=== PATIENT | female | born 1995 | race Caucasian/White ===

== ENCOUNTER 2024-01-31 10:21 | Outpatient (OUT) | payer BC, SELFPAY ==
[2024-01-31 11:02] LABS: Basophils Absolute Auto 0.1 10^3/uL (0.0-0.1); Basophils Percent Auto 0.9 % (0.2-2.0); Eosinophils Absolute Auto 0.1 10^3/uL (0.0-0.7); Eosinophils Percent Auto 0.7 % (0.9-7.0); Hematocrit 40.5 % (36.0-48.0); Hemoglobin 13.4 g/dL (12.0-16.0); Immature Granulocytes Abs Auto 0.02 10^3/uL (0.00-0.03); Immature Granulocytes Pct Auto 0.3 % (0.0-0.5); Lymphocytes Absolute Auto 2.2 10^3/uL (1.2-3.8); Lymphocytes Percent Auto 32.4 % (20.5-60.0); Mean Corpuscular HGB Conc 33.1 g/dL (29.9-35.2); Mean Corpuscular Hemoglobin 28.9 pg (26.7-34.0); Mean Corpuscular Volume 87.3 fL (81.0-99.0); Mean Platelet Volume 9.9 fL (9.5-13.5); Monocytes Absolute Auto 0.4 10^3/uL (0.3-0.8); Monocytes Percent Auto 5.5 % (1.7-12.0); Neutrophils Absolute Auto 4.1 10^3/uL (1.4-6.5); Neutrophils Percent Auto 60.2 % (43.0-75.0); Platelet Count 236 10^3/uL (150-450); Red Blood Count 4.64 10^6/uL (4.20-5.40); Red Cell Distribution Width 13.3 % (11.0-15.0); White Blood Count 6.8 10^3/uL (4.0-11.0)
[2024-01-31 11:04] LABS: Estimated Average Glucose 108 mg/dL; Glycohemoglobin A1C 5.4 % (4.5-6.2)
[2024-01-31 11:30] LABS: HCG Quantitative <1 mIU/mL; Thyroid Stimulating Hormone 1.463 uIU/mL (0.358-3.740)
[2024-01-31 12:12] LABS: Free T4 0.96 ng/dL (0.76-1.46)
[2024-02-01 04:08] LABS: FSH 2.2 mIU/mL (.); Luteinizing Hormone(LH) 4.2 mIU/mL (.)
[2024-02-03 18:08] LABS: Anti-Mullerian Hormone (AMH) 1.81 ng/mL (.)
== END 2024-01-31 10:22 | disposition home or self-care (01) ==
LOC: LAB 10:28
PROVIDERS: Family Provider Family Medicine; Visit Provider Obstetrics & Gynecology
DX: N97.0 Female infertility associated with anovulation (principal)
CPT/HCPCS: 36415; 82397; 82626; 82627; 83001; 83002; 83036; 84439; 84443; 84702; 85025

== ENCOUNTER 2024-02-07 14:37 | Outpatient (OUT) | payer BC, SELFPAY ==
--- NOTE | 2024-02-07 14:39 | US_ITS ---
[address] [address] Patient Name: WILLIE LEGGETT MRN: [id number] date: 1995 Sex: F Assigned Patient Location: [facility] Current Patient Location: Accession/Order Number: [id number] Exam Date: 02/07/2024 14:40 Report Date: 02/08/2024 15:45 At the request of: CHARI SOLOMON Procedure: US pelvis w/ transvaginal EXAMINATION: US pelvis w/ transvaginal HISTORY: Anovulation N97.0 COMPARISON: No relevant comparison available. TECHNIQUE: Transabdominal and/or transvaginal sonographic examination was performed as indicated by examination type. FINDINGS: UTERUS: Normal size and echotexture. Anterior lower uterine wall scar 4 mm in thickness. Uterus size: ENDOMETRIUM: Normal homogeneous appearance. Endometrial thickness: RIGHT OVARY: Normal size and appearance. Contains a 2.0 cm cyst versus dominant follicle. Duplex Doppler demonstrates normal waveform and flow; resistive index 0.7. Ovary size: 2.9 x 2.6 x 2.5 cm LEFT OVARY: Irregular, heterogeneous appearance of left ovary. No significantly increased internal blood flow. Duplex Doppler demonstrates normal waveform and flow; resistive index 0.5. Ovary size: 4.0 x 3.1 x 2.4 cm CUL-DE-SAC: Unremarkable. No significant free fluid. BLADDER: Unremarkable. OTHER: None. US/US pelvis w/ transvaginal IMPRESSION: 1. Heterogeneous masslike appearance of left ovary of uncertain etiology. Neoplasm versus dermoid versus complex cyst. Follow-up ultrasound evaluation in 6 weeks is recommended to document regression versus persistence. Electronically authenticated by: NIKKI NGUYEN Date: 02/08/2024 15:45
== END 2024-02-07 14:38 | disposition home or self-care (01) ==
LOC: NOMS 14:37
PROVIDERS: Family Provider Family Medicine; Visit Provider Obstetrics & Gynecology
DX: N97.0 Female infertility associated with anovulation (principal)
CPT/HCPCS: 76830; 76856

== ENCOUNTER 2024-02-11 11:57 | Outpatient (OUT) | payer BC, SELFPAY ==
[2024-02-11 13:38] LABS: Lactate Dehydrogenase 133 U/L (81-234)
[2024-02-12 04:09] LABS: AFP, Serum, Tumor Marker 2.1 ng/mL (0.0-4.7); CEA 2.2 ng/mL (0.0-4.7); Cancer Antigen (CA) 125 21.8 U/mL (0.0-38.1); HCG Tumor Marker <1 mIU/mL (.)
== END 2024-02-11 11:58 | disposition home or self-care (01) ==
LOC: LAB 11:59
PROVIDERS: Family Provider Family Medicine; Visit Provider Obstetrics & Gynecology
DX: N83.299 Other ovarian cyst, unspecified side (principal)
CPT/HCPCS: 36415; 82105; 82378; 83615; 84702; 86304

== ENCOUNTER 2024-03-08 18:47 | Outpatient (OUT) | payer BC, SELFPAY ==
--- NOTE | 2024-03-08 18:50 | US_ITS ---
[address] [address] Patient Name: WILLIE LEGGETT MRN: [id number] date: 1995 Sex: F Assigned Patient Location: [place] Current Patient Location: Accession/Order Number: [id number] Exam Date: 03/08/2024 19:02 Report Date: 03/09/2024 07:46 At the request of: CHARI SOLOMON Procedure: US pelvis w/ transvaginal EXAMINATION: US pelvis w/ transvaginal HISTORY: COMPLEX OVARIAN CYST N83.299 COMPARISON: Ultrasound pelvis 02/07/2024 TECHNIQUE: Transabdominal and/or transvaginal sonographic examination was performed as indicated by examination type. FINDINGS: UTERUS: Hypoechoic 0.8 cm mass within the lower posterior uterine wall favoring a leiomyoma. Lower anterior uterine wall scar 0.5 cm in thickness. Uterus size: 8.9 x 4.5 x 5.5 cm ENDOMETRIUM: Normal homogeneous appearance. Endometrial thickness: 8 mm RIGHT OVARY: Contains a 1.8 cm cyst and a 2.0 cm simple cyst. Duplex Doppler demonstrates normal waveform and flow; resistive index 0.6. Ovary size: 3.3 x 3.1 x 3.2 cm LEFT OVARY: Contains a 3.1 cm complex cyst versus mass. Duplex Doppler demonstrates normal waveform and flow; resistive index 0.5. Ovary size: 4.3 x 2.6 x 3.1 cm CUL-DE-SAC: Unremarkable. No significant free fluid. BLADDER: Unremarkable. OTHER: None. US/US pelvis w/ transvaginal IMPRESSION: 1. Complex masslike appearance left ovary versus within left ovary; not significantly changed. Additional follow-up ultrasound evaluation in 6 weeks is recommended to document possible regression. If findings persists consider MRI for further evaluation. Electronically authenticated by: NIKKI NGUYEN Date: 03/09/2024 07:46
--- OUTSIDE RECORDS SUMMARY | 2024-03-08 18:51 | XMS_ITS | CCD ---
Author Organization [facility] Care Team Providers Care Teleradiologist Name Role Phone Daija Howard Primary Care Provi tex PAUL GARCIA Referring Unavailable GREENSLADE-CHEL, DAIJA L Primary Care Un available POOL, SUZY E Referring Unavailable GREENSLADE-CHEL, DAIJA L Primary Care Un available POOL, SUZY E Referring Unavailable GREENSLADE-CHEL, DAIJA L Primary Care Un available LEEANN HIDALGO Attending Unavailable GREENSLADE-CHEL, DAIJA L Primary Care Un available POOL, SUZY E Attending Unavailable GREENSLADE-CHEL, DAIJA L Primary Care Un available POOL, SUZY E Admitting Unavailable POOL, SUZY E Attending Unavailable JOSE EARL Admitting Unavailable GREENSLADE-CHEL, DAIJA L Primary Care Un available POOL, SUZY E Referring Unavailable GREENSLADE-CHEL, DAIJA L Primary Care Un available PAUL GARCIA Referring Unavailable GREENSLADE-CHEL, DAIJA L Primary Care Un available POOL, SUZY E Referring Unavailable GREENSLADE-CHEL, DAIJA L Primary Care Un available POOL, SUZY E Referring Unavailable GREENSLADE-CHEL, DAIJA L Primary Care Un available GREENSLADE-CHEL, DAIJA L Primary Care Un available POOL, SUZY E Referring Unavailable GREENSLADE-CHEL, DAIJA L Primary Care Un available POOL, SUZY E Referring Unavailable ERNIE ZURITA Attending Unavailable CHARI SOLOMON Attending Unavailable CHARI SOLOMON Attending Unavailable Medications Current Medications Medication Drug Class(es) Dates Sig (Normalized) Sig (Original) acetaminophen 325 mg / butalbital 50 mg / caffeine 40 mg oral tablet (7 sources) Barbiturate, Central Nervous System Stimulant, Methylxanthine Start: 05-08-2021 butalbital-aceta minophen-caffein e (FIORICET, ESGIC) per tablet 1 tablet Start: 10-02-2020 take 1 tablet by mouth every six hours as needed for headache uzcixbyozi-wwjoppayyovwd-pnjymipx (YAMIL CET, ESGIC) 50-325-40 MG per tablet Take 1 tablet by mouth every 6 hours as needed for Headaches 30 tablet 1 10/02/2020 Active azithromycin 250 mg oral tablet (2 sources) Macrolide Antimicrobial Start: 05-21-2021 azithromycin (ZITHROMAX) 250 MG tablet Indications: Abnormal uterine bleeding, Take 2 tabs (500 mg) on Day 1, and take 1 tab (250 mg) on days 2 through 5. 1 packet 0 05/21/2021 Active calcium chloride 0.0014 meq/ml / potassium chloride 0.004 meq/ml / sodium chloride 0.103 meq/ml / sodium lactate 0.028 meq/ml injectable solution (1 source) Start: 05-08-2021 lactated ringers infusion docusate sodium 100 mg oral capsule (2 sources) Start: 05-14-2021 take 1 capsule by mouth twice daily as needed for constipation docusate sodium (COLACE) 100 MG capsule Take 1 capsule by mouth 2 times daily as needed for Constipation 30 capsule 0 05/14/2021 Active ibuprofen 800 mg oral tablet (2 sources) Nonsteroidal Anti-inflammatory Drug Start: 05-14-2021 take 1 tablet by mouth every eight hours ibuprofen (ADVIL;MOTRIN) 800 MG tablet Take 1 tablet by mouth every 8 hours 120 tablet 3 05/14/2021 Active ondansetron 4 mg oral tablet (4 sources) Serotonin-3 Receptor Antagonist Start: 05-05-2021 take 1 tablet by mouth every eight hours as needed for nausea and vomiting ondansetron (ZOFRAN) 4 MG tablet TAKE ONE TABLET BY MOUTH EVERY 8 HOURS NEEDED FOR NAUSEA AND VOMITING 30 tablet 0 05/05/2021 Active Start: 11-07-2020 take 1 tablet by [facility] every eight hours as needed for nausea and vomiting ondansetron (ZOFRAN) 4 MG tablet TAKE ONE TABLET BY MOUTH EVERY 8 HOURS NEEDED FOR NAUSEA AND VOMITING 30 tablet 0 11/07/2020 Active Vit-Fe Fumarate-FA ( VITAMIN PO) (8 sources) Vit-Fe Fumarate-FA ( VITAMIN PO) Take by mouth 0 Active Completed/Discontinued Medications Medication Drug Class(es) Dates Sig (Normalized) Sig (Original) acetaminophen 500 mg oral tablet (2 sources) Start: 05-08-2021 End: 05-08-2021 acetaminophen (TYLENOL) tablet 1,000 mg Start: 05-08-2021 End: 05-08-2021 acetaminophen (TYLENOL) tabl et 1,000 mg 1 ml ketorolac tromethamine 15 mg/ml cartridge (1 source) Nonsteroidal Anti-inflammatory Drug, Cyclooxygenase Inhibitor Start: 05-25-2021 End: 05-25-2021 ketorolac (TORADOL) injection 30 mg rho(d) immune globulin, human 1500 unt prefilled syringe (1 source) Human Immunoglobulin G Start: 02-26-2021 End: 02-26-2021 rho(D) immune globulin (HYPERRHO S/D) injection 300 mcg 50 ml sodium chloride 9 mg/ml injection (1 source) Start: 05-25-2021 End: 05-25-2021 0.9 % sodium chloride bolus Problems Active Problems Problem Classification Problem Date Documented Da te Episodic/Chronic Diabetes or abnormal glucose tolerance complicating ; childbirth; or the puerperium (1 source) Impaired glucose tolerance in ; Translations: [Abnormal glucose complicating ] Episodic Female infertility (2 sources) Female infertility associated with anovulation; Translations: [Female infertility, unspecified] Onset: 10-14-2023 Chronic Immunizations and screening for infectious disease (5 sources) Anti-D globulin needed; Translations: [Encounter for prophylactic Rho(D) immune globulin] Onset: 05-08-2021 Episodic Menstrual disorders (2 sources) Amenorrhea; Translations: [Amenorrhea] Chronic Other complications of ; puerperium affecting management of mother (1 source) hemorrhage; Translations: [Other immediate hemorrhage] Episodic Other complications of (2 sources) data - finding; Translations: [Unspecified abnormal findings on screening of mother] Onset: 05-11-2021 05-11-2021 Episodic Other female genital disorders (1 source) Vaginal bleeding; Translations: [Abnormal uterine and vaginal bleeding, unspecified] Chronic Other and delivery including normal (4 sources) Urine test positive; Translations: [Normal ] Episodic Residual codes; unclassified (1 source) Gestation period, 27 weeks; Translations: [27 weeks gestation of ] Episodic Residual codes; unclassified (1 source) Gestation period, 36 weeks; Translations: [36 weeks gestation of ] Episodic Residual codes; unclassified (4 sources) Gestation period, 37 weeks; Translations: [37 weeks gestation of ] Onset: 05-08-2021 Episodic Past or Other Problems Problem Classification Problem Date Documented Da te Episodic/Chronic Residual codes; unclassified (2 sources) Gestation period, 38 weeks; Translations: [38 weeks gestation of ] Onset: 05-11-2021 Resolved: 05-21-2021 05-21-2021 Episodic NEGATED: Highlighted row has been ruled out!Unclassified (3 sources) No known active problems Results Test Name Value Interpretation Reference Range Facility HCG, Quanton 12-22-2023 HCG, Quant <1.0 Normal <5 [facility] Comment on above: Result Comment: Non-preg premeno <=5 Postmeno <=8 Male <=3 If HCG results do not concur with clinical observations, additional testing to confirm results is recommended. Performed By: #### B HCG #### [facility] [address] [place] [address] House Builder: Bhanu Chambers MD XR HYSTEROSALPINGOGRAPHY S A ND Ion 12-22-2023 XR HYSTEROSALPINGOGRAPHY S AND I EXAMINATION: FLUOROSCOPIC HYSTEROSALPINGOGRAM 12/22/2023 10:32 am TECHNIQUE: Informed consent was obtained and universal protocol was observed. Fluoroscopic hysterosalpingogram was performed after cannulization of the cervix and administration of contrast into the uterine cavity. FLUOROSCOPY DOSE AND TYPE: Fluoroscopy time-0.8 minute Radiation Exposure Index: Kerma mGy, 11.59 COMPARISON: none HISTORY: ORDERING SYSTEM PROVIDED HISTORY: Secondary infertility, female TECHNOLOGIST PROVIDED HISTORY: Secondary infertility Reason for Exam: Evaluate for infertility; fluoro time 0.8 min; 11.59 mGy FINDINGS: There is normal opacification of the fallopian tubes with free spill of contrast into the peritoneal cavity bilaterally. There is normal filling of the endometrial cavity without evidence of endometrial filling defect. IMPRESSION: Normal hysterosalpingogram. Interpreted by: Gal Blair MD Signed by: Gal Blair MD 12/22/23 Final result Normal [facility] Progesteroneon 10-15-2023 Progesterone 25.40 ng/mL Normal [facility] Comment on above: Result Comment: Female: Follicular phase <0.19 ng/mL Ovulation phase 0.06-4.14 ng/mL Luteal phase 4.11-14.5 ng/mL Postmenopausal <0.13 ng/mL Performed By: #### P ANDREW #### [address] [place] [address] House Builder: Bhanu Chambers MD Lab - Toxicology Resultson 0 01-20-2022 Lab - Toxicology Results [id number] [facility] Measles/Mumps/Rubella Immuni ty LCon 01-20-2022 Mumps Abs, IgG LC 146.0 AU/mL Invalid Interpretation Code Immune >10.9 [facility] Comment on above: Result Comment: Nega tive <9.0 Equivocal 9.0 - 10.9 Positive >10.9 A positive result generally indicates past exposure to Mumps virus or previous vaccination. Performed At: [facility] [id number] Breanna Mendoza PhD Ph:[phone] Performed By: #### 1 [id number], [id number] #### (DEFAULT) [address] [place] [address] Rubella Antibodies, IgG LC 3.65 index Invalid Interpretation Code Immune >0.99 [facility] Comment on above: Result Comment: Non- immune <0.90 Equivocal 0.90 - 0.99 Immune >0.99 Performed By: #### 1 [id number], [id number] #### (DEFAULT) [address] [place] [address] Rubeola Ab, IgG, EIA LC 41.4 AU/mL Invalid Interpretation Code Immune >16.4 [facility] Comment on above: Result Comment: Nega tive <13.5 Equivocal 13.5 - 16.4 Positive >16.4 Presence of antibodies to Rubeola is presumptive evidence of immunity except when acute infection is suspected. Performed By: #### 1 [id number], [id number] #### (DEFAULT) [address] [place] [address] Nicotine Metabolite, Urine L Con 01-20-2022 Cotinine LC Negative Invalid Interpretation Code [id number] [facility] Comment on above: Result Comment: Perf ormed At: [facility] [address] [place], [place] [id number] Ranjith Rendon PhD Ph:[phone] Performed By: #### 1 [id number] #### (DEFAULT) [address] [place] [address] HBSab Qnt LCon 01-18-2022 Hep B Surf Ab Quant LC >1000.0 Invalid Interpretation Code Immunity>9.9 [facility] Comment on above: Result Comment: Stat us of Immunity Anti-HBs Level Inconsistent with Immunity 0.0 - 9.9 Consistent with Immunity >9.9 Performed At: [facility] [address] [id number] Breanna Mendoza PhD Ph:[phone] Performed By: #### 1 [id number], [id number] #### (DEFAULT) [address] [place] [address] Cytologyon 09-29-2021 Cytology (NOTE) INTERPRETATION Cervical material, (ThinPrep vial, Imaging-assisted review): Specimen Adequacy: Satisfactory for evaluation. - Endocervical/transformatio n zone component present. Descriptive Diagnosis: Negative for intraepithelial lesion or malignancy. Acetylene Torch Solderer: VALENTE MARCUS(ASCP) Electronically Signed Out /10/07/2021 Source: A: Cervical material, (ThinPrep vial, Imaging-assisted review) Clinical History Z01.419 Routine tobacco warehouse manager exam without abnormal findings High risk HPV DNA testing is requested if the diagnosis is abnormal GYNECOLOGIC CYTOLOGY REPORT Patient Name: WILLIE LEGGETT [facility] [place] Rec: [id number] Path Number: [id number] [facility] ANAT[facility] PATHOLOG[facility] [address] [place] [id number] Normal [facility] Comment on above: Performed By: #### D AU #### [facility] [address] [place] [address] [place] [address] House Builder: Sami Abbasi MD APTTon 05-25-2021 aPTT Coag (Bld) [Time] 44.1 s High 23.9-33.8 [facility] Comment on above: Result Comment: IV Heparin Therapy Range: 62.0-94.0 Performed By: #### C DP #### [facility] [address] [place] [address] [place] [address] House Builder: Sami Abbasi MD APTTOrdered By: Leeann Hidalgo on 05-25-2021 aPTT Coag (Bld) [Time] 44.1 s High [facility] [employer] Phone: Comment on above: IV Heparin Therapy Range: 62.0-94.0 Interpretation and review of laboratory results Abnormal [employer] Phone: Bandwidth Phone: CBC Auto DifferentialOrdered By: Leeann Hidalgo on 05-25-2021 Absolute Eos # 0.09 [employer] Phone: Absolute Immature Granulocyte 0.04 Band[employer] Phone: Absolute Lymph # 2.13 Band[employer] Phone: Absolute Burnett # 0.61 [employer] Phone: Basophils (Bld) [#/Vol] 0.07 10*3/uL [employer] Phone: Basophils/100 WBC (Bld) 1 % 0 - 2 % M Going Phone: Differential Type NOT REPORTED [employer] Phone: Eosinophils/100 WBC (Bld) 1 % 1 - 4 % Band[employer] Phone: Hematocrit (Bld) [Volume fraction] 31.0 % Low 36.3 - 47.1 % [employer] Phone: Hemoglobin.gastrointest inal spec 1 Ql (Stl) 9.8 g/dL Low 11.9 - 15.1 g/dL [employer] Phone: Immature granulocytes/100 WBC (Bld) 1 % High 0 [employer] Phone: Interpretation and review of laboratory results Abnormal [employer] Phone: Lymphocytes/100 WBC (Bld) 25 % 24 - 43 % [employer] Phone: MCH (RBC) [Entitic mass] 29.0 pg 25.2 - 33.5 pg [employer] Phone: MCHC (RBC) [Mass/Vol] 31.6 g/dL 28.4 - 34.8 g/dL [employer] Phone: MCV (RBC) [Entitic vol] 91.7 fL 82.6 - 102.9 fL [employer] Phone: Monocytes/100 WBC (Bld) 7 % 3 - 12 % M Going Phone: NRBC Automated 0.0 0.0 per 100 WBC [employer] Phone: Platelet distribution width (Bld) [Ratio] 14.7 % High 11.8 - 14.4 % Band[employer] Phone: Platelet Estimate NOT REPORTED [employer] Phone: Platelet mean volume (Bld) [Entitic vol] 8.0 fL Low 8.1 - 13.5 fL [employer] Phone: Platelets (Bld) [#/Vol] 399 10*3/uL [facility]: RBC (Bld) [#/Vol] 3.38 10*6/uL Low 3.95 - 5.1 1 m/uL [facility] Phone: RBC (Bld) [#/Vol] NOT REPORTED [employer] Phone: Segmented neutrophils/100 WBC (Bld) 65 % 36 - 65 % Band[employer] Phone: Segs Absolute 5.57 [facility] Phone: WBC (Bld) [#/Vol] 8.5 10*3/uL [employer] Phone: WBC (Bld) [#/Vol] NOT REPORTED Bandwidth Phone: Bandwidth Phone: CBC with Diffon 05-25-2021 Abs. Basophil 0.07 k/uL Normal 0.00-0.20 [facility] Comment on above: Performed By: #### C FELICIANO VILCHIS, LIP #### [address] [place], [id number] House Builder: Sami Abbasi MD Abs.Imm.Granulocyte 0.04 k/uL Normal 0.00-0.30 [facility] Comment on above: Performed By: #### C FELICIANO VILCHIS, LIP #### [address] [place], [place] [id number] House Builder: Sami Abbasi MD Abs.Neutrophil (Seg) 5.57 k/uL Normal 1.50-8.10 [facility] Comment on above: Performed By: #### C DENG CP, LIP #### [address] [place], [place] [phone] House Builder: Sami Abbasi MD Basophils/100 WBC (Bld) 1 % Normal 0-2 [facility] Comment on above: Performed By: #### C DP, CP, LIP #### [address] [place] [address] House Builder: Sami Abbasi MD Eosinophils (Bld) [#/Vol] 0.09 10*3/uL Normal 0.00-0.44 [facility] Comment on above: Performed By: #### C DP, CP, LIP #### [address] [place], [place] [address] House Builder: Sami Abbasi MD Eosinophils/100 WBC (Bld) 1 % Normal 1-4 [facility] Comment on above: Performed By: #### C DP, CP, LIP #### [address] [place] [address] House Builder: Sami Abbasi MD Erythrocyte distribution width (RBC) [Ratio] 14.7 % High 11.8-14.4 [facility] Comment on above: Performed By: #### C DP, CP, LIP #### [address] [place] [address] House Builder: Sami Abbasi MD Hematocrit (Bld) [Volume fraction] 31.0 % Low 36.3-47.1 [facility] Comment on above: Performed By: #### C DP, CP, LIP #### [address] [place], [place] [address] House Builder: Sami Abbasi MD Hemoglobin (Bld) [Mass/Vol] 9.8 g/dL Low 11.9-15.1 [facility] Comment on above: Performed By: #### C DP, CP, LIP #### [address] [place], [id number] House Builder: Sami Abbasi MD Immature granulocytes/100 WBC (Bld) 1 % High 0 [facility] Comment on above: Performed By: #### C DP, CP, LIP #### [facility] [address] [place] [address] House Builder: Sami Abbasi MD Lymphocytes (Bld) [#/Vol] 2.13 10*3/uL Normal 1.10-3.70 [facility] Comment on above: Performed By: #### C DP, CP, LIP #### [address] [place], [place] [address] House Builder: Sami Abbasi MD Lymphocytes/100 WBC (Bld) 25 % Normal 24-43 [facility] Comment on above: Performed By: #### C DP CP, LIP #### [address] [place], [id number] House Builder: Sami Abbasi MD MCH (RBC) [Entitic mass] 29.0 pg Normal 25.2-33.5 [facility] Comment on above: Performed By: #### C DP CP, LIP #### [address] [place], [id number] House Builder: Sami Abbasi MD MCHC (RBC) [Mass/Vol] 31.6 g/dL Normal 28.4-34.8 [facility] Comment on above: Performed By: #### C DP CP, LIP #### [address] [place], [place] [address] House Builder: Sami Abbasi MD MCV (RBC) [Entitic vol] 91.7 fL Normal 82.6-102.9 M [facility] Comment on above: Performed By: #### C DP CP, LIP #### [address] [place], [place] [id number] House Builder: Sami Abbasi MD Monocytes (Bld) [#/Vol] 0.61 10*3/uL Normal 0.10-1.20 [facility] Comment on above: Performed By: #### C DP, CP, LIP #### [facility] [address] [place], [id number] House Builder: Sami Abbasi MD Monocytes/100 WBC (Bld) 7 % Normal 3-12 M [facility] Comment on above: Performed By: #### C DP, CP, LIP #### [facility] [address] [place], [id number] House Builder: Sami Abbasi MD Neutrophil (Seg) 65 % Normal 36-65 [facility] Comment on above: Performed By: #### C DP, CP, LIP #### [facility] [address] [place] [address] House Builder: Sami Abbasi MD NRBC Automated 0.0 per 100 WBC Normal 0.0 [facility] Comment on above: Performed By: #### C DP, CP, LIP #### [address] [place], [place] [address] House Builder: Sami Abbasi MD Platelet mean volume (Bld) [Entitic vol] 8.0 fL Low 8.1-13.5 [facility] Comment on above: Performed By: #### C DP, CP, LIP #### [address] [place], [place] [address] House Builder: Sami Abbasi MD Platelets (Bld) [#/Vol] 399 10*3/uL Normal 138-453 [facility] Comment on above: Performed By: #### C DP, CP, LIP #### [address] [place], [id number] House Builder: Sami Abbasi MD RBC (Bld) [#/Vol] 3.38 10*6/uL Low 3.95-5.11 [facility] Comment on above: Performed By: #### C DP, CP, LIP #### [address] [place] [id number] House Builder: Sami Abbasi MD WBC (Bld) [#/Vol] 8.5 10*3/uL Normal 3.5-11.3 [facility] Comment on above: Performed By: #### C DP, CP, LIP #### [facility] [address] [place] [address] House Builder: Sami Abbasi MD Auto Diff Performed NOT REPORTED Normal [facility] Comment on above: Performed By: #### C DP, CP, LIP #### [facility] [address] [place] [address] [place] [address] House Builder: Sami Abbasi MD Platelet Estimate NOT REPORTED Normal [facility] Comment on above: Performed By: #### C DP, CP, LIP #### [address] [place] [address] House Builder: Sami Abbasi MD RBC morphology finding Nom (Bld) NOT REPORTED Normal [facility] Comment on above: Performed By: #### C DP, CP, LIP #### [address] [place], [id number] House Builder: Sami Abbasi MD WBC Morphology NOT REPORTED Normal [facility] Comment on above: Performed By: #### C DP, CP, LIP #### [facility] [address] [place] [address] Dr. [place], [place] [address] House Builder: Sami Abbasi MD Comp Metabolic Profon 2020 (cont.) Normal [facility] Comment on above: Result Comment: Aver age GFR for 20-29 years old: 116 mL/min/1.73sq m Chronic Kidney Disease: <60 mL/min/1.73sq m Kidney failure: <15 mL/min/1.73sq m eGFR calculated using average adult body mass. Additional eGFR calculator available at: http://www.[employer]/multiple_crcl_2011.htm Performed By: #### C DP, CP, LIP #### [facility] [address] [place], [place] [id number] House Builder: Sami Abbasi MD Albumin [Mass/Vol] 3.4 g/dL Low 3.5-5.2 [facility] Comment on above: Performed By: #### C DP, CP, LIP #### [facility] [address] [place], [place] [id number] House Builder: Sami Abbasi MD Albumin/Glob Ratio 1.0 Normal 1.0-2.5 [facility] Comment on above: Performed By: #### C DP, CP, LIP #### [address] [place], [place] [phone] House Builder: Sami Abbasi MD Alkaline Phos 108 U/L High 35-104 [facility] Comment on above: Performed By: #### C DP, CP, LIP #### [facility] [address] [place] [address] Dr. [place], [place] [phone] House Builder: Sami Abbasi MD ALT [Catalytic activity/Vol] 12 U/L Normal 5-33 [facility] Comment on above: Performed By: #### C DP, CP, LIP #### [address] [place], [place] [id number] House Builder: Sami Abbasi MD Anion gap [Moles/Vol] 11 mmol/L Normal 9-17 [facility] Comment on above: Performed By: #### C DP, CP, LIP #### [facility] [address] [place] [address] Dr. [place], [place] [phone] House Builder: Sami Abbasi MD AST [Catalytic activity/Vol] 19 U/L Normal <32 [facility] Comment on above: Performed By: #### C DP, CP, LIP #### [facility] [address] [place], [place] [id number] House Builder: Sami Abbasi MD Bilirubin [Mass/Vol] 0.21 mg/dL Low 0.3-1.2 [facility] Comment on above: Performed By: #### C DP, CP, LIP #### [facility] [address] [place], [place] [phone] House Builder: Sami Abbasi MD BUN/CRE Ratio 43 High 9-20 [facility] Comment on above: Performed By: #### C DP, CP, LIP #### [facility] [address] [place] [address] House Builder: Sami Abbasi MD Calcium [Mass/Vol] 9.0 mg/dL Normal 8.6-10.4 [facility] Comment on above: Performed By: #### C DP, CP, LIP #### [facility] [address] [place], [id number] House Builder: Sami Abbasi MD Chloride [Moles/Vol] 106 mmol/L Normal 98-107 [facility] Comment on above: Performed By: #### C DP, CP, LIP #### [facility] [address] [place] [address] House Builder: Sami Abbasi MD CO2 [Moles/Vol] 23 mmol/L Normal 20-31 [facility] Comment on above: Performed By: #### C DP, CP, LIP #### [facility] [address] [place], [place] [id number] House Builder: Sami Abbasi MD Creatinine [Mass/Vol] 0.46 mg/dL Low 0.50-0.90 [facility] Comment on above: Performed By: #### C DP, CP, LIP #### [facility] [address] [place], [place] [phone] House Builder: Sami Abbasi MD GFR, Amer >60 Normal >60 [facility] Comment on above: Performed By: #### C DP, CP, LIP #### [facility] [address] [place] [address] House Builder: Sami Abbasi MD GFR,non Amer >60 Normal >60 [facility] Comment on above: Performed By: #### C DP, CP, LIP #### [facility] [address] [place] [address] House Builder: Sami Abbasi MD Glucose [Mass/Vol] 101 mg/dL High 70-99 [facility] Comment on above: Performed By: #### C DP, CP, LIP #### [facility] [address] [place] [address] House Builder: Sami Abbasi MD Potassium [Moles/Vol] 3.8 mmol/L Normal 3.7-5.3 [facility] Comment on above: Performed By: #### C DP, CP, LIP #### [facility] [address] [place] [address] [place] [address] House Builder: Sami Abbasi MD Protein [Mass/Vol] 6.9 g/dL Normal 6.4-8.3 [facility] Comment on above: Performed By: #### C DP, CP, LIP #### [address] [place] [address] House Builder: Sami Abbasi MD Sodium [Moles/Vol] 140 mmol/L Normal 135-144 [facility] Comment on above: Performed By: #### C DP, CP, LIP #### [facility] [address] [place] [address] [place] [place], [place] [id number] House Builder: Sami Abbasi MD Staging: Normal [facility] Comment on above: Result Comment: Stag e 1: Some kidney damage normal GFR Stage 2: Mild kidney damage GFR 60-89 Stage 3: Moderate kidney damage GFR 30-59 Stage 4: Severe kidney damage GFR 15-29 Stage 5: Severe kidney damage GFR <15 ESRD - chronic treatment by dialysis or transplant Performed By: #### C DP, CP, LIP #### [facility] [address] [place] [address] House Builder: Sami Abbasi MD Urea nitrogen [Mass/Vol] 20 mg/dL Normal 6-20 [facility] Comment on above: Performed By: #### C DP, CP, LIP #### [facility] [address] [place] [address] House Builder: Sami Abbasi MD Comprehensive Metabolic Pane lOrdered By: Leeann Hidalgo on 05-25-2021 Albumin [Mass/Vol] 3.4 g/dL Low 3.5 - 5.2 g/dL [employer] Phone: Albumin/Globulin [Mass ratio] 1.0 {ratio} [employer] Phone: ALP (Bld) [Catalytic activity/Vol] 108 U/L High 35 - 104 [facility]: ALT [Catalytic activity/Vol] 12 U/L 5 - 33 U/L [facility] Phone: Anion gap [Moles/Vol] 11 mmol/L 9 - 17 mmol/L [employer] Phone: AST [Catalytic activity/Vol] 19 U/L <32 [employer] Phone: Bilirubin [Mass/Vol] 0.21 mg/dL Low 0.3 - 1 .2 mg/dL [employer] Phone: Calcium [Mass/Vol] 9.0 mg/dL 8.6 - 10. 4 mg/dL [employer] Phone: Chloride [Moles/Vol] 106 mmol/L 98 - 10 7 mmol/L [employer] Phone: CO2 [Moles/Vol] 23 mmol/L 20 - 31 mmol/L [employer] Phone: Creatinine [Mass/Vol] 0.46 mg/dL Low 0.50 - 0.90 mg/dL [employer] Phone: Free PSA/Total PSA [Mass fraction] 6.9 g/dL 6.4 - 8.3 g/dL [employer] Phone: GFR >60 >60 mL/min [employer] Phone: GFR Non- >60 >60 mL/min [employer] Phone: Glucose [Mass/Vol] 101 mg/dL High 70 - 99 mg/dL [employer] Phone: Interpretation and review of laboratory results Abnormal [employer] Phone: Potassium [Moles/Vol] 3.8 mmol/L 3.7 - 5.3 mmol/L [employer] Phone: Sodium [Moles/Vol] 140 mmol/L 135 - 144 mmol/L [employer] Phone: Urea nitrogen (BldV) [Mass/Vol] 20 mg/dL 6 - 20 mg/dL [employer] Phone: Urea nitrogen/Creatinine (Bld) [Mass ratio] 43 High [employer] Phone: Laboratory - Chemistry and C hemistry - challengeOrdered By: Leeann Hidalgo on 05-25-2021 GFR/1.73 sq M.predicted MDRD (S/P/Bld) [Vol rate/Area] [employer] Phone: Comment on above: Average GFR for 20-2 9 years old: 116 mL/min/1.73sq m Chronic Kidney Disease: <60 mL/min/1.73sq m Kidney failure: <15 mL/min/1.73sq m eGFR calculated using average adult body mass. Additional eGFR calculator available at: http://www.[employer]/multiple_crcl_2012.htm Stage 1: Some kidney damage normal GFR Stage 2: Mild kidney damage GFR 60-89 Stage 3: Moderate kidney damage GFR 30-59 Stage 4: Severe kidney damage GFR 15-29 Stage 5: Severe kidney damage GFR <15 ESRD - chronic treatment by dialysis or transplant Lipaseon 05-25-2021 Lipase [Catalytic activity/Vol] 32 U/L Normal 13-60 [facility] Comment on above: Performed By: #### C DP, CP, LIP #### [facility] [address] [place] [address] [place] [address] House Builder: Sami Abbasi MD LipaseOrdered By: Leeann Sánchez dd on 05-25-2021 Lipase [Catalytic activity/Vol] 32 U/L 13 - 60 U/L [facility] [employer] Phone: No Panel InformationOrdered By: Leeann Hidalgo on 05-25-2021 [facility] [employer] Phone: PTon 05-25-2021 INR Coag (PPP) [Relative time] 1.1 {INR} Normal [facility] Comment on above: Result Comment: Non-therapeutic Range: INR = 0.9-1.2 Therapeutic Range: Moderate Anticoagulant Intensity: INR = 2.0-3.0 High Anticoagulant Intensity: INR = 2.5-3.5 Performed By: #### C DP #### [address] [place] [address] House Builder: Sami Abbasi MD PTOrdered By: Leeann polk 05-25-2021 PT Coag (PPP) [Time] 14.1 s Normal 11.5-14.2 [facility] [employer] Phone: Comment on above: Performed By: #### C DP #### [address] [place] [address] House Builder: Sami Abbasi MD Protime-INROrdered By: Jesica Hidalgo on 05-25-2021 INR Coag (Bld) [Relative time] 1.1 {INR} [facility] Phone: Comment on above: Non-therapeutic Range: INR = 0.9-1.2 Therapeutic Range: Moderate Anticoagulant Intensity: INR = 2.0-3.0 High Anticoagulant Intensity: INR = 2.5-3.5 [employer] Phone: TYPE AND SCREENOrdered By: Arturo Hidalgo on 05-25-2021 ABO/Rh Negative [employer] Phone: Arm Band Number [id number] [employer] Phone: Expiration Date 05/28/2021,235 [employer] Phone: [employer] Phone: Type + Screenon 05-25-2021 Type + Screen Sample Expiration 05/28/2021,235 Arm Band Number [id number] ABO/Rh(D) A NEGATIVE Antibody Screen NEGATIVE Normal [facility] Comment on above: Performed By: #### C DP #### [facility] [address] [place] [address] House Builder: Sami Abbasi MD CBC Auto DifferentialOrdered By: Paul Garcia on 05-21-2021 Absolute Eos # 0.11 [employer] Phone: Absolute Immature Granulocyte 0.08 [employer] Phone: Absolute Lymph # 1.80 [employer] Phone: Absolute Burnett # 0.75 [employer] Phone: Basophils (Bld) [#/Vol] 0.06 10*3/uL [employer] Phone: Basophils/100 WBC (Bld) 1 % 0 - 2 % [employer] Phone: Differential Type NOT REPORTED [employer] Phone: Eosinophils/100 WBC (Bld) 1 % 1 - 4 % [employer] Phone: Hematocrit (Bld) [Volume fraction] 30.7 % Low 36.3 - 47.1 % [employer] Phone: Hemoglobin.gastrointest inal spec 1 Ql (Stl) 9.8 g/dL Low 11.9 - 15.1 g/dL [employer] Phone: Immature granulocytes/100 WBC (Bld) 1 % High 0 [employer] Phone: Interpretation and review of laboratory results Abnormal [employer] Phone: Lymphocytes/100 WBC (Bld) 20 % Low 24 - 43 % [employer] Phone: MCH (RBC) [Entitic mass] 29.6 pg 25.2 - 33.5 pg [employer] Phone: MCHC (RBC) [Mass/Vol] 31.9 g/dL 28.4 - 34.8 g/dL [employer] Phone: MCV (RBC) [Entitic vol] 92.7 fL 82.6 - 102.9 fL [employer] Phone: Monocytes/100 WBC (Bld) 9 % 3 - 12 % [employer] Phone: NRBC Automated 0.0 0.0 per 100 WBC [employer] Phone: Platelet distribution width (Bld) [Ratio] 14.9 % High 11.8 - 14.4 % [employer] Phone: Platelet Estimate NOT REPORTED [employer] Phone: Platelet mean volume (Bld) [Entitic vol] 8.2 fL 8.1 - 13.5 fL [employer] Phone: Platelets (Bld) [#/Vol] 465 10*3/uL High [employer] Phone: RBC (Bld) [#/Vol] 3.31 10*6/uL Low 3.95 - 5.1 1 m/uL [employer] Phone: RBC (Bld) [#/Vol] NOT REPORTED [employer] Phone: Segmented neutrophils/100 WBC (Bld) 68 % High 36 - 65 % [facility] [employer] Phone: Segs Absolute 6.06 [facility] [employer] Phone: WBC (Bld) [#/Vol] 8.9 10*3/uL [facility] [employer] Phone: WBC (Bld) [#/Vol] NOT REPORTED [facility] Phone: [facility] Phone: CBC with Diffon 05-21-2021 Abs. Basophil 0.06 k/uL Normal 0.00-0.20 [facility] Comment on above: Performed By: #### C DP #### [facility] [address] [place] [address] [place] [id number] House Builder: Saim Abbasi MD Abs.Imm.Granulocyte 0.08 k/uL Normal 0.00-0.30 [facility] Comment on above: Performed By: #### C DP #### [facility] [address] [place] [address] [place] [address] House Builder: Sami Abbasi MD Abs.Neutrophil (Seg) 6.06 k/uL Normal 1.50-8.10 [facility] Comment on above: Performed By: #### C DP #### [facility] [address] [place] [address] Dr. [place], [id number] House Builder: Sami Abbasi MD Basophils/100 WBC (Bld) 1 % Normal 0-2 M [facility] Comment on above: Performed By: #### C DP #### [facility] [address] [place] [address] [place] [address] House Builder: Sami Abbasi MD Eosinophils (Bld) [#/Vol] 0.11 10*3/uL Normal 0.00-0.44 [facility] Comment on above: Performed By: #### C DP #### [facility] [address] [place], [place] [id number] House Builder: Sami Abbasi MD Eosinophils/100 WBC (Bld) 1 % Normal 1-4 [facility] Comment on above: Performed By: #### C DP #### [facility] [address] [place] [address] Dr. [place], [place] [phone] House Builder: Sami Abbasi MD Erythrocyte distribution width (RBC) [Ratio] 14.9 % High 11.8-14.4 [facility] Comment on above: Performed By: #### C DP #### [address] [place], [id number] House Builder: Sami Abbasi MD Hematocrit (Bld) [Volume fraction] 30.7 % Low 36.3-47.1 [facility] Comment on above: Performed By: #### C DP #### [facility] [address] [place] [address] Dr. [place], [id number] House Builder: Sami Abbasi MD Hemoglobin (Bld) [Mass/Vol] 9.8 g/dL Low 11.9-15.1 [facility] Comment on above: Performed By: #### C DP #### [address] [place], [place] [phone] House Builder: Sami Abbasi MD Immature granulocytes/100 WBC (Bld) 1 % High 0 [facility] Comment on above: Performed By: #### C DP #### [facility] [address] [place] [address] Dr. [place], [id number] House Builder: Sami Abbasi MD Lymphocytes (Bld) [#/Vol] 1.80 10*3/uL Normal 1.10-3.70 [facility] Comment on above: Performed By: #### C DP #### [facility] [address] [place] [address] [place] [address] House Builder: Sami Abbasi MD Lymphocytes/100 WBC (Bld) 20 % Low 24-43 [facility] Comment on above: Performed By: #### C DP #### [facility] [address] [place], [place] [address] House Builder: Sami Abbasi MD MCH (RBC) [Entitic mass] 29.6 pg Normal 25.2-33.5 [facility] Comment on above: Performed By: #### C DP #### [address] [place], [place] [address] House Builder: Sami Abbasi MD MCHC (RBC) [Mass/Vol] 31.9 g/dL Normal 28.4-34.8 [facility] Comment on above: Performed By: #### C DP #### [address] [place] [address] House Builder: Sami Abbasi MD MCV (RBC) [Entitic vol] 92.7 fL Normal 82.6-102.9 [facility] Comment on above: Performed By: #### C DP #### [address] [place], [place] [address] House Builder: Sami Abbasi MD Monocytes (Bld) [#/Vol] 0.75 10*3/uL Normal 0.10-1.20 [facility] Comment on above: Performed By: #### C DP #### [facility] [address] [place] [address] Dr. [place], [id number] House Builder: Sami Abbasi MD Monocytes/100 WBC (Bld) 9 % Normal 3-12 M [facility] Comment on above: Performed By: #### C DP #### [address] [place], [id number] House Builder: Sami Abbasi MD Neutrophil (Seg) 68 % High 36-65 [facility] Comment on above: Performed By: #### C DP #### [facility] [address] [place], [place] [phone] House Builder: Sami Abbasi MD NRBC Automated 0.0 per 100 WBC Normal 0.0 [facility] Comment on above: Performed By: #### C DP #### [facility] [address] [place], [place] [phone] House Builder: Sami Abbasi MD Platelet mean volume (Bld) [Entitic vol] 8.2 fL Normal 8.1-13.5 [facility] Comment on above: Performed By: #### C DP #### [facility] [address] [place], [place] [phone] House Builder: Sami Abbasi MD Platelets (Bld) [#/Vol] 465 10*3/uL High 138-453 [facility] Comment on above: Performed By: #### C DP #### [address] [place], [place] [phone] House Builder: Sami Abbasi MD RBC (Bld) [#/Vol] 3.31 10*6/uL Low 3.95-5.11 [facility] Comment on above: Performed By: #### C DP #### [address] [place], [place] [phone] House Builder: Sami Abbasi MD WBC (Bld) [#/Vol] 8.9 10*3/uL Normal 3.5-11.3 [facility] Comment on above: Performed By: #### C DP #### [facility] [address] [place], [place] [phone] House Builder: Sami Abbasi MD Auto Diff Performed NOT REPORTED Normal [facility] Comment on above: Performed By: #### C DP #### [facility] [address] [place], [place] 7128983 House Builder: Sami Abbasi MD Platelet Estimate NOT REPORTED Normal [facility] Comment on above: Performed By: #### C DP #### [facility] [address] [place] [address] House Builder: Sami Abbasi MD RBC morphology finding Nom (Bld) NOT REPORTED Normal [facility] Comment on above: Performed By: #### C DP #### [facility] [address] [place], [place] [phone] House Builder: Sami Abbasi MD WBC Morphology NOT REPORTED Normal [facility] Comment on above: Performed By: #### C DP #### [facility] [address] [place], [place] [phone] House Builder: Sami Abbasi MD HCG, Quanton 05-21-2021 HCG, Quant 44 IU/L High <5 [facility] Comment on above: Result Comment: Non-preg premeno <=5 Postmeno <=8 Male <=3 If HCG results do not concur with clinical observations, additional testing to confirm results is recommended. Elevated results not associated with may be found in patients with other diseases such as tumors of the germ cells (testis, ovaries, etc.), bladder, pancreas, stomach, lungs, and liver. Performed By: #### B HCG #### [facility] [address] [place], [place] 958[address]83 House Builder: Sami Abbasi MD US NON OB TRANSVAGINALon US NON OB TRANSVAGINAL EXAMINATION: PELVIC ULTRASOUND 05/21/2021 TECHNIQUE: Transvaginal pelvic ultrasound was performed. COMPARISON: CT scan 13 May 2021 HISTORY: ORDERING SYSTEM PROVIDED HISTORY: Retained placenta, unspecified portion of placenta TECHNOLOGIST PROVIDED HISTORY: possible retained placenta FINDINGS: Measurements: Uterus: 10.3 x 8.0 x 5.6 cm Endometrial stripe: 1 cm Ultrasound Findings: Uterus: Questionable 2.6 x 2.4 cm hypoechoic area within the uterine wall seen only on coronal scan. This examination was limited by patient pain. Endometrial stripe: Difficult to clearly visualize but appears to measure 1 cm. Right Ovary: Not visualized. Left Ovary: Not visualized. Free Fluid: Mild free fluid. IMPRESSION: Endometrial thickness of 1 cm raises suspicion of retained products of conception. Interpreted by: Joshua Lerner Signed by: Joshua Lerner 05/21/21 Final result Normal [facility] hCG, Quantitative, Ordered By: Paul Garcia on 05-21-2021 hCG Quant 44 High <5 IU/L [facility] [employer] Phone: Comment on above: Non-preg premeno <=5 Postmeno <=8 Male <=3 If HCG results do not concur with clinical observations, additional testing to confirm results is recommended. Elevated results not associated with may be found in patients with other diseases such as tumors of the germ cells (testis, ovaries, etc.), bladder, pancreas, stomach, lungs, and liver. Interpretation and review of laboratory results Abnormal [employer] Phone: [employer] Phone: CBC with Diffon 05-14-2021 Abs. Basophil 0.12 k/uL Normal 0.0-0.2 [facility] Comment on above: Performed By: #### D AU #### [facility] [address] [place] [address] House Builder: Sami Abbasi MD Abs.Imm.Granulocyte 0.48 k/uL High 0.00-0.30 [facility] Comment on above: Performed By: #### D AU #### [facility] [address] [place] [address] House Builder: Sami Abbasi MD Abs.Neutrophil (Seg) 8.71 k/uL High 1.50-8.10 [facility] Comment on above: Performed By: #### D AU #### [facility] [address] [place] [address] House Builder: Sami Abbasi MD Basophils/100 WBC (Bld) 1 % Normal 0-2 M [facility] Comment on above: Performed By: #### D AU #### [facility] [address] [place] [phone] House Builder: Sami Abbasi MD Eosinophils (Bld) [#/Vol] 0.12 10*3/uL Normal 0.00-0.44 [facility] Comment on above: Performed By: #### D AU #### [facility] [address] [place] [address] House Builder: Sami Abbasi MD Eosinophils/100 WBC (Bld) 1 % Normal 1-4 [facility] Comment on above: Performed By: #### D AU #### [facility] [address] [place] [phone] House Builder: Sami Abbasi MD Immature granulocytes/100 WBC (Bld) 4 % High 0 [facility] Comment on above: Performed By: #### D AU #### [facility] [address] [place] [address] Dr[place] [phone] ( House Builder: Sami Abbasi MD Lymphocytes (Bld) [#/Vol] 2.17 10*3/uL Normal 1.10-3.70 [facility] Comment on above: Performed By: #### D AU #### [facility] [address] [place] [address] [place] [address] House Builder: Sami Abbasi MD Lymphocytes/100 WBC (Bld) 18 % Low 24-43 [facility] Comment on above: Performed By: #### D AU #### [facility] [address] [place], [id number] House Builder: Sami Abbasi MD Monocytes (Bld) [#/Vol] 0.48 10*3/uL Normal 0.10-1.20 [facility] Comment on above: Performed By: #### D AU #### [facility] [address] [place] [address] House Builder: Sami Abbasi MD Monocytes/100 WBC (Bld) 4 % Normal 3-12 M [facility] Comment on above: Performed By: #### D AU #### [facility] [address] [place], [place] [phone] House Builder: Sami Abbasi MD Morphology Andrea (Bld) [Interp] Normal Normal [facility] Comment on above: Performed By: #### D AU #### [facility] [address] [place] [phone] House Builder: Sami Abbasi MD Neutrophil (Seg) 72 % High 36-65 [facility] Comment on above: Performed By: #### D AU #### [facility] [address] [place] [phone] House Builder: Sami Abbasi MD Nucleated RBC'S 1 per 100 WBC Normal 0-5 [facility] Comment on above: Performed By: #### D AU #### [address] [place] [id number] House Builder: Sami Abbasi MD WBC (Bld) [#/Vol] 12.1 10*3/uL High 3.5-11.3 [facility] Comment on above: Result Comment: ADJU STED FOR NUCLEATED RBC'S CORRECTED ON 05/14 AT 1813: PREVIOUSLY REPORTED 12.2 Performed By: #### D AU #### [address] [place] [phone] House Builder: Sami Abbasi MD Erythrocyte distribution width (RBC) [Ratio] 14.8 % High 11.8-14.4 [facility] Comment on above: Performed By: #### D AU #### [facility] [address] [place] [address] Dr. [place] [phone] House Builder: Sami Abbasi MD Hematocrit (Bld) [Volume fraction] 35.2 % Low 36.3-47.1 [facility] Comment on above: Performed By: #### D AU #### [address] [place] [phone] House Builder: Sami Abbasi MD Hemoglobin (Bld) [Mass/Vol] 11.9 g/dL Normal 11.9-15.1 [facility] Comment on above: Performed By: #### D AU #### [facility] [address] [place] [address] Dr. [place], [place] 9863283 House Builder: Sami Abbasi MD MCH (RBC) [Entitic mass] 30.4 pg Normal 25.2-33.5 [facility] Comment on above: Performed By: #### D AU #### [address] [place], [place] [phone] House Builder: Sami Abbasi MD MCHC (RBC) [Mass/Vol] 33.8 g/dL Normal 28.4-34.8 [facility] Comment on above: Performed By: #### D AU #### [address] [place], [id number] House Builder: Sami Abbasi MD MCV (RBC) [Entitic vol] 89.8 fL Normal 82.6-102.9 M [facility] Comment on above: Performed By: #### D AU #### [address] [place], [place] [phone] House Builder: Sami Abbasi MD NRBC Automated 0.2 per 100 WBC High 0.0 [facility] Comment on above: Performed By: #### D AU #### [address] [place], [place] [phone] House Builder: Sami Abbasi MD Platelet mean volume (Bld) [Entitic vol] 9.9 fL Normal 8.1-13.5 [facility] Comment on above: Performed By: #### D AU #### [facility] [address] [place] [address] Dr. [place], [place] [phone] House Builder: Sami Abbasi MD Platelets (Bld) [#/Vol] 154 10*3/uL Normal 138-453 [facility] Comment on above: Performed By: #### D AU #### [facility] [address] [place] [address] House Builder: Sami Abbasi MD RBC (Bld) [#/Vol] 3.92 10*6/uL Low 3.95-5.11 [facility] Comment on above: Performed By: #### D AU #### [facility] [address] [place], [place] 747[address]83 House Builder: Sami Abbasi MD Auto Diff Performed NOT REPORTED Normal [facility] Comment on above: Performed By: #### D AU #### [facility] [address] [place] [address] House Builder: aSmi Abbasi MD Platelet Estimate NOT REPORTED Normal [facility] Comment on above: Performed By: #### D AU #### [facility] [address] [place] [address] House Builder: Sami Abbasi MD RBC morphology finding Nom (Bld) NOT REPORTED Normal [facility] Comment on above: Performed By: #### D AU #### [facility] [address] [place] [address] House Builder: Sami Abbasi MD WBC Morphology NOT REPORTED Normal [facility] Comment on above: Performed By: #### D AU #### [facility] [address] [place] [address] House Builder: Sami Abbasi MD Abs. Basophil 0.00 k/uL Normal 0.0-0.2 [facility] Comment on above: Performed By: #### H H #### [facility] [address] [place], [place] 8208883 House Builder: Sami Abbasi MD Abs.Imm.Granulocyte 0.00 k/uL Normal 0.00-0.30 [facility] Comment on above: Performed By: #### H H #### [facility] [address] [place], [place] [phone] House Builder: Sami Abbasi MD Abs.Neutrophil (Seg) 10.05 k/uL High 1.50-8.10 [facility] Comment on above: Performed By: #### H H #### [facility] [address] [place] [id number] House Builder: Sami Abbasi MD Basophils/100 WBC (Bld) 0 % Normal 0-2 [facility] Comment on above: Performed By: #### H H #### [facility] [address] [place] [id number] House Builder: Sami Abbasi MD Eosinophils (Bld) [#/Vol] 0.00 10*3/uL Normal 0.00-0.44 [facility] Comment on above: Performed By: #### H H #### [facility] [address] [place] [address] Dr. [place], [place] [address] House Builder: Sami Abbasi MD Eosinophils/100 WBC (Bld) 0 % Low 1-4 [facility] Comment on above: Performed By: #### H H #### [facility] [address] [place] [address] Dr. Bcuhanan [id number] House Builder: Sami Abbasi MD Immature granulocytes/100 WBC (Bld) 0 % Normal 0 [facility] Comment on above: Performed By: #### H H #### [facility] [address] [place], [place] [id number] House Builder: Sami Abbasi MD Lymphocytes (Bld) [#/Vol] 1.98 10*3/uL Normal 1.10-3.70 [facility] Comment on above: Performed By: #### H H #### [facility] [address] [place] [id number] House Builder: Sami Abbasi MD Lymphocytes/100 WBC (Bld) 16 % Low 24-43 [facility] Comment on above: Performed By: #### H H #### [facility] [address] [place] [address] House Builder: Sami Abbasi MD Monocytes (Bld) [#/Vol] 0.37 10*3/uL Normal 0.10-1.20 [facility] Comment on above: Performed By: #### H H #### [facility] [address] [place] [id number] House Builder: Sami Abbasi MD Monocytes/100 WBC (Bld) 3 % Normal 3-12 M [facility] Comment on above: Performed By: #### H H #### [facility] [address] [place], [id number] House Builder: Sami Abbasi MD Morphology Andrea (Bld) [Interp] 1+ Normal [facility] Comment on above: Result Comment: POLY CHROMASIA Performed By: #### H H #### [facility] [address] [place], [id number] House Builder: Sami Abbasi MD Neutrophil (Seg) 81 % High 36-65 [facility] Comment on above: Performed By: #### H H #### [facility] [address] [place], [id number] House Builder: Sami Abbasi MD Erythrocyte distribution width (RBC) [Ratio] 14.6 % High 11.8-14.4 [facility] Comment on above: Performed By: #### H H #### [facility] [address] [place], [place] [id number] House Builder: Sami Abbasi MD Hematocrit (Bld) [Volume fraction] 31.8 % Low 36.3-47.1 [facility] Comment on above: Performed By: #### H H #### [facility] [address] [place], [place] [id number] House Builder: Sami Abbasi MD Hemoglobin (Bld) [Mass/Vol] 10.9 g/dL Low 11.9-15.1 [facility] Comment on above: Performed By: #### H H #### [facility] [address] [place] [id number] House Builder: Sami Abbasi MD MCH (RBC) [Entitic mass] 30.5 pg Normal 25.2-33.5 [facility] Comment on above: Performed By: #### H H #### [address] [place] [id number] House Builder: Sami Abbasi MD MCHC (RBC) [Mass/Vol] 34.3 g/dL Normal 28.4-34.8 [facility] Comment on above: Performed By: #### H H #### [address] [place] [id number] House Builder: Sami Abbasi MD MCV (RBC) [Entitic vol] 89.1 fL Normal 82.6-102.9 M [facility] Comment on above: Performed By: #### H H #### [address] [place] [id number] House Builder: Sami Abbasi MD NRBC Automated 0.0 per 100 WBC Normal 0.0 [facility] Comment on above: Performed By: #### H H #### [facility] [address] [place] [phone] House Builder: Sami Abbasi MD Platelet Count See Reflexed IPF Result Normal 138-453 [facility] Comment on above: Performed By: #### H H #### [facility] [address] [place] [id number] House Builder: Sami Abbasi MD RBC (Bld) [#/Vol] 3.57 10*6/uL Low 3.95-5.11 [facility] Comment on above: Performed By: #### H H #### [facility] [address] [place], [place] [phone] House Builder: Sami Abbasi MD WBC (Bld) [#/Vol] 12.4 10*3/uL High 3.5-11.3 [facility] Comment on above: Performed By: #### H H #### [facility] [address] [place], [place] [phone] House Builder: Sami Abbasi MD Auto Diff Performed NOT REPORTED Normal [facility] Comment on above: Performed By: #### H H #### [facility] [address] [place] [address] [place] [address] House Builder: Sami Abbasi MD MPV NOT REPORTED Normal 8.1-13.5 [facility] Comment on above: Performed By: #### H H #### [facility] [address] [place] [address] [place] [address] House Builder: Sami Abbasi MD Platelet Estimate NOT REPORTED Normal [facility] Comment on above: Performed By: #### H H #### [facility] [address] [place] [address] [place] [address] House Builder: Sami Abbasi MD RBC morphology finding Nom (Bld) NOT REPORTED Normal [facility] Comment on above: Performed By: #### H H #### [facility] [address] [place] [address] [place] [address] House Builder: Sami Abbasi MD WBC Morphology NOT REPORTED Normal [facility] Comment on above: Performed By: #### H H #### [facility] [address] [place] [address] [place] [address] House Builder: Sami Abbasi MD PLT, Immature Fract.on 05-14 Platelet, Fluoresc. 119 k/uL Low 138-453 [facility] Comment on above: Performed By: #### H H #### [facility] [address] [place] [address] Dr. [place], [id number] House Builder: Sami Abbasi MD PLT, Immature Fract. 2.9 % Normal 1.1-10.3 [facility] Comment on above: Performed By: #### H H #### [facility] [address] [place] [address] Dr. [place], [id number] House Builder: Sami Abbasi MD APTTon 05-13-2021 aPTT Coag (Bld) [Time] 27.0 s Normal 23.9-33.8 [facility] Comment on above: Result Comment: IV Heparin Therapy Range: 62.0-94.0 Performed By: #### C DP #### [address] [place], [place] [address] House Builder: Sami Abbasi MD Amylaseon 05-13-2021 Amylase [Catalytic activity/Vol] 54 U/L Normal 28-100 [facility] Comment on above: Performed By: #### C DP #### [address] [place], [id number] House Builder: Sami Abbasi MD CBC with Diffon 05-13-2021 Abs. Basophil 0.00 k/uL Normal 0.0-0.2 [facility] Comment on above: Performed By: #### C DP #### [address] [place], [id number] House Builder: Sami Abbasi MD Abs.Imm.Granulocyte 0.00 k/uL Normal 0.00-0.30 [facility] Comment on above: Performed By: #### C DP #### [address] [place] [address] House Builder: Sami Abbasi MD Abs.Neutrophil (Seg) 12.58 k/uL High 1.50-8.10 [facility] Comment on above: Performed By: #### C DP #### [facility] [address] [place] [address] House Builder: Sami Abbasi MD Basophils/100 WBC (Bld) 0 % Normal 0-2 M [facility] Comment on above: Performed By: #### C DP #### [facility] [address] [place], [id number] House Builder: Sami Abbasi MD Eosinophils (Bld) [#/Vol] 0.00 10*3/uL Normal 0.00-0.44 [facility] Comment on above: Performed By: #### C DP #### [facility] [address] [place], [place] [phone] House Builder: Sami Abbasi MD Eosinophils/100 WBC (Bld) 0 % Low 1-4 [facility] Comment on above: Performed By: #### C DP #### [facility] [address] [place], [place] [phone] House Builder: Sami Abbasi MD Immature granulocytes/100 WBC (Bld) 0 % Normal 0 [facility] Comment on above: Performed By: #### C DP #### [facility] [address] [place], [place] [phone] House Builder: Sami Abbasi MD Lymphocytes (Bld) [#/Vol] 1.63 10*3/uL Normal 1.10-3.70 [facility] Comment on above: Performed By: #### C DP #### [facility] [address] [place], [place] [phone] House Builder: Sami Abbasi MD Lymphocytes/100 WBC (Bld) 11 % Low 24-43 [facility] Comment on above: Performed By: #### C DP #### [facility] [address] [place], [place] [phone] House Builder: Sami Abbasi MD Monocytes (Bld) [#/Vol] 0.59 10*3/uL Normal 0.10-1.20 [facility] Comment on above: Performed By: #### C DP #### [facility] [address] [place], [place] [phone] House Builder: Sami Abbasi MD Monocytes/100 WBC (Bld) 4 % Normal 3-12 M [facility] Comment on above: Performed By: #### C DP #### [facility] [address] [place], [id number] House Builder: Sami Abbasi MD Morphology Andrea (Bld) [Interp] 1+ Normal [facility] Comment on above: Result Comment: POLY CHROMASIA Performed By: #### C DP #### [address] [place], [place] [address] House Builder: Sami Abbasi MD Neutrophil (Seg) 85 % High 36-65 [facility] Comment on above: Performed By: #### C DP #### [facility] [address] [place], [place] [address] House Builder: Sami Abbasi MD Erythrocyte distribution width (RBC) [Ratio] 13.6 % Normal 11.8-14.4 [facility] Comment on above: Performed By: #### C DP #### [address] [place], [id number] House Builder: Sami Abbasi MD Hematocrit (Bld) [Volume fraction] 25.3 % Low 36.3-47.1 [facility] Comment on above: Performed By: #### C DP #### [facility] [address] [place], [place] [phone] House Builder: Sami Abbasi MD Hemoglobin (Bld) [Mass/Vol] 8.6 g/dL Low 11.9-15.1 [facility] Comment on above: Performed By: #### C DP #### [facility] [address] [place], [place] [phone] House Builder: Sami Abbasi MD MCH (RBC) [Entitic mass] 29.2 pg Normal 25.2-33.5 [facility] Comment on above: Performed By: #### C DP #### [facility] [address] [place] [id number] House Builder: Sami Abbasi MD MCHC (RBC) [Mass/Vol] 34.0 g/dL Normal 28.4-34.8 [facility] Comment on above: Performed By: #### C DP #### [address] [place] [phone] House Builder: Sami Abbasi MD MCV (RBC) [Entitic vol] 85.8 fL Normal 82.6-102.9 [facility] Comment on above: Performed By: #### C DP #### [facility] [address] [place] [address] Dr. [place] [id number] House Builder: Sami Abbasi MD NRBC Automated 0.0 per 100 WBC Normal 0.0 [facility] Comment on above: Performed By: #### C DP #### [address] [place], [id number] House Builder: Sami Abbasi MD Platelet Count See Reflexed IPF Result Normal 138-453 [facility] Comment on above: Performed By: #### C DP #### [facility] [address] [place], [place] [phone] House Builder: Sami Abbasi MD RBC (Bld) [#/Vol] 2.95 10*6/uL Low 3.95-5.11 [facility] Comment on above: Performed By: #### C DP #### [facility] [address] [place] [address] [place] [address] House Builder: Sami Abbasi MD WBC (Bld) [#/Vol] 14.8 10*3/uL High 3.5-11.3 [facility] Comment on above: Performed By: #### C DP #### [facility] [address] [place] [address] [place] [address] House Builder: Sami Abbasi MD Auto Diff Performed NOT REPORTED Normal [facility] Comment on above: Performed By: #### C DP #### [facility] [address] [place] [address] [place] [address] House Builder: Sami Abbasi MD MPV NOT REPORTED Normal 8.1-13.5 [facility] Comment on above: Performed By: #### C DP #### [address] [place] [id number] House Builder: Sami Abbasi MD Platelet Estimate NOT REPORTED Normal [facility] Comment on above: Performed By: #### C DP #### [facility] [address] [place] [address] Dr. [place], [id number] House Builder: Sami Abbasi MD RBC morphology finding Nom (Bld) NOT REPORTED Normal [facility] Comment on above: Performed By: #### C DP #### [facility] [address] [place] [address] [place] [address] House Builder: Sami Abbasi MD WBC Morphology NOT REPORTED Normal [facility] Comment on above: Performed By: #### C DP #### [facility] [address] [place] [address] [place] [address] House Builder: Sami Abbasi MD Abs. Basophil 0.00 k/uL Normal 0.0-0.2 [facility] Comment on above: Performed By: #### C DP, IPF #### [facility] [address] [place] [address] House Builder: Sami Abbasi MD Abs.Imm.Granulocyte 0.16 k/uL Normal 0.00-0.30 [facility] Comment on above: Performed By: #### C DP, IPF #### [facility] [address] [place], [place] [address] House Builder: Sami Abbasi MD Abs.Neutrophil (Seg) 12.25 k/uL High 1.50-8.10 [facility] Comment on above: Performed By: #### C DP, IPF #### [facility] [address] [place], [id number] House Builder: Sami Abbasi MD Basophils/100 WBC (Bld) 0 % Normal 0-2 [facility] Comment on above: Performed By: #### C DP, IPF #### [address] [place], [id number] House Builder: Sami Abbasi MD Eosinophils (Bld) [#/Vol] 0.00 10*3/uL Normal 0.00-0.44 [facility] Comment on above: Performed By: #### C DP, IPF #### [facility] [address] [place], [place] [phone] House Builder: Sami Abbasi MD Eosinophils/100 WBC (Bld) 0 % Low 1-4 [facility] Comment on above: Performed By: #### C DP, IPF #### [address] [place], [facility] House Builder: Sami Abbasi MD Immature granulocytes/100 WBC (Bld) 1 % High 0 [facility] Comment on above: Performed By: #### C DP, IPF #### [address] [place], [id number] House Builder: Sami Abbasi MD Lymphocytes (Bld) [#/Vol] 1.88 10*3/uL Normal 1.10-3.70 [facility] Comment on above: Performed By: #### C DP, IPF #### [facility] [address] [place], [place] [phone] House Builder: Sami Abbasi MD Lymphocytes/100 WBC (Bld) 12 % Low 24-43 [facility] Comment on above: Performed By: #### C DP, IPF #### [facility] [address] [place], [place] [phone] House Builder: Sami Abbasi MD Monocytes (Bld) [#/Vol] 1.41 10*3/uL High 0.10-1.20 [facility] Comment on above: Performed By: #### C DP, IPF #### [facility] [address] [place], [place] [phone] House Builder: Sami Abbasi MD Monocytes/100 WBC (Bld) 9 % Normal 3-12 M [facility] Comment on above: Performed By: #### C DP, IPF #### [address] [place] [address] House Builder: Sami Abbasi MD Morphology Andrea (Bld) [Interp] Normal Normal [facility] Comment on above: Performed By: #### C DP, IPF #### [address] [place], [place] [phone] House Builder: Sami Abbasi MD Neutrophil (Seg) 78 % High 36-65 [facility] Comment on above: Performed By: #### C DP, IPF #### [facility] [address] [place] [address] Dr. [place], [place] [phone] House Builder: Sami Abbasi MD Erythrocyte distribution width (RBC) [Ratio] 13.7 % Normal 11.8-14.4 [facility] Comment on above: Performed By: #### C DP, IPF #### [facility] [address] [place], [place] 1378783 House Builder: Sami Abbasi MD Hematocrit (Bld) [Volume fraction] 16.0 % Critically low 36.3-47.1 [facility] Comment on above: Performed By: #### C DP, IPF #### [facility] [address] [place] [address] House Builder: Sami Abbasi MD Hemoglobin (Bld) [Mass/Vol] 5.3 g/dL Critically low 11.9-15.1 [facility] Comment on above: Performed By: #### C DP, IPF #### [facility] [address] [place], [place] [phone] House Builder: Sami Abbasi MD MCH (RBC) [Entitic mass] 28.6 pg Normal 25.2-33.5 [facility] Comment on above: Performed By: #### C DP, IPF #### [address] [place] [address] House Builder: Sami Abbasi MD MCHC (RBC) [Mass/Vol] 33.1 g/dL Normal 28.4-34.8 [facility] Comment on above: Performed By: #### C DP, IPF #### [address] [place] [address] House Builder: Sami Abbasi MD MCV (RBC) [Entitic vol] 86.5 fL Normal 82.6-102.9 M [facility] Comment on above: Performed By: #### C DP, IPF #### [address] [place] [address] House Builder: Sami Abbasi MD NRBC Automated 0.0 per 100 WBC Normal 0.0 [facility] Comment on above: Performed By: #### C DP, IPF #### [address] [place] [address] House Builder: Sami Abbasi MD Platelet Count See Reflexed IPF Result Normal 138-453 [facility] Comment on above: Performed By: #### C DP, IPF #### [facility] [address] [place] [address] House Builder: Sami Abbasi MD RBC (Bld) [#/Vol] 1.85 10*6/uL Low 3.95-5.11 [facility] Comment on above: Performed By: #### C DP, IPF #### [facility] [address] [place], [place] [phone] House Builder: Sami Abbasi MD WBC (Bld) [#/Vol] 15.7 10*3/uL High 3.5-11.3 [facility] Comment on above: Performed By: #### C DP, IPF #### [address] [place], [place] [phone] House Builder: Sami Abbasi MD Auto Diff Performed NOT REPORTED Normal [facility] Comment on above: Performed By: #### C DP, IPF #### [facility] [address] [place] [address] [place] [address] House Builder: Sami bAbasi MD MPV NOT REPORTED Normal 8.1-13.5 [facility] Comment on above: Performed By: #### C DP, IPF #### [address] [place] [address] House Builder: Sami Abbasi MD Platelet Estimate NOT REPORTED Normal [facility] Comment on above: Performed By: #### C DP, IPF #### [address] [place] [address] House Builder: Sami Abbasi MD RBC morphology finding Nom (d) NOT REPORTED Normal [facility] Comment on above: Performed By: #### C DP, IPF #### [facility] [address] [place], [place] [phone] House Builder: Sami Abbasi MD WBC Morphology NOT REPORTED Normal [facility] Comment on above: Performed By: #### C DP, IPF #### [facility] [address] [place] [address] House Builder: Sami Abbasi MD CT ABDOMEN PELVIS WO CONTRAS Ton 05-13-2021 CT ABDOMEN PELVIS WO CONTRAST EXAMINATION: CT OF THE ABDOMEN AND PELVIS WITHOUT CONTRAST 05/13/2021 8:42 am TECHNIQUE: CT of the abdomen and pelvis was performed without the administration of intravenous contrast. Multiplanar reformatted images are provided for review. Dose modulation, iterative reconstruction, and/or weight based adjustment of the mA/kV was utilized to reduce the radiation dose to as low as reasonably achievable. COMPARISON: None. HISTORY: ORDERING SYSTEM PROVIDED HISTORY: POST SURGICAL LOW HGB - RIGID ABDOMEN TECHNOLOGIST PROVIDED HISTORY: POST SURGICAL LOW HGB - RIGID ABDOMEN PT COVID POSITIVE Is the patient ?->No FINDINGS: Lower Chest: Lower lungs appear clear. Organs: Unenhanced liver, spleen, pancreas, and adrenal glands appear unremarkable. Multiple small nonobstructing stones bilaterally. Moderate right hydroureteronephrosis without evidence of distal obstructing stone. This may be related to pelvic fullness. GI/Bowel: No bowel obstruction. Nonvisualized appendix. Pelvis: Urinary bladder decompressed by a Mauricio catheter. Enlarged uterus with blood products in the lower uterine segment. Peritoneum/Retroperitoneum : Postoperative changes in the pelvis with moderate to large left pelvic hematoma also involving the bilateral inferior rectus sheaths. Scattered hemorrhagic fluid in the lower abdomen. Scattered free air in the lower pelvis and abdominal wall likely postsurgical. No lymphadenopathy. Bones/Soft Tissues: No acute osseous abnormality. IMPRESSION: Postoperative changes in the pelvis with moderate to large left pelvic hematoma also involving the bilateral inferior rectus sheaths. Scattered hemorrhagic fluid in the lower abdomen. Enlarged uterus with blood products in the lower uterine segment. Multiple small nonobstructing stones bilaterally. Moderate right hydroureteronephrosis without evidence of distal obstructing stone. This may be related to pelvic fullness. Interpreted by: Bladimir Rodarte MD Signed by: Bladimir Rodarte MD 05/13/21 Final result Normal [facility] CTA ABDOMEN PELVIS W WO CONT Sheri 05-13-2021 CTA ABDOMEN PELVIS W WO CONTRAST ADDENDUM: 3D reconstructed images were performed on a separate workstation and provided for review. Electronically Signed by: BLADIMIR RODARTE on WedMay 13, 2021 12:20:08 PM EDT EXAMINATION: CTA OF THE ABDOMEN AND PELVIS WITH CONTRAST 05/13/2021 11:01 am: TECHNIQUE: CTA of the abdomen and pelvis was performed without and with the administration of intravenous contrast. Multiplanar reformatted images are provided for review. MIP images are provided for review. Dose modulation, iterative reconstruction, and/or weight based adjustment of the mA/kV was utilized to reduce the radiation dose to as low as reasonably achievable. COMPARISON: CT abdomen pelvis without contrast 05/13/2021 HISTORY: ORDERING SYSTEM PROVIDED HISTORY: looking for active bleeding hematoma noted post surgical - need arterial and veinous studies TECHNOLOGIST PROVIDED HISTORY: looking for active bleeding hematoma noted post surgical - need arterial and veinous studies FINDINGS: CTA ABDOMEN/PELVIC: Lower Chest: Visualized portions of the lower thorax are unremarkable. Organs: Liver, spleen, pancreas, adrenal glands, and gallbladder within normal limits. Small nonobstructing stones both kidneys. Moderate right hydroureteronephrosis likely related to pelvic fullness. No radiodense gallstones. GI/Bowel: No bowel obstruction. Pelvis: Urinary bladder decompressed by Mauricio catheter. Enlarged uterus with significant endometrial vascularity and hemorrhage within the lower uterine segment. Overall quantity of blood appears similar to recent noncontrast CT. Peritoneum/Retroperitoneum : Stable size of moderate to large left pelvic hematoma and bilateral inferior rectus sheath hematomas without evidence of active bleeding. Bones/Soft Tissues: No acute osseous abnormality. IMPRESSION: Enlarged uterus with significant endometrial vascularity and clot within the lower uterine segment. Overall quantity of blood appears similar to recent noncontrast CT. Stable size of left pelvic and bilateral rectus sheath hematomas without evidence of active bleeding. Stable moderate right hydroureteronephrosis likely related to pelvic fullness. Small nonobstructing stones in both kidneys. Interpreted by: Bladimir Rodarte MD Signed by: Bladimir Rodarte MD 05/13/21 Edited Result - FINAL Normal [facility] Comp Metabolic Profon 2020 (cont.) Normal [facility] Comment on above: Result Comment: Aver age GFR for 20-29 years old: 116 mL/min/1.73sq m Chronic Kidney Disease: <60 mL/min/1.73sq m Kidney failure: <15 mL/min/1.73sq m eGFR calculated using average adult body mass. Additional eGFR calculator available at: http://www.[employer]/multiple_crcl_2012.htm Performed By: #### C DP #### [facility] [address] [place], [place] [id number] House Builder: Sami Abbasi MD Albumin [Mass/Vol] 2.2 g/dL Low 3.5-5.2 [facility] Comment on above: Performed By: #### C DP #### [facility] [address] [place] [address] House Builder: Sami Abbasi MD Albumin/Glob Ratio 0.8 Low 1.0-2.5 [facility] Comment on above: Performed By: #### C DP #### [facility] [address] [place], [place] [id number] House Builder: Sami Abbasi MD Alkaline Phos 154 U/L High 35-104 [facility] Comment on above: Performed By: #### C DP #### [facility] [address] [place] [address] House Builder: Sami Abbasi MD ALT [Catalytic activity/Vol] 48 U/L High 5-33 [facility] Comment on above: Performed By: #### C DP #### [facility] [address] [place] [address] House Builder: Sami Abbasi MD Anion gap [Moles/Vol] 11 mmol/L Normal 9-17 [facility] Comment on above: Performed By: #### C DP #### [facility] [address] [place], [place] [phone] House Builder: Sami Abbasi MD AST [Catalytic activity/Vol] 74 U/L High <32 [facility] Comment on above: Performed By: #### C DP #### [facility] [address] [place], [place] [phone] House Builder: Sami Abbasi MD Bilirubin [Mass/Vol] 0.26 mg/dL Low 0.3-1.2 [facility] Comment on above: Performed By: #### C DP #### [facility] [address] [place], [place] [phone] House Builder: Sami Abbasi MD BUN/CRE Ratio 18 Normal 9-20 [facility] Comment on above: Performed By: #### C DP #### [facility] [address] [place], [place] [phone] House Builder: Sami bAbasi MD Calcium [Mass/Vol] 7.5 mg/dL Low 8.6-10.4 [facility] Comment on above: Performed By: #### C DP #### [facility] [address] [place], [place] 2973983 House Builder: Sami Abbasi MD Chloride [Moles/Vol] 103 mmol/L Normal 98-107 [facility] Comment on above: Performed By: #### C DP #### [facility] [address] [place], [place] 5396083 House Builder: Sami Abbasi MD CO2 [Moles/Vol] 22 mmol/L Normal 20-31 [facility] Comment on above: Performed By: #### C DP #### [facility] [address] [place], [place] [phone] House Builder: Sami Abbasi MD Creatinine [Mass/Vol] 0.51 mg/dL Normal 0.50-0.90 [facility] Comment on above: Performed By: #### C DP #### [facility] [address] [place], [place] [phone] House Builder: Sami Abbasi MD GFR, Amer >60 Normal >60 [facility] Comment on above: Performed By: #### C DP #### [facility] [address] [place], [place] [phone] House Builder: Sami Abbasi MD GFR,non Amer >60 Normal >60 [facility] Comment on above: Performed By: #### C DP #### [facility] [address] [place], [place] 3618783 House Builder: Sami Abbasi MD Glucose [Mass/Vol] 95 mg/dL Normal 70-99 [facility] Comment on above: Performed By: #### C DP #### [facility] [address] [place] 1626383 House Builder: Sami Abbasi MD Potassium [Moles/Vol] 3.7 mmol/L Normal 3.7-5.3 [facility] Comment on above: Performed By: #### C DP #### [facility] [address] [place] [address] Dr[place], [place] 3307683 House Builder: Sami Abbasi MD Protein [Mass/Vol] 4.9 g/dL Low 6.4-8.3 [facility] Comment on above: Performed By: #### C DP #### [address] [place], [place] 3006883 House Builder: Sami Abbasi MD Sodium [Moles/Vol] 136 mmol/L Normal 135-144 [facility] Comment on above: Performed By: #### C DP #### [facility] [address] [place] [address] Dr[place], [place] 2830483 House Builder: Sami Abbasi MD Staging: Normal [facility] Comment on above: Result Comment: Stag e 1: Some kidney damage normal GFR Stage 2: Mild kidney damage GFR 60-89 Stage 3: Moderate kidney damage GFR 30-59 Stage 4: Severe kidney damage GFR 15-29 Stage 5: Severe kidney damage GFR <15 ESRD - chronic treatment by dialysis or transplant Performed By: #### C DP #### [facility] [address] [place] [address] Dr[place], [place] 8405383 House Builder: Sami Abbasi MD Urea nitrogen [Mass/Vol] 9 mg/dL Normal 6-20 [facility] Comment on above: Performed By: #### C DP #### [facility] [address] [place], [place] 8126783 House Builder: Sami Abbasi MD Fibrinogenon 05-13-2021 Fibrinogen 265 mg/dL Normal 179-518 [facility] Comment on above: Performed By: #### H H #### [facility] [address] [place], [place] 1975783 House Builder: Sami Abbasi MD Hgb/Hcton 05-13-2021 Hematocrit (Bld) [Volume fraction] 16.0 % Critically low 36.3-47.1 [facility] Comment on above: Performed By: #### H H #### [facility] [address] [place] [address] [place], [place] [phone] House Builder: Sami Abbasi MD Hemoglobin (Bld) [Mass/Vol] 5.3 g/dL Critically low 11.9-15.1 [facility] Comment on above: Performed By: #### H H #### [address] [place], [place] 9254583 House Builder: Sami Abbasi MD Lactate Dehydrogenaseon 04-24 LDH [Catalytic activity/Vol] 394 U/L High 135-214 [facility] Comment on above: Performed By: #### C DP #### [facility] [address] [place] [address] Dr[place], [place] 8663383 House Builder: Sami Abbasi MD Lipaseon 05-13-2021 Lipase [Catalytic activity/Vol] 22 U/L Normal 13-60 [facility] Comment on above: Performed By: #### C DP #### [facility] [address] [place], [place] 8[address]2983 House Builder: Sami Abbasi MD PLT, Immature Fract.on 05-13 Platelet, Fluoresc. 115 k/uL Low 138-453 [facility] Comment on above: Performed By: #### H H #### [facility] [address] [place], [place] 7956783 House Builder: Sami Abbasi MD PLT, Immature Fract. 3.3 % Normal 1.1-10.3 [facility] Comment on above: Performed By: #### H H #### [facility] [address] [place] [address] House Builder: Sami Abbasi MD Platelet, Fluoresc. 114 k/uL Low 138-453 [facility] Comment on above: Performed By: #### C DP, IPF #### [facility] [address] [place], [place] [phone] House Builder: Sami Abbasi MD PLT, Immature Fract. 3.9 % Normal 1.1-10.3 [facility] Comment on above: Performed By: #### C DP, IPF #### [facility] [address] [place], [place] [phone] House Builder: Sami Abbasi MD PTon 05-13-2021 INR Coag (PPP) [Relative time] 0.9 {INR} Normal [facility] Comment on above: Result Comment: Non-therapeutic Range: INR = 0.9-1.2 Therapeutic Range: Moderate Anticoagulant Intensity: INR = 2.0-3.0 High Anticoagulant Intensity: INR = 2.5-3.5 Performed By: #### H H #### [facility] [address] [place], [place] [phone] House Builder: Sami Abbasi MD PT Coag (PPP) [Time] 12.3 s Normal 11.5-14.2 [facility] Comment on above: Performed By: #### H H #### [facility] [address] [place], [place] 7136783 House Builder: Sami Abbasi MD Type + Screenon 05-13-2021 Type + Screen Sample Expiration 05/14/2021,2359 Arm Band Number [id number] ABO/Rh(D) A NEGATIVE Antibody Screen NEGATIVE Unit Number [id number] Blood Component Type Leukocyte Reduced Red Cell Unit Division 00 Status of Unit TRANSFUSED Transfusion Status OK TO TRANSFUSE Crossmatch Result COMPATIBLE Unit Number [id number] Blood Component Type Leukocyte Reduced Red Cell Unit Division 00 Status of Unit TRANSFUSED Transfusion Status OK TO TRANSFUSE Crossmatch Result COMPATIBLE Unit Number [id number] Blood Component Type Leukocyte Reduced Red Cell Unit Division 00 Status of Unit TRANSFUSED Transfusion Status OK TO TRANSFUSE Crossmatch Result COMPATIBLE Unit Number [id number] Blood Component Type Leukocyte Reduced Red Cell Unit Division 00 Status of Unit TRANSFUSED Transfusion Status OK TO TRANSFUSE Crossmatch Result COMPATIBLE Unit Number [id number] Blood Component Type Leukocyte Reduced Red Cell Unit Division 00 Status of Unit TRANSFUSED Transfusion Status OK TO TRANSFUSE Crossmatch Result COMPATIBLE Normal [facility] Comment on above: Performed By: #### H H #### [address] [place] [address] House Builder: Sami Abbasi MD Hemoglobinon 05-12-2021 Hemoglobin (Bld) [Mass/Vol] 7.2 g/dL Low 11.9-15.1 [facility] Comment on above: Performed By: #### H GB #### [address] [place] [address] House Builder: Sami Abbasi MD Hgb/Hcton 05-12-2021 Hematocrit (Bld) [Volume fraction] 16.8 % Critically low 36.3-47.1 [facility] Comment on above: Performed By: #### H H #### [address] [place] [address] House Builder: Sami Abbasi MD Hemoglobin (Bld) [Mass/Vol] 5.6 g/dL Critically low 11.9-15.1 [facility] Comment on above: Performed By: #### H H #### [address] [place], [place] 2551683 House Builder: Sami Abbasi MD Hematocrit (Bld) [Volume fraction] 31.3 % Low 36.3-47.1 [facility] Comment on above: Performed By: #### H H #### [address] [place] [address] House Builder: Sami Abbasi MD Hemoglobin (Bld) [Mass/Vol] 10.3 g/dL Low 11.9-15.1 [facility] Comment on above: Performed By: #### H H #### [address] [place] [address] House Builder: Sami Abbasi MD XR CHEST PORTABLEon 05-12-20 XR CHEST PORTABLE EXAMINATION: ONE XRAY VIEW OF THE CHEST 05/11/2021 10:12 pm COMPARISON: None. HISTORY: ORDERING SYSTEM PROVIDED HISTORY: shortness of breath and chest pain TECHNOLOGIST PROVIDED HISTORY: shortness of breath and chest pain FINDINGS: Lungs are clear. Cardiac and mediastinal silhouettes unremarkable. Osseous structures grossly intact. Telemetry leads overlie the chest. IMPRESSION: No acute findings. Interpreted by: Ernie Reza DO Signed by: Ernie Reza DO 05/11/21 Final result Normal [facility] CBCon 05-11-2021 Erythrocyte distribution width (RBC) [Ratio] 13.5 % Normal 11.8-14.4 [facility] Comment on above: Performed By: #### C DP, IPF #### [address] [place], [place] [phone] House Builder: Sami Abbasi MD Hematocrit (Bld) [Volume fraction] 37.7 % Normal 36.3-47.1 [facility] Comment on above: Performed By: #### C DP, IPF #### [address] [place] [address] House Builder: Sami Abbasi MD Hemoglobin (Bld) [Mass/Vol] 12.1 g/dL Normal 11.9-15.1 [facility] Comment on above: Performed By: #### C DP, IPF #### [facility] [address] [place] [address] House Builder: Sami Abbasi MD MCH (RBC) [Entitic mass] 27.5 pg Normal 25.2-33.5 [facility] Comment on above: Performed By: #### C DP, IPF #### [facility] [address] [place], [facility] House Builder: Sami Abbasi MD MCHC (RBC) [Mass/Vol] 32.1 g/dL Normal 28.4-34.8 [facility] Comment on above: Performed By: #### C DP, IPF #### [address] [place] [phone] House Builder: Sami Abbasi MD MCV (RBC) [Entitic vol] 85.7 fL Normal 82.6-102.9 [facility] Comment on above: Performed By: #### C DP, IPF #### [address] [place], [place] [address] House Builder: Sami Abbasi MD NRBC Automated 0.0 per 100 WBC Normal 0.0 [facility] Comment on above: Performed By: #### C DP, IPF #### [address] [place], [place] [address] House Builder: Sami Abbasi MD Platelet Count See Reflexed IPF Result Normal 138-453 [facility] Comment on above: Performed By: #### C DP, IPF #### [address] [place], [facility] House Builder: Sami Abbasi MD RBC (Bld) [#/Vol] 4.40 10*6/uL Normal 3.95-5.11 [facility] Comment on above: Performed By: #### C DP, IPF #### [facility] [address] [place], [place] 4269483 House Builder: Sami Abbasi MD WBC (Bld) [#/Vol] 7.1 10*3/uL Normal 3.5-11.3 [facility] Comment on above: Performed By: #### C DP, IPF #### [facility] [address] [place], [place] 0152383 House Builder: Sami Abbasi MD MPV NOT REPORTED Normal 8.1-13.5 [facility] Comment on above: Performed By: #### C DP, IPF #### [facility] [address] [place], [place] 8451183 House Builder: Sami Abbasi MD Drug Scr, Abuse, Uron 2020 Amphetamine(s),Ur Negative Normal NEG [facility] Comment on above: Performed By: #### D AU #### [facility] [address] [place] [address] Dr. [place], [place] 9266783 House Builder: Sami Abbasi MD Barbiturate(s),Ur Positive Abnormal NEG [facility] Comment on above: Performed By: #### D AU #### [address] [place], [place] 6464883 House Builder: Sami Abbasi MD Benzodiazepine(s) Negative Normal NEG [facility] Comment on above: Performed By: #### D AU #### [facility] [address] [place], [place] 1876283 House Builder: Sami Abbasi MD Buprenorphrine, Ur Negative Normal NEG [facility] Comment on above: Performed By: #### D AU #### [facility] [address] [place] [address] Dr. [place], [place] 5684283 House Builder: Sami Abbasi MD Cannabinoid(s),Ur Negative Normal NEG [facility] Comment on above: Performed By: #### D AU #### [facility] [address] [place], [place] 0095983 House Builder: Sami Abbasi MD Cocaine Metabolite Negative Normal NEG [facility] Comment on above: Performed By: #### D AU #### [facility] [address] [place], [place] 0579183 House Builder: Sami Abbasi MD Methadone Ql (U) Negative Normal NEG [facility] Comment on above: Performed By: #### D AU #### [facility] [address] [place], [place] 1827383 House Builder: Sami Abbasi MD Methamphetamine, Ur Negative Normal NEG [facility] Comment on above: Performed By: #### D AU #### [facility] [address] [place], [place] [phone] House Builder: Sami Abbasi MD Opiate(s), Ur Negative Normal NEG [facility] Comment on above: Performed By: #### D AU #### [facility] [address] [place], [place] 0428783 House Builder: Sami Abbasi MD Oxycodone, Urine Negative Normal [facility] Comment on above: Performed By: #### D AU #### [facility] [address] [place], [place] 2839683 House Builder: Sami Abbasi MD Phencyclidine, Ur Negative Normal NEG [facility] Comment on above: Performed By: #### D AU #### [facility] [address] [place], [place] 3289483 House Builder: Sami Abbasi MD Propoxyphene,Urine Negative Normal NEG [facility] Comment on above: Performed By: #### D AU #### [facility] [address] [place] [address] House Builder: Sami Abbasi MD Tricyclic antidepressants Screen Ql (U) Negative Normal [facility] Comment on above: Result Comment: Drug screen results are to be used for medical purposes only. All positive results are unconfirmed. Testing for employment or legal uses should be sent to a reference laboratory for confirmation. Performed By: #### D AU #### [address] [place] [address] House Builder: Sami Abbasi MD Interpretive Info NOT REPORTED Normal [facility] Comment on above: Performed By: #### D AU #### [facility] [address] [place], [facility] House Builder: Sami Abbasi MD MDMA, Urine NOT REPORTED Normal NEG [facility] Comment on above: Performed By: #### D AU #### [address] [place], [place] 9365183 House Builder: Sami Abbasi MD PLT, Immature Fract.on 05-11 Platelet, Fluoresc. 120 k/uL Low 138-453 [facility] Comment on above: Performed By: #### C DP, IPF #### [address] [place], [place] 3334983 House Builder: Sami Abbasi MD PLT, Immature Fract. 3.7 % Normal 1.1-10.3 [facility] Comment on above: Performed By: #### C DP, IPF #### [address] [place], [facility] House Builder: Sami Abbasi MD Surgical Pathologyon 021 Surgical Pathology (NOTE) -- Diagnosis -- Placenta, third trimester: - Chronic histiocytic intervillositis. - Umbilical cord and membranes, free of inflammation. - Small placenta (340 g). Comment: Chronic histiocytic intervillositis is an idiopathic pattern of inflammation that can be associated with recurrent loss, IUGR, IUFD, and others. Arturo Ernst Electronically Signed Out rdd/05/14/2021 Clinical Information PLACENTA Source of Specimen 1: PLACENTA Gross Description WILLIE LEGGETT, UNDESIGNATED Placenta with attached membranes and umbilical cord. UMBILICAL CORD Length: 5.5 cm Diameter: 1.5 cm True knots: No Number of vessels: 3 Spiraling: Normal Insertion into surface: Paracentral MEMBRANES Color: Purple-alvarenga, focally opacified with a partial circummarginate insertion over 25% of the disc. The remaining insertion is marginal. Meconium staining: No SURFACE Color: Purple-alvarenga, with a normal array of surface vessels Subchorionic fibrin: Marginal and involves approximately 5% of the disc MATERNAL SURFACE Cotyledons: -Fragmented/torn: (Approximately 10%) but appears complete -Focal lesions: There are areas of lugo induration up to 3.0 cm that occupy approximately 10% of the disc Placental size: 22.0 x 14.0 x 3.0 cm Shape: [place] Weight: 340 grams (normal for gestation 39-40 weeks, 481 gram mean, 345-617 gram range) Number of cassettes: 4cs tm Microscopic Description Umbilical cord: Negative for funisitisMembranes: Negative for chorioamnionitisMeconium staining: NoInfarcts: NoIntervillous thrombi: NoSubchorionic fibrin: Not increasedVillous maturation: MatureNucleated erythrocytes in villous capillaries: RarePlate: Sections of the plate did show patchy chronic intervillous inflammation with predominantly monocytes/macrophages and only a few intermixed neutrophils. There is no necrosis, acute inflammation, granuloma, or viral inclusions. Note: The case is reviewed in intradepartmental pathology consultation with consensus (VISHAL, JOEL). SURGICAL PATHOLOGY CONSULTATION Patient Name: WILLIE LEGGETT [facility] [place] Rec: [id number] Path Number: [id number] [facility] [employer] [facility] ANATOMIC PATHOLOGY [address] [place] [address]. [place], [place] [address] Normal [facility] Comment on above: Performed By: #### D AU #### [facility] [address] [place] [address] [place] [address] House Builder: Sami Abbasi MD US BIOPHYS PROFILE W N ON STRESSon 05-11-2021 US BIOPHYS PROFILE W NON STRESS EXAMINATION: BIOPHYSICAL PROFILE WITH NON-STRESS TEST 05/11/2021 TECHNIQUE: ULTRASOUND BIOPHYSICAL PROFILE WITH NON-STRESS TEST HISTORY: ORDERING SYSTEM PROVIDED HISTORY: decreased movement , no excels noted TECHNOLOGIST PROVIDED HISTORY: decreased movement , no excels noted FINDINGS: A very limited biophysical profile exam was performed. The presentation was not documented on the study. There is a single intrauterine . The cardiac activity was documented at 160 beats per minute. The amniotic fluid index is 4.7 cm. A biophysical profile was performed with a tone of 0. The gross body movement is 0. The breathing is 0. The qualitative fluid is 2. IMPRESSION: Single viable intrauterine with a biophysical profile score of 2/8. The findings were called to labor and delivery and given to Celeste Spear at 7:40 p.m. Interpreted by: Ivan Hernandez MD Signed by: Ivan Hernandez MD 05/11/21 Final result Normal [facility] Cult,Urineon 05-09-2021 Cult,Urine Specimen Description .URINE Special Requests NOT REPORTED Culture NO GROWTH Report Status FINAL 05/09/2021 Normal [facility] Comment on above: Performed By: #### C DP, IPF #### [facility] [address] [place] [address] House Builder: Sami Abbasi MD CBC auto differentialOrdered By: Suzy Manjarrez on 05-08-2021 Absolute Eos # <0.03 [facility] [employer] Phone: Absolute Immature Granulocyte 0.07 [facility] [employer] Phone: Absolute Lymph # 0.21 [facility]: Absolute Burnett # 0.46 [facility] [employer] Phone: Basophils (Bld) [#/Vol] 0.03 10*3/uL [facility] Phone: Basophils/100 WBC (Bld) 0 % 0 - 2 % [facility]: Differential Type NOT REPORTED [facility] Phone: Eosinophils/100 WBC (Bld) 0 % Low 1 - 4 % [facility] Phone: Hematocrit (Bld) [Volume fraction] 34.0 % Low 36.3 - 47.1 % [employer] Phone: Hemoglobin.gastrointest inal spec 1 Ql (Stl) 11.1 g/dL Low 11.9 - 15.1 g/dL [employer] Phone: Immature granulocytes/100 WBC (Bld) 1 % High 0 [employer] Phone: Interpretation and review of laboratory results Abnormal [employer] Phone: Lymphocytes/100 WBC (Bld) 3 % Low 24 - 43 % [employer] Phone: MCH (RBC) [Entitic mass] 27.5 pg 25.2 - 33.5 pg [employer] Phone: MCHC (RBC) [Mass/Vol] 32.6 g/dL 28.4 - 34.8 g/dL [employer] Phone: MCV (RBC) [Entitic vol] 84.2 fL 82.6 - 102.9 fL [employer] Phone: Monocytes/100 WBC (Bld) 6 % 3 - 12 % M [employer] Phone: NRBC Automated 0.0 0.0 per 100 WBC [employer] Phone: Platelet distribution width (Bld) [Ratio] 13.2 % 11.8 - 14.4 % [employer] Phone: Platelet Estimate NOT REPORTED [employer] Phone: Platelet mean volume (Bld) [Entitic vol] 10.9 fL 8.1 - 13.5 fL [employer] Phone: Platelets (Bld) [#/Vol] 159 10*3/uL [employer] Phone: RBC (Bld) [#/Vol] 4.04 10*6/uL 3.95 - 5.1 1 m/uL [employer] Phone: RBC (Bld) [#/Vol] NOT REPORTED [facility] Phone: Segmented neutrophils/100 WBC (Bld) 90 % High 36 - 65 % [employer] Phone: Segs Absolute 6.68 [facility] Phone: WBC (Bld) [#/Vol] 7.7 10*3/uL [facility] Phone: WBC (Bld) [#/Vol] NOT REPORTED [employer] Phone: [employer] Phone: CBC with Diffon 05-08-2021 Abs. Basophil 0.03 k/uL Normal 0.00-0.20 [facility] Comment on above: Performed By: #### C DP #### [facility] [address] [place] [address] [place] [address] House Builder: Sami Abbasi MD Abs. Eosinophil <0.03 Normal 0.00-0.44 [facility] Comment on above: Performed By: #### C DP #### [address] [place] [address] House Builder: Sami Abbasi MD Abs.Imm.Granulocyte 0.07 k/uL Normal 0.00-0.30 [facility] Comment on above: Performed By: #### C DP #### [facility] [address] [place] [address] [place] [address] House Builder: Sami Abbasi MD Abs.Neutrophil (Seg) 6.68 k/uL Normal 1.50-8.10 [facility] Comment on above: Performed By: #### C DP #### [facility] [address] [place] [address] [place] [address] House Builder: Sami Abbasi MD Basophils/100 WBC (Bld) 0 % Normal 0-2 M [facility] Comment on above: Performed By: #### C DP #### [facility] [address] [place], [id number] House Builder: Sami Abbasi MD Eosinophils/100 WBC (Bld) 0 % Low 1-4 [facility] Comment on above: Performed By: #### C DP #### [facility] [address] [place], [id number] House Builder: Sami Abbasi MD Immature granulocytes/100 WBC (Bld) 1 % High 0 [facility] Comment on above: Performed By: #### C DP #### [facility] [address] [place], [id number] House Builder: Sami Abbasi MD Lymphocytes (Bld) [#/Vol] 0.21 10*3/uL Low 1.10-3.70 [facility] Comment on above: Performed By: #### C DP #### [facility] [address] [place], [id number] House Builder: Sami Abbasi MD Lymphocytes/100 WBC (Bld) 3 % Low 24-43 [facility] Comment on above: Performed By: #### C DP #### [facility] [address] [place], [id number] House Builder: Sami Abbasi MD Monocytes (Bld) [#/Vol] 0.46 10*3/uL Normal 0.10-1.20 [facility] Comment on above: Performed By: #### C DP #### [facility] [address] [place], [id number] House Builder: Sami Abbasi MD Monocytes/100 WBC (Bld) 6 % Normal 3-12 M [facility] Comment on above: Performed By: #### C DP #### [facility] [address] [place], [id number] House Builder: Sami Abbasi MD Neutrophil (Seg) 90 % High 36-65 [facility] Comment on above: Performed By: #### C DP #### [facility] [address] [place] [address] [place] [address] House Builder: Sami Abbasi MD Erythrocyte distribution width (RBC) [Ratio] 13.2 % Normal 11.8-14.4 [facility] Comment on above: Performed By: #### C DP #### [address] [place] [address] House Builder: Sami Abbasi MD Hematocrit (Bld) [Volume fraction] 34.0 % Low 36.3-47.1 [facility] Comment on above: Performed By: #### C DP #### [address] [place] [address] House Builder: Sami Abbasi MD Hemoglobin (Bld) [Mass/Vol] 11.1 g/dL Low 11.9-15.1 [facility] Comment on above: Performed By: #### C DP #### [address] [place], [place] [id number] House Builder: Sami Abbasi MD MCH (RBC) [Entitic mass] 27.5 pg Normal 25.2-33.5 [facility] Comment on above: Performed By: #### C DP #### [address] [place], [place] [id number] House Builder: Sami Abbasi MD MCHC (RBC) [Mass/Vol] 32.6 g/dL Normal 28.4-34.8 [facility] Comment on above: Performed By: #### C DP #### [address] [place] [address] House Builder: Sami Abbasi MD MCV (RBC) [Entitic vol] 84.2 fL Normal 82.6-102.9 [facility] Comment on above: Performed By: #### C DP #### [facility] [address] [place], [place] [id number] House Builder: Sami Abbasi MD NRBC Automated 0.0 per 100 WBC Normal 0.0 [facility] Comment on above: Performed By: #### C DP #### [facility] [address] [place], [place] [id number] House Builder: Sami Abbasi MD Platelet mean volume (Bld) [Entitic vol] 10.9 fL Normal 8.1-13.5 [facility] Comment on above: Performed By: #### C DP #### [address] [place], [place] 3930983 House Builder: Sami Abbasi MD Platelets (Bld) [#/Vol] 159 10*3/uL Normal 138-453 [facility] Comment on above: Performed By: #### C DP #### [address] [place], [place] 7909283 House Builder: Sami Abbasi MD RBC (Bld) [#/Vol] 4.04 10*6/uL Normal 3.95-5.11 [facility] Comment on above: Performed By: #### C DP #### [address] [place], [place] 7110383 House Builder: Sami Abbasi MD WBC (Bld) [#/Vol] 7.7 10*3/uL Normal 3.5-11.3 [facility] Comment on above: Performed By: #### C DP #### [facility] [address] [place], [place] [id number] House Builder: Sami Abbasi MD Auto Diff Performed NOT REPORTED Normal [facility] Comment on above: Performed By: #### C DP #### [facility] [address] [place], [id number] House Builder: Sami Abbasi MD Platelet Estimate NOT REPORTED Normal [facility] Comment on above: Performed By: #### C DP #### [facility] [address] [place] [address] House Builder: Sami Abbasi MD RBC morphology finding Nom (Bld) NOT REPORTED Normal [facility] Comment on above: Performed By: #### C DP #### [facility] [address] [place] [address] House Builder: Sami Abbasi MD WBC Morphology NOT REPORTED Normal [facility] Comment on above: Performed By: #### C DP #### [facility] [address] [place] [address] House Builder: Sami Abbasi MD COVID-19, RapidOrdered By: Brenda Manjarrez on 05-08-2021 Interpretation and review of laboratory results Abnormal [facility] Phone: SARS-CoV-2 (COVID-19) RNA RONDA+probe Ql (Unsp spec) Detected Abnormal Not Detected [facility] Phone: Comment on above: Rapid NAAT: The specimen is POSITIVE for SARS-Cov-2, the novel coronavirus associated with COVID-19. This test has been authorized by the FDA under an Emergency Use Authorization (EUA) for use by authorized laboratories. The ID NOW COVID-19 assay is designed to detect the virus that causes COVID-19 in patients with signs and symptoms of infection who are suspected of COVID-19. An individual without symptoms of COVID-19 and who is not shedding SARS-CoV-2 virus would expect to have a negative (not detected) result in this assay. Fact sheet for Healthcare Providers: https://www.fda.gov/media/423524/download Fact sheet for Patients: https://www.fda.gov/media/560471/download Methodology: Isothermal Nucleic Acid Amplification Results reported to the appropriate Health Department Specimen Description .[facility]NGEAL SW[facility]: [facility] Phone: Comp Metabolic Profon 2020 (cont.) Normal [facility] Comment on above: Result Comment: Aver age GFR for 20-29 years old: 116 mL/min/1.73sq m Chronic Kidney Disease: <60 mL/min/1.73sq m Kidney failure: <15 mL/min/1.73sq m eGFR calculated using average adult body mass. Additional eGFR calculator available at: http://www.[employer]/multiple_crcl_2011.htm Performed By: #### C DP, IPF #### [facility] [address] [place], [place] [id number] House Builder: Sami Abbasi MD Albumin [Mass/Vol] 3.7 g/dL Normal 3.5-5.2 [facility] Comment on above: Performed By: #### C DP, IPF #### [facility] [address] [place], [place] 4105583 House Builder: Sami Abbasi MD Albumin/Glob Ratio 1.1 Normal 1.0-2.5 [facility] Comment on above: Performed By: #### C DP, IPF #### [facility] [address] [place], [place] 1446683 House Builder: Sami Abbasi MD Alkaline Phos 155 U/L High 35-104 [facility] Comment on above: Performed By: #### C DP, IPF #### [facility] [address] [place], [place] 0542283 House Builder: Sami Abbasi MD ALT [Catalytic activity/Vol] 13 U/L Normal 5-33 [facility] Comment on above: Performed By: #### C DP, IPF #### [facility] [address] [place] [address] House Builder: Sami Abbasi MD Anion gap [Moles/Vol] 15 mmol/L Normal 9-17 [facility] Comment on above: Performed By: #### C DP, IPF #### [facility] [address] [place], [place] 1756783 House Builder: Sami Abbasi MD AST [Catalytic activity/Vol] 31 U/L Normal <32 [facility] Comment on above: Performed By: #### C DP, IPF #### [facility] [address] [place], [place] [address]1983 House Builder: Sami Abbasi MD Bilirubin [Mass/Vol] 0.28 mg/dL Low 0.3-1.2 [facility] Comment on above: Performed By: #### C DP, IPF #### [facility] [address] [place], [place] 8264483 House Builder: Sami Abbasi MD BUN/CRE Ratio 14 Normal 9-20 [facility] Comment on above: Performed By: #### C DP, IPF #### [facility] [address] [place], [place] 3974683 House Builder: Sami Abbasi MD Calcium [Mass/Vol] 8.8 mg/dL Normal 8.6-10.4 [facility] Comment on above: Performed By: #### C DP, IPF #### [facility] [address] [place], [place] 8012583 House Builder: Sami Abbasi MD Chloride [Moles/Vol] 98 mmol/L Normal 98-107 [facility] Comment on above: Performed By: #### C DP, IPF #### [facility] [address] [place], [place] [address]6583 House Builder: Sami Abbasi MD CO2 [Moles/Vol] 20 mmol/L Normal 20-31 [facility] Comment on above: Performed By: #### C DP, IPF #### [facility] [address] [place], [place] 8773883 House Builder: Sami Abbasi MD Creatinine [Mass/Vol] 0.58 mg/dL Normal 0.50-0.90 [facility] Comment on above: Performed By: #### C DP, IPF #### [facility] [address] [place], [place] [address]3483 House Builder: Sami Abbasi MD GFR, Amer >60 Normal >60 [facility] Comment on above: Performed By: #### C DP, IPF #### [facility] [address] [place], [place] [address]33083 House Builder: Sami Abbasi MD GFR,non Amer >60 Normal >60 [facility] Comment on above: Performed By: #### C DP, IPF #### [facility] [address] [place], [place] 5873983 House Builder: Sami Abbasi MD Glucose [Mass/Vol] 76 mg/dL Normal 70-99 [facility] Comment on above: Performed By: #### C DP, IPF #### [facility] [address] [place], [place] 2809583 House Builder: Sami Abbasi MD Potassium [Moles/Vol] 3.8 mmol/L Normal 3.7-5.3 [facility] Comment on above: Performed By: #### C DP, IPF #### [address] [place], [place] [address]80683 House Builder: Sami Abbasi MD Protein [Mass/Vol] 7.1 g/dL Normal 6.4-8.3 [facility] Comment on above: Performed By: #### C DP, IPF #### [facility] [address] [place], [place] [address]6583 House Builder: Sami Abbasi MD Sodium [Moles/Vol] 133 mmol/L Low 135-144 [facility] Comment on above: Performed By: #### C DP, IPF #### [facility] [address] [place] [address] House Builder: Sami Abbasi MD Staging: Normal [facility] Comment on above: Result Comment: Stag e 1: Some kidney damage normal GFR Stage 2: Mild kidney damage GFR 60-89 Stage 3: Moderate kidney damage GFR 30-59 Stage 4: Severe kidney damage GFR 15-29 Stage 5: Severe kidney damage GFR <15 ESRD - chronic treatment by dialysis or transplant Performed By: #### C DP, IPF #### [facility] [address] [place] [address] House Builder: Sami Abbasi MD Urea nitrogen [Mass/Vol] 8 mg/dL Normal 6-20 [facility] Comment on above: Performed By: #### C DP, IPF #### [facility] [address] [place] [address] House Builder: Sami Abbasi MD Comprehensive metabolic pane lOrdered By: Suzy Manjarrez on 05-08-2021 Albumin [Mass/Vol] 3.7 g/dL 3.5 - 5.2 g/dL [employer] Phone: Albumin/Globulin [Mass ratio] 1.1 {ratio} [facility] Phone: ALP (Bld) [Catalytic activity/Vol] 155 U/L High 35 - 104 U/L [employer] Phone: ALT [Catalytic activity/Vol] 13 U/L 5 - 33 U/L [facility] Phone: Anion gap [Moles/Vol] 15 mmol/L 9 - 17 mmol/L [employer] Phone: AST [Catalytic activity/Vol] 31 U/L <32 [facility] Phone: Bilirubin [Mass/Vol] 0.28 mg/dL Low 0.3 - 1 .2 mg/dL [facility] Phone: Calcium [Mass/Vol] 8.8 mg/dL 8.6 - 10. 4 mg/dL [facility] Phone: Chloride [Moles/Vol] 98 mmol/L 98 - 10 7 mmol/L [employer] Phone: CO2 [Moles/Vol] 20 mmol/L 20 - 31 mmol/L [employer] Phone: Creatinine [Mass/Vol] 0.58 mg/dL 0.50 - 0.90 mg/dL [employer] Phone: Free PSA/Total PSA [Mass fraction] 7.1 g/dL 6.4 - 8.3 g/dL [facility] Phone: GFR >60 >60 mL/min [employer] Phone: GFR Non- >60 >60 mL/min [employer] Phone: Glucose [Mass/Vol] 76 mg/dL 70 - 99 mg/dL [facility] Phone: Interpretation and review of laboratory results Abnormal [employer] Phone: Potassium [Moles/Vol] 3.8 mmol/L 3.7 - 5.3 mmol/L [employer] Phone: Sodium [Moles/Vol] 133 mmol/L Low 135 - 144 mmol/L [employer] Phone: Urea nitrogen (BldV) [Mass/Vol] 8 mg/dL 6 - 20 mg/dL [employer] Phone: Urea nitrogen/Creatinine (Bld) [Mass ratio] 14 [employer] Phone: [employer] Phone: Laboratory - Chemistry and C hemistry - challengeOrdered By: Suzy Manjarrez on 05-08-2021 GFR/1.73 sq M.predicted MDRD (S/P/Bld) [Vol rate/Area] [employer] Phone: Comment on above: Average GFR for 20-2 9 years old: 116 mL/min/1.73sq m Chronic Kidney Disease: <60 mL/min/1.73sq m Kidney failure: <15 mL/min/1.73sq m eGFR calculated using average adult body mass. Additional eGFR calculator available at: http://www.[employer]/multiple_crcl_2012.htm Stage 1: Some kidney damage normal GFR Stage 2: Mild kidney damage GFR 60-89 Stage 3: Moderate kidney damage GFR 30-59 Stage 4: Severe kidney damage GFR 15-29 Stage 5: Severe kidney damage GFR <15 ESRD - chronic treatment by dialysis or transplant Microscopic UrinalysisOrdere d By: Suzy Manjarrez on 05-08-2021 - [employer] Work Phone: Amorphous, UA NOT REPORTED None [employer] Work Phone: Bacteria, UA NOT REPORTED None [employer] Work Phone: Casts UA NOT REPORTED /LPF [facility] Work Phone: Crystals, UA NOT REPORTED None /HPF [facility] Work Phone: Epithelial Cells UA 10 TO 20 [facility] Work Phone: Mucus, UA NOT REPORTED None [employer] Work Phone: Other Observations UA NOT REPORTED NOT REQ. [facility] [employer] Work Phone: RBC, UA 0 TO 2 [employer] Work Phone: Renal Epithelial, UA NOT REPORTED 0 /HPF Me y [employer] Work Phone: Trichomonas, UA NOT REPORTED None [employer] Work Phone: WBC, UA 0 TO 2 [employer] Work Phone: Yeast, UA NOT REPORTED None [employer] Work Phone: No Panel InformationOrdered By: Suzy Manjarrez on 05-08-2021 [employer] Work Phone: [id number] 05-08-2021 SARS-CoV-2 (COVID-19) RNA RONDA+probe Ql (Unsp spec) Detected Abnormal NOTDET [facility] Comment on above: Result Comment: Rapid NAAT: The specimen is POSITIVE for SARS-Cov-2, the novel coronavirus associated with COVID-19. This test has been authorized by the FDA under an Emergency Use Authorization (EUA) for use by authorized laboratories. The ID NOW COVID-19 assay is designed to detect the virus that causes COVID-19 in patients with signs and symptoms of infection who are suspected of COVID-19. An individual without symptoms of COVID-19 and who is not shedding SARS-CoV-2 virus would expect to have a negative (not detected) result in this assay. Fact sheet for Healthcare Providers: https://www.fda.gov/media/118746/download Fact sheet for Patients: https://www.fda.gov/media/043307/download Methodology: Isothermal Nucleic Acid Amplification Results reported to the appropriate Health Department Performed By: #### H H #### [facility] [address] [place] [address] House Builder: Sami Abbasi MD Strep Gr A Direct Agon 05-08 Strep Gr A Direct Ag Specimen Descriptio n .THROAT SWAB Special Requests NOT REPORTED Direct Exam Rapid Strep A negative. A negative Rapid Group A Strep Screen result does not rule out the possibility of Group A Streptococci in the specimen. A Group A Strep DNA test is available upon request. Report Status FINAL 05/08/2021 Normal [facility] Comment on above: Performed By: #### H H #### [facility] [address] [place] [address] House Builder: Sami Abbasi MD Strep Screen Group A ThroatO rdered By: Suzy Manjarrez on 05-08-2021 S. pyogenes Ag IA Ql (Unsp spec) Rapid Strep A negative. A negative Rapid Group A Strep Screen result does not rule out the possibility of Group A Streptococci in the specimen. A Group A Strep DNA test is available upon request. [employer] Phone: Special Requests NOT REPORTED [facility] Phone: Specimen Description .THROAT SWAB Me [facility] [employer] Work Phone: [facility] [employer] Work Phone: UrinalysisOrdered By: Nilay Manjarrez on 05-08-2021 Bilirubin Urine Negative NEGATIVE [facility] [employer] Phone: Color, UA YELLOW YELLOW [facility] [employer] Work Phone: Glucose, Ur Negative NEGATIVE [facility] [employer] Work Phone: Interpretation and review of laboratory results Abnormal [facility] Work Phone: Ketones Ql (U) 2+ Abnormal NEGATIVE [facility] [employer] Phone: Leukocyte esterase Test strip Ql (U) Negative NEGATIVE [facility] [employer] Phone: Nitrite, Urine Negative NEGATIVE [facility] [employer] Phone: pH, UA 6.5 [facility] [employer] Work Phone: Protein, UA Negative NEGATIVE [facility] [employer] Work Phone: Specific [place], UA 1.025 High [facility] [employer] Work Phone: Turbidity UA CLEAR CLEAR [facility] [employer] Work Phone: Urinalysis Comments NOT REPORTED [facility] [employer] Work Phone: Urine Hgb Negative NEGATIVE [facility] [employer] Phone: Urobilinogen, Urine Normal Normal [facility] [employer] Phone: Urinalysis, Routineon 2020 Bilirubin, SemiQt,Ur Negative Normal NEG [facility] Comment on above: Performed By: #### C DP, IPF #### [facility] [address] [place] [address] House Builder: Sami Abbasi MD Blood, Urine Negative Normal NEG [facility] Comment on above: Performed By: #### C DP, IPF #### [facility] [address] [place] [address] House Builder: Sami Abbasi MD Clarity (U) CLEAR Normal CLEAR [facility] Comment on above: Performed By: #### C DP, IPF #### [facility] [address] [place] [address] House Builder: Sami Abbasi MD Color (U) YELLOW Normal YEL [facility] Comment on above: Performed By: #### C DP, IPF #### [facility] [address] [place], [place] [address]4983 House Builder: Sami Abbasi MD Glucose Ql (U) Negative Normal NEG [facility] Comment on above: Performed By: #### C DP, IPF #### [facility] [address] [place], [place] [phone] House Builder: Sami Abbasi MD Ketones Ql (U) 2+ Abnormal NEG [facility] Comment on above: Performed By: #### C DP, IPF #### [facility] [address] [place] [address] Dr[place], [place] [address]324783 House Builder: Sami Abbasi MD Leukocyte esterase Test strip Ql (U) Negative Normal NEG [facility] Comment on above: Performed By: #### C DP, IPF #### [address] [place], [place] 2671383 House Builder: Sami Abbasi MD Nitrite,Ur Negative Normal NEG [facility] Comment on above: Performed By: #### C DP, IPF #### [facility] [address] [place], [place] 0988483 House Builder: Sami Abbasi MD PH,Ur 6.5 Normal 5.0-9.0 [facility] Comment on above: Performed By: #### C DP, IPF #### [facility] [address] [place], [place] 6062583 House Builder: Sami Abbasi MD Protein Ql (U) Negative Normal NEG [facility] Comment on above: Performed By: #### C DP, IPF #### [facility] [address] [place], [place] [address]83 House Builder: Sami Abbasi MD Spec. [place],Ur 1.025 High 1.010-1.020 [facility] Comment on above: Performed By: #### C DP, IPF #### [facility] [address] [place], [place] [address]83 House Builder: Sami Abbasi MD Urobilinogen,Ur Normal Normal NORM [facility] Comment on above: Performed By: #### C DP, IPF #### [facility] [address] [place], [place] [phone] House Builder: Sami Abbasi MD Comment NOT REPORTED Normal [facility] Comment on above: Performed By: #### C DP, IPF #### [facility] [address] [place], [place] [address] House Builder: Sami Abbasi MD Urinalysis,Microon 1 ----- Normal [facility] Comment on above: Performed By: #### C DP, IPF #### [facility] [address] [place], [place] [phone] House Builder: Sami Abbasi MD Epithelial cells LM Ql (Urine sed) 10 TO 20 Normal 0-25 [facility] Comment on above: Performed By: #### C DP, IPF #### [facility] [address] [place], [place] 6555883 House Builder: Sami Abbasi MD Urine RBC's 0 TO 2 Normal 0-2 [facility] Comment on above: Performed By: #### C DP, IPF #### [facility] [address] [place], [place] 7948783 House Builder: Sami Abbasi MD Urine WBC's 0 TO 2 Normal 0-5 [facility] Comment on above: Performed By: #### C DP, IPF #### [facility] [address] [place] [address] House Builder: Sami Abbasi MD Amorphous sediment LM Ql (Urine sed) NOT REPORTED Normal [facility] Comment on above: Performed By: #### C DP, IPF #### [facility] [address] [place], [id number] House Builder: Sami Abbasi MD Bacteria NOT REPORTED Normal NONE [facility] Comment on above: Performed By: #### C DP, IPF #### [facility] [address] [place] [phone] House Builder: Sami Abbasi MD Casts NOT REPORTED Normal [facility] Comment on above: Performed By: #### C DP, IPF #### [facility] [address] [place] [phone] House Builder: Sami Abbasi MD Crystals LM Nom (Urine sed) NOT REPORTED Normal [facility] Comment on above: Performed By: #### C DP, IPF #### [address] [place] [phone] House Builder: Sami Abbasi MD Epithelial, Renal NOT REPORTED Normal 0 [facility] Comment on above: Performed By: #### C DP, IPF #### [facility] [address] [place], [id number] House Builder: Sami Abbasi MD Mucus Strands NOT REPORTED Normal [facility] Comment on above: Performed By: #### C DP, IPF #### [facility] [address] [place], [place] [address] House Builder: Sami Abbasi MD Other Observations NOT REPORTED Normal NREQ [facility] Comment on above: Performed By: #### C DP, IPF #### [facility] [address] [place], [place] [phone] House Builder: Sami Abbasi MD Trichomonas NOT REPORTED Normal [facility] Comment on above: Performed By: #### C DP, IPF #### [facility] [address] [place] [address] [place] [address] House Builder: Sami Abbasi MD Yeast NOT REPORTED Normal [facility] Comment on above: Performed By: #### C DP, IPF #### [facility] [address] [place] [address] House Builder: Sami Abbasi MD Rule Out Grp.B Strepon 05-02 Rule Out Grp.B Strep Specimen Descriptio n .VAGINA Special Requests NOT REPORTED Culture NEGATIVE FOR GROUP B STREPTOCOCCI Report Status FINAL 05/02/2021 [facility] Comment on above: Performed By: #### C DP, IPF #### [address] [place], [place] [id number] House Builder: Sami Abbasi MD Glucose Soraya Scr 50gon 2020 Glucose [Mass/Vol] 93 mg/dL Normal 70-135 [facility] Comment on above: Performed By: #### D AU #### [address] [place] [address] House Builder: Sami Abbasi MD Glu [facility] Comment on above: Performed By: #### D AU #### [address] [place] [address] House Builder: Sami Abbasi MD Glucose tolerance, 1 hourOrd ered By: Suzy Manjarrez on 02-25-2021 GLU ADMN Glucola [facility] Work Phone: Glucose tolerance screen 50g 93 mg/dL 70 - 135 mg/dL [facility] [employer] Phone: [facility] Work Phone: Hemoglobinon 07-06-2021 Hemoglobin (Bld) [Mass/Vol] 11.7 g/dL Low 11.9-15.1 [facility] Comment on above: Performed By: #### D AU #### [facility] [address] [place] [address] House Builder: Sami Abbasi MD HemoglobinOrdered By: Nilay Manjarrez on 02-25-2021 Hemoglobin.gastrointest inal spec 1 Ql (Stl) 11.7 g/dL Low 11.9 - 15.1 g/dL [facility] [employer] Phone: Interpretation and review of laboratory results Abnormal [facility] Phone: [facility] Phone: RhIg Workup (RhoGam)on 02-25 RhIg Workup (RhoGam) Blood Component Typ e MANUFACTURED PRODUCT Units Ordered 1 ABO/Rh(D) A NEGATIVE Antibody Screen NEGATIVE History Check A NEG Unit Number [id number] Blood Component Type RHIG Unit Division 00 Status of Unit TRANSFUSED Transfusion Status OK TO TRANSFUSE Normal [facility] Comment on above: Performed By: #### C DP, IPF #### [facility] [address] [place] [address] House Builder: Sami Abbasi MD Hepatitis C Antibodyon 10-08 Hepatitis C Ab NONREACTIVE NONREACTIVE [facility] [employer] Phone: Comment on above: The hepatitis C procedure used in our laboratory is a Chemiluminescent test specific for three recombinant HCV antigens. A negative anti-HCV result indicates that the antibodies to hepatitis C virus are not present at this time. Individuals with reactive anti-HCV should be considered infected and infectious until proven otherwise. Confirmation of all equivocal or reactive results is recommended by ordering HCV RNA by PCR. TYPE AND SCREENon 0 10-07-2020 ABO/Rh Negative [facility] Phone: Urine Drug Screen, Comprehen siveon 10-07-2020 Amphetamine Screen, Ur Negative NEGATIVE [facility] [employer] Work Phone: Barbiturate Screen, Ur Positive Abnormal NEGATIVE [facility] Work Phone: Benzodiazepine Screen, Urine Negative NEGATIVE [facility] Work Phone: Buprenorphine Urine Negative NEGATIVE [facility] Work Phone: Cannabinoid Scrn, Ur Negative NEGATIVE [facility] Work Phone: Cocaine Metabolite, Urine Negative NEGATIVE [facility] Work Phone: Interpretation and review of laboratory results Abnormal [facility] Work Phone: MDMA, Urine NOT REPORTED NEGATIVE [facility] Work Phone: Methadone Screen, Urine Negative NEGATIVE [facility] Work Phone: Methamphetamine, Urine Negative NEGATIVE [facility] Work Phone: Opiates, Urine Negative NEGATIVE [facility] Work Phone: Oxycodone Screen, Ur Negative NEGATIVE [facility] Work Phone: Phencyclidine, Urine Negative NEGATIVE [facility] Work Phone: Propoxyphene, Urine Negative NEGATIVE [facility] Work Phone: Test Information NOT REPORTED [facility] [employer] Work Phone: Tricyclic Antidepressants, Urine Negative NEGATIVE [facility] Work Phone: Comment on above: Drug screen results are to be used for medical purposes only. All positive results are unconfirmed. Testing for employment or legal uses should be sent to a reference laboratory for confirmation. Vital Signs Date Time Vital Sign Value Performing Clinician Faci lity 05-25-2021 17:42-0400 Body temperature 98.01 [degF] Leeann Hidalgo MD Work Phone: [employer] Work Phone: 05-25-2021 17:42-0400 Diastolic blood pressure 83 mm[Hg] Leeann Hidalgo MD Work Phone: [employer] Work Phone: 05-25-2021 17:42-0400 Heart rate 95 /min Leeann Hidalgo MD Work Phone: [employer] Work Phone: 05-25-2021 17:42-0400 Respiratory rate 18 /min Leeann Hidalgo MD Work Phone: [employer] Work Phone: 05-25-2021 17:42-0400 SaO2% (BldA) [Mass fraction] 100 % Leeann Hidalgo MD Work Phone: [employer] Work Phone: 05-25-2021 17:42-0400 Systolic blood pressure 154 mm[Hg] Leeann Hidalgo MD Work Phone: [employer] Work Phone: 05-08-2021 08:50-0400 Body temperature 99.1 [degF] Suzy Pool ELECTRO MECHANICAL ENGINEER - CNM Work Phone: [employer] Work Phone: 05-08-2021 05:20-0400 Respiratory rate 17 /min Suzy Pool ELECTRO MECHANICAL ENGINEER - CNM Work Phone: [employer] Work Phone: 05-08-2021 03:50-0400 Diastolic blood pressure 58 mm[Hg] Suzy Pool ELECTRO MECHANICAL ENGINEER - CNM Work Phone: [employer] Work Phone: 05-08-2021 03:50-0400 Heart rate 109 /min Suzy Pool ELECTRO MECHANICAL ENGINEER - CNM Work Phone: [employer] Work Phone: 05-08-2021 03:50-0400 Systolic blood pressure 99 mm[Hg] Suzy Pool ELECTRO MECHANICAL ENGINEER - CNM Work Phone: [employer] Work Phone: 02-26-2021 09:53-0400 Body temperature 96.91 [degF] Mth 01 [employer] Work Phone: 02-26-2021 09:53-0400 Diastolic blood pressure 76 mm[Hg] [facility] Phone: 02-26-2021 09:53-0400 Heart rate 94 /min [facility] Phone: 02-26-2021 09:53-0400 Respiratory rate 20 /min [facility] [employer] Phone: 02-26-2021 09:53-0400 Systolic blood pressure 134 mm[Hg] [facility] [employer] Phone: Encounters Encounter Date Encounter Type Care Provider Facility Start: 02-21-2024 End: 02-21-2024 ambulatory CHARI JUANITO Not Available Start: 01-31-2024 End: 01-31-2024 ambulatory CHARI JUANITO Not Available Start: 12-22-2023 End: 12-25-2023 ambulatory DAIJA [facility] Start: 12-22-2023 Encounter for preprocedural laboratory examination DAIJA [facility] Start: 10-14-2023 End: 10-15-2023 ambulatory SUZY E POOL [facility] Start: 09-14-2023 End: 09-14-2023 ambulatory ERNIE ZURITA Not Available Start: 09-29-2021 End: 09-30-2021 ambulatory [facility] Start: 05-25-2021 End: 05-25-2021 Emergency department patient visit LEEANN HIDALGO [facility] Start: 05-25-2021 End: 05-25-2021 Emergency department patient visit Leeann Hidalgo MD Work Phone: [facility] ED Comment on above: Vaginal bleeding (Pr imary Dx) Start: 05-21-2021 End: 05-22-2021 ambulatory PAUL Yost JOSE [facility] Start: 05-21-2021 End: 05-21-2021 Subsequent hospital visit by physician Daija Howard MD Work Phone: [facility] Laboratory Comment on above: Abnormal uterine ble eding, Start: 05-21-2021 End: 05-24-2021 ambulatory [facility] [facility] Start: 05-11-2021 End: 05-15-2021 Evaluation and management of inpatient [facility]ZY [place] [facility] Start: 05-08-2021 End: 05-08-2021 ambulatory [facility] Start: 05-08-2021 End: 05-08-2021 Subsequent hospital visit by physician Suzy Manjarrez APRN - [place] Work Phone: [facility] Labor and Delivery Start: 04-29-2021 End: 04-30-2021 ambulatory [facility] Start: 04-29-2021 End: 04-29-2021 Subsequent hospital visit by physician Daija Howard MD Work Phone: [facility] Laboratory Comment on above: 36 weeks gestation o f Start: 02-26-2021 End: 02-27-2021 ambulatory [facility] Start: 02-26-2021 End: 02-26-2021 Subsequent hospital visit by physician Jimi Goodwin Treatment 01 [facility] Specialty Clinic ([facility]B) Start: 02-25-2021 End: 02-26-2021 ambulatory [facility] Start: 02-25-2021 End: 02-25-2021 Subsequent hospital visit by physician Daija Howard MD Work Phone: [facility] Laboratory Comment on above: 27 weeks gestation o f ; Need for rhogam due to Rh negative mother; Impaired glucose in , antepartum Start: 10-07-2020 End: 10-07-2020 Subsequent hospital visit by physician Daija [facility] Laboratory Comment on above: Amenorrhea; Positive urine test; Encounter for supervision of normal first in first trimester Procedures Date Procedure Procedure Detail Performing Clinician Start: 05-25-2021 Antibody screen Leeann Hidalgo MD Work Phone: Start: 05-25-2021 Blood typing serologic abo Leeann Hidalgo MD Work Phone: Start: 05-25-2021 End: 05-25-2021 Comprehensive metabolic panel Leeann Hidalgo MD Work Phone: Start: 05-21-2021 Gonadotropin chorionic quantitative Paul Garcia MD Work Phone: Start: 05-08-2021 COVID-19, RAPID Suzy E Pool ELECTRO MECHANICAL ENGINEER - CNM Work Phone: Start: 05-08-2021 Iaadiadoo streptococcus group a Suzy E Pool ELECTRO MECHANICAL ENGINEER - CNM Work Phone: Start: 05-08-2021 Comprehensive metabolic panel Suzy E Pool ELECTRO MECHANICAL ENGINEER - CNM Work Phone: Start: 05-08-2021 Urinalysis microscopic only Suzy E Pool ELECTRO MECHANICAL ENGINEER - CNM Work Phone: Start: 05-08-2021 Urnls dip stick/tablet rgnt auto w/o microscopy Suzy E Pool ELECTRO MECHANICAL ENGINEER - CNM Work Phone: Start: 05-08-2021 nonstress test Suzy E Pool APR N - CNM Work Phone: Start: 02-25-2021 Blood count hemoglobin Suzy E Pool A PRN - CNM Work Phone: Start: 02-25-2021 Blood typing serologic rh (d) Suzy E Pool ELECTRO MECHANICAL ENGINEER - CNM Work Phone: Start: 10-07-2020 Antibody screen Daija Howard Start: 10-07-2020 Hepatitis c antibody Suzy E Pool Work Phone: Start: 10-07-2020 Blood typing serologic abo Suzy E Pool Work Phone: Start: 10-07-2020 Obstetric panel Suzy E Pool Work Phone: Start: 10-07-2020 Drug screen, qualitate/multi Suzy E Pool Work Phone: H/O: section S/P primar y low transverse Daija Howard MD Work Phone: Plan of Treatment Date Care Activity Detail Author Start: 03-17-2031 DTaP/Tdap/Td vaccine (8 - Td or Tdap) DTaP/Tdap/Td vaccine (8 - Td or Tdap) [employer] Phone: Start: 07-23-2022 Screening for malign ant neoplasm of cervix ZZ Cervical cancer screen age 21-29 [employer] Phone: Comment on above: Postponed from 04/26 (Not Indicated) Start: 02-19-2022 Influenza vaccination Flu vaccine (# 1) [employer] Phone: Comment on above: Postponed from 04/23 (Not Indicated) Start: 06-23-2021 End: 06-23-2021 ambulatory 06/23/2021 Visit Obstetrics and Gynecology Suzy Manjarrez APRN - CNM [address] [place] [address] [phone] [facility] Start: 05-20-2021 End: 05-20-2021 Patient encounter procedure 05/20/2021 Routine Obstetrics and Gynecology Suzy Manjarrez APRN - CNM [address] [place] [address] [phone] [facility] Start: 05-13-2021 End: 05-13-2021 Patient encounter procedure 05/13/2021 Routine Obstetrics and Gynecology Suzy Manjarrez APRN - CNM [address] [place], [place] [id number] [facility] Start: 05-06-2021 End: 05-06-2021 Patient encounter procedure 05/06/2021 Routine Obstetrics and Gynecology Suzy Manjarrez APRN - CNM [address] [place] [address] [facility] Start: 04-23-2021 Influenza vaccination Flu vaccine (# 1) [facility] Phone: Start: 03-17-2021 End: 03-17-2021 Patient encounter procedure 03/17/2021 Routine Obstetrics and Gynecology Paul Garcia MD [address] [place] [address] [address] [place] [address] [facility] Start: 03-17-2021 End: 03-17-2021 Professional / ancillary services management 03/17/2021 Ancillary Procedure Obstetrics and Gynecology [facility] Start: 02-26-2021 Subsequent hospital visit by physician 02/26/2021 Hospital Encounter Infusion Therapy [facility] Specialty Clinic ([facility]) Start: 10-16-2020 End: 10-16-2020 Ancillary Procedure [facility] Start: 04-23-2020 Influenza vaccination Flu vaccine (# 1) [facility] [employer] Phone: Start: 2016 Screening for malign ant neoplasm of cervix [facility] [employer] Phone: Start: 2014 DTaP/Tdap/Td vaccine (1 - Tdap) DTaP/Tdap/Td vaccine (1 - Tdap) [facility] [employer] Phone: Start: 2010 HIV screening HIV screen [facility] Work Phone: Start: 2007 COVID-19 Vaccine (1) COVID-19 Vaccin e (1) [facility] [employer] Phone: Start: 2006 HPV vaccine (1 - 2-d ose series) HPV vaccine (1 - 2-dose series) [facility] [employer] Phone: Start: 1996 Varicella vaccine (1 of 2 - 2-dose childhood series) Varicella vaccine (1 of 2 - 2-dose childhood series) [employer] Phone: Start: 1995 Hepatitis C screening Hepatitis C sc hubert [employer] Phone: End: 05-08-2021 Bacteria identified in Urine by Culture Urine culture Microbiology Routine One Time for 1 Occurrences starting 05/08/2021 until 05/08/2021 [employer] Phone: Comment on above: One Time for 1 Occur rences starting 05/08/2021 until 05/08/2021 End: 10-07-2020 C.trachomatis N.gonorrhoeae DNA, Urine C.trachomatis N.gonorrhoeae DNA, Urine Microbiology Routine Amenorrhea Positive urine test Encounter for supervision of normal first in first trimester 1 Occurrences starting 10/07/2020 until 10/07/2020 [employer] Phone: Comment on above: 1 Occurrences starti ng 10/07/2020 until 10/07/2020 C.trachomatis N.gonorrhoeae DNA, Urine C.trachomatis N.gonorrhoeae DNA, Urine Microbiology Routine Amenorrhea Positive urine test Encounter for supervision of normal first in first trimester 10/07/2020 11:00 AM EST [employer] Phone: End: 04-29-2021 Culture, Strep B Screen, Vaginal/Rectal Culture, Strep B Screen, Vaginal/Rectal Microbiology Routine 36 weeks gestation of 1 Occurrences starting 04/29/2021 until 04/29/2021 [employer] Phone: Comment on above: 1 Occurrences starti ng 04/29/2021 until 04/29/2021 Culture, Strep B Scr een, Vaginal/Rectal Culture, Strep B Screen, Vaginal/Rectal Microbiology Routine 36 weeks gestation of 04/29/2021 12:15 PM EDT [employer] Phone: End: 10-07-2020 Culture, Urine Culture, Urine Microbiology Routine Amenorrhea Positive urine test Encounter for supervision of normal first in first trimester 1 Occurrences starting 10/07/2020 until 10/07/2020 [employer] Phone: Comment on above: 1 Occurrences starti ng 10/07/2020 until 10/07/2020 Culture, Urine [employer] Phone: End: 10-07-2020 HIV Screen HIV Screen Lab Routine Amenorrhea Positive urine test Encounter for supervision of normal first in first trimester 1 Occurrences starting 10/07/2020 until 10/07/2020 [employer] Phone: Comment on above: 1 Occurrences starti ng 10/07/2020 until 10/07/2020 HIV Screen HIV Screen Lab R outine Amenorrhea Positive urine test Encounter for supervision of normal first in first trimester 10/07/2020 12:12 PM EST [employer] Phone: Nonrebreather mask oxygen Nonrebreather mask oxygen Respiratory Care Routine As directed - RT (PRN) until discontinued starting 05/08/2021 [employer] Phone: Comment on above: As directed - RT ([place] N) until discontinued starting 05/08/2021 PROFILE I PROF ILE I Lab Routine Amenorrhea Positive urine test Encounter for supervision of normal first in first trimester 10/07/2020 12:11 PM EST [employer] Phone: RHOGAM ANTEPARTUM RHOGAM ANTEPAR KAYLEEN Blood Bank Routine 27 weeks gestation of Need for rhogam due to Rh negative mother 02/25/2021 6:39 PM EDT [employer] Phone: End: 05-08-2021 Sample possible blood bank testing Sample possible blood bank testing Lab Routine One Time for 1 Occurrences starting 05/08/2021 until 05/08/2021 [employer] Phone: Comment on above: One Time for 1 Occur rences starting 05/08/2021 until 05/08/2021 End: 05-08-2021 SVE SVE Point of Care Testing Routine One Time for 1 Occurrences starting 05/08/2021 until 05/08/2021 [employer] Phone: Comment on above: One Time for 1 Occur rences starting 05/08/2021 until 05/08/2021 Immunizations Immunization Date Immunization Notes Care Provider Christopher aure 03-17-2021 tetanus toxoid, redu melony diphtheria toxoid, and acellular pertussis vaccine, adsorbed Daija Howard MD Work Phone: [facility] Work Phone: Payers Date Payer Category Payer Unknown [id number] 2020 Unknown [id number] 1995 Unknown [id number] 2.16.8 [id number] 1995 Unknown [id number] 2.16.8 [id number] 1995 Unknown [id number] 2.16.8 [id number] 1995 Unknown [id number] 2.16.8 [id number] 1995 Unknown [id number] 2.16.8 [id number] 1995 Unknown [id number] 2.16.8 [id number] 1995 Unknown [id number] 2.16.8 [id number] 1995 Unknown [id number] 2.16.8 [id number] 1995 Unknown [id number] 2.16.8 [id number] 1995 Unknown [id number] 2.16.8 [id number] 1995 Unknown [id number] 2.16.8 [id number] 1995 Unknown [id number] 2.16.8 [id number] 1995 Unknown [id number] 2.16.84 [id number] 1995 Unknown [id number] 2.16.84 [id number] 1995 Unknown [id number] 2.16.84 [id number] Social History Date Type Detail Facility Start: 10-07-2020 End: 05-21-2021 Tobacco smoking status NHIS Never smoker [employer] Phone: Start: 10-07-2020 End: 05-21-2021 Tobacco use and exposure [facility] Phone: Start: 10-07-2020 End: 05-21-2021 Alcohol intake Ex-drinker (finding) [facility] Phone: Start: 08-30-2020 [facility] Work Phone: Start: 1995 Sex Assigned At Not on file [facility] [employer] Phone: Exposure to SARS-CoV -2 (event) Not sure [facility] Exposure to SARS-CoV -2 (event) [facility] Discharge instructions 05-25-2021 InstructionsAttachments Note Date & Type Note Facility 05-25-2021 Hospital Discharg e instructions Leeann Hidalgo MD - 05/25/2021 Make sure to stay well-hydrated. Follow-up with anny Trujillo to schedule the earliest appointment. Return immediately for any bleeding more than a pad an hour passing large golf ball size clots or any other acute concerns. The following attachments cannot be sent through Care Everywhere.Vaginal Bleeding (Georgian)documented in this encounter [facility] Phone: History of Present illness Narrative 05-08-2021 Suzy Manjarrez APRN - JESSICA - 05/08/2021 7:45 AM EDT Note Date & Type Note Facility 05-08-2021 History of Present illness Narrative Department of Obstetrics and Gynecology Labor and Delivery Triage Note SUBJECTIVE: Pt presented to labor and delivery last evening during her work shift with fatigue chills fever and the start of a cough. Pt states about 3 days ago she noticed allergy like symptoms. Pt has not been working in any [employer] rooms and has been very diligent about staying away from ill people OBJECTIVE HISTORY OF PRESENT ILLNESS: The patient is a 26 y.o. female at 37w6d. OB History 1 Para Term AB Living SAB TAB Ectopic Molar Multiple Live Births Patient presents with a chief complaint fever chills Estimated Due Date: Estimated Date of Delivery: 05/23/21 Past Medical History: Diagnosis Date Migraines Vitals: BP (!) 99/58 Pulse 109 Temp 98.7 F (37.1 C) Resp 17 LMP 08/16/2020 (Approximate) CONSTITUTIONAL: awake, alert, cooperative, no apparent distress, and appears stated age ABDOMEN: No scars, normal bowel sounds, soft, non-distended, non-tender, no masses palpated, no hepatosplenomegally GENITAL/URINARY: Uterus: Size normal, Contour normal NEUROLOGIC: Awake, alert, oriented to name, place and time. and gait is normal. Cervix: Unchanged from office Position: Cephalic Membranes: Intact heart rate: Initial assessment was tachycardia, however with fluids and tylenol and control of maternal symptoms. The heart tones are now a CAT 1 NST: reactive Contraction frequency: occasional now minutes DATA: Results for orders placed or performed during the hospital encounter of 05/08/21 COVID-19, Rapid Specimen: Nasopharyngeal Swab Result Value Ref Range Specimen Description .NASOPHARYNGEAL SWAB SARS-CoV-2, Rapid DETECTED (A) Not Detected Strep Screen Group A Throat Specimen: Throat Result Value Ref Range Specimen Description .THROAT SWAB Special Requests NOT REPORTED Direct Exam Rapid Strep A negative. A negative Rapid Group A Strep Screen result does not rule out the possibility of Group A Streptococci in the specimen. A Group A Strep DNA test is available upon request. Urinalysis Result Value Ref Range Color, UA YELLOW YELLOW Turbidity UA CLEAR CLEAR Glucose, Ur NEGATIVE NEGATIVE Bilirubin Urine NEGATIVE NEGATIVE Ketones, Urine 2+ (A) NEGATIVE Specific [place], UA 1.025 (H) 1.010 - 1.020 Urine Hgb NEGATIVE NEGATIVE pH, UA 6.5 5.0 - 9.0 Protein, UA NEGATIVE NEGATIVE Urobilinogen, Urine Normal Normal Nitrite, Urine NEGATIVE NEGATIVE Leukocyte Esterase, Urine NEGATIVE NEGATIVE Urinalysis Comments NOT REPORTED Comprehensive metabolic panel Result Value Ref Range Glucose 76 70 - 99 mg/dL BUN 8 6 - 20 mg/dL CREATININE 0.58 0.50 - 0.90 mg/dL Bun/Cre Ratio 14 9 - 20 Calcium 8.8 8.6 - 10.4 mg/dL Sodium 133 (L) 135 - 144 mmol/L Potassium 3.8 3.7 - 5.3 mmol/L Chloride 98 98 - 107 mmol/L CO2 20 20 - 31 mmol/L Anion Gap 15 9 - 17 mmol/L Alkaline Phosphatase 155 (H) 35 - 104 U/L ALT 13 5 - 33 U/L AST 31 <32 U/L Total Bilirubin 0.28 (L) 0.3 - 1.2 mg/dL Total Protein 7.1 6.4 - 8.3 g/dL Albumin 3.7 3.5 - 5.2 g/dL Albumin/Globulin Ratio 1.1 1.0 - 2.5 GFR Non- >60 >60 mL/min GFR >60 >60 mL/min GFR Comment GFR Staging CBC auto differential Result Value Ref Range WBC 7.7 3.5 - 11.3 k/uL RBC 4.04 3.95 - 5.11 m/uL Hemoglobin 11.1 (L) 11.9 - 15.1 g/dL Hematocrit 34.0 (L) 36.3 - 47.1 % MCV 84.2 82.6 - 102.9 fL MCH 27.5 25.2 - 33.5 pg MCHC 32.6 28.4 - 34.8 g/dL RDW 13.2 11.8 - 14.4 % Platelets 159 138 - 453 k/uL MPV 10.9 8.1 - 13.5 fL NRBC Automated 0.0 0.0 per 100 WBC Differential Type NOT REPORTED WBC Morphology NOT REPORTED RBC Morphology NOT REPORTED Platelet Estimate NOT REPORTED Seg Neutrophils 90 (H) 36 - 65 % Lymphocytes 3 (L) 24 - 43 % Monocytes 6 3 - 12 % Eosinophils % 0 (L) 1 - 4 % Basophils 0 0 - 2 % Immature Granulocytes 1 (H) 0 % Segs Absolute 6.68 1.50 - 8.10 k/uL Absolute Lymph # 0.21 (L) 1.10 - 3.70 k/uL Absolute Burnett # 0.46 0.10 - 1.20 k/uL Absolute Eos # <0.03 0.00 - 0.44 k/uL Basophils Absolute 0.03 0.00 - 0.20 k/uL Absolute Immature Granulocyte 0.07 0.00 - 0.30 k/uL Microscopic Urinalysis Result Value Ref Range - WBC, UA 0 TO 2 0 - 5 /HPF RBC, UA 0 TO 2 0 - 2 /HPF Casts UA NOT REPORTED /LPF Crystals, UA NOT REPORTED None /HPF Epithelial Cells UA 10 TO 20 0 - 25 /HPF Renal Epithelial, UA NOT REPORTED 0 /HPF Bacteria, UA NOT REPORTED None Mucus, UA NOT REPORTED None Trichomonas, UA NOT REPORTED None Amorphous, UA NOT REPORTED None Other Observations UA NOT REPORTED NOT REQ. Yeast, UA NOT REPORTED None ASSESSMENT : Principal Problem: SARS-CoV-2 antibody positive Active Problems: 37 weeks gestation of PLAN: Discharge home [facility] patient information handout given Reviewed with pt recommendations for IV infusion at [facility] for all women Pt will discuss with her and make a decision documented in this encounter Bandwidth Phone: Hospital Discharge instructions 02-26-2021 Instructions Note Date & Type Note Facility 02-26-2021 Hospital Discharg e instructions Dahlia Vasques RN - 02/26/2021 Outpatient Instructions for IM or Subcutaneous Injections [address] [place] [address] You are advised to carry out the following instructions: Diet: As prescribed by your physician. Activity: As prescribed by your physician. Care of the injection site: If your injection site becomes red, sore, swollen, painful,has drainage, or you develop a fever notify your Physician. Other: If you develop hives, rash, itching or have trouble breathing or any unusual symptoms, go to the nearest Emergency Room. These could be signs of an allergic reaction to the medication. Follow up appointment: ANY PROBLEMS OR CONCERNS FOLLOW UP WITH YOUR PHYSICIAN OR GO TO THE NEAREST EMERGENCY ROOM documented in this encounter Bandwidth Phone: Evaluation note Note Date & Type Note Facility Evaluation note Diagnosis 27 weeks gestation of state, incidental Need for rhogam due to Rh negative mother Need for prophylactic immunotherapy Impaired glucose in , antepartum documented in this encounter Bandwidth Phone: Evaluation note Note Date & Type Note Facility Evaluation note Diagnosis 36 weeks gestation of state, incidental documented in this encounter Bandwidth Phone: Evaluation note Note Date & Type Note Facility Evaluation note Diagnosis SARS-CoV-2 antibody positive- Primary 37 weeks gestation of state, incidental documented in this encounter Bandwidth Phone: Evaluation note Note Date & Type Note Facility Evaluation note Diagnosis Abnormal uterine bleeding, Other immediate hemorrhage, documented in this encounter Bandwidth Phone: Evaluation note Note Date & Type Note Facility Evaluation note Diagnosis Vaginal bleeding- Primary Other specified noninflammatory disorder of vagina documented in this encounter Bandwidth Phone: Hospital Discharge instructions Instructions Note Date & Type Note Facility Hospital Discharge instructions Ericka Vila RN - 05/08/[address] Jose Manjarrez [facility] Dr. Yanet Valencia [address] or [place] ACTIVITY LIMITATIONS: ( X )Up and about as desired and tolerated ( )Up to bathroom only ( )Lay on either side ( )Avoid heavy lifting or exercise ( )No sex ( )No nipple stimulation ( )Complet bedrest ( X )Avoid using stairs ( X )Increase fluids DRINK AT LEAST eight-8oz. Glasses of water daily. Call your Doctor if: ( X )Contractions are every 5 minutes apart (from start of one to the start of the next contraction) lasting 60 seconds for at least 1 hour, strong enough you can not walk or talk through the contraction and regular. ( X )Bag of water breaks ( X )Vaginal bleeding ( X )Unusual pain occurs ( X )Decreased movement ( ) labor: If you have 4 contractions in an hour Keep your scheduled follow up appointment. Or call for a follow up on . IN CASE OF EMERGENCY CONTACT LABOR AND DELIVERY . documented in this encounter Bandwidth Phone: Assessments Diagnosis Amenorrhea Absence of menstruation Positive urine test Encounter for supervision of normal first in first trimester Supervision of normal first Advance Directives No Advanced Directives Records FoundLatest Code Status on File Code Status Date Activated Date Inactivated Comments Full Code 05/08/2021 1:21 AM Latest Code Status on File Code Status Date Activated Date Inactivated Comments Full Code 05/11/2021 8:15 PM 05/15/2021 3:46 PM Full Code 05/11/2021 5:20 PM 05/11/2021 8:11 PM Full Code 05/08/2021 1:21 AM 05/08/2021 11:59 AM Summary Purpose Family History No Family History Records FoundNo Family History Records FoundNo Family History Records FoundNo Family History Records FoundNo Family History Records Found Additional Source Comments Reason for Visit (unrecogniz ed section and content) Reason Comments Chills Reason Comments Post-op Problem Pt is 2 weeks post C -section. Pt required units of blood post op. Pt was seen in [place] ED 5 days ago for cramping, continued bleeding since then and began clotting again today. Scheduled Active and Recently Administ ered Medications (unrecognized section and content) Medication Order 05/06/2021 05/07/2021 05/08/2021 acetaminophen (TYLENOL) tablet 1,000 mg (COMPLETED) 1,000 mg, Oral, ONCE, On Lana 05/08/21 at 0145, For 1 dose, Maximum dose of acetaminophen is 4000 mg from all sources in 24 hours. 0216 (Given - Provid er: Hilda Santillan RN) acetaminophen (TYLENOL) tablet 1,000 mg (COMPLETED) 1,000 mg, Oral, ONCE, On Lana 05/08/21 at 0845, For 1 dose, Maximum dose of acetaminophen is 4000 mg from all sources in 24 hours. 0843 (Given - Provid er: Ericka Vila RN) Continuous Medication Order 05/06/2021 05/07/2021 05/08/2021 lactated ringers infusion IntraVENous, at 150 mL/hr, CONTINUOUS, Starting on Lana 05/08/21 at 0145, 500ml bolus at 999, then change to 150ml 0218 (New Bag - Prov ider: Hilda Santillan RN)0601 (New Bag - Provider: Hilda Santillan RN) PRN Medication Order 05/06/2021 05/07/2021 05/08/2021 loijzxuddh-prknnawtayzko-dprtxzql (FIORICET, ESGIC) per tablet 1 tablet 1 tablet, Oral, EVERY 4 HOURS PRN, Headaches, Starting on Lana 05/08/21 at 0406, Maximum dose of acetaminophen is 4000 mg from all sources in 24 hours. 0521 (Given - Provid er: Hilda Santillan RN) Scheduled Medication Order 05/23/2021 05/24/2021 05/25/2021 0.9 % sodium chloride bolus (COMPLETED) 1,000 mL, IntraVENous, at 1,000 mL/hr, Administer over 1 Hours, ONCE, On 05/25/21 at 1845, For 1 dose 1850 (New Bag - Prov ider: Dasha Rossi RN)1940 (Stopped - Provider: Dasha Hoffman RN) ketorolac (TORADOL) injection 30 mg (COMPLETED) 30 mg, IntraVENous, ONCE, On 05/25/21 at 1845, For 1 dose, Do not administer for more than 5 days. 185 (Given - Provid er: Dasha Rossi RN) INFORMATION SOURCE (unrecogn ized section and content) DATE CREATED AUTHOR 10/08/2021 [facility] DATE CREATED AUTHOR AUTHOR'S ORGANIZ ATION 01/20/2022 [facility] DATE CREATED AUTHOR AUTHOR'S ORGANIZ ATION 10/22/2023 [facility] DATE CREATED AUTHOR AUTHOR'S ORGANIZ ATION 12/25/2023 [facility] DATE CREATED AUTHOR AUTHOR'S ORGANIZ ATION 02/22/2024 [facility] FOR RECORDS PERTAINING TO PATIENTS WHO ARE OR HAVE BEEN ENROLLED IN A CHEMICAL DEPENDENCY/SUBSTANCEABUSE PROGRAM, SOME INFORMATION MAY BE OMITTED. This clinical summary was aggregated from multiple sources. Caution should be exercised in using it in the provision of clinical care. This summary normalizes information from multiple sources, and as a consequence, information in this document may materially change the coding, format and clinical context of patient data. In addition, data may be omitted in some cases. CLINICAL DECISIONS SHOULD BE BASED ON THE PRIMARY CLINICAL RECORDS. [facility] [facility]. provides no warranty or guarantee of the accuracy or completeness of information in this document.
== END 2024-03-08 18:48 | disposition home or self-care (01) ==
PROVIDERS: Family Provider Family Medicine; PCP Family Medicine; Visit Provider Obstetrics & Gynecology
DX: N83.291 Other ovarian cyst, right side (principal); N83.292 Other ovarian cyst, left side
CPT/HCPCS: 76830; 76856

== ENCOUNTER 2024-04-06 13:08 | Outpatient (OUT) | payer BC, SELFPAY ==
--- NOTE | 2024-04-06 13:11 | US_ITS ---
[address] [address] Patient Name: WILLIE LEGGETT MRN: [id number] date: 1995 Sex: F Assigned Patient Location: [facility] Current Patient Location: LAB Accession/Order Number: [id number] Exam Date: 04/06/2024 13:11 Report Date: 04/06/2024 15:13 At the request of: CHARI SOLOMON Procedure: US OB transvaginal EXAMINATION: US OB transvaginal HISTORY: MISSED MENSES COMPARISON: No relevant comparison available. FINDINGS: GESTATIONAL SAC: Present. YOLK SAC: Present. POLE: Suspect small pole. CARDIAC: Absent UTERUS: Contains a small leiomyoma within posterior wall. OVARIES: Right: Contains a 2.5 cm cyst versus corpus lutein cyst. Left: Normal. CERVIX: 4.6 cm in length and closed. CUL-DE-SAC: Normal. OTHER: None. AGE BY LMP: 8 weeks 5 days SANDRA BY LMP: 11/11/2024 AGE BY US CRL: 6 weeks 0 days SANDRA BY US CRL: 11/30/2024 US/US OB transvaginal IMPRESSION: 1. Suspect early intrauterine . A pole is suspected but not confirmed. No detectable heartbeat. Follow-up recommended. Electronically authenticated by: NIKKI NGUYEN Date: 04/06/2024 15:13
== END 2024-04-06 13:09 | disposition home or self-care (01) ==
LOC: NOMS 13:08
PROVIDERS: Family Provider Family Medicine; PCP Family Medicine; Visit Provider Obstetrics & Gynecology
DX: N92.6 Irregular menstruation, unspecified (principal)
CPT/HCPCS: 76817

== ENCOUNTER 2024-04-06 13:48 | Outpatient (RCR) | payer BC, SELFPAY ==
[2024-04-06 16:02] LABS: HCG Quantitative 19011 mIU/mL
[2024-04-08 10:01] LABS: HCG Quantitative 18251 mIU/mL
== END 2024-04-22 23:59 | disposition home or self-care (01) ==
LOC: LAB 13:48
PROVIDERS: Family Provider Family Medicine; PCP Family Medicine; Visit Provider Obstetrics & Gynecology
DX: N92.6 Irregular menstruation, unspecified (principal)
CPT/HCPCS: 36415; 76817; 84702

== ENCOUNTER 2024-04-18 15:15 | Emergency (ER) | payer BC, SELFPAY ==
[2024-04-18 15:25] VITALS: BP 122/79; PULSE 85; TEMP 36.8; O2SAT 100; BMI 21.1
--- NOTE | 2024-04-18 15:36 | US_ITS ---
[address] [address] Patient Name: WILLIE LEGGETT MRN: [id number] date: 1995 Sex: F Assigned Patient Location: ER Current Patient Location: ER Accession/Order Number: [id number] Exam Date: 04/18/2024 15:40 Report Date: 04/18/2024 16:38 At the request of: HOMER ZUÑIGA Procedure: US OB transvaginal EXAMINATION: US OB transvaginal HISTORY: Vaginal bleeding COMPARISON: 04/06/2024 FINDINGS: Perez intrauterine gestation Gestational sac: 1.77 cm, 6 weeks 1 day CRL: 4.3 mm, 6 weeks 1 day Heart rate: Not visualized The uterus is anteverted, anteflexed. Adjacent to the gestational sac is a 3.1 x 2.8 x 1 cm area of hypoechogenicity The ovaries are normal in size. Right corpus luteal cyst The cervix is closed measuring 4.6 cm US/US OB transvaginal IMPRESSION: No cardiac activity is observed. Early gestation is suspected, continued surveillance recommended 3.1 cm subchorionic hematoma Electronically authenticated by: COTY ARSHAD Date: 04/18/2024 16:38
[2024-04-18 16:16] LABS: Basophils Absolute Auto 0.1 10^3/uL (0.0-0.1); Basophils Percent Auto 0.8 % (0.2-2.0); Eosinophils Absolute Auto 0.1 10^3/uL (0.0-0.7); Hemoglobin 11.9 g/dL (12.0-16.0); Immature Granulocytes Abs Auto 0.02 10^3/uL (0.00-0.03); Immature Granulocytes Pct Auto 0.2 % (0.0-0.5); Lymphocytes Percent Auto 23.7 % (20.5-60.0); Mean Corpuscular HGB Conc 33.1 g/dL (29.9-35.2); Mean Corpuscular Hemoglobin 28.9 pg (26.7-34.0); Mean Corpuscular Volume 87.4 fL (81.0-99.0); Mean Platelet Volume 9.7 fL (9.5-13.5); Monocytes Absolute Auto 0.5 10^3/uL (0.3-0.8); Neutrophils Absolute Auto 5.7 10^3/uL (1.4-6.5); Neutrophils Percent Auto 68.3 % (43.0-75.0); Platelet Count 198 10^3/uL (150-450); Red Blood Count 4.12 10^6/uL (4.20-5.40); Red Cell Distribution Width 13.2 % (11.0-15.0); White Blood Count 8.3 10^3/uL (4.0-11.0)
--- NOTE | 2024-04-18 16:40 | ED_ITS ---
HPI HPI - General Adult General Chief complaint: Vaginal Bleeding Stated complaint: Issues, Unknown weeks, Bleeding Time Seen by Provider: 04/18/24 15:16 Source: patient Mode of arrival: walk-in Limitations: no limitations History of Present Illness HPI narrative: Patient presents ED complaining of vaginal bleeding. She reports that she is and her last menstrual period was in February. She had some spotting last week and was seen and had a beta quant done which showed 19,000. She had a repeat beta quant which showed 18,000 although her [employer] said it can fluctuate slightly. At that time she had an ultrasound that showed an IUP measuring behind her dates that would have been accurate based on her last menstrual period. No heart tones at that time. Patient is a at approximately 7 weeks. She has a 3-year-old and they have been trying for a year to conceive a second child. She was placed on Clomid and then got with this child. She started having spotting and bleeding and it got worse today with some cramping and bright red blood so she came into the ED for further evaluation. She called her AGRISCI[employer] TECHNOLOGY INSTRU[employer] office and they told her to come in here. Patient is Rh- and does receive RhoGAM. Related Data Allergies Allergy/AdvReac Type Severity Reaction Status Date / Time No Known Drug Allergies Allergy Verified 04/18/24 15:25 Opioid HPI Opioid Management Most Recent Opioid Data: No Data to Display Review of Systems ROS Status of ROS 10 or more systems reviewed and unremark able except as noted in history and below Exam Narrative Exam Narrative: General: alert, no acute distress Cardiovascular: regular rate and rhythm, normal peripheral perfusion. Respiratory: Lungs CTA, respirations non labored. Extremities: no deformity, no trauma. Neurological: oriented x 4, LOC appropriate for age. Constitutional Vital Signs, click to edit/add: Last Vital Signs Temp 98.3 F 04/18/24 15:25 Pulse 85 04/18/24 15:25 Resp 18 04/18/24 15:25 BP 122/79 04/18/24 15:25 Pulse Ox 100 04/18/24 15:25 O2 Del Method Room Air 04/18/24 15:25 Course Vital Signs Vital signs: Vital Signs Temperature 98.3 F 04/18/24 15:25 Pulse Rate 85 04/18/24 15:25 Respiratory Rate 18 04/18/24 15:25 Blood Pressure 122/79 04/18/24 15:25 Pulse Oximetry 100 04/18/24 15:25 Oxygen Delivery Method Room Air 04/18/24 15:25 Temperature 98.3 F 04/18/24 15:25 Pulse Rate 85 04/18/24 15:25 Respiratory Rate 18 04/18/24 15:25 Blood Pressure 122/79 04/18/24 15:25 Pulse Oximetry 100 04/18/24 15:25 Oxygen Delivery Method Room Air 04/18/24 15:25 Medical Decision Making MDM Narrative Medical decision making narrative: Patient's labs show a slightly low potassium at 3.0. This was replaced with p.o. potassium. Patient has a beta quant that is now down to 7500. Her ultrasound shows 6 weeks 1 day no heart tones. This information is most likely consistent with miscarriage. Patient is Rh- and was given RhoGAM. I called and spoke to Dr. Slaughter who will see the patient tomorrow in the office and establish a care plan from here. Patient is comfortable with going home, return to ED if worsening symptoms otherwise call the office tomorrow morning. Differential Diagnosis Differential Diagnosis: Miscarriage, vaginal bleeding, first trimester bleeding Lab Data Lab results reviewed: Yes I reviewed the patient's lab results Labs: Lab Results 04/18/24 Range/Units 16:07 WBC 8.3 (4.0-11.0) 10^3/uL RBC 4.12 L (4.20-5.40) 10^6/uL Hgb 11.9 L (12.0-16.0) g/dL Hct 36.0 (36.0-48.0) % MCV 87.4 (81.0-99.0) fL MCH 28.9 (26.7-34.0) pg MCHC 33.1 (29.9-35.2) g/dL RDW 13.2 (11.0-15.0) % Plt Count 198 (150-450) 10^3/uL MPV 9.7 (9.5-13.5) fL Neut % (Auto) 68.3 (43.0-75.0) % Lymph % (Auto) 23.7 (20.5-60.0) % [place] % (Auto) 6.0 (1.7-12.0) % Eos % (Auto) 1.0 (0.9-7.0) % Baso % (Auto) 0.8 (0.2-2.0) % Neut # (Auto) 5.7 (1.4-6.5) 10^3/uL Lymph # (Auto) 2.0 (1.2-3.8) 10^3/uL [place] # (Auto) 0.5 (0.3-0.8) 10^3/uL Eos # (Auto) 0.1 (0.0-0.7) 10^3/uL Baso # (Auto) 0.1 (0.0-0.1) 10^3/uL Abs Immat Gran (auto) 0.02 (0.00-0.03) 10^3/uL Imm/Tot Granulo (auto) 0.2 (0.0-0.5) % Sodium 138 (136-145) mmol/L Potassium 3.3 L (3.5-5.1) mmol/L Chloride 101 (98-107) mmol/L Carbon Dioxide 28.6 (21.0-32.0) mmol/L Anion Gap 11.7 BUN 15.0 (7.0-18.0) mg/dL Creatinine 0.61 (0.55-1.02) mg/dL Est GFR ( Amer) >60 (>=60) Est GFR (Non-Af Amer) >60 (>=60) BUN/Creatinine Ratio 24.6 Glucose 90 (74-106) mg/dL Calcium 9.0 (8.5-10.1) mg/dL HCG, Quant 7375 mIU/mL Blood Type A Negative Imaging Data US - abdomen: Radiologist's impression: ITS Impressions Transvaginal US 04/18/24 15:36 IMPRESSION: No cardiac activity is observed. Early gestation is suspected, continued surveillance recommended 3.1 cm subchorionic hematoma Electronically authenticated by: COTY ARSHAD Date: 04/18/2024 16:38 Discharge Plan Discharge Stand Alone Forms: Work/School Release, Portal Instructions Chief Complaint: Vaginal Bleeding Clinical Impression: Threatened Patient Disposition: Home, Self-Care Time of Disposition Decision: 17:09 Condition: Good Mode of Transportation: Private Vehicle Print Language: Malaysian Instructions: Threatened Miscarriage (ED) Referrals: Dax Slaughter DO [Physician] - 1 week CHEL,OPAL [Primary Care Provider] - 1 week
[2024-04-18 16:49] LABS: Anion Gap 11.7; BUN Creatinine Ratio 24.6; Carbon Dioxide 28.6 mmol/L (21.0-32.0); Chloride 101 mmol/L (98-107); Estimated GFR (African America >60 (>=60); Estimated GFR (Non-African Ame >60 (>=60); Glucose 90 mg/dL (74-106); Potassium 3.3 mmol/L (3.5-5.1); Sodium 138 mmol/L (136-145)
[2024-04-18 16:50] LABS: HCG Quantitative 7375 mIU/mL
[2024-04-18] MEDS: RHO(D) IMMUNE GLOBULIN 1,500 UNIT SYRINGE 1500 UNIT IV (17:17)
[2024-04-18] MEDS: POTASSIUM CHLORIDE 10 MEQ ER TABLET 40 MEQ PO (17:17)
[2024-04-18 17:23] VITALS: BP 128/88; PULSE 88; O2SAT 98
== END 2024-04-18 17:24 | disposition home or self-care (01) ==
PROVIDERS: Emergency Provider Emergency Medicine; Family Provider Family Medicine; PCP Family Medicine
DX: O20.0 Threatened abortion (principal); O26.891 Other specified pregnancy related conditions, first trimester; E87.6 Hypokalemia; Z67.91 Unspecified blood type, Rh negative; Z3A.01 Less than 8 weeks gestation of pregnancy
CPT/HCPCS: 36415; 76817; 80048; 84702; 85025; 86900; 86901; 96372; 99285; J2791

== ENCOUNTER 2024-04-19 14:35 | Outpatient (OUT) | payer BC, SELFPAY | END 2024-04-19 14:36 | disposition home or self-care (01) | LOC: PST 14:36 | PROVIDERS: Family Provider Family Medicine; PCP Family Medicine; Visit Provider Obstetrics & Gynecology | DX: Z01.818 Encounter for other preprocedural examination (principal); O02.1 Missed abortion ==

== ENCOUNTER 2024-04-21 08:25 | Day surgery (SDC) | payer BC, SELFPAY ==
[2024-04-19 15:14] VITALS: BP 122/75; PULSE 75; TEMP 36.4; O2SAT 100
[2024-04-19 15:18] VITALS: BMI 21.2
[2024-04-21] VITALS (10 sets, daily range): BP systolic 106–126; BP diastolic 62–77; PULSE 67–128; TEMP 36.4; O2SAT 94–100; BMI 21.1
[2024-04-21 08:33] LABS: Basophils Absolute Auto 0.1 10^3/uL (0.0-0.1); Basophils Percent Auto 0.9 % (0.2-2.0); Eosinophils Absolute Auto 0.1 10^3/uL (0.0-0.7); Eosinophils Percent Auto 0.9 % (0.9-7.0); Hematocrit 37.7 % (36.0-48.0); Hemoglobin 12.6 g/dL (12.0-16.0); Immature Granulocytes Abs Auto 0.01 10^3/uL (0.00-0.03); Immature Granulocytes Pct Auto 0.2 % (0.0-0.5); Lymphocytes Absolute Auto 1.8 10^3/uL (1.2-3.8); Lymphocytes Percent Auto 27.1 % (20.5-60.0); Mean Corpuscular HGB Conc 33.4 g/dL (29.9-35.2); Mean Corpuscular Hemoglobin 29.4 pg (26.7-34.0); Mean Corpuscular Volume 87.9 fL (81.0-99.0); Mean Platelet Volume 9.7 fL (9.5-13.5); Monocytes Absolute Auto 0.4 10^3/uL (0.3-0.8); Monocytes Percent Auto 5.9 % (1.7-12.0); Neutrophils Absolute Auto 4.3 10^3/uL (1.4-6.5); Platelet Count 204 10^3/uL (150-450); Red Blood Count 4.29 10^6/uL (4.20-5.40); Red Cell Distribution Width 13.2 % (11.0-15.0); White Blood Count 6.7 10^3/uL (4.0-11.0)
[2024-04-21] MEDS: LACTATED RINGER'S SOLUTION 1,000 ML 50 ML IV (09:01)
[2024-04-21 09:13] LABS: HCG Quantitative 4522 mIU/mL
--- NOTE | 2024-04-21 10:11 | P.ON_ITS ---
Brief Operative Note Date of procedure: 04/21/24 Pre-op diagnosis general: missed first trimester Post-op diagnosis: same as pre-op Procedure: NAME OF PROCEDURE: [D&C suction ] PROCEDURE: The patient was taken back to the OR where she was given general anesthesia without difficulty. She was then placed in dorsal lithotomy position, prepped and draped in the normal sterile fashion. A weighted speculum was placed in the patient's vagina and the anterior lip of the cervix was identified and grasped with a single-tooth tenaculum. The patient was then gently dilated using Hegar dilators after we had sounded roughly to 10 cm. The suction curette was then tested. The suction curette was then placed in the patient's uterus and products of conception were removed using an 8-[place] suction curette. ?Excellent hemostasis was noted. The patient tolerated the procedure well. Sponge, lap, and needle counts were correct x 2. All instruments were then removed from the patient's vagina. The patient was taken to the Recovery Room in stable condition. ?? Anesthesia: GETA Surgeon: Dax Slaughter Estimated blood loss (mL): 100 Pathology: other (products of conception) Condition: stable Disposition: PACU Urinary Catheter Management Urinary Catheter Management Urethral: Cath placed during this visit: no
== END 2024-04-21 11:35 | disposition home or self-care (01) ==
PROVIDERS: Family Provider Family Medicine; PCP Family Medicine; Visit Provider Obstetrics & Gynecology
PROC: (CPT 01965; principal; 2024-04-21 09:20)
DX: O02.1 Missed abortion (principal)
CPT/HCPCS: 01965; 59820; 36415; 84702; 85025; 88305; J1100; J1885; J2250; J2405; J2704; J3010

== ENCOUNTER 2024-05-01 15:13 | Outpatient (OUT) | payer BC, SELFPAY ==
--- OUTSIDE RECORDS SUMMARY | 2024-05-01 15:35 | XMS_ITS | CCD ---
Author Organization [facility] Care Team Providers Care Melangeur Operator Name Role Phone Daija Howard Primary Care [...] ZURITA Attending Unavailable CHARI SOLOMON Attending Unavailable JUANITOCHARI Attending Unavailable JUANITO, CHARI Attending Unavailable Medications Current Medications Medication Drug Class(es) Dates Sig (Normalized) Sig (Original) acetaminophen 325 mg / butalbital 50 mg / caffeine 40 mg oral tablet (7 sources) Barbiturate, Central Nervous System Stimulant, Methylxanthine Start: 05-08-2021 butalbital-aceta minophen-caffein e (FIORICET, ESGIC) per tablet 1 tablet Start: 10-02-2020 take 1 tablet by mouth every six hours as needed for headache zgnubchpab-bdqovsseedqbs-sshwaprs (YAMIL CET, ESGIC) 50-325-40 MG per tablet [...] Quanton 12-22-2023 HCG, Quant <1.0 Normal <5 [facility] Comment on above: Result Comment: Non-preg premeno <=5 Postmeno <=8 Male <=3 If HCG results do not concur with clinical observations, additional testing to confirm results is recommended. Performed By: #### B HCG #### [facility] [address] [place] [address] Patient Access Coordinator: Bhanu Chambers MD XR HYSTEROSALPINGOGRAPHY S A [...] Gal Blair MD 12/22/23 Final result Normal [facility] Progesteroneon 10-15-2023 Progesterone 25.40 ng/mL Normal [facility] Comment on above: Result Comment: Female: Follicular phase <0.19 ng/mL Ovulation phase 0.06-4.14 ng/mL Luteal phase 4.11-14.5 ng/mL Postmenopausal <0.13 ng/mL Performed By: #### P ANDREW #### [address] [place] [address] Patient Access Coordinator: Bhanu Chambers MD Lab - Toxicology Resultson 0 01-20-2022 Lab - Toxicology Results [id number] Normal [facility] Measles/Mumps/Rubella Immuni ty LCon 01-20-2022 Mumps Abs, IgG LC 146.0 AU/mL Invalid Interpretation Code Immune >10.9 [facility] Comment on above: Result Comment: Nega tive <9.0 Equivocal 9.0 - 10.9 Positive >10.9 A positive result generally indicates past exposure to Mumps virus or previous vaccination. Performed At: [address] [id number] Breanna Mendoza PhD Ph:[phone] Performed By: #### 1 [id number], [id number] #### [facility] (DEFAULT) [address] [place] [address] Rubella Antibodies, IgG LC 3.65 index Invalid Interpretation Code Immune >0.99 [facility] Comment on above: Result Comment: Non- immune <0.90 Equivocal 0.90 - 0.99 Immune >0.99 Performed By: #### 1 [id number], [id number] #### [facility] (DEFAULT) [address] [place] [address] Rubeola Ab, IgG, EIA LC 41.4 AU/mL Invalid Interpretation Code Immune >16.4 [facility] Comment on above: Result Comment: Nega tive <13.5 Equivocal 13.5 - 16.4 Positive >16.4 Presence of antibodies to Rubeola is presumptive evidence of immunity except when acute infection is suspected. Performed By: #### 1 [id number], [id number] #### [facility] (DEFAULT) [address] [place] [address] Nicotine Metabolite, Urine L Con 01-20-2022 Cotinine LC Negative Invalid Interpretation Code Epdhqs=940 [facility] Comment on above: Result Comment: Perf ormed At: [facility] [place] [address] [place], [place] [id number] Ranjith Rendon PhD Ph:[phone] Performed By: #### 1 [id number] #### [facility] (DEFAULT) [address] [place] [address] HBSab Qnt LCon 01-18-2022 Hep B Surf Ab Quant LC >1000.0 Invalid Interpretation Code Immunity>9.9 [facility] Comment on above: Result Comment: Stat us of Immunity Anti-HBs Level Inconsistent with Immunity 0.0 - 9.9 Consistent with Immunity >9.9 Performed At: [facility] [address] [id number] Breanna Mendoza PhD Ph:[phone] Performed By: #### 1 [id number], [id number] #### [facility] (DEFAULT) [address] [place] [address] Cytologyon 09-29-2021 Cytology (NOTE) INTERPRETATION Cervical material, (ThinPrep vial, Imaging-assisted review): Specimen Adequacy: Satisfactory for evaluation. - Endocervical/transformatio n zone component present. Descriptive Diagnosis: Negative for intraepithelial lesion or malignancy. 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 [place], [place] [address] Normal [facility] Comment on above: Performed By: #### D AU #### [facility] [address] [place] [address] Patient Access Coordinator: Sami Abbasi MD APTTon 05-25-2021 aPTT Coag (Bld) [Time] 44.1 s High 23.9-33.8 [facility] Comment on above: Result Comment: IV Heparin Therapy Range: 62.0-94.0 Performed By: #### C DP #### [facility] [address] [place] [address] Patient Access Coordinator: Sami Abbasi MD APTTOrdered By: Leeann Hidalgo on 05-25-2021 aPTT Coag (Bld) [Time] 44.1 s High [facility] Phone: Comment on above: IV Heparin Therapy Range: 62.0-94.0 Interpretation and review of laboratory results Abnormal [facility] Phone: [facility] Phone: CBC Auto DifferentialOrdered By: Leeann Hidalgo on 05-25-2021 Absolute Eos # 0.09 [facility] Phone: Absolute Immature Granulocyte 0.04 [facility] Phone: Absolute Lymph # 2.13 [facility] Phone: Absolute Estill # 0.61 [facility] Phone: Basophils (Bld) [#/Vol] 0.07 10*3/uL [facility] Phone: Basophils/100 WBC (Bld) 1 % 0 - 2 % [facility] Phone: Differential Type NOT REPORTED [facility] Phone: Eosinophils/100 WBC (Bld) 1 % 1 - 4 % [facility] Phone: Hematocrit (Bld) [Volume fraction] 31.0 % Low 36.3 - 47.1 % [facility] Phone: Hemoglobin.gastrointest inal spec 1 Ql (Stl) 9.8 g/dL Low 11.9 - 15.1 g/dL [facility] Phone: Immature granulocytes/100 WBC (Bld) 1 % High 0 [facility] Phone: Interpretation and review of laboratory results Abnormal [facility] Phone: Lymphocytes/100 WBC (Bld) 25 % 24 - 43 % [facility] Phone: MCH (RBC) [Entitic mass] 29.0 pg 25.2 - 33.5 pg [facility] Phone: MCHC (RBC) [Mass/Vol] 31.6 g/dL 28.4 - 34.8 g/dL [facility] Phone: MCV (RBC) [Entitic vol] 91.7 fL 82.6 - 102.9 fL [facility] Phone: Monocytes/100 WBC (Bld) 7 % 3 - 12 % [facility] [place] Phone: NRBC Automated 0.0 0.0 per 100 WBC [facility] Phone: Platelet distribution width (Bld) [Ratio] 14.7 % High 11.8 - 14.4 % [facility] Phone: Platelet Estimate NOT REPORTED [facility] Phone: Platelet mean volume (Bld) [Entitic vol] 8.0 fL Low 8.1 - 13.5 fL [facility] Phone: Platelets (Bld) [#/Vol] 399 10*3/uL [facility] Phone: RBC (Bld) [#/Vol] 3.38 10*6/uL Low 3.95 - 5.1 1 m/uL [facility] Phone: RBC (Bld) [#/Vol] NOT REPORTED [facility] Phone: Segmented neutrophils/100 WBC (Bld) 65 % 36 - 65 % [facility] Phone: Segs Absolute 5.57 [facility] Phone: WBC (Bld) [#/Vol] 8.5 10*3/uL [facility] Phone: WBC (Bld) [#/Vol] NOT REPORTED [facility] Phone: [facility] Phone: CBC with Diffon 05-25-2021 Abs. Basophil 0.07 k/uL Normal 0.00-0.20 [facility] Comment on above: Performed By: #### C FELICIANO VILCHIS, LIP #### [address] [place], [place] [address] Patient Access Coordinator: Sami Abbasi MD Abs.Imm.Granulocyte 0.04 k/uL Normal 0.00-0.30 [facility] Comment on above: Performed By: #### C FELICIANO VILCHIS, LIP #### [facility] [address] [place] [address] [place] [address] Patient Access Coordinator: Sami Abbasi MD Abs.Neutrophil (Seg) 5.57 k/uL Normal 1.50-8.10 [facility] Comment on above: Performed By: #### C FELICIANO VILCHIS, LIP #### [address] [place], [place] [address] Patient Access Coordinator: Sami Abbasi MD Basophils/100 WBC (Bld) 1 % Normal 0-2 [facility] Comment on above: Performed By: #### C DP, CP, LIP #### [address] [place], [place] [address] Patient Access Coordinator: Sami Abbasi MD Eosinophils (Bld) [#/Vol] 0.09 10*3/uL Normal 0.00-0.44 [facility] Comment on above: Performed By: #### C DP, CP, LIP #### [address] [place], [place] [address] Patient Access Coordinator: Sami Abbasi MD Eosinophils/100 WBC (Bld) 1 % Normal 1-4 [facility] Comment on above: Performed By: #### C DP, CP, LIP #### [address] [place] [id number] Patient Access Coordinator: Sami Abbasi MD Erythrocyte distribution width (RBC) [Ratio] 14.7 % High 11.8-14.4 [facility] Comment on above: Performed By: #### C DP, CP, LIP #### [address] [place] [id number] Patient Access Coordinator: Sami Abbasi MD Hematocrit (Bld) [Volume fraction] 31.0 % Low 36.3-47.1 [facility] Comment on above: Performed By: #### C DP, CP, LIP #### [address] [place], [facility]83 Patient Access Coordinator: Sami Abbasi MD Hemoglobin (Bld) [Mass/Vol] 9.8 g/dL Low 11.9-15.1 [facility] Comment on above: Performed By: #### C DP, CP, LIP #### [address] [place] [address] Patient Access Coordinator: Sami Abbasi MD Immature granulocytes/100 WBC (Bld) 1 % High 0 [facility] Comment on above: Performed By: #### C DP, CP, LIP #### [facility] [address] [place], [place] [address] Patient Access Coordinator: Sami Abbasi MD Lymphocytes (Bld) [#/Vol] 2.13 10*3/uL Normal 1.10-3.70 [facility] Comment on above: Performed By: #### C DP, CP, LIP #### [facility] [address] [place], [facility]83 Patient Access Coordinator: Sami Abbasi MD Lymphocytes/100 WBC (Bld) 25 % Normal 24-43 [facility] Comment on above: Performed By: #### C DP, CP, LIP #### [address] [place], [facility]83 Patient Access Coordinator: Sami Abbasi MD MCH (RBC) [Entitic mass] 29.0 pg Normal 25.2-33.5 [facility] Comment on above: Performed By: #### C DP CP, LIP #### [address] [place], [place] [address] Patient Access Coordinator: Sami Abbasi MD MCHC (RBC) [Mass/Vol] 31.6 g/dL Normal 28.4-34.8 [facility] Comment on above: Performed By: #### C DP CP, LIP #### [address] [place], [facility]83 Patient Access Coordinator: Sami Abbasi MD MCV (RBC) [Entitic vol] 91.7 fL Normal 82.6-102.9 M [facility] Comment on above: Performed By: #### C DP, CP, LIP #### [address] [place], [place] [address] Patient Access Coordinator: Sami Abbasi MD Monocytes (Bld) [#/Vol] 0.61 10*3/uL Normal 0.10-1.20 [facility] Comment on above: Performed By: #### C DP, CP, LIP #### [facility] [address] [place], [place] [address] Patient Access Coordinator: Sami Abbasi MD Monocytes/100 WBC (Bld) 7 % Normal 3-12 M [facility] Comment on above: Performed By: #### C DP, CP, LIP #### [facility] [address] [place], [place] [address] Patient Access Coordinator: Sami Abbasi MD Neutrophil (Seg) 65 % Normal 36-65 [facility] Comment on above: Performed By: #### C DP, CP, LIP #### [address] [place] [phone] Patient Access Coordinator: Sami Abbasi MD NRBC Automated 0.0 per 100 WBC Normal 0.0 [facility] Comment on above: Performed By: #### C DP, CP, LIP #### [address] [place], [facility]83 Patient Access Coordinator: Sami Abbasi MD Platelet mean volume (Bld) [Entitic vol] 8.0 fL Low 8.1-13.5 [facility] Comment on above: Performed By: #### C DP, CP, LIP #### [address] [place], [facility]83 Patient Access Coordinator: Sami Abbasi MD Platelets (Bld) [#/Vol] 399 10*3/uL Normal 138-453 [facility] Comment on above: Performed By: #### C DP, CP, LIP #### [address] [place], [facility]83 Patient Access Coordinator: Sami Abbasi MD RBC (Bld) [#/Vol] 3.38 10*6/uL Low 3.95-5.11 [facility] Comment on above: Performed By: #### C DP, CP, LIP #### [address] [place] [address] Patient Access Coordinator: Sami Abbasi MD WBC (Bld) [#/Vol] 8.5 10*3/uL Normal 3.5-11.3 [facility] Comment on above: Performed By: #### C DP, CP, LIP #### [facility] [address] [place], [place] [address] Patient Access Coordinator: Sami Abbasi MD Auto Diff Performed NOT REPORTED Normal [facility] Comment on above: Performed By: #### C DP, CP, LIP #### [facility] [address] [place], [place] [address] Patient Access Coordinator: Sami Abbasi MD Platelet Estimate NOT REPORTED Normal [facility] Comment on above: Performed By: #### C DP, CP, LIP #### [facility] [address] [place] [address] [place], [place] [address] Patient Access Coordinator: Sami Abbasi MD RBC morphology finding Nom (Bld) NOT REPORTED Normal [facility] Comment on above: Performed By: #### C DP, CP, LIP #### [facility] [address] [place] [address] [place], [place] [address] Patient Access Coordinator: Sami Abbasi MD WBC Morphology NOT REPORTED Normal [facility] Comment on above: Performed By: #### C DP, CP, LIP #### [facility] [address] [place], [facility]83 Patient Access Coordinator: Sami Abbasi MD Comp Metabolic Profon 2020 (cont.) Normal [facility] Comment on above: Result Comment: Aver age GFR for 20-29 years old: 116 mL/min/1.73sq m Chronic Kidney Disease: <60 mL/min/1.73sq m Kidney failure: <15 mL/min/1.73sq m eGFR calculated using average adult body mass. Additional eGFR calculator available at: http://www.[employer].Accurence/multiple_crcl_2011.htm Performed By: #### C DP, CP, LIP #### [facility] [address] [place], [place] [address] Patient Access Coordinator: Sami Abbasi MD Albumin [Mass/Vol] 3.4 g/dL Low 3.5-5.2 [facility] Comment on above: Performed By: #### C DP, CP, LIP #### [facility] [address] [place], [place] [address]383 Patient Access Coordinator: Sami Abbasi MD Albumin/Glob Ratio 1.0 Normal 1.0-2.5 [facility] Comment on above: Performed By: #### C DP, CP, LIP #### [address] [place], [place] [address]83 Patient Access Coordinator: Sami Abbasi MD Alkaline Phos 108 U/L High 35-104 [facility] Comment on above: Performed By: #### C DP, CP, LIP #### [address] [place], [place] [address]77483 Patient Access Coordinator: Sami Abbasi MD ALT [Catalytic activity/Vol] 12 U/L Normal 5-33 [facility] Comment on above: Performed By: #### C DP, CP, LIP #### [address] [place], [place] [address]83 Patient Access Coordinator: Sami Abbasi MD Anion gap [Moles/Vol] 11 mmol/L Normal 9-17 [facility] Comment on above: Performed By: #### C DP, CP, LIP #### [facility] [address] [place], [place] [address] Patient Access Coordinator: Sami Abbasi MD AST [Catalytic activity/Vol] 19 U/L Normal <32 [facility] Comment on above: Performed By: #### C DP, CP, LIP #### [facility] [address] [place], [place] [address]83 Patient Access Coordinator: Sami Abbasi MD Bilirubin [Mass/Vol] 0.21 mg/dL Low 0.3-1.2 [facility] Comment on above: Performed By: #### C DP, CP, LIP #### [facility] [address] [place], [place] [address] Patient Access Coordinator: Sami Abbasi MD BUN/CRE Ratio 43 High 9-20 [facility] Comment on above: Performed By: #### C DP, CP, LIP #### [facility] [address] [place] [address] Patient Access Coordinator: Sami Abbasi MD Calcium [Mass/Vol] 9.0 mg/dL Normal 8.6-10.4 [facility] Comment on above: Performed By: #### C DP, CP, LIP #### [facility] [address] [place], [place] 1956[address] Patient Access Coordinator: Smai Abbasi MD Chloride [Moles/Vol] 106 mmol/L Normal 98-107 [facility] Comment on above: Performed By: #### C DP, CP, LIP #### [facility] [address] [place] [address] Patient Access Coordinator: Sami Abbasi MD CO2 [Moles/Vol] 23 mmol/L Normal 20-31 [facility] Comment on above: Performed By: #### C DP, CP, LIP #### [facility] [address] [place] [address] Patient Access Coordinator: Sami Abbasi MD Creatinine [Mass/Vol] 0.46 mg/dL Low 0.50-0.90 [facility] Comment on above: Performed By: #### C DP, CP, LIP #### [facility] [address] [place], [place] [address]83 Patient Access Coordinator: Sami Abbasi MD GFR, Amer >60 Normal >60 [facility] Comment on above: Performed By: #### C DP, CP, LIP #### [facility] [address] [place], [place] [address]883 Patient Access Coordinator: Sami Abbasi MD GFR,non Amer >60 Normal >60 [facility] Comment on above: Performed By: #### C DP, CP, LIP #### [facility] [address] [place], [place] [address]83 Patient Access Coordinator: Sami Abbasi MD Glucose [Mass/Vol] 101 mg/dL High 70-99 [facility] Comment on above: Performed By: #### C DP, CP, LIP #### [facility] [address] [place] [address] Patient Access Coordinator: Sami Abbasi MD Potassium [Moles/Vol] 3.8 mmol/L Normal 3.7-5.3 [facility] Comment on above: Performed By: #### C DP, CP, LIP #### [facility] [address] [place] [address] [place], [place] 0252[address] Patient Access Coordinator: Sami Abbasi MD Protein [Mass/Vol] 6.9 g/dL Normal 6.4-8.3 [facility] Comment on above: Performed By: #### C DP, CP, LIP #### [address] [place], [place] [address]83 Patient Access Coordinator: Sami Abbasi MD Sodium [Moles/Vol] 140 mmol/L Normal 135-144 [facility] Comment on above: Performed By: #### C DP, CP, LIP #### [facility] [address] [place] [address] [place], [place] [phone] Patient Access Coordinator: Sami Abbasi MD Staging: Normal [facility] Comment on above: Result Comment: Stag e 1: Some kidney damage normal GFR Stage 2: Mild kidney damage GFR 60-89 Stage 3: Moderate kidney damage GFR 30-59 Stage 4: Severe kidney damage GFR 15-29 Stage 5: Severe kidney damage GFR <15 ESRD - chronic treatment by dialysis or transplant Performed By: #### C DP, CP, LIP #### [facility] [address] [place] [address] Patient Access Coordinator: Sami Abbasi MD Urea nitrogen [Mass/Vol] 20 mg/dL Normal 6-20 [facility] Comment on above: Performed By: #### C DP, CP, LIP #### [facility] [address] [place] [address] Patient Access Coordinator: Sami Abbasi MD Comprehensive Metabolic Pane lOrdered By: Leeann Hidalgo on 05-25-2021 Albumin [Mass/Vol] 3.4 g/dL Low 3.5 - 5.2 g/dL [facility] Phone: Albumin/Globulin [Mass ratio] 1.0 {ratio} [facility] Phone: ALP (Bld) [Catalytic activity/Vol] 108 U/L High 35 - 104 U/L [facility] Phone: ALT [Catalytic activity/Vol] 12 U/L 5 - 33 U/L [facility] Phone: Anion gap [Moles/Vol] 11 mmol/L 9 - 17 mmol/L [facility] Phone: AST [Catalytic activity/Vol] 19 U/L <32 [facility] Phone: Bilirubin [Mass/Vol] 0.21 mg/dL Low 0.3 - 1 .2 mg/dL [facility] Phone: Calcium [Mass/Vol] 9.0 mg/dL 8.6 - 10. 4 mg/dL [facility] Phone: Chloride [Moles/Vol] 106 mmol/L 98 - 10 7 mmol/L [facility] Phone: CO2 [Moles/Vol] 23 mmol/L 20 - 31 mmol/L [facility] Phone: Creatinine [Mass/Vol] 0.46 mg/dL Low 0.50 - 0.90 mg/dL [facility] Phone: Free PSA/Total PSA [Mass fraction] 6.9 g/dL 6.4 - 8.3 g/dL [facility] Phone: GFR >60 >60 mL/min [facility] Phone: GFR Non- >60 >60 mL/min [facility] Phone: Glucose [Mass/Vol] 101 mg/dL High 70 - 99 mg/dL [facility] Phone: Interpretation and review of laboratory results Abnormal [facility] Phone: Potassium [Moles/Vol] 3.8 mmol/L 3.7 - 5.3 mmol/L [facility] Phone: Sodium [Moles/Vol] 140 mmol/L 135 - 144 mmol/L [facility] Phone: Urea nitrogen (BldV) [Mass/Vol] 20 mg/dL 6 - 20 mg/dL [facility] Phone: Urea nitrogen/Creatinine (Bld) [Mass ratio] 43 High [facility] Phone: Laboratory - Chemistry and C hemistry - challengeOrdered By: Leeann Hidalgo on 05-25-2021 GFR/1.73 sq M.predicted MDRD (S/P/Bld) [Vol rate/Area] [facility] Phone: Comment on above: Average GFR for 20-2 9 years old: 116 mL/min/1.73sq m Chronic Kidney Disease: <60 mL/min/1.73sq m Kidney failure: <15 mL/min/1.73sq m eGFR calculated using average adult body mass. Additional eGFR calculator available at: http://www.[employer].Accurence/multiple_crcl_2012.htm Stage 1: Some kidney damage normal GFR Stage 2: Mild kidney damage GFR 60-89 Stage 3: Moderate kidney damage GFR 30-59 Stage 4: Severe kidney damage GFR 15-29 Stage 5: Severe kidney damage GFR <15 ESRD - chronic treatment by dialysis or transplant Lipaseon 05-25-2021 Lipase [Catalytic activity/Vol] 32 U/L Normal 13-60 [facility] Comment on above: Performed By: #### C DP, CP, LIP #### [facility] [address] [place] [address] Patient Access Coordinator: Sami Abbasi MD LipaseOrdered By: Leeann Sánchez dd on 05-25-2021 Lipase [Catalytic activity/Vol] 32 U/L 13 - 60 U/L [facility] Phone: No Panel InformationOrdered By: Leeann Hidalgo on 05-25-2021 [facility] Phone: PTon 05-25-2021 INR Coag (PPP) [Relative time] 1.1 {INR} Normal [facility] Comment on above: Result Comment: Non-therapeutic Range: INR = 0.9-1.2 Therapeutic Range: Moderate Anticoagulant Intensity: INR = 2.0-3.0 High Anticoagulant Intensity: INR = 2.5-3.5 Performed By: #### C DP #### [address] [place] [address] Patient Access Coordinator: Sami Abbasi MD PTOrdered By: Leeann polk 05-25-2021 PT Coag (PPP) [Time] 14.1 s Normal 11.5-14.2 [facility] Phone: Comment on above: Performed By: #### C DP #### [address] [place] [address] Patient Access Coordinator: Sami Abbasi MD Protime-INROrdered By: Jesica Hidalgo on 05-25-2021 INR Coag (Bld) [Relative time] 1.1 {INR} [facility] Phone: Comment on above: Non-therapeutic Range: INR = 0.9-1.2 Therapeutic Range: Moderate Anticoagulant Intensity: INR = 2.0-3.0 High Anticoagulant Intensity: INR = 2.5-3.5 [facility] Phone: TYPE AND SCREENOrdered By: Arturo Hidalgo on 05-25-2021 ABO/Rh Negative [facility] Phone: Arm Band Number [id number] [facility] Phone: Expiration Date 05/28/2021,2359 [facility] Phone: [facility] Phone: Type + Screenon 05-25-2021 Type + Screen Sample Expiration 05/28/2021,235 Arm Band Number [id number] ABO/Rh(D) A NEGATIVE Antibody Screen NEGATIVE Normal [facility] [facility] Comment on above: Performed By: #### C DP #### [facility] [address] [place] [address] [place] [address] Patient Access Coordinator: Sami Abbasi MD CBC Auto DifferentialOrdered By: Paul Garcia on 05-21-2021 Absolute Eos # 0.11 [facility] Phone: Absolute Immature Granulocyte 0.08 [facility] Phone: Absolute Lymph # 1.80 [facility] Phone: Absolute Estill # 0.75 [facility] Phone: Basophils (Bld) [#/Vol] 0.06 10*3/uL [facility] Phone: Basophils/100 WBC (Bld) 1 % 0 - 2 % [facility] Phone: Differential Type NOT REPORTED [facility] Phone: Eosinophils/100 WBC (Bld) 1 % 1 - 4 % [facility] Phone: Hematocrit (Bld) [Volume fraction] 30.7 % Low 36.3 - 47.1 % [facility] Phone: Hemoglobin.gastrointest inal spec 1 Ql (Stl) 9.8 g/dL Low 11.9 - 15.1 g/dL [facility] Phone: Immature granulocytes/100 WBC (Bld) 1 % High 0 [facility] Phone: Interpretation and review of laboratory results Abnormal [facility] Phone: Lymphocytes/100 WBC (Bld) 20 % Low 24 - 43 % [facility] Phone: MCH (RBC) [Entitic mass] 29.6 pg 25.2 - 33.5 pg [facility] Phone: MCHC (RBC) [Mass/Vol] 31.9 g/dL 28.4 - 34.8 g/dL [facility] Phone: MCV (RBC) [Entitic vol] 92.7 fL 82.6 - 102.9 fL [facility] Phone: Monocytes/100 WBC (Bld) 9 % 3 - 12 % [facility] Phone: NRBC Automated 0.0 0.0 per 100 WBC [facility] Phone: Platelet distribution width (Bld) [Ratio] 14.9 % High 11.8 - 14.4 % [facility] Phone: Platelet Estimate NOT REPORTED [facility] Phone: Platelet mean volume (Bld) [Entitic vol] 8.2 fL 8.1 - 13.5 fL [facility] Phone: Platelets (Bld) [#/Vol] 465 10*3/uL High [facility] Phone: RBC (Bld) [#/Vol] 3.31 10*6/uL Low 3.95 - 5.1 1 m/uL [facility] Phone: RBC (Bld) [#/Vol] NOT REPORTED [facility] Phone: Segmented neutrophils/100 WBC (Bld) 68 % High 36 - 65 % [facility] Phone: Segs Absolute 6.06 [facility] Phone: WBC (Bld) [#/Vol] 8.9 10*3/uL [facility] Phone: WBC (Bld) [#/Vol] NOT REPORTED [facility] Phone: [facility] Phone: CBC with Diffon 05-21-2021 Abs. Basophil 0.06 k/uL Normal 0.00-0.20 [facility] Comment on above: Performed By: #### C DP #### [facility] [address] [place] [address] Dr. [place] [id number] Patient Access Coordinator: Sami Abbasi MD Abs.Imm.Granulocyte 0.08 k/uL Normal 0.00-0.30 [facility] Comment on above: Performed By: #### C DP #### [address] [place] [id number] Patient Access Coordinator: Sami Abbasi MD Abs.Neutrophil (Seg) 6.06 k/uL Normal 1.50-8.10 [facility] Comment on above: Performed By: #### C DP #### [address] [place], [place] [address] Patient Access Coordinator: Sami Abbasi MD Basophils/100 WBC (Bld) 1 % Normal 0-2 M [facility] Comment on above: Performed By: #### C DP #### [address] [place] [phone] Patient Access Coordinator: Sami Abbasi MD Eosinophils (Bld) [#/Vol] 0.11 10*3/uL Normal 0.00-0.44 [facility] Comment on above: Performed By: #### C DP #### [facility] [address] [place], [place] [id number] Patient Access Coordinator: Sami Abbasi MD Eosinophils/100 WBC (Bld) 1 % Normal 1-4 [facility] Comment on above: Performed By: #### C DP #### [facility] [address] [place] [address] [place], [place] [phone] Patient Access Coordinator: Sami Abbasi MD Erythrocyte distribution width (RBC) [Ratio] 14.9 % High 11.8-14.4 [facility] Comment on above: Performed By: #### C DP #### [address] [place] [phone] Patient Access Coordinator: Sami Abbasi MD Hematocrit (Bld) [Volume fraction] 30.7 % Low 36.3-47.1 [facility] Comment on above: Performed By: #### C DP #### [facility] [address] [place] [address] Dr. [place] [phone] Patient Access Coordinator: Sami Abbasi MD Hemoglobin (Bld) [Mass/Vol] 9.8 g/dL Low 11.9-15.1 [facility] Comment on above: Performed By: #### C DP #### [address] [place], [facility]83 Patient Access Coordinator: Sami Abbasi MD Immature granulocytes/100 WBC (Bld) 1 % High 0 [facility] Comment on above: Performed By: #### C DP #### [facility] [address] [place] [address] Dr. [place], [facility]83 Patient Access Coordinator: Sami Abbasi MD Lymphocytes (Bld) [#/Vol] 1.80 10*3/uL Normal 1.10-3.70 [facility] Comment on above: Performed By: #### C DP #### [facility] [address] [place] [address] Dr. [place], [place] [phone] Patient Access Coordinator: Sami Abbasi MD Lymphocytes/100 WBC (Bld) 20 % Low 24-43 [facility] Comment on above: Performed By: #### C DP #### [facility] [address] [place], [place] [phone] Patient Access Coordinator: Sami Abbasi MD MCH (RBC) [Entitic mass] 29.6 pg Normal 25.2-33.5 [facility] Comment on above: Performed By: #### C DP #### [facility] [address] [place], [place] [phone] Patient Access Coordinator: Sami Abbasi MD MCHC (RBC) [Mass/Vol] 31.9 g/dL Normal 28.4-34.8 [facility] Comment on above: Performed By: #### C DP #### [address] [place], [place] 7110183 Patient Access Coordinator: Sami Abbasi MD MCV (RBC) [Entitic vol] 92.7 fL Normal 82.6-102.9 [facility] Comment on above: Performed By: #### C DP #### [address] [place], [place] [id number] Patient Access Coordinator: Sami Abbasi MD Monocytes (Bld) [#/Vol] 0.75 10*3/uL Normal 0.10-1.20 [facility] Comment on above: Performed By: #### C DP #### [facility] [address] [place] [address] Patient Access Coordinator: Sami Abbasi MD Monocytes/100 WBC (Bld) 9 % Normal 3-12 M [facility] Comment on above: Performed By: #### C DP #### [address] [place], [place] 6550083 Patient Access Coordinator: Sami Abbasi MD Neutrophil (Seg) 68 % High 36-65 [facility] Comment on above: Performed By: #### C DP #### [facility] [address] [place], [place] [id number] Patient Access Coordinator: Sami Abbasi MD NRBC Automated 0.0 per 100 WBC Normal 0.0 [facility] Comment on above: Performed By: #### C DP #### [facility] [address] [place], [place] [phone] Patient Access Coordinator: Sami Abbasi MD Platelet mean volume (Bld) [Entitic vol] 8.2 fL Normal 8.1-13.5 [facility] Comment on above: Performed By: #### C DP #### [facility] [address] [place] [address] Patient Access Coordinator: Sami Abbasi MD Platelets (Bld) [#/Vol] 465 10*3/uL High 138-453 [facility] Comment on above: Performed By: #### C DP #### [address] [place], [facility]83 Patient Access Coordinator: Sami Abbasi MD RBC (Bld) [#/Vol] 3.31 10*6/uL Low 3.95-5.11 [facility] Comment on above: Performed By: #### C DP #### [address] [place], [place] [phone] Patient Access Coordinator: Sami Abbasi MD WBC (Bld) [#/Vol] 8.9 10*3/uL Normal 3.5-11.3 [facility] Comment on above: Performed By: #### C DP #### [facility] [address] [place], [place] [phone] Patient Access Coordinator: Sami Abbasi MD Auto Diff Performed NOT REPORTED Normal [facility] Comment on above: Performed By: #### C DP #### [facility] [address] [place], [place] [phone] Patient Access Coordinator: Sami Abbasi MD Platelet Estimate NOT REPORTED Normal [facility] Comment on above: Performed By: #### C DP #### [facility] [address] [place], [place] 6683783 Patient Access Coordinator: Sami Abbasi MD RBC morphology finding Nom (Bld) NOT REPORTED Normal [facility] Comment on above: Performed By: #### C DP #### [facility] [address] [place] [address] Patient Access Coordinator: Sami Abbasi MD WBC Morphology NOT REPORTED Normal [facility] Comment on above: Performed By: #### C DP #### [facility] [address] [place] [address] Patient Access Coordinator: Sami Abbasi MD HCG, Quanton 05-21-2021 HCG, Quant 44 IU/L High <5 [facility] Comment on above: Result Comment: Non-preg [...] liver. Performed By: #### B HCG #### [facility] [address] [place] [address] Patient Access Coordinator: Sami Abbasi MD US NON OB TRANSVAGINALon [...] Joshua Lerner 05/21/21 Final result Normal [facility] hCG, Quantitative, Ordered By: Paul Garcia on 05-21-2021 hCG Quant 44 High <5 IU/L [facility] [employer] Phone: Comment on above: Non-preg premeno <=5 Postmeno <=8 Male <=3 If HCG results do not concur with clinical observations, additional testing to confirm results is recommended. Elevated results not associated with may be found in patients with other diseases such as tumors of the germ cells (testis, ovaries, etc.), bladder, pancreas, stomach, lungs, and liver. Interpretation and review of laboratory results Abnormal [facility] Phone: [facility] Phone: CBC with Diffon 05-14-2021 Abs. Basophil 0.12 k/uL Normal 0.0-0.2 [facility] Comment on above: Performed By: #### D AU #### [facility] [address] [place] [address] [place] [address] Patient Access Coordinator: Sami Abbasi MD Abs.Imm.Granulocyte 0.48 k/uL High 0.00-0.30 [facility] Comment on above: Performed By: #### D AU #### [facility] [address] [place] [address] [place] [address] Patient Access Coordinator: Sami Abbasi MD Abs.Neutrophil (Seg) 8.71 k/uL High 1.50-8.10 [facility] Comment on above: Performed By: #### D AU #### [facility] [address] [place] [address] [place] [address] Patient Access Coordinator: Sami Abbasi MD Basophils/100 WBC (Bld) 1 % Normal 0-2 M [facility] Comment on above: Performed By: #### D AU #### [facility] [address] [place] [address] Dr. [place] [phone] Patient Access Coordinator: Sami Abbasi MD Eosinophils (Bld) [#/Vol] 0.12 10*3/uL Normal 0.00-0.44 [facility] Comment on above: Performed By: #### D AU #### [facility] [address] [place], [place] 0157183 Patient Access Coordinator: Sami Abbasi MD Eosinophils/100 WBC (Bld) 1 % Normal 1-4 [facility] Comment on above: Performed By: #### D AU #### [facility] [address] [place], [place] [phone] Patient Access Coordinator: Sami Abbasi MD Immature granulocytes/100 WBC (Bld) 4 % High 0 [facility] Comment on above: Performed By: #### D AU #### [facility] [address] [place], [facility]83 Patient Access Coordinator: Sami Abbasi MD Lymphocytes (Bld) [#/Vol] 2.17 10*3/uL Normal 1.10-3.70 [facility] Comment on above: Performed By: #### D AU #### [facility] [address] [place], [place] 2306683 Patient Access Coordinator: Sami Abbasi MD Lymphocytes/100 WBC (Bld) 18 % Low 24-43 [facility] Comment on above: Performed By: #### D AU #### [facility] [address] [place], [place] [phone] Patient Access Coordinator: Sami Abbasi MD Monocytes (Bld) [#/Vol] 0.48 10*3/uL Normal 0.10-1.20 [facility] Comment on above: Performed By: #### D AU #### [facility] [address] [place], [place] 7354983 Patient Access Coordinator: Sami Abbasi MD Monocytes/100 WBC (Bld) 4 % Normal 3-12 M [facility] Comment on above: Performed By: #### D AU #### [facility] [address] [place], [place] [address]3 Patient Access Coordinator: Sami Abbasi MD Morphology Andrea (Bld) [Interp] Normal Normal [facility] Comment on above: Performed By: #### D AU #### [facility] [address] [place] [facility]83 Patient Access Coordinator: Sami Abbasi MD Neutrophil (Seg) 72 % High 36-65 [facility] Comment on above: Performed By: #### D AU #### [address] [place], [facility]83 Patient Access Coordinator: Sami Abbasi MD Nucleated RBC'S 1 per 100 WBC Normal 0-5 [facility] Comment on above: Performed By: #### D AU #### [address] [place], [facility]83 Patient Access Coordinator: Sami Abbasi MD WBC (Bld) [#/Vol] 12.1 10*3/uL High 3.5-11.3 [facility] Comment on above: Result Comment: ADJU STED FOR NUCLEATED RBC'S CORRECTED ON 05/14 AT 1813: PREVIOUSLY REPORTED 12.2 Performed By: #### D AU #### [address] [place], [facility]83 Patient Access Coordinator: Sami Abbasi MD Erythrocyte distribution width (RBC) [Ratio] 14.8 % High 11.8-14.4 [facility] Comment on above: Performed By: #### D AU #### [address] [place], [facility]83 Patient Access Coordinator: Sami Abbasi MD Hematocrit (Bld) [Volume fraction] 35.2 % Low 36.3-47.1 [facility] Comment on above: Performed By: #### D AU #### [address] [place], [place] [id number] Patient Access Coordinator: Sami Abbasi MD Hemoglobin (Bld) [Mass/Vol] 11.9 g/dL Normal 11.9-15.1 [facility] Comment on above: Performed By: #### D AU #### [facility] [address] [place] [address] Dr. [place], [place] [phone] Patient Access Coordinator: Sami Abbasi MD MCH (RBC) [Entitic mass] 30.4 pg Normal 25.2-33.5 [facility] Comment on above: Performed By: #### D AU #### [address] [place], [facility]83 Patient Access Coordinator: Sami Abbasi MD MCHC (RBC) [Mass/Vol] 33.8 g/dL Normal 28.4-34.8 [facility] Comment on above: Performed By: #### D AU #### [address] [place], [facility]83 Patient Access Coordinator: Sami Abbasi MD MCV (RBC) [Entitic vol] 89.8 fL Normal 82.6-102.9 [facility] Comment on above: Performed By: #### D AU #### [address] [place], [facility]83 Patient Access Coordinator: Sami Abbasi MD NRBC Automated 0.2 per 100 WBC High 0.0 [facility] Comment on above: Performed By: #### D AU #### [facility] [address] [place] [address] Dr. [place], [facility]83 Patient Access Coordinator: Sami Abbasi MD Platelet mean volume (Bld) [Entitic vol] 9.9 fL Normal 8.1-13.5 [facility] Comment on above: Performed By: #### D AU #### [address] [place], [facility]83 Patient Access Coordinator: Sami Abbasi MD Platelets (Bld) [#/Vol] 154 10*3/uL Normal 138-453 [facility] Comment on above: Performed By: #### D AU #### [facility] [address] [place] [address] Patient Access Coordinator: Sami Abbasi MD RBC (Bld) [#/Vol] 3.92 10*6/uL Low 3.95-5.11 [facility] Comment on above: Performed By: #### D AU #### [facility] [address] [place] [address] Patient Access Coordinator: Sami Abbasi MD Auto Diff Performed NOT REPORTED Normal [facility] Comment on above: Performed By: #### D AU #### [facility] [address] [place] [address] Patient Access Coordinator: Sami Abbasi MD Platelet Estimate NOT REPORTED Normal [facility] Comment on above: Performed By: #### D AU #### [facility] [address] [place], [facility]83 Patient Access Coordinator: Sami Abbasi MD RBC morphology finding Nom (d) NOT REPORTED Normal [facility] Comment on above: Performed By: #### D AU #### [facility] [address] [place] [address] Patient Access Coordinator: Sami Abbasi MD WBC Morphology NOT REPORTED Normal [facility] Comment on above: Performed By: #### D AU #### [facility] [address] [place] [address] Patient Access Coordinator: Sami Abbasi MD Abs. Basophil 0.00 k/uL Normal 0.0-0.2 [facility] Comment on above: Performed By: #### H H #### [facility] [address] [place] [address] Patient Access Coordinator: Sami Abbasi MD Abs.Imm.Granulocyte 0.00 k/uL Normal 0.00-0.30 [facility] Comment on above: Performed By: #### H H #### [facility] [address] [place], [place] [address] Patient Access Coordinator: Sami Abbasi MD Abs.Neutrophil (Seg) 10.05 k/uL High 1.50-8.10 [facility] Comment on above: Performed By: #### H H #### [facility] [address] [place], [place] [address] Patient Access Coordinator: Sami Abbasi MD Basophils/100 WBC (Bld) 0 % Normal 0-2 [facility] Comment on above: Performed By: #### H H #### [facility] [address] [place] [address] Patient Access Coordinator: Sami Abbasi MD Eosinophils (Bld) [#/Vol] 0.00 10*3/uL Normal 0.00-0.44 [facility] Comment on above: Performed By: #### H H #### [address] [place], [place] [address] Patient Access Coordinator: Sami Abbasi MD Eosinophils/100 WBC (Bld) 0 % Low 1-4 [facility] Comment on above: Performed By: #### H H #### [facility] [address] [place], [place] [address] Patient Access Coordinator: Sami Abbasi MD Immature granulocytes/100 WBC (Bld) 0 % Normal 0 [facility] Comment on above: Performed By: #### H H #### [facility] [address] [place], [place] [address] Patient Access Coordinator: Sami Abbasi MD Lymphocytes (Bld) [#/Vol] 1.98 10*3/uL Normal 1.10-3.70 [facility] Comment on above: Performed By: #### H H #### [facility] [address] [place], [facility] Patient Access Coordinator: Sami Abbasi MD Lymphocytes/100 WBC (Bld) 16 % Low 24-43 [facility] Comment on above: Performed By: #### H H #### [facility] [address] [place], [facility] Patient Access Coordinator: Sami Abbasi MD Monocytes (Bld) [#/Vol] 0.37 10*3/uL Normal 0.10-1.20 [facility] Comment on above: Performed By: #### H H #### [facility] [address] [place], [facility]83 Patient Access Coordinator: Sami Abbasi MD Monocytes/100 WBC (Bld) 3 % Normal 3-12 M [facility] Comment on above: Performed By: #### H H #### [facility] [address] [place] [address] Dr. [place], [place] [address] Patient Access Coordinator: Sami Abbasi MD Morphology Andrea (Bld) [Interp] 1+ Normal [facility] Comment on above: Result Comment: POLY CHROMASIA Performed By: #### H H #### [address] [place], [place] [address] Patient Access Coordinator: Sami Abbasi MD Neutrophil (Seg) 81 % High 36-65 [facility] Comment on above: Performed By: #### H H #### [facility] [address] [place], [facility] Patient Access Coordinator: Sami Abbasi MD Erythrocyte distribution width (RBC) [Ratio] 14.6 % High 11.8-14.4 [facility] Comment on above: Performed By: #### H H #### [address] [place], [facility] Patient Access Coordinator: Sami Abbasi MD Hematocrit (Bld) [Volume fraction] 31.8 % Low 36.3-47.1 [facility] Comment on above: Performed By: #### H H #### [facility] [address] [place], [facility]83 Patient Access Coordinator: Sami Abbasi MD Hemoglobin (Bld) [Mass/Vol] 10.9 g/dL Low 11.9-15.1 [facility] Comment on above: Performed By: #### H H #### [facility] [address] [place] [facility] Patient Access Coordinator: Sami Abbasi MD MCH (RBC) [Entitic mass] 30.5 pg Normal 25.2-33.5 [facility] Comment on above: Performed By: #### H H #### [facility] [address] [place] [facility]83 Patient Access Coordinator: Sami Abbasi MD MCHC (RBC) [Mass/Vol] 34.3 g/dL Normal 28.4-34.8 [facility] Comment on above: Performed By: #### H H #### [facility] [address] [place] [facility]83 Patient Access Coordinator: Sami Abbasi MD MCV (RBC) [Entitic vol] 89.1 fL Normal 82.6-102.9 [facility] Comment on above: Performed By: #### H H #### [address] [place] [facility] Patient Access Coordinator: Sami Abbasi MD NRBC Automated 0.0 per 100 WBC Normal 0.0 [facility] Comment on above: Performed By: #### H H #### [facility] [address] [place] [facility] Patient Access Coordinator: Sami Abbasi MD Platelet Count See Reflexed IPF Result Normal 138-453 [facility] Comment on above: Performed By: #### H H #### [facility] [address] [place] [facility] Patient Access Coordinator: Sami Abbasi MD RBC (Bld) [#/Vol] 3.57 10*6/uL Low 3.95-5.11 [facility] Comment on above: Performed By: #### H H #### [facility] [address] [place], [place] 3949983 Patient Access Coordinator: Sami Abbasi MD WBC (Bld) [#/Vol] 12.4 10*3/uL High 3.5-11.3 [facility] Comment on above: Performed By: #### H H #### [facility] [address] [place], [place] [address]90083 Patient Access Coordinator: Sami Abbasi MD Auto Diff Performed NOT REPORTED Normal [facility] Comment on above: Performed By: #### H H #### [facility] [address] [place] [address] Patient Access Coordinator: Sami Abbasi MD MPV NOT REPORTED Normal 8.1-13.5 [facility] Comment on above: Performed By: #### H H #### [facility] [address] [place] [address] Patient Access Coordinator: Sami Abbasi MD Platelet Estimate NOT REPORTED Normal [facility] Comment on above: Performed By: #### H H #### [facility] [facility] [address] [place] [address] [place] [address] Patient Access Coordinator: Sami Abbasi MD RBC morphology finding Nom (Bld) NOT REPORTED Normal [facility] Comment on above: Performed By: #### H H #### [facility] [address] [place] [address] Patient Access Coordinator: Sami Abbasi MD WBC Morphology NOT REPORTED Normal [facility] Comment on above: Performed By: #### H H #### [facility] [address] [place], [place] [id number] Patient Access Coordinator: Sami Abbasi MD PLT, Immature Fract.on 05-14 Platelet, Fluoresc. 119 k/uL Low 138-453 [facility] Comment on above: Performed By: #### H H #### [facility] [address] [place] [address] [place] [place], [place] [phone] Patient Access Coordinator: Sami Abbasi MD PLT, Immature Fract. 2.9 % Normal 1.1-10.3 [facility] Comment on above: Performed By: #### H H #### [facility] [address] [place] [id number] Patient Access Coordinator: Sami Abbasi MD APTTon 05-13-2021 aPTT Coag (Bld) [Time] 27.0 s Normal 23.9-33.8 [facility] Comment on above: Result Comment: IV Heparin Therapy Range: 62.0-94.0 Performed By: #### C DP #### [address] [place], [facility]83 Patient Access Coordinator: Sami Abbasi MD Amylaseon 05-13-2021 Amylase [Catalytic activity/Vol] 54 U/L Normal 28-100 [facility] Comment on above: Performed By: #### C DP #### [address] [place], [place] [id number] Patient Access Coordinator: Sami Abbasi MD CBC with Diffon 05-13-2021 Abs. Basophil 0.00 k/uL Normal 0.0-0.2 [facility] Comment on above: Performed By: #### C DP #### [facility] [address] [place] [address] [place] [place], [place] [phone] Patient Access Coordinator: Sami Abbasi MD Abs.Imm.Granulocyte 0.00 k/uL Normal 0.00-0.30 [facility] Comment on above: Performed By: #### C DP #### [facility] [address] [place] [address] [place] [place], [place] 1468383 Patient Access Coordinator: Sami Abbasi MD Abs.Neutrophil (Seg) 12.58 k/uL High 1.50-8.10 [facility] Comment on above: Performed By: #### C DP #### [facility] [address] [place], [place] [address] Patient Access Coordinator: Sami Abbasi MD Basophils/100 WBC (Bld) 0 % Normal 0-2 M [facility] Comment on above: Performed By: #### C DP #### [facility] [address] [place], [facility]83 Patient Access Coordinator: Sami Abbasi MD Eosinophils (Bld) [#/Vol] 0.00 10*3/uL Normal 0.00-0.44 [facility] Comment on above: Performed By: #### C DP #### [facility] [address] [place] [address] Dr[address] [place], [facility]83 Patient Access Coordinator: Sami Abbasi MD Eosinophils/100 WBC (Bld) 0 % Low 1-4 [facility] Comment on above: Performed By: #### C DP #### [facility] [address] [place] [address] Dr[address] [place], [facility]83 Patient Access Coordinator: Sami Abbasi MD Immature granulocytes/100 WBC (Bld) 0 % Normal 0 [facility] Comment on above: Performed By: #### C DP #### [facility] [address] [place] [address] Dr[address] [place], [facility]60 ( Patient Access Coordinator: Sami Abbasi MD Lymphocytes (Bld) [#/Vol] 1.63 10*3/uL Normal 1.10-3.70 [facility] Comment on above: Performed By: #### C DP #### [facility] [address] [place], [facility]95 ( Patient Access Coordinator: Sami Abbasi MD Lymphocytes/100 WBC (Bld) 11 % Low 24-43 [facility] Comment on above: Performed By: #### C DP #### [facility] [address] [place] [phone] Patient Access Coordinator: Sami Abbasi MD Monocytes (Bld) [#/Vol] 0.59 10*3/uL Normal 0.10-1.20 [facility] Comment on above: Performed By: #### C DP #### [facility] [address] [place], [place] 8909283 Patient Access Coordinator: Sami Abbasi MD Monocytes/100 WBC (Bld) 4 % Normal 3-12 [facility] Comment on above: Performed By: #### C DP #### [facility] [address] [place] [phone] Patient Access Coordinator: Sami Abbasi MD Morphology Andrea (Bld) [Interp] 1+ Normal [facility] Comment on above: Result Comment: POLY CHROMASIA Performed By: #### C DP #### [facility] [address] [place], [place] [address] Patient Access Coordinator: Sami Abbasi MD Neutrophil (Seg) 85 % High 36-65 [facility] Comment on above: Performed By: #### C DP #### [facility] [address] [place] [address] Dr. [place], [facility]83 Patient Access Coordinator: Sami Abbasi MD Erythrocyte distribution width (RBC) [Ratio] 13.6 % Normal 11.8-14.4 [facility] Comment on above: Performed By: #### C DP #### [facility] [address] [place], [facility]83 Patient Access Coordinator: Sami Abbasi MD Hematocrit (Bld) [Volume fraction] 25.3 % Low 36.3-47.1 [facility] Comment on above: Performed By: #### C DP #### [facility] [address] [place], [place] 4857783 Patient Access Coordinator: Sami Abbasi MD Hemoglobin (Bld) [Mass/Vol] 8.6 g/dL Low 11.9-15.1 [facility] Comment on above: Performed By: #### C DP #### [facility] [address] [place] [address] Patient Access Coordinator: Sami Abbasi MD MCH (RBC) [Entitic mass] 29.2 pg Normal 25.2-33.5 [facility] Comment on above: Performed By: #### C DP #### [facility] [address] [place] [address] Patient Access Coordinator: Sami Abbasi MD MCHC (RBC) [Mass/Vol] 34.0 g/dL Normal 28.4-34.8 [facility] Comment on above: Performed By: #### C DP #### [facility] [address] [place] [address] Patient Access Coordinator: Sami Abbasi MD MCV (RBC) [Entitic vol] 85.8 fL Normal 82.6-102.9 [facility] Comment on above: Performed By: #### C DP #### [facility] [address] [place] [address] Patient Access Coordinator: Sami Abbasi MD NRBC Automated 0.0 per 100 WBC Normal 0.0 [facility] Comment on above: Performed By: #### C DP #### [facility] [address] [place] [address] Patient Access Coordinator: Sami Abbasi MD Platelet Count See Reflexed IPF Result Normal 138-453 [facility] Comment on above: Performed By: #### C DP #### [facility] [address] [place] [address] Patient Access Coordinator: Sami Abbasi MD RBC (Bld) [#/Vol] 2.95 10*6/uL Low 3.95-5.11 [facility] Comment on above: Performed By: #### C DP #### [facility] [address] [place] [address] Patient Access Coordinator: Sami Abbasi MD WBC (Bld) [#/Vol] 14.8 10*3/uL High 3.5-11.3 [facility] Comment on above: Performed By: #### C DP #### [facility] [address] [place], [place] [phone] Patient Access Coordinator: Sami Abbasi MD Auto Diff Performed NOT REPORTED Normal [facility] Comment on above: Performed By: #### C DP #### [facility] [address] [place] [address] [place], [place] 2208783 Patient Access Coordinator: Sami Abbasi MD MPV NOT REPORTED Normal 8.1-13.5 [facility] Comment on above: Performed By: #### C DP #### [address] [place] [address] Patient Access Coordinator: Sami Abbasi MD Platelet Estimate NOT REPORTED Normal [facility] Comment on above: Performed By: #### C DP #### [facility] [address] [place] [address] [place] [address] Patient Access Coordinator: Sami Abbasi MD RBC morphology finding Nom (Bld) NOT REPORTED Normal [facility] Comment on above: Performed By: #### C DP #### [facility] [address] [place] [address] [place] [address] Patient Access Coordinator: Sami Abbasi MD WBC Morphology NOT REPORTED Normal [facility] Comment on above: Performed By: #### C DP #### [facility] [address] [place] [address] Patient Access Coordinator: Sami Abbasi MD Abs. Basophil 0.00 k/uL Normal 0.0-0.2 [facility] Comment on above: Performed By: #### C DP, IPF #### [facility] [address] [place], [place] 4163183 Patient Access Coordinator: Sami Abbasi MD Abs.Imm.Granulocyte 0.16 k/uL Normal 0.00-0.30 [facility] Comment on above: Performed By: #### C DP, IPF #### [facility] [address] [place], [facility]83 Patient Access Coordinator: Sami Abbasi MD Abs.Neutrophil (Seg) 12.25 k/uL High 1.50-8.10 [facility] Comment on above: Performed By: #### C DP, IPF #### [address] [place], [facility]83 Patient Access Coordinator: Sami Abbasi MD Basophils/100 WBC (Bld) 0 % Normal 0-2 [facility] Comment on above: Performed By: #### C DP, IPF #### [address] [place] [address] Patient Access Coordinator: Sami Abbasi MD Eosinophils (Bld) [#/Vol] 0.00 10*3/uL Normal 0.00-0.44 [facility] Comment on above: Performed By: #### C DP, IPF #### [address] [place], [place] [address] Patient Access Coordinator: Sami Abbasi MD Eosinophils/100 WBC (Bld) 0 % Low 1-4 [facility] Comment on above: Performed By: #### C DP, IPF #### [address] [place], [facility]83 Patient Access Coordinator: Sami Abbasi MD Immature granulocytes/100 WBC (Bld) 1 % High 0 [facility] Comment on above: Performed By: #### C DP, IPF #### [address] [place], [facility]83 Patient Access Coordinator: Sami Abbasi MD Lymphocytes (Bld) [#/Vol] 1.88 10*3/uL Normal 1.10-3.70 [facility] Comment on above: Performed By: #### C DP, IPF #### [facility] [address] [place], [place] [phone] Patient Access Coordinator: Sami Abbasi MD Lymphocytes/100 WBC (Bld) 12 % Low 24-43 [facility] Comment on above: Performed By: #### C DP, IPF #### [facility] [address] [place], [place] 6421083 Patient Access Coordinator: Sami Abbasi MD Monocytes (Bld) [#/Vol] 1.41 10*3/uL High 0.10-1.20 [facility] Comment on above: Performed By: #### C DP, IPF #### [facility] [address] [place], [place] 8223283 Patient Access Coordinator: Sami Abbasi MD Monocytes/100 WBC (Bld) 9 % Normal 3-12 M [facility] Comment on above: Performed By: #### C DP, IPF #### [facility] [address] [place], [place] 7252783 Patient Access Coordinator: Sami Abbasi MD Morphology Andrea (Bld) [Interp] Normal Normal [facility] Comment on above: Performed By: #### C DP, IPF #### [facility] [address] [place], [place] 7818683 Patient Access Coordinator: Sami Abbasi MD Neutrophil (Seg) 78 % High 36-65 [facility] Comment on above: Performed By: #### C DP, IPF #### [facility] [address] [place], [place] 1959983 Patient Access Coordinator: Sami Abbasi MD Erythrocyte distribution width (RBC) [Ratio] 13.7 % Normal 11.8-14.4 [facility] Comment on above: Performed By: #### C DP, IPF #### [facility] [address] [place], [place] 3385783 Patient Access Coordinator: Sami Abbasi MD Hematocrit (Bld) [Volume fraction] 16.0 % Critically low 36.3-47.1 [facility] Comment on above: Performed By: #### C DP, IPF #### [facility] [address] [place], [place] 1037483 Patient Access Coordinator: Sami Abbasi MD Hemoglobin (Bld) [Mass/Vol] 5.3 g/dL Critically low 11.9-15.1 [facility] Comment on above: Performed By: #### C DP, IPF #### [facility] [address] [place] [address] Patient Access Coordinator: Sami Abbasi MD MCH (RBC) [Entitic mass] 28.6 pg Normal 25.2-33.5 [facility] Comment on above: Performed By: #### C DP, IPF #### [address] [place] [address] Patient Access Coordinator: Sami Abbasi MD MCHC (RBC) [Mass/Vol] 33.1 g/dL Normal 28.4-34.8 [facility] Comment on above: Performed By: #### C DP, IPF #### [address] [place] [address] Patient Access Coordinator: Sami Abbasi MD MCV (RBC) [Entitic vol] 86.5 fL Normal 82.6-102.9 [facility] Comment on above: Performed By: #### C DP, IPF #### [facility] [address] [place], [place] [phone] Patient Access Coordinator: Sami Abbasi MD NRBC Automated 0.0 per 100 WBC Normal 0.0 [facility] Comment on above: Performed By: #### C DP, IPF #### [facility] [address] [place] [address] Patient Access Coordinator: Sami Abbasi MD Platelet Count See Reflexed IPF Result Normal 138-453 [facility] Comment on above: Performed By: #### C DP, IPF #### [facility] [address] [place] [address] Patient Access Coordinator: Sami Abbasi MD RBC (Bld) [#/Vol] 1.85 10*6/uL Low 3.95-5.11 [facility] Comment on above: Performed By: #### C DP, IPF #### [facility] [address] [place] [address] Patient Access Coordinator: Sami Abbasi MD WBC (Bld) [#/Vol] 15.7 10*3/uL High 3.5-11.3 [facility] Comment on above: Performed By: #### C DP, IPF #### [address] [place] [address] Patient Access Coordinator: Sami Abbasi MD Auto Diff Performed NOT REPORTED Normal [facility] Comment on above: Performed By: #### C DP, IPF #### [address] [place] [address] Patient Access Coordinator: Sami Abbasi MD MPV NOT REPORTED Normal 8.1-13.5 [facility] Comment on above: Performed By: #### C DP, IPF #### [address] [place] [address] Patient Access Coordinator: Sami Abbasi MD Platelet Estimate NOT REPORTED Normal [facility] Comment on above: Performed By: #### C DP, IPF #### [facility] [address] [place] [address] Patient Access Coordinator: Sami Abbasi MD RBC morphology finding Nom (d) NOT REPORTED Normal [facility] Comment on above: Performed By: #### C DP, IPF #### [facility] [address] [place] [address] [place] [address] Patient Access Coordinator: Sami Abbasi MD WBC Morphology NOT REPORTED Normal [facility] Comment on above: Performed By: #### C DP, IPF #### [facility] [address] [place] [address] Patient Access Coordinator: Sami Abbasi MD CT ABDOMEN PELVIS WO CONTRFAISAL Ton 05-13-2021 CT ABDOMEN PELVIS WO CONTRAST [...] Rodarte MD 05/13/21 Final result Normal [facility] CTA ABDOMEN PELVIS W WO CONT [...] 05/13/21 Edited Result - FINAL Normal [facility] Comp Metabolic Profon 2020 (cont.) Normal [facility] Comment on above: Result Comment: Aver age GFR for 20-29 years old: 116 mL/min/1.73sq m Chronic Kidney Disease: <60 mL/min/1.73sq m Kidney failure: <15 mL/min/1.73sq m eGFR calculated using average adult body mass. Additional eGFR calculator available at: http://www.[employer].Accurence/multiple_crcl_2011.htm Performed By: #### C DP #### [facility] [address] [place] [address] Patient Access Coordinator: Sami Abbasi MD Albumin [Mass/Vol] 2.2 g/dL Low 3.5-5.2 [facility] Comment on above: Performed By: #### C DP #### [facility] [address] [place], [place] 0607883 Patient Access Coordinator: Sami Abbasi MD Albumin/Glob Ratio 0.8 Low 1.0-2.5 [facility] Comment on above: Performed By: #### C DP #### [facility] [address] [place], [place] 2315283 Patient Access Coordinator: Sami Abbasi MD Alkaline Phos 154 U/L High 35-104 [facility] Comment on above: Performed By: #### C DP #### [facility] [address] [place], [place] 4504883 Patient Access Coordinator: Sami Abbasi MD ALT [Catalytic activity/Vol] 48 U/L High 5-33 [facility] Comment on above: Performed By: #### C DP #### [facility] [address] [place], [place] 7954783 Patient Access Coordinator: Sami Abbasi MD Anion gap [Moles/Vol] 11 mmol/L Normal 9-17 [facility] Comment on above: Performed By: #### C DP #### [facility] [address] [place] [address] Patient Access Coordinator: Sami Abbasi MD AST [Catalytic activity/Vol] 74 U/L High <32 [facility] Comment on above: Performed By: #### C DP #### [facility] [address] [place], [place] 9254383 Patient Access Coordinator: Sami Abbasi MD Bilirubin [Mass/Vol] 0.26 mg/dL Low 0.3-1.2 [facility] Comment on above: Performed By: #### C DP #### [facility] [address] [place], [place] 0234283 Patient Access Coordinator: Sami Abbasi MD BUN/CRE Ratio 18 Normal 9-20 [facility] Comment on above: Performed By: #### C DP #### [facility] [address] [place], [place] 4354583 Patient Access Coordinator: Sami Abbasi MD Calcium [Mass/Vol] 7.5 mg/dL Low 8.6-10.4 [facility] Comment on above: Performed By: #### C DP #### [facility] [address] [place], [place] 8575683 Patient Access Coordinator: Sami Abbasi MD Chloride [Moles/Vol] 103 mmol/L Normal 98-107 [facility] Comment on above: Performed By: #### C DP #### [facility] [address] [place], [place] 8965583 Patient Access Coordinator: Sami Abbasi MD CO2 [Moles/Vol] 22 mmol/L Normal 20-31 [facility] Comment on above: Performed By: #### C DP #### [facility] [address] [place], [place] 4829783 Patient Access Coordinator: Sami Abbasi MD Creatinine [Mass/Vol] 0.51 mg/dL Normal 0.50-0.90 [facility] Comment on above: Performed By: #### C DP #### [facility] [address] [place], [place] 5642383 Patient Access Coordinator: Sami Abbasi MD GFR, Amer >60 Normal >60 [facility] Comment on above: Performed By: #### C DP #### [facility] [address] [place], [place] 3946583 Patient Access Coordinator: Sami Abbasi MD GFR,non Amer >60 Normal >60 [facility] Comment on above: Performed By: #### C DP #### [facility] [address] [place], [place] 6336783 Patient Access Coordinator: Sami Abbasi MD Glucose [Mass/Vol] 95 mg/dL Normal 70-99 [facility] Comment on above: Performed By: #### C DP #### [facility] [address] [place], [place] 9264083 Patient Access Coordinator: Sami Abbasi MD Potassium [Moles/Vol] 3.7 mmol/L Normal 3.7-5.3 [facility] Comment on above: Performed By: #### C DP #### [facility] [address] [place], [place] 3494083 Patient Access Coordinator: Sami Abbasi MD Protein [Mass/Vol] 4.9 g/dL Low 6.4-8.3 [facility] Comment on above: Performed By: #### C DP #### [address] [place], [place] 2657383 Patient Access Coordinator: Sami Abbasi MD Sodium [Moles/Vol] 136 mmol/L Normal 135-144 [facility] Comment on above: Performed By: #### C DP #### [facility] [address] [place], [place] 4203483 Patient Access Coordinator: Sami Abbasi MD Staging: Normal [facility] Comment on above: Result Comment: Stag e 1: Some kidney damage normal GFR Stage 2: Mild kidney damage GFR 60-89 Stage 3: Moderate kidney damage GFR 30-59 Stage 4: Severe kidney damage GFR 15-29 Stage 5: Severe kidney damage GFR <15 ESRD - chronic treatment by dialysis or transplant Performed By: #### C DP #### [facility] [address] [place], [place] 1166883 Patient Access Coordinator: Sami Abbasi MD Urea nitrogen [Mass/Vol] 9 mg/dL Normal 6-20 [facility] Comment on above: Performed By: #### C DP #### [facility] [address] [place], [place] 3279383 Patient Access Coordinator: Sami Abbasi MD Fibrinogenon 05-13-2021 Fibrinogen 265 mg/dL Normal 179-518 [facility] Comment on above: Performed By: #### H H #### [facility] [address] [place], [place] 3975883 Patient Access Coordinator: Sami Abbasi MD Hgb/Hcton 05-13-2021 Hematocrit (Bld) [Volume fraction] 16.0 % Critically low 36.3-47.1 [facility] Comment on above: Performed By: #### H H #### [facility] [address] [place], [place] 1558383 Patient Access Coordinator: Sami Abbasi MD Hemoglobin (Bld) [Mass/Vol] 5.3 g/dL Critically low 11.9-15.1 [facility] Comment on above: Performed By: #### H H #### [facility] [address] [place], [place] 7172283 Patient Access Coordinator: Sami Abbasi MD Lactate Dehydrogenaseon 04-24 LDH [Catalytic activity/Vol] 394 U/L High 135-214 [facility] Comment on above: Performed By: #### C DP #### [facility] [address] [place], [place] 4223883 Patient Access Coordinator: Sami Abbasi MD Lipaseon 05-13-2021 Lipase [Catalytic activity/Vol] 22 U/L Normal 13-60 [facility] Comment on above: Performed By: #### C DP #### [facility] [address] [place], [place] 9104783 Patient Access Coordinator: Sami Abbasi MD PLT, Immature Fract.on 05-13 Platelet, Fluoresc. 115 k/uL Low 138-453 [facility] Comment on above: Performed By: #### H H #### [facility] [address] [place], [place] 1673683 Patient Access Coordinator: Sami Abbasi MD PLT, Immature Fract. 3.3 % Normal 1.1-10.3 [facility] Comment on above: Performed By: #### H H #### [facility] [address] [place] [address] Patient Access Coordinator: Sami Abbasi MD Platelet, Fluoresc. 114 k/uL Low 138-453 [facility] [facility] Comment on above: Performed By: #### C DP, IPF #### [address] [place], [place] [id number] Patient Access Coordinator: Sami Abbasi MD PLT, Immature Fract. 3.9 % Normal 1.1-10.3 [facility] Comment on above: Performed By: #### C DP, IPF #### [address] [place], [place] [id number] Patient Access Coordinator: Sami Abbasi MD PTon 05-13-2021 INR Coag (PPP) [Relative time] 0.9 {INR} Normal [facility] Comment on above: Result Comment: Non-therapeutic Range: INR = 0.9-1.2 Therapeutic Range: Moderate Anticoagulant Intensity: INR = 2.0-3.0 High Anticoagulant Intensity: INR = 2.5-3.5 Performed By: #### H H #### [address] [place], [place] [id number] Patient Access Coordinator: Sami Abbasi MD PT Coag (PPP) [Time] 12.3 s Normal 11.5-14.2 [facility] Comment on above: Performed By: #### H H #### [facility] [address] [place] [address] [place] [address] Patient Access Coordinator: Sami Abbasi MD Type + Screenon 05-13-2021 Type + Screen Sample Expiration 05/14/2021,2359 Arm Band Number [id number] ABO/Rh(D) A NEGATIVE Antibody Screen NEGATIVE Unit Number [id number] Blood Component Type Leukocyte Reduced Red Cell Unit Division 00 Status of Unit TRANSFUSED Transfusion Status OK TO TRANSFUSE Crossmatch Result COMPATIBLE Unit Number [id number] Blood Component Type Leukocyte Reduced Red Cell Unit Division 00 Status of Unit TRANSFUSED Transfusion Status OK TO TRANSFUSE Crossmatch Result COMPATIBLE Unit Number [id number] Blood Component Type Leukocyte Reduced Red Cell Unit Division 00 Status of Unit TRANSFUSED Transfusion Status OK TO TRANSFUSE Crossmatch Result COMPATIBLE Unit Number [id number] Blood Component Type Leukocyte Reduced Red Cell Unit Division 00 Status of Unit TRANSFUSED Transfusion Status OK TO TRANSFUSE Crossmatch Result COMPATIBLE Unit Number [id number] Blood Component Type Leukocyte Reduced Red Cell Unit Division 00 Status of Unit TRANSFUSED Transfusion Status OK TO TRANSFUSE Crossmatch Result COMPATIBLE Normal [facility] Comment on above: Performed By: #### H H #### [facility] [address] [place] [address] [place] [address] Patient Access Coordinator: Sami Abbasi MD Hemoglobinon 05-12-2021 Hemoglobin (Bld) [Mass/Vol] 7.2 g/dL Low 11.9-15.1 [facility] Comment on above: Performed By: #### H GB #### [address] [place] [address] Patient Access Coordinator: Sami Abbasi MD Hgb/Hcton 05-12-2021 Hematocrit (Bld) [Volume fraction] 16.8 % Critically low 36.3-47.1 [facility] Comment on above: Performed By: #### H H #### [facility] [address] [place] [address] [place] [address] Patient Access Coordinator: Sami Abbasi MD Hemoglobin (Bld) [Mass/Vol] 5.6 g/dL Critically low 11.9-15.1 [facility] Comment on above: Performed By: #### H H #### [facility] [address] [place] [address] Patient Access Coordinator: Sami Abbasi MD Hematocrit (Bld) [Volume fraction] 31.3 % Low 36.3-47.1 [facility] Comment on above: Performed By: #### H H #### [address] [place] [address] Patient Access Coordinator: Sami Abbasi MD Hemoglobin (Bld) [Mass/Vol] 10.3 g/dL Low 11.9-15.1 [facility] Comment on above: Performed By: #### H H #### [address] [place] [address] Patient Access Coordinator: Sami Abbasi MD XR CHEST PORTABLEon 05-12-20 [...] Reza DO 05/11/21 Final result Normal [facility] CBCon 05-11-2021 Erythrocyte distribution width (RBC) [Ratio] 13.5 % Normal 11.8-14.4 [facility] Comment on above: Performed By: #### C DP, IPF #### [address] [place] [address] Patient Access Coordinator: Sami Abbasi MD Hematocrit (Bld) [Volume fraction] 37.7 % Normal 36.3-47.1 [facility] Comment on above: Performed By: #### C DP, IPF #### [address] [place] [address] Patient Access Coordinator: Sami Abbasi MD Hemoglobin (Bld) [Mass/Vol] 12.1 g/dL Normal 11.9-15.1 [facility] Comment on above: Performed By: #### C DP, IPF #### [address] [place] [phone] Patient Access Coordinator: Sami Abbasi MD MCH (RBC) [Entitic mass] 27.5 pg Normal 25.2-33.5 [facility] Comment on above: Performed By: #### C DP, IPF #### [address] [place] [phone] Patient Access Coordinator: Sami Abbasi MD MCHC (RBC) [Mass/Vol] 32.1 g/dL Normal 28.4-34.8 [facility] Comment on above: Performed By: #### C DP, IPF #### [address] [place] [phone] Patient Access Coordinator: Sami Abbasi MD MCV (RBC) [Entitic vol] 85.7 fL Normal 82.6-102.9 [facility] Comment on above: Performed By: #### C DP, IPF #### [address] [place] [phone] Patient Access Coordinator: Sami Abbasi MD NRBC Automated 0.0 per 100 WBC Normal 0.0 [facility] Comment on above: Performed By: #### C DP, IPF #### [address] [place], [facility]83 Patient Access Coordinator: Saim Abbasi MD Platelet Count See Reflexed IPF Result Normal 138-453 [facility] Comment on above: Performed By: #### C DP, IPF #### [address] [place] [address] Patient Access Coordinator: Sami Abbasi MD RBC (Bld) [#/Vol] 4.40 10*6/uL Normal 3.95-5.11 [facility] Comment on above: Performed By: #### C DP, IPF #### [facility] [address] [place], [place] 7663183 Patient Access Coordinator: Sami Abbasi MD WBC (Bld) [#/Vol] 7.1 10*3/uL Normal 3.5-11.3 [facility] Comment on above: Performed By: #### C DP, IPF #### [facility] [address] [place], [place] 1960483 Patient Access Coordinator: Sami Abbasi MD MPV NOT REPORTED Normal 8.1-13.5 [facility] Comment on above: Performed By: #### C DP, IPF #### [facility] [address] [place], [place] 8952983 Patient Access Coordinator: Sami Abbasi MD Drug Scr, Abuse, Uron 2020 Amphetamine(s),Ur Negative Normal NEG [facility] Comment on above: Performed By: #### D AU #### [facility] [address] [place], [place] [phone] Patient Access Coordinator: Sami Abbasi MD Barbiturate(s),Ur Positive Abnormal NEG [facility] Comment on above: Performed By: #### D AU #### [address] [place], [place] 1243183 Patient Access Coordinator: Sami Abbasi MD Benzodiazepine(s) Negative Normal NEG [facility] Comment on above: Performed By: #### D AU #### [facility] [address] [place], [place] 7115883 Patient Access Coordinator: Sami Abbasi MD Buprenorphrine, Ur Negative Normal NEG [facility] Comment on above: Performed By: #### D AU #### [facility] [address] [place], [place] 874[address]83 Patient Access Coordinator: Sami Abbasi MD Cannabinoid(s),Ur Negative Normal NEG [facility] Comment on above: Performed By: #### D AU #### [facility] [address] [place], [place] 8843983 Patient Access Coordinator: Sami Abbasi MD Cocaine Metabolite Negative Normal [facility] Comment on above: Performed By: #### D AU #### [facility] [address] [place], [place] 6089383 Patient Access Coordinator: Sami Abbasi MD Methadone Ql (U) Negative Normal [facility] Comment on above: Performed By: #### D AU #### [facility] [address] [place], [place] 0343283 Patient Access Coordinator: Sami Abbasi MD Methamphetamine, Ur Negative Normal [facility] Comment on above: Performed By: #### D AU #### [facility] [address] [place], [place] 9953483 Patient Access Coordinator: Sami Abbasi MD Opiate(s), Ur Negative Normal [facility] Comment on above: Performed By: #### D AU #### [facility] [address] [place], [place] 6030183 Patient Access Coordinator: Sami Abbasi MD Oxycodone, Urine Negative Normal [facility] Comment on above: Performed By: #### D AU #### [facility] [address] [place], [place] 1371983 Patient Access Coordinator: Sami Abbasi MD Phencyclidine, Ur Negative Normal [facility] Comment on above: Performed By: #### D AU #### [facility] [address] [place], [place] 7064983 Patient Access Coordinator: Sami Abbasi MD Propoxyphene,Urine Negative Normal [facility] Comment on above: Performed By: #### D AU #### [facility] [address] [place], [place] 2327583 Patient Access Coordinator: Sami Abbasi MD Tricyclic antidepressants Screen Ql (U) Negative Normal NEG [facility] Comment on above: Result Comment: Drug screen results are to be used for medical purposes only. All positive results are unconfirmed. Testing for employment or legal uses should be sent to a reference laboratory for confirmation. Performed By: #### D AU #### [address] [place], [place] [address]25[address]83 Patient Access Coordinator: Sami Abbasi MD Interpretive Info NOT REPORTED Normal [facility] Comment on above: Performed By: #### D AU #### [address] [place], [facility]83 Patient Access Coordinator: Sami Abbasi MD MDMA, Urine NOT REPORTED Normal NEG [facility] Comment on above: Performed By: #### D AU #### [address] [place] [phone] Patient Access Coordinator: Sami Abbasi MD PLT, Immature Fract.on 05-11 Platelet, Fluoresc. 120 k/uL Low 138-453 [facility] Comment on above: Performed By: #### C DP, IPF #### [address] [place], [facility]83 Patient Access Coordinator: Sami Abbasi MD PLT, Immature Fract. 3.7 % Normal 1.1-10.3 [facility] Comment on above: Performed By: #### C DP, IPF #### [address] [place], [facility]83 Patient Access Coordinator: Sami Abbasi MD Surgical Pathologyon 021 Surgical [...] 22.0 x 14.0 x 3.0 cm Shape: [place] Weight: 340 grams (normal for gestation 39-40 [...] SURGICAL PATHOLOGY CONSULTATION Patient Name: WILLIE LEGGETT [facility] Rec: [id number] Path Number: [id number] [facility] ANATOMIC PATHOLOGY [address] [place] [address]. [place], [place] [address] Normal [facility] Comment on above: Performed By: #### D AU #### [facility] [address] [place] [address] [place] [address] Patient Access Coordinator: Sami Abbasi MD US BIOPHYS PROFILE W [...] by: Ivan Hernandez MD 05/11/21 Final result [facility] Cult,Urineon 05-09-2021 Cult,Urine Specimen Description .URINE Special Requests NOT REPORTED Culture NO GROWTH Report Status FINAL 05/09/2021 Normal [facility] Comment on above: Performed By: #### C DP, IPF #### [facility] [address] [place] [address] Patient Access Coordinator: Sami Abbasi MD CBC auto differentialOrdered By: Suzy Manjarrez on 05-08-2021 Absolute Eos # <0.03 [facility] Phone: Absolute Immature Granulocyte 0.07 [facility] Phone: Absolute Lymph # 0.21 Low [facility] Phone: Absolute Estill # 0.46 [facility] Phone: Basophils (Bld) [#/Vol] 0.03 10*3/uL [facility] Phone: Basophils/100 WBC (Bld) 0 % 0 - 2 % [facility] Phone: Differential Type NOT REPORTED [facility] Phone: Eosinophils/100 WBC (Bld) 0 % Low 1 - 4 % [facility] Phone: Hematocrit (Bld) [Volume fraction] 34.0 % Low 36.3 - 47.1 % [facility] Phone: Hemoglobin.gastrointest inal spec 1 Ql (Stl) 11.1 g/dL Low 11.9 - 15.1 g/dL [facility] Phone: Immature granulocytes/100 WBC (Bld) 1 % High 0 [facility] Phone: Interpretation and review of laboratory results Abnormal [facility] Phone: Lymphocytes/100 WBC (Bld) 3 % Low 24 - 43 % [facility] Phone: MCH (RBC) [Entitic mass] 27.5 pg 25.2 - 33.5 pg [facility] Phone: MCHC (RBC) [Mass/Vol] 32.6 g/dL 28.4 - 34.8 g/dL [facility] Phone: MCV (RBC) [Entitic vol] 84.2 fL 82.6 - 102.9 fL [facility] Phone: Monocytes/100 WBC (Bld) 6 % 3 - 12 % [facility] Phone: NRBC Automated 0.0 0.0 per 100 WBC [facility] Phone: Platelet distribution width (Bld) [Ratio] 13.2 % 11.8 - 14.4 % [facility] Phone: Platelet Estimate NOT REPORTED [facility] Phone: Platelet mean volume (Bld) [Entitic vol] 10.9 fL 8.1 - 13.5 fL [facility] Phone: Platelets (Bld) [#/Vol] 159 10*3/uL [facility] Phone: RBC (Bld) [#/Vol] 4.04 10*6/uL 3.95 - 5.1 1 m/uL [facility] Phone: RBC (Bld) [#/Vol] NOT REPORTED [facility] Phone: Segmented neutrophils/100 WBC (Bld) 90 % High 36 - 65 % [facility] Phone: Segs Absolute 6.68 [facility] Phone: WBC (Bld) [#/Vol] 7.7 10*3/uL [facility] Phone: WBC (Bld) [#/Vol] NOT REPORTED [facility] Phone: [facility] Phone: CBC with Diffon 05-08-2021 Abs. Basophil 0.03 k/uL Normal 0.00-0.20 [facility] Comment on above: Performed By: #### C DP #### [facility] [address] [place] [address] [place] [address] Patient Access Coordinator: Sami Abbasi MD Abs. Eosinophil <0.03 Normal 0.00-0.44 [facility] Comment on above: Performed By: #### C DP #### [address] [place] [address] Patient Access Coordinator: Sami Abbasi MD Abs.Imm.Granulocyte 0.07 k/uL Normal 0.00-0.30 [facility] Comment on above: Performed By: #### C DP #### [facility] [address] [place] [address] Patient Access Coordinator: Sami Abbasi MD Abs.Neutrophil (Seg) 6.68 k/uL Normal 1.50-8.10 [facility] Comment on above: Performed By: #### C DP #### [facility] [address] [place] [address] [place], [place] 0590483 Patient Access Coordinator: Sami Abbasi MD Basophils/100 WBC (Bld) 0 % Normal 0-2 [facility] Comment on above: Performed By: #### C DP #### [facility] [address] [place], [facility]83 Patient Access Coordinator: Sami Abbasi MD Eosinophils/100 WBC (Bld) 0 % Low 1-4 [facility] Comment on above: Performed By: #### C DP #### [facility] [address] [place], [facility]83 Patient Access Coordinator: Sami Abbasi MD Immature granulocytes/100 WBC (Bld) 1 % High 0 [facility] Comment on above: Performed By: #### C DP #### [facility] [address] [place] [phone] Patient Access Coordinator: Sami Abbasi MD Lymphocytes (Bld) [#/Vol] 0.21 10*3/uL Low 1.10-3.70 [facility] Comment on above: Performed By: #### C DP #### [facility] [address] [place], [facility]83 Patient Access Coordinator: Sami Abbasi MD Lymphocytes/100 WBC (Bld) 3 % Low 24-43 [facility] Comment on above: Performed By: #### C DP #### [facility] [address] [place], [place] 1835683 Patient Access Coordinator: Sami Abbasi MD Monocytes (Bld) [#/Vol] 0.46 10*3/uL Normal 0.10-1.20 [facility] Comment on above: Performed By: #### C DP #### [facility] [address] [place], [facility]83 Patient Access Coordinator: Sami Abbasi MD Monocytes/100 WBC (Bld) 6 % Normal 3-12 [facility] Comment on above: Performed By: #### C DP #### [facility] [address] [place] [phone] Patient Access Coordinator: Sami Abbasi MD Neutrophil (Seg) 90 % High 36-65 [facility] Comment on above: Performed By: #### C DP #### [address] [place], [place] 6472083 Patient Access Coordinator: Sami Abbasi MD Erythrocyte distribution width (RBC) [Ratio] 13.2 % Normal 11.8-14.4 [facility] Comment on above: Performed By: #### C DP #### [address] [place], [facility]83 Patient Access Coordinator: Sami Abbasi MD Hematocrit (Bld) [Volume fraction] 34.0 % Low 36.3-47.1 [facility] Comment on above: Performed By: #### C DP #### [address] [place], [facility]83 Patient Access Coordinator: Sami Abbasi MD Hemoglobin (Bld) [Mass/Vol] 11.1 g/dL Low 11.9-15.1 [facility] Comment on above: Performed By: #### C DP #### [address] [place], [facility]83 Patient Access Coordinator: Sami Abbasi MD MCH (RBC) [Entitic mass] 27.5 pg Normal 25.2-33.5 [facility] Comment on above: Performed By: #### C DP #### [address] [place], [facility]83 Patient Access Coordinator: Sami Abbasi MD MCHC (RBC) [Mass/Vol] 32.6 g/dL Normal 28.4-34.8 [facility] Comment on above: Performed By: #### C DP #### [address] [place], [place] 4699083 Patient Access Coordinator: Sami Abbasi MD MCV (RBC) [Entitic vol] 84.2 fL Normal 82.6-102.9 [facility] Comment on above: Performed By: #### C DP #### [facility] [address] [place], [place] 2547083 Patient Access Coordinator: Sami Abbasi MD NRBC Automated 0.0 per 100 WBC Normal 0.0 [facility] Comment on above: Performed By: #### C DP #### [facility] [address] [place], [place] 0304483 Patient Access Coordinator: Sami Abbasi MD Platelet mean volume (Bld) [Entitic vol] 10.9 fL Normal 8.1-13.5 [facility] Comment on above: Performed By: #### C DP #### [address] [place], [place] 1415283 Patient Access Coordinator: Sami Abbasi MD Platelets (Bld) [#/Vol] 159 10*3/uL Normal 138-453 [facility] Comment on above: Performed By: #### C DP #### [address] [place] [address] Patient Access Coordinator: Sami Abbasi MD RBC (Bld) [#/Vol] 4.04 10*6/uL Normal 3.95-5.11 [facility] Comment on above: Performed By: #### C DP #### [address] [place] [address] Patient Access Coordinator: Sami Abbasi MD WBC (Bld) [#/Vol] 7.7 10*3/uL Normal 3.5-11.3 [facility] Comment on above: Performed By: #### C DP #### [address] [place], [place] 8[address]83 Patient Access Coordinator: Sami Abbasi MD Auto Diff Performed NOT REPORTED Normal [facility] Comment on above: Performed By: #### C DP #### [facility] [address] [place] [address] Patient Access Coordinator: Sami Abbasi MD Platelet Estimate NOT REPORTED Normal [facility] Comment on above: Performed By: #### C DP #### [facility] [address] [place], [place] 6224183 Patient Access Coordinator: Sami Abbasi MD RBC morphology finding Nom (Bld) NOT REPORTED Normal [facility] Comment on above: Performed By: #### C DP #### [facility] [address] [place] [address] Patient Access Coordinator: Sami Abbasi MD WBC Morphology NOT REPORTED Normal [facility] Comment on above: Performed By: #### C DP #### [facility] [address] [place] [address] Patient Access Coordinator: Sami Abbasi MD COVID-19, RapidOrdered By: Brenda Manjarrez on 05-08-2021 Interpretation and review of laboratory results Abnormal [facility] Phone: SARS-CoV-2 (COVID-19) RNA RONDA+probe Ql (Unsp spec) Detected Abnormal Not Detected [facility] [employer] Phone: Comment on above: Rapid NAAT: The [...] this assay. Fact sheet for Healthcare Providers: https://www.fda.gov/media/709934/download Fact sheet for Patients: https://www.fda.gov/media/055761/download Methodology: Isothermal Nucleic Acid Amplification Results reported to the appropriate Health Department Specimen Description .NASOPHARYNGEAL SWAB [facility] Phone: [facility] Phone: Comp Metabolic Profon 2020 (cont.) Normal [facility] Comment on above: Result Comment: Aver age GFR for 20-29 years old: 116 mL/min/1.73sq m Chronic Kidney Disease: <60 mL/min/1.73sq m Kidney failure: <15 mL/min/1.73sq m eGFR calculated using average adult body mass. Additional eGFR calculator available at: http://www.[employer]/multiple_crcl_2012.htm Performed By: #### C DP, IPF #### [facility] [address] [place] [address] Patient Access Coordinator: Sami Abbasi MD Albumin [Mass/Vol] 3.7 g/dL Normal 3.5-5.2 [facility] Comment on above: Performed By: #### C DP, IPF #### [facility] [address] [place], [place] 9309083 Patient Access Coordinator: Sami Abbasi MD Albumin/Glob Ratio 1.1 Normal 1.0-2.5 [facility] Comment on above: Performed By: #### C DP, IPF #### [facility] [address] [place], [place] 8781583 Patient Access Coordinator: Sami Abbasi MD Alkaline Phos 155 U/L High 35-104 [facility] Comment on above: Performed By: #### C DP, IPF #### [facility] [address] [place], [place] 5595083 Patient Access Coordinator: Sami Abbasi MD ALT [Catalytic activity/Vol] 13 U/L Normal 5-33 [facility] Comment on above: Performed By: #### C DP, IPF #### [facility] [address] [place] [address] Patient Access Coordinator: Sami Abbasi MD Anion gap [Moles/Vol] 15 mmol/L Normal 9-17 [facility] Comment on above: Performed By: #### C DP, IPF #### [facility] [address] [place], [place] [address]3 Patient Access Coordinator: Sami Abbasi MD AST [Catalytic activity/Vol] 31 U/L Normal <32 [facility] Comment on above: Performed By: #### C DP, IPF #### [facility] [address] [place], [place] 5329683 Patient Access Coordinator: Sami Abbasi MD Bilirubin [Mass/Vol] 0.28 mg/dL Low 0.3-1.2 [facility] Comment on above: Performed By: #### C DP, IPF #### [facility] [address] [place], [place] 4810083 Patient Access Coordinator: Sami Abbasi MD BUN/CRE Ratio 14 Normal 9-20 [facility] Comment on above: Performed By: #### C DP, IPF #### [facility] [address] [place], [place] [id number] Patient Access Coordinator: Sami Abbasi MD Calcium [Mass/Vol] 8.8 mg/dL Normal 8.6-10.4 [facility] Comment on above: Performed By: #### C DP, IPF #### [facility] [address] [place], [place] [id number] Patient Access Coordinator: Sami Abbasi MD Chloride [Moles/Vol] 98 mmol/L Normal 98-107 [facility] Comment on above: Performed By: #### C DP, IPF #### [facility] [address] [place], [place] [id number] Patient Access Coordinator: Sami Abbasi MD CO2 [Moles/Vol] 20 mmol/L Normal 20-31 [facility] Comment on above: Performed By: #### C DP, IPF #### [facility] [address] [place], [place] [id number] Patient Access Coordinator: Sami Abbasi MD Creatinine [Mass/Vol] 0.58 mg/dL Normal 0.50-0.90 [facility] Comment on above: Performed By: #### C DP, IPF #### [facility] [address] [place] [address] Patient Access Coordinator: Sami Abbasi MD GFR, Amer >60 Normal >60 [facility] Comment on above: Performed By: #### C DP, IPF #### [facility] [address] [place], [place] [id number] Patient Access Coordinator: Sami Abbasi MD GFR,non Amer >60 Normal >60 [facility] Comment on above: Performed By: #### C DP, IPF #### [facility] [address] [place] [address] Patient Access Coordinator: Sami Abbasi MD Glucose [Mass/Vol] 76 mg/dL Normal 70-99 [facility] Comment on above: Performed By: #### C DP, IPF #### [facility] [address] [place], [place] [id number] Patient Access Coordinator: Sami Abbasi MD Potassium [Moles/Vol] 3.8 mmol/L Normal 3.7-5.3 [facility] Comment on above: Performed By: #### C DP, IPF #### [facility] [address] [place], [place] [id number] Patient Access Coordinator: Sami Abbasi MD Protein [Mass/Vol] 7.1 g/dL Normal 6.4-8.3 [facility] Comment on above: Performed By: #### C DP, IPF #### [facility] [address] [place] [address] Patient Access Coordinator: Sami Abbasi MD Sodium [Moles/Vol] 133 mmol/L Low 135-144 [facility] Comment on above: Performed By: #### C DP, IPF #### [facility] [address] [place] [address] Patient Access Coordinator: Sami Abbasi MD Staging: Normal [facility] Comment on above: Result Comment: Stag e 1: Some kidney damage normal GFR Stage 2: Mild kidney damage GFR 60-89 Stage 3: Moderate kidney damage GFR 30-59 Stage 4: Severe kidney damage GFR 15-29 Stage 5: Severe kidney damage GFR <15 ESRD - chronic treatment by dialysis or transplant Performed By: #### C DP, IPF #### [facility] [address] [place] [address] Patient Access Coordinator: Sami Abbasi MD Urea nitrogen [Mass/Vol] 8 mg/dL Normal 6-20 [facility] Comment on above: Performed By: #### C DP, IPF #### [facility] [address] [place] [address] Patient Access Coordinator: Sami Abbasi MD Comprehensive metabolic pane lOrdered By: Suzy Manjarrez on 05-08-2021 Albumin [Mass/Vol] 3.7 g/dL 3.5 - 5.2 g/dL [facility] Phone: Albumin/Globulin [Mass ratio] 1.1 {ratio} [facility] Phone: ALP (Bld) [Catalytic activity/Vol] 155 U/L High 35 - 104 U/L [facility] Phone: ALT [Catalytic activity/Vol] 13 U/L 5 - 33 U/L [facility] Phone: Anion gap [Moles/Vol] 15 mmol/L 9 - 17 mmol/L [facility] Phone: AST [Catalytic activity/Vol] 31 U/L <32 [facility] Phone: Bilirubin [Mass/Vol] 0.28 mg/dL Low 0.3 - 1 .2 mg/dL [facility] Phone: Calcium [Mass/Vol] 8.8 mg/dL 8.6 - 10. 4 mg/dL [facility] Phone: Chloride [Moles/Vol] 98 mmol/L 98 - 10 7 mmol/L [facility] Phone: CO2 [Moles/Vol] 20 mmol/L 20 - 31 mmol/L [facility] Phone: Creatinine [Mass/Vol] 0.58 mg/dL 0.50 - 0.90 mg/dL [facility] Phone: Free PSA/Total PSA [Mass fraction] 7.1 g/dL 6.4 - 8.3 g/dL [facility] Phone: GFR >60 >60 mL/min [facility] Phone: GFR Non- >60 >60 mL/min [facility] Phone: Glucose [Mass/Vol] 76 mg/dL 70 - 99 mg/dL [facility] Phone: Interpretation and review of laboratory results Abnormal [facility] Phone: Potassium [Moles/Vol] 3.8 mmol/L 3.7 - 5.3 mmol/L [facility] Phone: Sodium [Moles/Vol] 133 mmol/L Low 135 - 144 mmol/L [facility] Phone: Urea nitrogen (BldV) [Mass/Vol] 8 mg/dL 6 - 20 mg/dL [facility] Phone: Urea nitrogen/Creatinine (Bld) [Mass ratio] 14 [facility] Phone: [facility] Phone: Laboratory - Chemistry and C hemistry - challengeOrdered By: Suzy Manjarrez on 05-08-2021 GFR/1.73 sq M.predicted MDRD (S/P/Bld) [Vol rate/Area] [facility] Phone: Comment on above: Average GFR for 20-2 9 years old: 116 mL/min/1.73sq m Chronic Kidney Disease: <60 mL/min/1.73sq m Kidney failure: <15 mL/min/1.73sq m eGFR calculated using average adult body mass. Additional eGFR calculator available at: http://www.[employer]/multiple_crcl_2012.htm Stage 1: Some kidney damage normal GFR Stage 2: Mild kidney damage GFR 60-89 Stage 3: Moderate kidney damage GFR 30-59 Stage 4: Severe kidney damage GFR 15-29 Stage 5: Severe kidney damage GFR <15 ESRD - chronic treatment by dialysis or transplant Microscopic UrinalysisOrdere d By: Suzy Manjarrez on 05-08-2021 - [employer] Work Phone: Amorphous, UA NOT REPORTED None [employer] Work Phone: Bacteria, UA NOT REPORTED None [facility] Work Phone: Casts UA NOT REPORTED /LPF [facility] Work Phone: Crystals, UA NOT REPORTED None /HPF [facility] Work Phone: Epithelial Cells UA 10 TO 20 [facility] Work Phone: Mucus, UA NOT REPORTED None [facility] Work Phone: Other Observations UA NOT REPORTED NOT REQ. M [facility] [employer] Work Phone: RBC, UA 0 TO 2 [facility] Work Phone: Renal Epithelial, UA NOT REPORTED 0 /HPF Me y [employer] Work Phone: Trichomonas, UA NOT REPORTED None [employer] Work Phone: WBC, UA 0 TO 2 [facility] Work Phone: Yeast, UA NOT REPORTED None [employer] Work Phone: No Panel InformationOrdered By: Suzy Manjarrez on 05-08-2021 [employer] Work Phone: [id number] 05-08-2021 SARS-CoV-2 (COVID-19) RNA RONDA+probe Ql (Unsp spec) Detected Abnormal NOTDET [facility] Comment on above: Result Comment: Rapid [...] this assay. Fact sheet for Healthcare Providers: https://www.fda.gov/media/392326/download Fact sheet for Patients: https://www.fda.gov/media/587740/download Methodology: Isothermal Nucleic Acid Amplification Results reported to the appropriate Health Department Performed By: #### H H #### [facility] [address] [place] [address] Patient Access Coordinator: Sami Abbasi MD Strep Gr A Direct [...] request. Report Status FINAL 05/08/2021 Normal [facility] Comment on above: Performed By: #### H H #### [facility] [address] [place] [address] Patient Access Coordinator: Sami Abbasi MD Strep Screen Group A ThroatO rdered By: Suzy Manjarrez on 05-08-2021 S. pyogenes Ag IA Ql (Unsp spec) Rapid Strep A negative. A negative Rapid Group A Strep Screen result does not rule out the possibility of Group A Streptococci in the specimen. A Group A Strep DNA test is available upon request. [facility] Phone: Special Requests NOT REPORTED [facility] Phone: Specimen Description .THROAT SWAB Me [facility] [employer] Work Phone: [facility] [employer] Work Phone: UrinalysisOrdered By: Nilay Manjarrez on 05-08-2021 Bilirubin Urine Negative NEGATIVE [facility] Phone: Color, UA YELLOW YELLOW [facility] [employer] Work Phone: Glucose, Ur Negative NEGATIVE [facility] [employer] Work Phone: Interpretation and review of laboratory results Abnormal [facility] Work Phone: Ketones Ql (U) 2+ Abnormal NEGATIVE [facility] Phone: Leukocyte esterase Test strip Ql (U) Negative NEGATIVE [facility] Phone: Nitrite, Urine Negative NEGATIVE [facility] Phone: pH, UA 6.5 [facility] [employer] Work Phone: Protein, UA Negative NEGATIVE [facility] [employer] Work Phone: Specific [place], UA 1.025 High [facility] Phone: Turbidity UA CLEAR CLEAR [facility] [employer] Work Phone: Urinalysis Comments NOT REPORTED [facility] [employer] Work Phone: Urine Hgb Negative NEGATIVE [facility] Phone: Urobilinogen, Urine Normal Normal [facility] Phone: Urinalysis, Routineon 2020 Bilirubin, SemiQt,Ur Negative Normal NEG [facility] Comment on above: Performed By: #### C DP, IPF #### [facility] [address] [place] [address] Patient Access Coordinator: Sami Abbasi MD Blood, Urine Negative Normal NEG [facility] Comment on above: Performed By: #### C DP, IPF #### [facility] [address] [place], [place] [id number] Patient Access Coordinator: Sami Abbasi MD Clarity (U) CLEAR Normal CLEAR [facility] Comment on above: Performed By: #### C DP, IPF #### [facility] [address] [place], [place] [id number] Patient Access Coordinator: Sami Abbasi MD Color (U) YELLOW Normal YEL [facility] Comment on above: Performed By: #### C DP, IPF #### [facility] [address] [place], [place] [address]83 Patient Access Coordinator: Sami Abbasi MD Glucose Ql (U) Negative Normal NEG [facility] Comment on above: Performed By: #### C DP, IPF #### [facility] [address] [place], [place] [address] Patient Access Coordinator: Sami Abbasi MD Ketones Ql (U) 2+ Abnormal NEG [facility] Comment on above: Performed By: #### C DP, IPF #### [facility] [address] [place], [place] [address]83 Patient Access Coordinator: Sami Abbasi MD Leukocyte esterase Test strip Ql (U) Negative Normal NEG [facility] Comment on above: Performed By: #### C DP, IPF #### [facility] [address] [place], [place] [address] Patient Access Coordinator: Sami Abbasi MD Nitrite,Ur Negative Normal NEG [facility] Comment on above: Performed By: #### C DP, IPF #### [facility] [address] [place], [place] [address] Patient Access Coordinator: Sami Abbasi MD PH,Ur 6.5 Normal 5.0-9.0 [facility] Comment on above: Performed By: #### C DP, IPF #### [facility] [address] [place], [place] [address]83 Patient Access Coordinator: Sami Abbasi MD Protein Ql (U) Negative Normal NEG [facility] Comment on above: Performed By: #### C DP, IPF #### [facility] [address] [place], [place] [address]83 Patient Access Coordinator: Sami Abbasi MD Spec. [place],Ur 1.025 High 1.010-1.020 [facility] Comment on above: Performed By: #### C DP, IPF #### [facility] [address] [place] [address] Patient Access Coordinator: Sami Abbasi MD Urobilinogen,Ur Normal Normal NORM [facility] Comment on above: Performed By: #### C DP, IPF #### [address] [place], [place] [address]383 Patient Access Coordinator: Sami Abbasi MD Comment NOT REPORTED Normal [facility] Comment on above: Performed By: #### C DP, IPF #### [address] [place], [place] [address] Patient Access Coordinator: Sami Abbasi MD Urinalysis,Microon 1 ----- Normal [facility] Comment on above: Performed By: #### C DP, IPF #### [address] [place] [address] Patient Access Coordinator: Sami Abbasi MD Epithelial cells LM Ql (Urine sed) 10 TO 20 Normal 0-25 [facility] Comment on above: Performed By: #### C DP, IPF #### [facility] [address] [place], [place] [address] Patient Access Coordinator: Sami Abbasi MD Urine RBC's 0 TO 2 Normal 0-2 [facility] Comment on above: Performed By: #### C DP, IPF #### [facility] [address] [place], [place] [address]23683 Patient Access Coordinator: Sami Abbasi MD Urine WBC's 0 TO 2 Normal 0-5 [facility] Comment on above: Performed By: #### C DP, IPF #### [facility] [address] [place], [place] [address] Patient Access Coordinator: Sami Abbasi MD Amorphous sediment LM Ql (Urine sed) NOT REPORTED Normal [facility] Comment on above: Performed By: #### C DP, IPF #### [facility] [address] [place], [facility] Patient Access Coordinator: Sami Abbasi MD Bacteria NOT REPORTED Normal NONE [facility] Comment on above: Performed By: #### C DP, IPF #### [address] [place] [phone] Patient Access Coordinator: Sami Abbasi MD Casts NOT REPORTED Normal [facility] Comment on above: Performed By: #### C DP, IPF #### [address] [place] [phone] Patient Access Coordinator: Sami Abbasi MD Crystals LM Nom (Urine sed) NOT REPORTED Normal [facility] Comment on above: Performed By: #### C DP, IPF #### [address] [place] [address] Patient Access Coordinator: Sami Abbasi MD Epithelial, Renal NOT REPORTED Normal 0 [facility] Comment on above: Performed By: #### C DP, IPF #### [facility] [address] [place], [facility] Patient Access Coordinator: Sami Abbasi MD Mucus Strands NOT REPORTED Normal [facility] Comment on above: Performed By: #### C DP, IPF #### [facility] [address] [place] [phone] Patient Access Coordinator: Sami Abbasi MD Other Observations NOT REPORTED Normal NREQ [facility] Comment on above: Performed By: #### C DP, IPF #### [facility] [address] [place] [address] Dr. [place], [place] [phone] Patient Access Coordinator: Sami Abbasi MD Trichomonas NOT REPORTED Normal [facility] Comment on above: Performed By: #### C DP, IPF #### [facility] [address] [place], [place] [address]83 Patient Access Coordinator: Sami Abbasi MD Yeast NOT REPORTED Normal [facility] Comment on above: Performed By: #### C DP, IPF #### [facility] [address] [place] [address] Patient Access Coordinator: Sami Abbasi MD Rule Out Grp.B Strepon 05-02 Rule Out Grp.B Strep Specimen Descriptio n .VAGINA Special Requests NOT REPORTED Culture NEGATIVE FOR GROUP B STREPTOCOCCI Report Status FINAL 05/02/2021 Normal [facility] Comment on above: Performed By: #### C DP, IPF #### [address] [place], [place] [address] Patient Access Coordinator: Sami Abbasi MD Glucose Soraya Scr 50gon 2020 Glucose [Mass/Vol] 93 mg/dL Normal 70-135 [facility] Comment on above: Performed By: #### D AU #### [address] [place], [place] [address]83 Patient Access Coordinator: Sami Abbasi MD Glu Administered via Glucola [facility] Comment on above: Performed By: #### D AU #### [address] [place] [address] Patient Access Coordinator: Sami Abbasi MD Glucose tolerance, 1 hourOrd ered By: Suzy Manjarrez on 02-25-2021 GLU ADMN Glucola [facility] Work Phone: Glucose tolerance screen 50g 93 mg/dL 70 - 135 mg/dL [facility] [employer] Phone: [facility] Phone: Hemoglobinon 02-25-2021 Hemoglobin (Bld) [Mass/Vol] 11.7 g/dL Low 11.9-15.1 [facility] Comment on above: Performed By: #### D AU #### [facility] [address] [place] [address] Patient Access Coordinator: Sami Abbasi MD HemoglobinOrdered By: Nilay Manjarrez on 02-25-2021 Hemoglobin.gastrointest inal spec 1 Ql (Stl) 11.7 g/dL Low 11.9 - 15.1 g/dL [facility] Phone: Interpretation and review of laboratory results Abnormal [facility] Phone: [facility] Phone: RhIg Workup (RhoGam)on 02-25 RhIg Workup ([employer]hoGam) Blood Component Typ e MANUFACTURED PRODUCT Units Ordered 1 ABO/Rh(D) A NEGATIVE Antibody Screen NEGATIVE History Check A NEG Unit Number [id number] Blood Component Type RHIG Unit Division 00 Status of Unit TRANSFUSED Transfusion Status OK TO TRANSFUSE Normal [facility] Comment on above: Performed By: #### C DP, IPF #### [facility] [address] [place] [address] Patient Access Coordinator: Sami Abbasi MD Hepatitis C Antibodyon 10-08 Hepatitis C Ab NONREACTIVE NONREACTIVE [facility] Phone: Comment on above: The hepatitis C [...] SCREENon 0 10-07-2020 ABO/Rh Negative [facility] Phone: Urine Drug Screen, Comprehen siveon 10-07-2020 Amphetamine Screen, Ur Negative NEGATIVE [facility] Phone: Barbiturate Screen, Ur Positive Abnormal NEGATIVE [facility] Work Phone: Benzodiazepine Screen, Urine Negative NEGATIVE [facility] Work Phone: Buprenorphine Urine Negative NEGATIVE [facility] Work Phone: Cannabinoid Scrn, Ur Negative NEGATIVE [facility] Work Phone: Cocaine Metabolite, Urine Negative NEGATIVE [facility] Work Phone: Interpretation and review of laboratory results Abnormal [facility] Work Phone: MDMA, Urine NOT REPORTED NEGATIVE [facility] Work Phone: Methadone Screen, Urine Negative NEGATIVE [facility] Work Phone: Methamphetamine, Urine Negative [facility]IVE [facility] Work Phone: Opiates, Urine Negative NEGATIVE [facility] Work Phone: Oxycodone Screen, Ur Negative NEGATIVE [facility] Work Phone: Phencyclidine, Urine Negative NEGATIVE [facility] Work Phone: Propoxyphene, Urine Negative NEGATIVE [facility] Work Phone: Test Information NOT REPORTED [facility] [employer] Work Phone: Tricyclic Antidepressants, Urine Negative NEGATIVE [facility] Work Phone: Comment on above: Drug screen results are to be used for medical purposes only. All positive results are unconfirmed. Testing for employment or legal uses should be sent to a reference laboratory for confirmation. Vital Signs Date Time Vital Sign Value Performing Clinician Faci lity 05-25-2021 17:42-0400 Body temperature 98.01 [degF] Leeann Hidalgo MD Work Phone: [employer] Work Phone: 05-25-2021 17:42-0400 Diastolic blood pressure 83 mm[Hg] Leeann Hidalgo MD Work Phone: [employer] Work Phone: 05-25-2021 17:42-0400 Heart rate 95 /min Leeann Hidalgo MD Work Phone: [employer] Work Phone: 05-25-2021 17:42-0400 Respiratory rate 18 /min Leeann Hidalgo MD Work Phone: [employer] Work Phone: 05-25-2021 17:42-0400 SaO2% (BldA) [Mass fraction] 100 % Leeann Hidalgo MD Work Phone: [employer] Work Phone: 05-25-2021 17:42-0400 Systolic blood pressure 154 mm[Hg] Leeann Hidalgo MD Work Phone: [employer] Work Phone: 05-08-2021 08:50-0400 Body temperature 99.1 [degF] Suzy Pool HEEL SHAPER - CNM Work Phone: [employer] Work Phone: 05-08-2021 05:20-0400 Respiratory rate 17 /min Suzy Pool [facility] - CNM Work Phone: [employer] Work Phone: 05-08-2021 03:50-0400 Diastolic blood pressure 58 mm[Hg] Suzy Pool HEEL [employer] - CNM Work Phone: [employer] Work Phone: 05-08-2021 03:50-0400 Heart rate 109 /min Suzy Pool [employer] - CNM Work Phone: [employer] Work Phone: 05-08-2021 03:50-0400 Systolic blood pressure 99 mm[Hg] Suzy Pool [employer]EL [employer] - CNM Work Phone: [employer] Work Phone: 02-26-2021 09:53-0400 Body temperature 96.91 [degF] Mth 01 [employer] Work Phone: 02-26-2021 09:53-0400 Diastolic blood pressure 76 mm[Hg] [facility] [employer] Phone: 02-26-2021 09:53-0400 Heart rate 94 /min [facility] Phone: 02-26-2021 09:53-0400 Respiratory rate 20 /min [facility] Work Phone: 02-26-2021 09:53-0400 Systolic blood pressure 134 mm[Hg] [facility] [employer] Phone: Encounters Encounter Date Encounter Type Care Provider Facility Start: 04-19-2024 End: 04-19-2024 ambulatory CHARI JUANITO Not Available Start: 02-21-2024 End: 02-21-2024 ambulatory CHARI JUANITO Not Available Start: 01-31-2024 End: 01-31-2024 ambulatory CHARI JUANITO Not Available Start: 12-22-2023 End: 12-25-2023 ambulatory DAIJA Claudia [facility] Start: 12-22-2023 Encounter for preprocedural laboratory examination [facility] Start: 10-14-2023 End: 10-15-2023 [facility] Start: 09-14-2023 End: 09-14-2023 ambulatory ERNIE ZURITA Not Available Start: 09-29-2021 End: 09-30-2021 [facility] Start: 05-25-2021 End: 05-25-2021 Emergency department patient visit LEEANN HIDALGO [facility] Start: 05-25-2021 End: 05-25-2021 Emergency department patient visit Leeann Hidalgo MD Work Phone: [facility] ED Comment on above: Vaginal bleeding (Pr imary Dx) Start: 05-21-2021 End: 05-22-2021 [facility] Start: 05-21-2021 End: 05-21-2021 Subsequent hospital visit by physician Daija Howard MD Work Phone: [facility] Laboratory Comment on above: Abnormal uterine ble eding, Start: 05-21-2021 End: 05-24-2021 ambulatory [facility] [facility] Start: 05-11-2021 End: 05-15-2021 Evaluation and management of inpatient [facility] [place] [facility] Start: 05-08-2021 End: 05-08-2021 ambulatory [facility] Start: 05-08-2021 End: 05-08-2021 Subsequent hospital visit by physician Suzy Bowman CNM Work Phone: [facility] Labor and Delivery Start: 04-29-2021 End: 04-30-2021 ambulatory [facility] Start: 04-29-2021 End: 04-29-2021 Subsequent hospital visit by physician Daija Howard MD Work Phone: [facility] Comment on above: 36 weeks gestation o f Start: 02-26-2021 End: 02-27-2021 ambulatory [facility] Start: 02-26-2021 End: 02-26-2021 Subsequent hospital [facility] Start: 02-25-2021 End: 02-26-2021 ambulatory [facility] Start: 02-25-2021 End: 02-25-2021 Subsequent hospital visit by physician Daija Howard MD Work Phone: [facility] Comment on above: 27 weeks gestation [...] Start: 05-08-2021 COVID-19, RAPID Suzy E Pool [employer] - CNM Work Phone: Start: 05-08-2021 Iaadiadoo streptococcus group a Suzy E Pool [employer] - CNM Work Phone: Start: 05-08-2021 Comprehensive metabolic panel Suzy E Pool [employer] - CNM Work Phone: Start: 05-08-2021 Urinalysis microscopic only Suzy E Pool [employer] - CNM Work Phone: Start: 05-08-2021 Urnls dip stick/tablet rgnt auto w/o microscopy Suzy E Pool 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 - CNM Work Phone: Start: 05-08-2021 nonstress test Suzy E Pool APR N - CNM Work Phone: Start: 02-25-2021 Blood count hemoglobin Suzy E Pool A PRN - CNM Work Phone: Start: 02-25-2021 Blood typing serologic rh (d) Suzy E Pool HEEL SHAPER - CNM Work Phone: Start: 10-07-2020 Antibody screen Daija Howard Start: 10-07-2020 Hepatitis c antibody Suzy E Pool Work Phone: Start: 10-07-2020 Blood typing serologic abo Suzy E Pool Work Phone: Start: 10-07-2020 Obstetric panel Suzy E Pool Work Phone: Start: 10-07-2020 Drug screen, qualitate/multi Suzy Link Pool Work Phone: H/O: section S/P primar y low transverse Daija Howard MD Work Phone: Plan of Treatment Date Care Activity Detail Author Start: 03-17-2031 DTaP/Tdap/Td vaccine (8 - Td or Tdap) DTaP/Tdap/Td vaccine (8 - Td or Tdap) [facility] Work Phone: Start: 07-23-2022 Screening for malign ant neoplasm of cervix ZZ Cervical cancer screen age 21-29 [facility] Phone: Comment on above: Postponed from 04/26 (Not Indicated) Start: 02-19-2022 Influenza vaccination Flu vaccine (# 1) [facility] Phone: Comment on above: Postponed from 04/23 (Not Indicated) Start: 06-23-2021 End: 06-23-2021 ambulatory 06/23/2021 Visit Obstetrics and Gynecology Suzy Manjarrez APRN - CNM [address] [place] [address] [phone] [facility] Start: 05-20-2021 End: 05-20-2021 Patient encounter procedure 05/20/2021 Routine Obstetrics and Gynecology Suzy Manjarrez APRN - CNM [address] [place] [address] [phone] [facility] Start: 05-13-2021 End: 05-13-2021 Patient encounter procedure 05/13/2021 Routine Obstetrics and Gynecology Suzy Manjarrez APRN - CNM [address] [place] [address] [facility] Start: 05-06-2021 End: 05-06-2021 Patient encounter procedure 05/06/2021 Routine Obstetrics and Gynecology Suzy Manjarrez APRN - CNM [address] [place] [address] [facility] Start: 04-23-2021 Influenza vaccination Flu vaccine (# 1) [facility] Phone: Start: 03-17-2021 End: 03-17-2021 Patient encounter procedure 03/17/2021 Routine Obstetrics and Gynecology Paul Garcia MD [address] [place] [address] [facility] Start: 03-17-2021 End: 03-17-2021 Professional / ancillary services management 03/17/2021 Ancillary Procedure Obstetrics and Gynecology [facility] Start: 02-26-2021 Subsequent hospital visit by physician 02/26/2021 Hospital Encounter Infusion Therapy [facility] Start: 10-16-2020 End: 10-16-2020 Ancillary Procedure [facility] Start: 04-23-2020 Influenza vaccination Flu vaccine (# 1) [facility] Phone: Start: 2016 Screening for malign ant neoplasm of cervix [facility] Phone: Start: 2014 DTaP/Tdap/Td vaccine (1 - Tdap) DTaP/Tdap/Td vaccine (1 - Tdap) [facility] Phone: Start: 2010 HIV screening HIV screen [facility] Work Phone: Start: 2007 COVID-19 Vaccine (1) COVID-19 Vaccin e (1) [facility] Phone: Start: 2006 HPV vaccine (1 - 2-d ose series) HPV vaccine (1 - 2-dose series) [facility] Phone: Start: 1996 Varicella vaccine (1 of 2 - 2-dose childhood series) Varicella vaccine (1 of 2 - 2-dose childhood series) [facility] Phone: Start: 1995 Hepatitis C screening Hepatitis C sc hubert [facility] Phone: End: 05-08-2021 Bacteria identified in Urine by Culture Urine culture Microbiology Routine One Time for 1 Occurrences starting 05/08/2021 until 05/08/2021 [facility] Phone: Comment on above: One Time for 1 Occur rences starting 05/08/2021 until 05/08/2021 End: 10-07-2020 C.trachomatis N.gonorrhoeae DNA, Urine C.trachomatis N.gonorrhoeae DNA, Urine Microbiology Routine Amenorrhea Positive urine test Encounter for supervision of normal first in first trimester 1 Occurrences starting 10/07/2020 until 10/07/2020 [facility] Phone: Comment on above: 1 Occurrences starti ng 10/07/2020 until 10/07/2020 C.trachomatis N.gonorrhoeae DNA, Urine C.trachomatis N.gonorrhoeae DNA, Urine Microbiology Routine Amenorrhea Positive urine test Encounter for supervision of normal first in first trimester 10/07/2020 11:00 AM EST [facility] Phone: End: 04-29-2021 Culture, Strep B Screen, Vaginal/Rectal Culture, Strep B Screen, Vaginal/Rectal Microbiology Routine 36 weeks gestation of 1 Occurrences starting 04/29/2021 until 04/29/2021 [facility] Phone: Comment on above: 1 Occurrences starti ng 04/29/2021 until 04/29/2021 Culture, Strep B Scr een, Vaginal/Rectal Culture, Strep B Screen, Vaginal/Rectal Microbiology Routine 36 weeks gestation of 04/29/2021 12:15 PM EDT [facility] Phone: End: 10-07-2020 Culture, Urine Culture, Urine Microbiology Routine Amenorrhea Positive urine test Encounter for supervision of normal first in first trimester 1 Occurrences starting 10/07/2020 until 10/07/2020 [facility] Phone: Comment on above: 1 Occurrences starti ng 10/07/2020 until 10/07/2020 Culture, Urine [facility] Phone: End: 10-07-2020 HIV Screen HIV Screen Lab Routine Amenorrhea Positive urine test Encounter for supervision of normal first in first trimester 1 Occurrences starting 10/07/2020 until 10/07/2020 [facility] Phone: Comment on above: 1 Occurrences starti ng 10/07/2020 until 10/07/2020 HIV Screen HIV Screen Lab R outine Amenorrhea Positive urine test Encounter for supervision of normal first in first trimester 10/07/2020 12:12 PM EST [facility] Phone: Nonrebreather mask oxygen Nonrebreather mask oxygen Respiratory Care Routine As directed - RT (PRN) until discontinued starting 05/08/2021 [facility] Phone: Comment on above: As directed - RT ([place] N) until discontinued starting 05/08/2021 PROFILE I PROF ILE I Lab Routine Amenorrhea Positive urine test Encounter for supervision of normal first in first trimester 10/07/2020 12:11 PM EST [facility] Phone: RHOGAM ANTEPARTUM RHOGAM ANTEPAR KAYLEEN Blood Bank Routine 27 weeks gestation of Need for rhogam due to Rh negative mother 02/25/2021 6:39 PM EDT [facility] Phone: End: 05-08-2021 Sample possible blood bank testing Sample possible blood bank testing Lab Routine One Time for 1 Occurrences starting 05/08/2021 until 05/08/2021 [facility] Phone: Comment on above: One Time for 1 Occur rences starting 05/08/2021 until 05/08/2021 End: 05-08-2021 SVE SVE Point of Care Testing Routine One Time for 1 Occurrences starting 05/08/2021 until 05/08/2021 [facility] Work Phone: Comment on above: One Time for 1 Xiang butts starting 05/08/2021 until 05/08/2021 Immunizations Immunization Date Immunization Notes Care Provider Christopher looney 03-17-2021 tetanus toxoid, redu melony diphtheria toxoid, and acellular pertussis vaccine, adsorbed Daija Howard MD Work Phone: [facility] Work Phone: Payers Date Payer Category Payer Unknown [id number] 2020 Unknown [id number] 1995 Unknown [id number] 2.16.8 [id number] 1995 Unknown [id number] 2.16.8 [id number] 1995 Unknown [id number] 2.16.8 [id number] 1995 Unknown [id number] 2.16.8 [id number] 1995 Unknown [id number] 2.16.8 [id number] 1995 Unknown [id number] 2.16.8 [id number] 1995 Unknown [id number] 2.16.8 [id number] 1995 Unknown [id number] 2.16.8 [id number] 1995 Unknown [id number] 2.16.8 [id number] 1995 Unknown [id number] 2.16.8 [id number] 1995 Unknown [id number] 2.16.8 [id number] 1995 Unknown [id number] 2.16.8 [id number] 1995 Unknown [id number] 2.16.84 [id number] 1995 Unknown [id number] 2.16.84 [id number] 1995 Unknown [id number] 2.16.84 [id number] 1995 Unknown [id number] 2.16.84 [id number] Social History Date Type Detail Facility Start: 10-07-2020 End: 05-21-2021 Tobacco smoking status NHIS Never smoker [facility] Phone: Start: 10-07-2020 End: 05-21-2021 Tobacco use and exposure Never used [facility] Phone: Start: 10-07-2020 End: 05-21-2021 Alcohol intake Ex-drinker (finding) [facility] Phone: Start: 08-30-2020 [email or web address] Phone: Start: 1995 [facility]: [facility] SARS-CoV -2 (event[facility] to SARS-CoV -2 (event) Yes [facility] Discharge instructions 05-25-2021 InstructionsAttachments Note [...] cannot be sent through Care Everywhere.Vaginal Bleeding (Turkish)documented in this encounter [facility] Phone: History of Present illness Narrative 05-08-2021 Suzy Manjarrez, HEEL SHAPER - CNM - 05/08/2021 7:45 AM EDT Note Date [...] Pt 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 Pt will discuss with her and make a decision documented in this encounter [facility] Phone: Hospital Discharge instructions 02-26-2021 Instructions Note Date & Type Note Facility 02-26-2021 Hospital Discharg e instructions Dahlia Vasques, RN - 02/26/2021 Outpatient Instructions for IM or Subcutaneous Injections [address] [place] [address] You are advised to carry out the [...] NEAREST EMERGENCY ROOM documented in this encounter [facility] Phone: Evaluation note Note Date & Type Note Facility Evaluation note Diagnosis 27 weeks gestation of state, incidental Need for rhogam due to Rh negative mother Need for prophylactic immunotherapy Impaired glucose in , antepartum documented in this encounter [facility] Phone: Evaluation note Note Date & Type Note Facility Evaluation note Diagnosis 36 weeks gestation of state, incidental documented in this encounter [facility] Phone: Evaluation note Note Date & Type Note Facility Evaluation note Diagnosis SARS-CoV-2 antibody positive- Primary 37 weeks gestation of state, incidental documented in this encounter [facility] Phone: Evaluation note Note Date & Type Note Facility Evaluation note Diagnosis Abnormal uterine bleeding, Other immediate hemorrhage, documented in this encounter [facility] Phone: Evaluation note Note Date & Type Note Facility Evaluation note Diagnosis Vaginal bleeding- Primary Other specified noninflammatory disorder of vagina documented in this encounter [facility] Phone: Hospital Discharge instructions Instructions Note Date & Type Note Facility Hospital Discharge instructions Ericka Vila RN - 05/08/[address] Jose Manjarrez [facility] Dr. Yanet Valencia [address] [facility] [id number] [place] [address] or [place] ACTIVITY LIMITATIONS: ( X )Up and about [...] AND DELIVERY . documented in this encounter [facility] Phone: Assessments Diagnosis Amenorrhea Absence of menstruation [...] blood post op. Pt was seen in [place] ED 5 days ago for cramping, continued [...] RN) PRN Medication Order 05/06/2021 05/07/2021 05/08/2021 [id number] (FIORICET, ESGIC) per tablet 1 tablet 1 [...] and content) DATE CREATED AUTHOR 10/08/2021 Jacinda coppola DATE CREATED AUTHOR AUTHOR'S ORGANIZ ATION 01/20/2022 [facility] DATE CREATED AUTHOR AUTHOR'S ORGANIZ ATION 10/22/2023 [facility] DATE CREATED AUTHOR AUTHOR'S ORGANIZ ATION 12/25/2023 [facility] DATE CREATED AUTHOR AUTHOR'S ORGANCYRUS ATION 04/21/2024 [facility] FOR RECORDS PERTAINING TO PATIENTS WHO ARE [...] BE BASED ON THE PRIMARY CLINICAL RECORDS. [facility] [employer] provides no warranty or guarantee of the accuracy or completeness of information in this document.
[2024-05-01 15:55] LABS: HCG Quantitative 24 mIU/mL
== END 2024-05-01 15:14 | disposition home or self-care (01) ==
LOC: LAB 15:14
PROVIDERS: Family Provider Family Medicine; PCP Family Medicine; Visit Provider Obstetrics & Gynecology
DX: O03.9 Complete or unspecified spontaneous abortion without complication (principal)
CPT/HCPCS: 36415; 84702

== ENCOUNTER 2024-05-08 08:46 | Outpatient (OUT) | payer BC, SELFPAY ==
[2024-05-08 10:14] LABS: HCG Quantitative 7 mIU/mL
== END 2024-05-08 08:47 | disposition home or self-care (01) ==
LOC: LAB 08:48
PROVIDERS: Family Provider Family Medicine; PCP Family Medicine; Visit Provider Obstetrics & Gynecology
DX: N92.6 Irregular menstruation, unspecified (principal)
CPT/HCPCS: 36415; 84702

== ENCOUNTER 2024-06-07 13:40 | Outpatient (OUT) | payer BC, SELFPAY ==
--- OUTSIDE RECORDS SUMMARY | 2024-06-07 13:47 | XMS_ITS | CCD ---
Author Organization [facility] Team Providers Care Patch Driller Name Role Phone Daija Howard Primary Care [...] E Referring Unavailable ERNIE ZURITA Attending Unavailable JUANITO, CHARI Attending Unavailable JUANITO, CHARI Attending Unavailable JUANITO, CHARI Attending Unavailable JOSHBRETT Attending Unavailable Medications Current Medications Medication Drug Class(es) Dates Sig (Normalized) Sig (Original) acetaminophen 325 mg / butalbital 50 mg / caffeine 40 mg oral tablet (7 sources) Barbiturate, Central Nervous System Stimulant, Methylxanthine Start: 05-08-2021 butalbital-aceta minophen-caffein e (FIORICET, ESGIC) per tablet 1 tablet Start: 10-02-2020 take 1 tablet by mouth every six hours as needed for headache zyfuxivdpg-awwzjyrledjfr-zthgxkdw (YAMIL CET, ESGIC) 50-325-40 MG per tablet [...] Start: 11-07-2020 take 1 tablet by solis th every eight hours as needed for nausea [...] Quanton 12-22-2023 HCG, Quant <1.0 Normal <5 [facility] Comment on above: Result Comment: Non-preg premeno <=5 Postmeno <=8 Male <=3 If HCG results do not concur with clinical observations, additional testing to confirm results is recommended. Performed By: #### B HCG #### [facility] [address] [place] [address] Mortar Maker: Bhanu Chambers MD XR HYSTEROSALPINGOGRAPHY S A [...] Gal Blair MD 12/22/23 Final result Normal [facility] Progesteroneon 10-15-2023 Progesterone 25.40 ng/mL Normal [facility] Comment on above: Result Comment: Female: Follicular phase <0.19 ng/mL Ovulation phase 0.06-4.14 ng/mL Luteal phase 4.11-14.5 ng/mL Postmenopausal <0.13 ng/mL Performed By: #### P ANDREW #### [place] [id number] [place] [id number] Mortar Maker: Bhanu Chambers MD Lab - Toxicology Resultson 0 01-20-2022 Lab - Toxicology Results [id number] Normal [facility] Measles/Mumps/Rubella Immuni ty LCon 01-20-2022 Mumps Abs, IgG LC 146.0 AU/mL Invalid Interpretation Code Immune >10.9 [facility] Comment on above: Result Comment: Nega tive <9.0 Equivocal 9.0 - 10.9 Positive >10.9 A positive result generally indicates past exposure to Mumps virus or previous vaccination. Performed At: [facility] [id number] Breanna Mendoza PhD Ph:[phone] Performed By: #### 1 [id number], [id number] #### [facility] (DEFAULT) [address] [place] [address] Rubella Antibodies, IgG LC 3.65 index Invalid Interpretation Code Immune >0.99 [facility] Comment on above: Result Comment: Non- immune <0.90 Equivocal 0.90 - 0.99 Immune >0.99 Performed By: #### 1 [id number], [id number] #### [facility] (DEFAULT) [address] [place] [address] Rubeola Ab, IgG, EIA LC 41.4 AU/mL Invalid Interpretation Code Immune >16.4 [facility] Comment on above: Result Comment: Nega tive <13.5 Equivocal 13.5 - 16.4 Positive >16.4 Presence of antibodies to Rubeola is presumptive evidence of immunity except when acute infection is suspected. Performed By: #### 1 [id number], [id number] #### [facility] (DEFAULT) [address] [place] [address] Nicotine Metabolite, Urine L Con 01-20-2022 Cotinine LC Negative Invalid Interpretation Code [id number] [facility] Comment on above: Result Comment: Perf ormed At: [facility] [place] [address] [place], [place] [id number] Ranjith Rendon PhD Ph:[phone] Performed By: #### 1 [id number] #### [facility] (DEFAULT) [address] [place] [address] HBSab Qnt LCon 01-18-2022 Hep B Surf Ab Quant LC >1000.0 Invalid Interpretation Code Immunity>9.9 [facility] Comment on above: Result Comment: Stat us of Immunity Anti-HBs Level Inconsistent with Immunity 0.0 - 9.9 Consistent with Immunity >9.9 Performed At: [facility] [address] [id number] Breanna Mendoza PhD Ph:[phone] Performed By: #### 1 [id number], [id number] #### [facility] (DEFAULT) [address] [place] [address] Cytologyon 09-29-2021 Cytology (NOTE) INTERPRETATION Cervical material, (ThinPrep vial, Imaging-assisted review): Specimen Adequacy: Satisfactory for evaluation. - Endocervical/transformatio n zone component present. Descriptive Diagnosis: Negative for intraepithelial lesion or malignancy. Paperboard Machine Operator: VALENTE MARCUS(ASCP) Electronically Signed Out /10/07/2021 Source: A: Cervical material, (ThinPrep vial, Imaging-assisted review) Clinical History Z01.419 Routine [employer]co certified network associate exam without abnormal findings High risk HPV DNA testing is requested if the diagnosis is abnormal GYNECOLOGIC CYTOLOGY REPORT Patient Name: WILLIE LEGGETT [facility] Rec: [id number] Path Number: [id number] [facility] ANATOMIC PATHOLOGY [address] [place] [address]. [place], [place] [address] Normal [facility] Comment on above: Performed By: #### D AU #### [facility] [address] [place] [address] [place] [address] Mortar Maker: Sami Abbasi MD APTTon 05-25-2021 aPTT Coag (Bld) [Time] 44.1 s High 23.9-33.8 [facility] Comment on above: Result Comment: IV Heparin Therapy Range: 62.0-94.0 Performed By: #### C DP #### [address] [place] [address] Mortar Maker: Sami Abbasi MD APTTOrdered By: Leeann Hidalgo on 05-25-2021 aPTT Coag (Bld) [Time] 44.1 s High [facility] Phone: Comment on above: IV Heparin Therapy Range: 62.0-94.0 Interpretation and review of laboratory results Abnormal [employer] Phone: [employer] Phone: CBC Auto DifferentialOrdered By: Leeann Hidalgo on 05-25-2021 Absolute Eos # 0.09 [employer] Phone: Absolute Immature Granulocyte 0.04 [employer] Phone: Absolute Lymph # 2.13 [employer] Phone: Absolute Butts # 0.61 [employer] Phone: Basophils (Bld) [#/Vol] 0.07 10*3/uL [employer] Phone: Basophils/100 WBC (Bld) 1 % 0 - 2 % [employer] Phone: Differential Type NOT REPORTED [employer] Phone: Eosinophils/100 WBC (Bld) 1 % 1 - 4 % [employer] Phone: Hematocrit (Bld) [Volume fraction] 31.0 % Low 36.3 - 47.1 % [employer] Phone: Hemoglobin.gastrointest inal spec 1 Ql (Stl) 9.8 g/dL Low 11.9 - 15.1 g/dL [employer] Phone: Immature granulocytes/100 WBC (Bld) 1 % High 0 [employer] Phone: Interpretation and review of laboratory results Abnormal [employer] Phone: Lymphocytes/100 WBC (Bld) 25 % 24 - 43 % [employer] Phone: MCH (RBC) [Entitic mass] 29.0 pg 25.2 - 33.5 pg [employer] Phone: MCHC (RBC) [Mass/Vol] 31.6 g/dL 28.4 - 34.8 g/dL [employer] Phone: MCV (RBC) [Entitic vol] 91.7 fL 82.6 - 102.9 fL [employer] Phone: Monocytes/100 WBC (Bld) 7 % 3 - 12 % [employer] Phone: NRBC Automated 0.0 0.0 per 100 WBC [employer] Phone: Platelet distribution width (Bld) [Ratio] 14.7 % High 11.8 - 14.4 % [employer] Phone: Platelet Estimate NOT REPORTED [employer] Phone: Platelet mean volume (Bld) [Entitic vol] 8.0 fL Low 8.1 - 13.5 fL [employer] Phone: Platelets (Bld) [#/Vol] 399 10*3/uL [employer] Phone: RBC (Bld) [#/Vol] 3.38 10*6/uL Low 3.95 - 5.1 1 m/uL [employer] Phone: RBC (Bld) [#/Vol] NOT REPORTED [employer] Phone: Segmented neutrophils/100 WBC (Bld) 65 % 36 - 65 % [employer] Phone: Segs Absolute 5.57 [employer] Phone: WBC (Bld) [#/Vol] 8.5 10*3/uL [employer] Phone: WBC (Bld) [#/Vol] NOT REPORTED [employer] Phone: [employer] Phone: CBC with Diffon 05-25-2021 Abs. Basophil 0.07 k/uL Normal 0.00-0.20 [facility] Comment on above: Performed By: #### C FELICIANO VILCHIS, LIP #### [address] [place], [place] [id number] Mortar Maker: Sami Abbasi MD Abs.Imm.Granulocyte 0.04 k/uL Normal 0.00-0.30 [facility] Comment on above: Performed By: #### C DP, CP, LIP #### [facility] [address] [place] [address] Mortar Maker: Sami Abbasi MD Abs.Neutrophil (Seg) 5.57 k/uL Normal 1.50-8.10 [facility] Comment on above: Performed By: #### C DENG CP, LIP #### [address] [place], [place] [address] Mortar Maker: Sami Abbasi MD Basophils/100 WBC (Bld) 1 % Normal 0-2 [facility] Comment on above: Performed By: #### C DP, CP, LIP #### [address] [place], [place] [address] Mortar Maker: Sami Abbasi MD Eosinophils (Bld) [#/Vol] 0.09 10*3/uL Normal 0.00-0.44 [facility] Comment on above: Performed By: #### C DP, CP, LIP #### [address] [place], [place] [address] Mortar Maker: Sami Abbasi MD Eosinophils/100 WBC (Bld) 1 % Normal 1-4 [facility] Comment on above: Performed By: #### C DP, CP, LIP #### [address] [place] [id number] Mortar Maker: Sami Abbasi MD Erythrocyte distribution width (RBC) [Ratio] 14.7 % High 11.8-14.4 [facility] Comment on above: Performed By: #### C DP, CP, LIP #### [address] [place], [place] [id number] Mortar Maker: Sami Abbasi MD Hematocrit (Bld) [Volume fraction] 31.0 % Low 36.3-47.1 [facility] Comment on above: Performed By: #### C DP, CP, LIP #### [address] [place], [place] [address] Mortar Maker: Sami Abbasi MD Hemoglobin (Bld) [Mass/Vol] 9.8 g/dL Low 11.9-15.1 [facility] Comment on above: Performed By: #### C DP, CP, LIP #### [address] [place], [place] [address] Mortar Maker: Sami Abbasi MD Immature granulocytes/100 WBC (Bld) 1 % High 0 [facility] Comment on above: Performed By: #### C DP, CP, LIP #### [facility] [address] [place], [place] [address] Mortar Maker: Sami Abbasi MD Lymphocytes (Bld) [#/Vol] 2.13 10*3/uL Normal 1.10-3.70 [facility] Comment on above: Performed By: #### C DP, CP, LIP #### [facility] [address] [place], [place] [address] Mortar Maker: Sami Abbasi MD Lymphocytes/100 WBC (Bld) 25 % Normal 24-43 [facility] Comment on above: Performed By: #### C DP, CP, LIP #### [facility] [address] [place], [facility] Mortar Maker: Sami Abbasi MD MCH (RBC) [Entitic mass] 29.0 pg Normal 25.2-33.5 [facility] Comment on above: Performed By: #### C DP CP, LIP #### [address] [place], [facility] Mortar Maker: Sami Abbasi MD MCHC (RBC) [Mass/Vol] 31.6 g/dL Normal 28.4-34.8 [facility] Comment on above: Performed By: #### C DP CP, LIP #### [address] [place], [place] [address] Mortar Maker: Sami Abbasi MD MCV (RBC) [Entitic vol] 91.7 fL Normal 82.6-102.9 [facility] Comment on above: Performed By: #### C DP, CP, LIP #### [facility] [address] [place], [place] [id number] Mortar Maker: Sami Abbasi MD Monocytes (Bld) [#/Vol] 0.61 10*3/uL Normal 0.10-1.20 [facility] Comment on above: Performed By: #### C DP, CP, LIP #### [facility] [address] [place], [facility] Mortar Maker: Sami Abbasi MD Monocytes/100 WBC (Bld) 7 % Normal 3-12 [facility] Comment on above: Performed By: #### C DP, CP, LIP #### [address] [place], [place] [address] Mortar Maker: Sami Abbasi MD Neutrophil (Seg) 65 % Normal 36-65 [facility] Comment on above: Performed By: #### C DP, CP, LIP #### [address] [place], [place] [address] Mortar Maker: Sami Abbasi MD NRBC Automated 0.0 per 100 WBC Normal 0.0 [facility] Comment on above: Performed By: #### C DP, CP, LIP #### [address] [place], [facility] Mortar Maker: Sami Abbasi MD Platelet mean volume (Bld) [Entitic vol] 8.0 fL Low 8.1-13.5 [facility] Comment on above: Performed By: #### C DP, CP, LIP #### [address] [place], [place] [address] Mortar Maker: Sami Abbasi MD Platelets (Bld) [#/Vol] 399 10*3/uL Normal 138-453 [facility] Comment on above: Performed By: #### C DP, CP, LIP #### [address] [place], [facility]83 Mortar Maker: Sami Abbasi MD RBC (Bld) [#/Vol] 3.38 10*6/uL Low 3.95-5.11 [facility] Comment on above: Performed By: #### C DP, CP, LIP #### [facility] [address] [place], [place] [phone] Mortar Maker: Sami Abbasi MD WBC (Bld) [#/Vol] 8.5 10*3/uL Normal 3.5-11.3 [facility] Comment on above: Performed By: #### C DP, CP, LIP #### [facility] [address] [place], [place] [phone] Mortar Maker: Sami Abbasi MD Auto Diff Performed NOT REPORTED Normal [facility] Comment on above: Performed By: #### C DP, CP, LIP #### [address] [place] [address] Mortar Maker: Sami Abbasi MD Platelet Estimate NOT REPORTED Normal [facility] Comment on above: Performed By: #### C DP, CP, LIP #### [address] [place], [place] [address] Mortar Maker: Sami Abbasi MD RBC morphology finding Nom (Bld) NOT REPORTED Normal [facility] Comment on above: Performed By: #### C DP, CP, LIP #### [address] [place] [address] Mortar Maker: Sami Abbasi MD WBC Morphology NOT REPORTED Normal [facility] Comment on above: Performed By: #### C DP, CP, LIP #### [address] [place], [facility]83 Mortar Maker: Smai Abbasi MD Comp Metabolic Profon 2020 (cont.) Normal [facility] Comment on above: Result Comment: Aver age GFR for 20-29 years old: 116 mL/min/1.73sq m Chronic Kidney Disease: <60 mL/min/1.73sq m Kidney failure: <15 mL/min/1.73sq m eGFR calculated using average adult body mass. Additional eGFR calculator available at: http://www.Modebo.CoinEx.pw/multiple_crcl_2011.htm Performed By: #### C DP, CP, LIP #### [facility] [address] [place], [place] [phone] Mortar Maker: Sami Abbasi MD Albumin [Mass/Vol] 3.4 g/dL Low 3.5-5.2 [facility] Comment on above: Performed By: #### C DP, CP, LIP #### [facility] [address] [place], [place] [address]404[address] Mortar Maker: Sami Abbasi MD Albumin/Glob Ratio 1.0 Normal 1.0-2.5 [facility] Comment on above: Performed By: #### C DP, CP, LIP #### [address] [place], [place] [phone] Mortar Maker: Sami Abbasi MD Alkaline Phos 108 U/L High 35-104 [facility] Comment on above: Performed By: #### C DP, CP, LIP #### [address] [place], [place] [address]83 Mortar Maker: Sami Abbasi MD ALT [Catalytic activity/Vol] 12 U/L Normal 5-33 [facility] Comment on above: Performed By: #### C DP, CP, LIP #### [address] [place], [place] [address]183 Mortar Maker: Sami Abbasi MD Anion gap [Moles/Vol] 11 mmol/L Normal 9-17 [facility] Comment on above: Performed By: #### C DP, CP, LIP #### [facility] [address] [place], [place] [address]45383 Mortar Maker: Sami Abbasi MD AST [Catalytic activity/Vol] 19 U/L Normal <32 [facility] Comment on above: Performed By: #### C DP, CP, LIP #### [facility] [address] [place], [place] [address] Mortar Maker: Sami Abbasi MD Bilirubin [Mass/Vol] 0.21 mg/dL Low 0.3-1.2 [facility] Comment on above: Performed By: #### C DP, CP, LIP #### [facility] [address] [place] [address] Mortar Maker: Sami Abbasi MD BUN/CRE Ratio 43 High 9-20 [facility] Comment on above: Performed By: #### C DP, CP, LIP #### [facility] [address] [place], [place] [address]75383 Mortar Maker: Sami Abbasi MD Calcium [Mass/Vol] 9.0 mg/dL Normal 8.6-10.4 [facility] Comment on above: Performed By: #### C DP, CP, LIP #### [facility] [address] [place], [place] [address]37[address] Mortar Maker: Sami Abbasi MD Chloride [Moles/Vol] 106 mmol/L Normal 98-107 [facility] Comment on above: Performed By: #### C DP, CP, LIP #### [facility] [address] [place], [place] [address] Mortar Maker: Sami Abbasi MD CO2 [Moles/Vol] 23 mmol/L Normal 20-31 [facility] Comment on above: Performed By: #### C DP, CP, LIP #### [facility] [address] [place], [place] [address]496[address] Mortar Maker: Sami Abbasi MD Creatinine [Mass/Vol] 0.46 mg/dL Low 0.50-0.90 [facility] Comment on above: Performed By: #### C DP, CP, LIP #### [facility] [address] [place] [address] Mortar Maker: Sami Abbasi MD GFR, Amer >60 Normal >60 [facility] Comment on above: Performed By: #### C DP, CP, LIP #### [facility] [address] [place], [place] [address] Mortar Maker: Sami Abbasi MD GFR,non Amer >60 Normal >60 [facility] Comment on above: Performed By: #### C DP, CP, LIP #### [facility] [address] [place], [place] [address]383 Mortar Maker: Sami Abbasi MD Glucose [Mass/Vol] 101 mg/dL High 70-99 [facility] Comment on above: Performed By: #### C DP, CP, LIP #### [facility] [address] [place], [place] [address]83 Mortar Maker: Sami Abbasi MD Potassium [Moles/Vol] 3.8 mmol/L Normal 3.7-5.3 [facility] Comment on above: Performed By: #### C DP, CP, LIP #### [facility] [address] [place], [place] [address] Mortar Maker: Sami Abbasi MD Protein [Mass/Vol] 6.9 g/dL Normal 6.4-8.3 [facility] Comment on above: Performed By: #### C DP, CP, LIP #### [facility] [address] [place], [place] [address] Mortar Maker: Sami Abbasi MD Sodium [Moles/Vol] 140 mmol/L Normal 135-144 [facility] Comment on above: Performed By: #### C DP, CP, LIP #### [facility] [address] [place], [place] [address]83 Mortar Maker: Sami Abbasi MD Staging: Normal [facility] Comment on above: Result Comment: Stag e 1: Some kidney damage normal GFR Stage 2: Mild kidney damage GFR 60-89 Stage 3: Moderate kidney damage GFR 30-59 Stage 4: Severe kidney damage GFR 15-29 Stage 5: Severe kidney damage GFR <15 ESRD - chronic treatment by dialysis or transplant Performed By: #### C DP, CP, LIP #### [facility] [address] [place] [address] Mortar Maker: Sami Abbasi MD Urea nitrogen [Mass/Vol] 20 mg/dL Normal 6-20 [facility] Comment on above: Performed By: #### C DP, CP, LIP #### [facility] [address] [place] [address] Mortar Maker: Sami Abbasi MD Comprehensive Metabolic Pane lOrdered By: Leeann Hidalgo on 05-25-2021 Albumin [Mass/Vol] 3.4 g/dL Low 3.5 - 5.2 g/dL [facility] Phone: Albumin/Globulin [Mass ratio] 1.0 {ratio} [employer] Phone: ALP (Bld) [Catalytic activity/Vol] 108 U/L High 35 - 104 U/L [facility] Phone: ALT [Catalytic activity/Vol] 12 U/L 5 - 33 U/L [facility] Phone: Anion gap [Moles/Vol] 11 mmol/L 9 - 17 mmol/L [facility] Phone: AST [Catalytic activity/Vol] 19 U/L <32 [employer] Phone: Bilirubin [Mass/Vol] 0.21 mg/dL Low 0.3 - 1 .2 mg/dL [employer] Phone: Calcium [Mass/Vol] 9.0 mg/dL 8.6 - 10. 4 mg/dL [employer] Phone: Chloride [Moles/Vol] 106 mmol/L 98 - 10 7 mmol/L [employer] Phone: CO2 [Moles/Vol] 23 mmol/L 20 - 31 mmol/L [facility] Phone: Creatinine [Mass/Vol] 0.46 mg/dL Low 0.50 - 0.90 mg/dL [employer] Phone: Free PSA/Total PSA [Mass fraction] 6.9 g/dL 6.4 - 8.3 g/dL [employer] Phone: GFR >60 >60 mL/min [facility] Phone: GFR Non- >60 >60 mL/min [employer] Phone: Glucose [Mass/Vol] 101 mg/dL High 70 - 99 mg/dL [employer] Phone: Interpretation and review of laboratory results Abnormal [employer] Phone: Potassium [Moles/Vol] 3.8 mmol/L 3.7 - 5.3 mmol/L [employer] Phone: Sodium [Moles/Vol] 140 mmol/L 135 - 144 mmol/L [employer] Phone: Urea nitrogen (BldV) [Mass/Vol] 20 mg/dL 6 - 20 mg/dL [employer] Phone: Urea nitrogen/Creatinine (Bld) [Mass ratio] 43 High [employer] Phone: Laboratory - Chemistry and C hemistry - challengeOrdered By: Leeann Hidalgo on 05-25-2021 GFR/1.73 sq M.predicted MDRD (S/P/Bld) [Vol rate/Area] [employer] Phone: Comment on above: Average GFR for 20-2 9 years old: 116 mL/min/1.73sq m Chronic Kidney Disease: <60 mL/min/1.73sq m Kidney failure: <15 mL/min/1.73sq m eGFR calculated using average adult body mass. Additional eGFR calculator available at: http://www.Modebo.CoinEx.pw/multiple_crcl_2012.htm Stage 1: Some kidney damage normal GFR Stage 2: Mild kidney damage GFR 60-89 Stage 3: Moderate kidney damage GFR 30-59 Stage 4: Severe kidney damage GFR 15-29 Stage 5: Severe kidney damage GFR <15 ESRD - chronic treatment by dialysis or transplant Lipaseon 05-25-2021 Lipase [Catalytic activity/Vol] 32 U/L Normal 13-60 [facility] Comment on above: Performed By: #### C DP, CP, LIP #### [facility] [address] [place] [address] [place] [address] Mortar Maker: Sami Abbasi MD LipaseOrdered By: Leeann Sánchez dd on 05-25-2021 Lipase [Catalytic activity/Vol] 32 U/L 13 - 60 U/L [facility] Phone: No Panel InformationOrdered By: Leeann Hidalgo on 05-25-[address] [facility] Phone: PTon 05-25-2021 INR Coag (PPP) [Relative time] 1.1 {INR} Normal [facility] Comment on above: Result Comment: Non-therapeutic Range: INR = 0.9-1.2 Therapeutic Range: Moderate Anticoagulant Intensity: INR = 2.0-3.0 High Anticoagulant Intensity: INR = 2.5-3.5 Performed By: #### C DP #### [address] [place] [address] Mortar Maker: Sami Abbasi MD PTOrdered By: Leeann polk 05-25-2021 PT Coag (PPP) [Time] 14.1 s Normal 11.5-14.2 [facility] Phone: Comment on above: Performed By: #### C DP #### [address] [place] [address] Mortar Maker: Sami Abbasi MD Protime-INROrdered By: Jesica Hidalgo on 05-25-2021 INR Coag (Bld) [Relative time] 1.1 {INR} [facility] Phone: Comment on above: Non-therapeutic Range: INR = 0.9-1.2 Therapeutic Range: Moderate Anticoagulant Intensity: INR = 2.0-3.0 High Anticoagulant Intensity: INR = 2.5-3.5 [employer] Phone: TYPE AND SCREENOrdered By: Arturo connie Hidalgo on 05-25-2021 ABO/Rh Negative [employer] Phone: Arm Band Number [id number] [employer] Phone: Expiration Date 05/28/2021,2359 [facility] Phone: [employer] Phone: Type + Screenon 05-25-2021 Type + Screen Sample Expiration 05/28/2021,2359 [facility] Number [id number] ABO/Rh(D) A NEGATIVE Antibody Screen NEGATIVE Normal [facility] Comment on above: Performed By: #### C DP #### [facility] [address] [place] [address] [place] [address] Mortar Maker: Sami Abbasi MD CBC Auto DifferentialOrdered By: Paul Garcia on 05-21-2021 Absolute Eos # 0.11 [employer] Phone: Absolute Immature Granulocyte 0.08 [employer] Phone: Absolute Lymph # 1.80 [employer] Phone: Absolute Butts # 0.75 [employer] Phone: Basophils (Bld) [#/Vol] 0.06 10*3/uL [employer] Phone: Basophils/100 WBC (Bld) 1 % 0 - 2 % [facility] [employer] Phone: Differential Type NOT REPORTED [employer] Phone: Eosinophils/100 WBC (Bld) 1 % 1 - 4 % [employer] Phone: Hematocrit (Bld) [Volume fraction] 30.7 % Low 36.3 - 47.1 % [employer] Phone: Hemoglobin.gastrointest inal spec 1 Ql (Stl) 9.8 g/dL Low 11.9 - 15.1 g/dL [employer] Phone: Immature granulocytes/100 WBC (Bld) 1 % High 0 [employer] Phone: Interpretation and review of laboratory results Abnormal [employer] Phone: Lymphocytes/100 WBC (Bld) 20 % Low 24 - 43 % [employer] Phone: MCH (RBC) [Entitic mass] 29.6 pg 25.2 - 33.5 pg [employer] Phone: MCHC (RBC) [Mass/Vol] 31.9 g/dL 28.4 - 34.8 g/dL [employer] Phone: MCV (RBC) [Entitic vol] 92.7 fL 82.6 - 102.9 fL [employer] Phone: Monocytes/100 WBC (Bld) 9 % 3 - 12 % [facility] [employer] Phone: NRBC Automated 0.0 0.0 per 100 WBC [employer] Phone: Platelet distribution width (Bld) [Ratio] 14.9 % High 11.8 - 14.4 % [employer] Phone: Platelet Estimate NOT REPORTED [employer] Phone: Platelet mean volume (Bld) [Entitic vol] 8.2 fL 8.1 - 13.5 fL [employer] Phone: Platelets (Bld) [#/Vol] 465 10*3/uL High [employer] Phone: RBC (Bld) [#/Vol] 3.31 10*6/uL Low 3.95 - 5.1 1 m/uL [employer] Phone: RBC (Bld) [#/Vol] NOT REPORTED [facility] Phone: Segmented neutrophils/100 WBC (Bld) 68 % High 36 - 65 % [employer] Phone: Segs Absolute [address] [facility] Phone: WBC (Bld) [#/Vol] 8.9 10*3/uL [facility] Phone: WBC (Bld) [#/Vol] NOT REPORTED [facility] Phone: [facility] Phone: CBC with Diffon 05-21-2021 Abs. Basophil 0.06 k/uL Normal 0.00-0.20 [facility] Comment on above: Performed By: #### C DP #### [address] [place] [address] Mortar Maker: Sami Abbasi MD Abs.Imm.Granulocyte 0.08 k/uL Normal 0.00-0.30 [facility] Comment on above: Performed By: #### C DP #### [address] [place] [address] Mortar Maker: Sami Abbasi MD Abs.Neutrophil (Seg) 6.06 k/uL Normal 1.50-8.10 [facility] Comment on above: Performed By: #### C DP #### [address] [place] [address] Mortar Maker: Sami Abbasi MD Basophils/100 WBC (Bld) 1 % Normal 0-2 [facility] Comment on above: Performed By: #### C DP #### [address] [place] [address] Mortar Maker: Sami Abbasi MD Eosinophils (Bld) [#/Vol] 0.11 10*3/uL Normal 0.00-0.44 [facility] Comment on above: Performed By: #### C DP #### [facility] [address] [place], [place] [id number] Mortar Maker: Sami Abbasi MD Eosinophils/100 WBC (Bld) 1 % Normal 1-4 [facility] Comment on above: Performed By: #### C DP #### [address] [place], [facility]83 Mortar Maker: Sami Abbasi MD Erythrocyte distribution width (RBC) [Ratio] 14.9 % High 11.8-14.4 [facility] Comment on above: Performed By: #### C DP #### [address] [place], [facility]83 Mortar Maker: Sami Abbasi MD Hematocrit (Bld) [Volume fraction] 30.7 % Low 36.3-47.1 [facility] Comment on above: Performed By: #### C DP #### [address] [place], [facility] Mortar Maker: Sami Abbasi MD Hemoglobin (Bld) [Mass/Vol] 9.8 g/dL Low 11.9-15.1 [facility] Comment on above: Performed By: #### C DP #### [address] [place], [facility] Mortar Maker: Sami Abbasi MD Immature granulocytes/100 WBC (Bld) 1 % High 0 [facility] Comment on above: Performed By: #### C DP #### [facility] [address] [place] [address] Dr. [place], [facility]83 Mortar Maker: Sami Abbasi MD Lymphocytes (Bld) [#/Vol] 1.80 10*3/uL Normal 1.10-3.70 [facility] Comment on above: Performed By: #### C DP #### [address] [place], [facility] Mortar Maker: Sami Abbasi MD Lymphocytes/100 WBC (Bld) 20 % Low 24-43 [facility] Comment on above: Performed By: #### C DP #### [facility] [address] [place], [place] [id number] Mortar Maker: Sami Abbasi MD MCH (RBC) [Entitic mass] 29.6 pg Normal 25.2-33.5 [facility] Comment on above: Performed By: #### C DP #### [facility] [address] [place], [place] [id number] Mortar Maker: Sami Abbasi MD MCHC (RBC) [Mass/Vol] 31.9 g/dL Normal 28.4-34.8 [facility] Comment on above: Performed By: #### C DP #### [address] [place], [facility]83 Mortar Maker: Sami Abbasi MD MCV (RBC) [Entitic vol] 92.7 fL Normal 82.6-102.9 [facility] Comment on above: Performed By: #### C DP #### [address] [place], [place] [address]783 Mortar Maker: Sami Abbasi MD Monocytes (Bld) [#/Vol] 0.75 10*3/uL Normal 0.10-1.20 [facility] Comment on above: Performed By: #### C DP #### [facility] [address] [place], [place] [id number] Mortar Maker: Sami Abbasi MD Monocytes/100 WBC (Bld) 9 % Normal 3-12 [facility] Comment on above: Performed By: #### C DP #### [facility] [address] [place], [place] [phone] Mortar Maker: Sami Abbasi MD Neutrophil (Seg) 68 % High 36-65 [facility] Comment on above: Performed By: #### C DP #### [facility] [address] [place], [place] [phone] Mortar Maker: Sami Abbasi MD NRBC Automated 0.0 per 100 WBC Normal 0.0 [facility] Comment on above: Performed By: #### C DP #### [facility] [address] [place], [place] [phone] Mortar Maker: Sami Abbasi MD Platelet mean volume (Bld) [Entitic vol] 8.2 fL Normal 8.1-13.5 [facility] Comment on above: Performed By: #### C DP #### [facility] [address] [place], [place] [address]83 Mortar Maker: Sami Abbasi MD Platelets (Bld) [#/Vol] 465 10*3/uL High 138-453 [facility] Comment on above: Performed By: #### C DP #### [facility] [address] [place], [place] [phone] Mortar Maker: Sami Abbasi MD RBC (Bld) [#/Vol] 3.31 10*6/uL Low 3.95-5.11 [facility] Comment on above: Performed By: #### C DP #### [facility] [address] [place], [place] [id number] Mortar Maker: Sami Abbasi MD WBC (Bld) [#/Vol] 8.9 10*3/uL Normal 3.5-11.3 [facility] Comment on above: Performed By: #### C DP #### [facility] [address] [place], [place] [phone] Mortar Maker: Sami Abbasi MD Auto Diff Performed NOT REPORTED Normal [facility] Comment on above: Performed By: #### C DP #### [facility] [address] [place], [place] [phone] Mortar Maker: Sami Abbasi MD Platelet Estimate NOT REPORTED Normal [facility] Comment on above: Performed By: #### C DP #### [facility] [address] [place], [place] [phone] Mortar Maker: Sami Abbasi MD RBC morphology finding Nom (Bld) NOT REPORTED Normal [facility] Comment on above: Performed By: #### C DP #### [facility] [address] [place] [address] Mortar Maker: Sami Abbasi MD WBC Morphology NOT REPORTED Normal [facility] Comment on above: Performed By: #### C DP #### [facility] [address] [place] [address] Mortar Maker: Sami Abbasi MD HCG, Quanton 05-21-2021 HCG, Quant 44 IU/L High <5 [facility] Comment on above: Result Comment: [...] liver. Performed By: #### B HCG #### [facility] [address] [place], [place] [phone] Mortar Maker: Sami Abbasi MD US NON OB TRANSVAGINALon [...] by: Joshua Lerner 05/21/21 Final result Normal [facility] hCG, Quantitative, Ordered By: Paul Garcia on 05-21-2021 hCG Quant 44 High <5 IU/L [facility] Phone: Comment on above: Non-preg premeno <=5 Postmeno <=8 Male <=3 If HCG results do not concur with clinical observations, additional testing to confirm results is recommended. Elevated results not associated with may be found in patients with other diseases such as tumors of the germ cells (testis, ovaries, etc.), bladder, pancreas, stomach, lungs, and liver. Interpretation and review of laboratory results Abnormal [employer] Phone: [employer] Phone: CBC with Diffon 05-14-2021 Abs. Basophil 0.12 k/uL Normal 0.0-0.2 [facility] Comment on above: Performed By: #### D AU #### [facility] [address] [place] [address] [place] [address] Mortar Maker: Sami Abbasi MD Abs.Imm.Granulocyte 0.48 k/uL High 0.00-0.30 [facility] Comment on above: Performed By: #### D AU #### [facility] [address] [place] [address] [place] [address] Mortar Maker: Sami Abbasi MD Abs.Neutrophil (Seg) 8.71 k/uL High 1.50-8.10 [facility] Comment on above: Performed By: #### D AU #### [facility] [address] [place] [address] [place] [address] Mortar Maker: Sami Abbasi MD Basophils/100 WBC (Bld) 1 % Normal 0-2 [facility] Comment on above: Performed By: #### D AU #### [facility] [address] [place], [place] [phone] Mortar Maker: Sami Abbasi MD Eosinophils (Bld) [#/Vol] 0.12 10*3/uL Normal 0.00-0.44 [facility] Comment on above: Performed By: #### D AU #### [facility] [address] [place], [place] [phone] Mortar Maker: Sami Abbasi MD Eosinophils/100 WBC (Bld) 1 % Normal 1-4 [facility] Comment on above: Performed By: #### D AU #### [address] [place], [place] [phone] Mortar Maker: Sami Abbasi MD Immature granulocytes/100 WBC (Bld) 4 % High 0 [facility] Comment on above: Performed By: #### D AU #### [address] [place], [facility]83 Mortar Maker: Sami Abbasi MD Lymphocytes (Bld) [#/Vol] 2.17 10*3/uL Normal 1.10-3.70 [facility] Comment on above: Performed By: #### D AU #### [address] [place], [place] [id number] Mortar Maker: Sami Abbasi MD Lymphocytes/100 WBC (Bld) 18 % Low 24-43 [facility] Comment on above: Performed By: #### D AU #### [facility] [address] [place] [address] Dr. [place], [place] [phone] Mortar Maker: Sami Abbasi MD Monocytes (Bld) [#/Vol] 0.48 10*3/uL Normal 0.10-1.20 [facility] Comment on above: Performed By: #### D AU #### [facility] [address] [place], [place] [address]83 Mortar Maker: Sami Abbasi MD Monocytes/100 WBC (Bld) 4 % Normal 3-12 [facility] Comment on above: Performed By: #### D AU #### [facility] [address] [place], [place] [phone] Mortar Maker: Sami Abbasi MD Morphology Andrea (Bld) [Interp] Normal Normal [facility] Comment on above: Performed By: #### D AU #### [facility] [address] [place], [facility]83 Mortar Maker: Sami Abbasi MD Neutrophil (Seg) 72 % High 36-65 [facility] Comment on above: Performed By: #### D AU #### [facility] [address] [place], [facility]83 Mortar Maker: Sami Abbasi MD Nucleated RBC'S 1 per 100 WBC Normal 0-5 [facility] Comment on above: Performed By: #### D AU #### [address] [place], [facility]83 Mortar Maker: Sami Abbasi MD WBC (Bld) [#/Vol] 12.1 10*3/uL High 3.5-11.3 [facility] Comment on above: Result Comment: ADJU STED FOR NUCLEATED RBC'S CORRECTED ON 05/14 AT 1813: PREVIOUSLY REPORTED 12.2 Performed By: #### D AU #### [facility] [address] [place] [address] Dr. [place], [facility]83 Mortar Maker: Sami Abbasi MD Erythrocyte distribution width (RBC) [Ratio] 14.8 % High 11.8-14.4 [facility] Comment on above: Performed By: #### D AU #### [facility] [address] [place] [address] Mortar Maker: Sami Abbasi MD Hematocrit (Bld) [Volume fraction] 35.2 % Low 36.3-47.1 [facility] Comment on above: Performed By: #### D AU #### [facility] [address] [place], [place] [phone] Mortar Maker: Sami Abbasi MD Hemoglobin (Bld) [Mass/Vol] 11.9 g/dL Normal 11.9-15.1 [facility] Comment on above: Performed By: #### D AU #### [address] [place] [id number] Mortar Maker: Sami Abbasi MD MCH (RBC) [Entitic mass] 30.4 pg Normal 25.2-33.5 [facility] Comment on above: Performed By: #### D AU #### [address] [place] [id number] Mortar Maker: Sami Abbasi MD MCHC (RBC) [Mass/Vol] 33.8 g/dL Normal 28.4-34.8 [facility] Comment on above: Performed By: #### D AU #### [address] [place] [address]3 Mortar Maker: Sami Abbasi MD MCV (RBC) [Entitic vol] 89.8 fL Normal 82.6-102.9 [facility] Comment on above: Performed By: #### D AU #### [address] [place], [place] [phone] Mortar Maker: Sami Ababsi MD NRBC Automated 0.2 per 100 WBC High 0.0 [facility] Comment on above: Performed By: #### D AU #### [facility] [address] [place] [address] Dr. [place], [place] [phone] Mortar Maker: Sami Abbasi MD Platelet mean volume (Bld) [Entitic vol] 9.9 fL Normal 8.1-13.5 [facility] Comment on above: Performed By: #### D AU #### [facility] [address] [place] [address] Dr. [place] [phone] Mortar Maker: Sami Abbasi MD Platelets (Bld) [#/Vol] 154 10*3/uL Normal 138-453 [facility] Comment on above: Performed By: #### D AU #### [facility] [address] [place] [address] Mortar Maker: Sami Abbasi MD RBC (Bld) [#/Vol] 3.92 10*6/uL Low 3.95-5.11 [facility] Comment on above: Performed By: #### D AU #### [facility] [address] [place] [address] Mortar Maker: Sami Abbasi MD Auto Diff Performed NOT REPORTED Normal [facility] Comment on above: Performed By: #### D AU #### [facility] [address] [place] [address] Mortar Maker: Sami Abbasi MD Platelet Estimate NOT REPORTED Normal [facility] Comment on above: Performed By: #### D AU #### [facility] [address] [place] [address] Mortar Maker: Sami Abbasi MD RBC morphology finding Nom (d) NOT REPORTED Normal [facility] Comment on above: Performed By: #### D AU #### [facility] [address] [place] [address] Mortar Maker: Sami Abbasi MD WBC Morphology NOT REPORTED Normal [facility] Comment on above: Performed By: #### D AU #### [facility] [address] [place] [address] Mortar Maker: Sami Abbasi MD Abs. Basophil 0.00 k/uL Normal 0.0-0.2 [facility] Comment on above: Performed By: #### H H #### [facility] [address] [place], [place] [phone] Mortar Maker: Sami Abbasi MD Abs.Imm.Granulocyte 0.00 k/uL Normal 0.00-0.30 [facility] Comment on above: Performed By: #### H H #### [facility] [address] [place], [facility]83 Mortar Maker: Sami Abbasi MD Abs.Neutrophil (Seg) 10.05 k/uL High 1.50-8.10 [facility] Comment on above: Performed By: #### H H #### [facility] [address] [place], [place] [address] Mortar Maker: Sami Abbasi MD Basophils/100 WBC (Bld) 0 % Normal 0-2 [facility] Comment on above: Performed By: #### H H #### [address] [place], [facility]83 Mortar Maker: Sami Abbasi MD Eosinophils (Bld) [#/Vol] 0.00 10*3/uL Normal 0.00-0.44 [facility] Comment on above: Performed By: #### H H #### [address] [place], [facility]83 Mortar Maker: Sami Abbasi MD Eosinophils/100 WBC (Bld) 0 % Low 1-4 [facility] Comment on above: Performed By: #### H H #### [facility] [address] [place] [address] Dr. [place], [place] [address] Mortar Maker: Sami Abbasi MD Immature granulocytes/100 WBC (Bld) 0 % Normal 0 [facility] Comment on above: Performed By: #### H H #### [facility] [address] [place] [address] Dr. [place], [place] [address] Mortar Maker: Sami Abbasi MD Lymphocytes (Bld) [#/Vol] 1.98 10*3/uL Normal 1.10-3.70 [facility] Comment on above: Performed By: #### H H #### [facility] [address] [place] [address] Dr. [place], [place] [address]83 Mortar Maker: Sami Abbasi MD Lymphocytes/100 WBC (Bld) 16 % Low 24-43 [facility] Comment on above: Performed By: #### H H #### [facility] [address] [place], [place] [phone] Mortar Maker: Sami Abbasi MD Monocytes (Bld) [#/Vol] 0.37 10*3/uL Normal 0.10-1.20 [facility] Comment on above: Performed By: #### H H #### [facility] [address] [place], [place] [address]458483 Mortar Maker: Sami Abbasi MD Monocytes/100 WBC (Bld) 3 % Normal 3-12 [facility] Comment on above: Performed By: #### H H #### [facility] [address] [place], [facility] Mortar Maker: Sami Abbasi MD Morphology Andrea (Bld) [Interp] 1+ Normal [facility] Comment on above: Result Comment: POLY CHROMASIA Performed By: #### H H #### [facility] [address] [place], [facility]83 Mortar Maker: Sami Abbasi MD Neutrophil (Seg) 81 % High 36-65 [facility] Comment on above: Performed By: #### H H #### [facility] [address] [place], [facility] Mortar Maker: Sami Abbasi MD Erythrocyte distribution width (RBC) [Ratio] 14.6 % High 11.8-14.4 [facility] Comment on above: Performed By: #### H H #### [facility] [address] [place] [address] Mortar Maker: Sami Abbasi MD Hematocrit (Bld) [Volume fraction] 31.8 % Low 36.3-47.1 [facility] Comment on above: Performed By: #### H H #### [facility] [address] [place], [place] [phone] Mortar Maker: Sami Abbasi MD Hemoglobin (Bld) [Mass/Vol] 10.9 g/dL Low 11.9-15.1 [facility] Comment on above: Performed By: #### H H #### [facility] [address] [place] [facility] Mortar Maker: Sami Abbasi MD MCH (RBC) [Entitic mass] 30.5 pg Normal 25.2-33.5 [facility] Comment on above: Performed By: #### H H #### [facility] [address] [place] [facility] Mortar Maker: Sami Abbasi MD MCHC (RBC) [Mass/Vol] 34.3 g/dL Normal 28.4-34.8 [facility] Comment on above: Performed By: #### H H #### [facility] [address] [place], [facility] Mortar Maker: Sami Abbasi MD MCV (RBC) [Entitic vol] 89.1 fL Normal 82.6-102.9 [facility] Comment on above: Performed By: #### H H #### [facility] [address] [place] [facility] Mortar Maker: Sami Abbasi MD NRBC Automated 0.0 per 100 WBC Normal 0.0 [facility] Comment on above: Performed By: #### H H #### [facility] [address] [place] [facility] Mortar Maker: aSmi Abbasi MD Platelet Count See Reflexed IPF Result Normal 138-453 [facility] Comment on above: Performed By: #### H H #### [facility] [address] [place] [facility] Mortar Maker: Sami Abbasi MD RBC (Bld) [#/Vol] 3.57 10*6/uL Low 3.95-5.11 [facility] Comment on above: Performed By: #### H H #### [facility] [address] [place], [place] [phone] Mortar Maker: Sami Abbasi MD WBC (Bld) [#/Vol] 12.4 10*3/uL High 3.5-11.3 [facility] Comment on above: Performed By: #### H H #### [facility] [address] [place], [facility] Mortar Maker: Sami Abbasi MD Auto Diff Performed NOT REPORTED Normal [facility] Comment on above: Performed By: #### H H #### [facility] [address] [place], [place] [address] Mortar Maker: Sami Abbasi MD MPV NOT REPORTED Normal 8.1-13.5 [facility] Comment on above: Performed By: #### H H #### [facility] [address] [place], [place] [address] Mortar Maker: Sami Abbasi MD Platelet Estimate NOT REPORTED Normal [facility] Comment on above: Performed By: #### H H #### [facility] [address] [place], [place] [address] Mortar Maker: Sami Abbasi MD RBC morphology finding Nom (Bld) NOT REPORTED Normal [facility] [facility] Comment on above: Performed By: #### H H #### [facility] [address] [place], [place] [address] Mortar Maker: Sami Abbasi MD WBC Morphology NOT REPORTED Normal [facility] Comment on above: Performed By: #### H H #### [facility] [address] [place], [facility] Mortar Maker: Sami Abbasi MD PLT, Immature Fract.on 05-14 Platelet, Fluoresc. 119 k/uL Low 138-453 [facility] Comment on above: Performed By: #### H H #### [facility] [address] [place], [place] [id number] Mortar Maker: Sami Abbasi MD PLT, Immature Fract. 2.9 % Normal 1.1-10.3 [facility] Comment on above: Performed By: #### H H #### [facility] [address] [place], [place] [phone] Mortar Maker: Sami Abbasi MD APTTon 05-13-2021 aPTT Coag (Bld) [Time] 27.0 s Normal 23.9-33.8 [facility] Comment on above: Result Comment: IV Heparin Therapy Range: 62.0-94.0 Performed By: #### C DP #### [address] [place], [place] [id number] Mortar Maker: Sami Abbasi MD Amylaseon 05-13-2021 Amylase [Catalytic activity/Vol] 54 U/L Normal 28-100 [facility] Comment on above: Performed By: #### C DP #### [address] [place], [place] 1723483 Mortar Maker: Sami Abbasi MD CBC with Diffon 05-13-2021 Abs. Basophil 0.00 k/uL Normal 0.0-0.2 [facility] Comment on above: Performed By: #### C DP #### [facility] [address] [place], [place] [id number] Mortar Maker: Sami Abbasi MD Abs.Imm.Granulocyte 0.00 k/uL Normal 0.00-0.30 [facility] Comment on above: Performed By: #### C DP #### [facility] [address] [place], [place] [phone] Mortar Maker: Sami Abbasi MD Abs.Neutrophil (Seg) 12.58 k/uL High 1.50-8.10 [facility] Comment on above: Performed By: #### C DP #### [facility] [address] [place], [facility] Mortar Maker: Sami Abbasi MD Basophils/100 WBC (Bld) 0 % Normal 0-2 [facility] Comment on above: Performed By: #### C DP #### [facility] [address] [place], [place] [address] Mortar Maker: Sami Abbasi MD Eosinophils (Bld) [#/Vol] 0.00 10*3/uL Normal 0.00-0.44 [facility] Comment on above: Performed By: #### C DP #### [facility] [address] [place] [address] [place] [phone] ( Mortar Maker: Sami Abbasi MD Eosinophils/100 WBC (Bld) 0 % Low 1-4 [facility] Comment on above: Performed By: #### C DP #### [address] [place], [facility] Mortar Maker: Sami Abbasi MD Immature granulocytes/100 WBC (Bld) 0 % Normal 0 [facility] Comment on above: Performed By: #### C DP #### [facility] [address] [place] [address] Dr[address] [place], [place] [address] Mortar Maker: Sami Abbasi MD Lymphocytes (Bld) [#/Vol] 1.63 10*3/uL Normal 1.10-3.70 [facility] Comment on above: Performed By: #### C DP #### [address] [place] [address] Mortar Maker: Sami Abbasi MD Lymphocytes/100 WBC (Bld) 11 % Low 24-43 [facility] Comment on above: Performed By: #### C DP #### [facility] [address] [place], [place] [address]83 Mortar Maker: Sami Abbasi MD Monocytes (Bld) [#/Vol] 0.59 10*3/uL Normal 0.10-1.20 [facility] Comment on above: Performed By: #### C DP #### [facility] [address] [place], [place] 1250283 Mortar Maker: Sami Abbasi MD Monocytes/100 WBC (Bld) 4 % Normal 3-12 [facility] Comment on above: Performed By: #### C DP #### [facility] [address] [place], [place] [phone] Mortar Maker: Sami Abbasi MD Morphology Andrea (Bld) [Interp] 1+ Normal [facility] Comment on above: Result Comment: POLY CHROMASIA Performed By: #### C DP #### [address] [place], [facility]83 Mortar Maker: Sami Abbasi MD Neutrophil (Seg) 85 % High 36-65 [facility] Comment on above: Performed By: #### C DP #### [address] [place], [place] 5447383 Mortar Maker: Sami Abbasi MD Erythrocyte distribution width (RBC) [Ratio] 13.6 % Normal 11.8-14.4 [facility] Comment on above: Performed By: #### C DP #### [facility] [address] [place] [address] Dr[place], [place] 8[address]83 Mortar Maker: Sami Abbasi MD Hematocrit (Bld) [Volume fraction] 25.3 % Low 36.3-47.1 [facility] Comment on above: Performed By: #### C DP #### [facility] [address] [place], [place] 1878983 Mortar Maker: Sami Abbasi MD Hemoglobin (Bld) [Mass/Vol] 8.6 g/dL Low 11.9-15.1 [facility] Comment on above: Performed By: #### C DP #### [facility] [address] [place], [place] [phone] Mortar Maker: Sami Abbasi MD MCH (RBC) [Entitic mass] 29.2 pg Normal 25.2-33.5 [facility] Comment on above: Performed By: #### C DP #### [facility] [address] [place], [facility]83 Mortar Maker: Sami Abbasi MD MCHC (RBC) [Mass/Vol] 34.0 g/dL Normal 28.4-34.8 [facility] Comment on above: Performed By: #### C DP #### [facility] [address] [place], [facility]83 Mortar Maker: Sami Abbasi MD MCV (RBC) [Entitic vol] 85.8 fL Normal 82.6-102.9 [facility] Comment on above: Performed By: #### C DP #### [facility] [address] [place], [facility]83 Mortar Maker: Sami Abbasi MD NRBC Automated 0.0 per 100 WBC Normal 0.0 [facility] Comment on above: Performed By: #### C DP #### [facility] [address] [place] [facility] Mortar Maker: Sami Abbasi MD Platelet Count See Reflexed IPF Result Normal 138-453 [facility] Comment on above: Performed By: #### C DP #### [facility] [address] [place] [facility] Mortar Maker: Sami Abbasi MD RBC (Bld) [#/Vol] 2.95 10*6/uL Low 3.95-5.11 [facility] Comment on above: Performed By: #### C DP #### [facility] [address] [place] [address] Mortar Maker: Sami Abbasi MD WBC (Bld) [#/Vol] 14.8 10*3/uL High 3.5-11.3 [facility] Comment on above: Performed By: #### C DP #### [facility] [address] [place], [facility]83 Mortar Maker: Sami Abbasi MD Auto Diff Performed NOT REPORTED Normal [facility] Comment on above: Performed By: #### C DP #### [facility] [address] [place] [phone] Mortar Maker: Sami Abbasi MD MPV NOT REPORTED Normal 8.1-13.5 [facility] Comment on above: Performed By: #### C DP #### [facility] [address] [place] [address] Mortar Maker: Sami Abbasi MD Platelet Estimate NOT REPORTED Normal [facility] Comment on above: Performed By: #### C DP #### [facility] [address] [place], [place] [address] Mortar Maker: Sami Abbasi MD RBC morphology finding Nom (Bld) NOT REPORTED Normal [facility] Comment on above: Performed By: #### C DP #### [facility] [address] [place], [facility] Mortar Maker: Sami Abbasi MD WBC Morphology NOT REPORTED Normal [facility] Comment on above: Performed By: #### C DP #### [facility] [address] [place], [facility]83 Mortar Maker: Sami Abbasi MD Abs. Basophil 0.00 k/uL Normal 0.0-0.2 [facility] Comment on above: Performed By: #### C DP, IPF #### [facility] [address] [place], [facility] Mortar Maker: Sami Abbasi MD Abs.Imm.Granulocyte 0.16 k/uL Normal 0.00-0.30 [facility] Comment on above: Performed By: #### C DP, IPF #### [facility] [address] [place], [place] [address]67[address]83 Mortar Maker: Sami Abbasi MD Abs.Neutrophil (Seg) 12.25 k/uL High 1.50-8.10 [facility] Comment on above: Performed By: #### C DP, IPF #### [facility] [address] [place], [place] 3447183 Mortar Maker: Sami Abbasi MD Basophils/100 WBC (Bld) 0 % Normal 0-2 [facility] Comment on above: Performed By: #### C DP, IPF #### [address] [place], [facility]83 Mortar Maker: Sami Abbasi MD Eosinophils (Bld) [#/Vol] 0.00 10*3/uL Normal 0.00-0.44 [facility] Comment on above: Performed By: #### C DP, IPF #### [address] [place] [address] Mortar Maker: Sami Abbasi MD Eosinophils/100 WBC (Bld) 0 % Low 1-4 [facility] Comment on above: Performed By: #### C DP, IPF #### [address] [place] [address] Mortar Maker: Sami Abbasi MD Immature granulocytes/100 WBC (Bld) 1 % High 0 [facility] Comment on above: Performed By: #### C DP, IPF #### [address] [place], [place] [phone] Mortar Maker: Sami Abbasi MD Lymphocytes (Bld) [#/Vol] 1.88 10*3/uL Normal 1.10-3.70 [facility] Comment on above: Performed By: #### C DP, IPF #### [facility] [address] [place], [place] [address] Mortar Maker: Sami Abbasi MD Lymphocytes/100 WBC (Bld) 12 % Low 24-43 [facility] Comment on above: Performed By: #### C DP, IPF #### [facility] [address] [place], [place] 6800183 Mortar Maker: Sami Abbasi MD Monocytes (Bld) [#/Vol] 1.41 10*3/uL High 0.10-1.20 [facility] Comment on above: Performed By: #### C DP, IPF #### [facility] [address] [place], [place] [address]112783 Mortar Maker: Sami Abbasi MD Monocytes/100 WBC (Bld) 9 % Normal 3-12 [facility] Comment on above: Performed By: #### C DP, IPF #### [facility] [address] [place], [place] 2472183 Mortar Maker: Sami Abbasi MD Morphology Andrea (Bld) [Interp] Normal Normal [facility] Comment on above: Performed By: #### C DP, IPF #### [facility] [address] [place], [place] [address]83 Mortar Maker: Sami Abbasi MD Neutrophil (Seg) 78 % High 36-65 [facility] Comment on above: Performed By: #### C DP, IPF #### [facility] [address] [place], [place] [address]83 Mortar Maker: Sami Abbasi MD Erythrocyte distribution width (RBC) [Ratio] 13.7 % Normal 11.8-14.4 [facility] Comment on above: Performed By: #### C DP, IPF #### [facility] [address] [place], [place] 283[address]83 Mortar Maker: Sami Abbasi MD Hematocrit (Bld) [Volume fraction] 16.0 % Critically low 36.3-47.1 [facility] Comment on above: Performed By: #### C DP, IPF #### [facility] [address] [place], [place] [address]83 Mortar Maker: Sami Abbasi MD Hemoglobin (Bld) [Mass/Vol] 5.3 g/dL Critically low 11.9-15.1 [facility] Comment on above: Performed By: #### C DP, IPF #### [facility] [address] [place], [place] [address]83 Mortar Maker: Sami Abbasi MD MCH (RBC) [Entitic mass] 28.6 pg Normal 25.2-33.5 [facility] Comment on above: Performed By: #### C DP, IPF #### [address] [place], [place] [address]83 Mortar Maker: Sami Abbasi MD MCHC (RBC) [Mass/Vol] 33.1 g/dL Normal 28.4-34.8 [facility] Comment on above: Performed By: #### C DP, IPF #### [address] [place], [place] 6216383 Mortar Maker: Sami Abbasi MD MCV (RBC) [Entitic vol] 86.5 fL Normal 82.6-102.9 [facility] Comment on above: Performed By: #### C DP, IPF #### [address] [place], [place] [address]83 Mortar Maker: Sami Abbasi MD NRBC Automated 0.0 per 100 WBC Normal 0.0 [facility] Comment on above: Performed By: #### C DP, IPF #### [facility] [address] [place] [address] Mortar Maker: Sami Abbasi MD Platelet Count See Reflexed IPF Result Normal 138-453 [facility] Comment on above: Performed By: #### C DP, IPF #### [facility] [address] [place], [place] [phone] Mortar Maker: Sami Abbasi MD RBC (Bld) [#/Vol] 1.85 10*6/uL Low 3.95-5.11 [facility] Comment on above: Performed By: #### C DP, IPF #### [facility] [address] [place], [place] 586[address]83 Mortar Maker: Sami Abbasi MD WBC (Bld) [#/Vol] 15.7 10*3/uL High 3.5-11.3 [facility] Comment on above: Performed By: #### C DP, IPF #### [facility] [address] [place], [place] 3455383 Mortar Maker: Sami Abbasi MD Auto Diff Performed NOT REPORTED Normal [facility] Comment on above: Performed By: #### C DP, IPF #### [facility] [address] [place] [address] Mortar Maker: Sami Abbasi MD MPV NOT REPORTED Normal 8.1-13.5 [facility] Comment on above: Performed By: #### C DP, IPF #### [address] [place] [address] Mortar Maker: Sami Abbasi MD Platelet Estimate NOT REPORTED Normal [facility] Comment on above: Performed By: #### C DP, IPF #### [facility] [address] [place] [address] Mortar Maker: Sami Abbasi MD RBC morphology finding Nom (d) NOT REPORTED Normal [facility] Comment on above: Performed By: #### C DP, IPF #### [facility] [address] [place], [place] [address]18183 Mortar Maker: Sami Abbasi MD WBC Morphology NOT REPORTED Normal [facility] Comment on above: Performed By: #### C DP, IPF #### [facility] [address] [place] [address] Mortar Maker: Sami Abbasi MD CT ABDOMEN PELVIS WO [...] Bladimir Rodarte MD 05/13/21 Final result Normal [facility] CTA ABDOMEN PELVIS W WO CONT Sheri 05-13-2021 CTA ABDOMEN PELVIS W WO CONTRAST ADDENDUM: 3D reconstructed images were performed on a separate workstation and provided for review. Electronically Signed by: BLADIMRI RODARTE on WedMay 13, 2021 12:20:08 PM [...] MD 05/13/21 Edited Result - FINAL Normal [facility] Comp Metabolic Profon 2020 (cont.) Normal [facility] Comment on above: Result Comment: Aver age GFR for 20-29 years old: 116 mL/min/1.73sq m Chronic Kidney Disease: <60 mL/min/1.73sq m Kidney failure: <15 mL/min/1.73sq m eGFR calculated using average adult body mass. Additional eGFR calculator available at: http://www.[employer]/multiple_crcl_2011.htm Performed By: #### C DP #### [facility] [address] [place], [place] 394[address]83 Mortar Maker: Sami Abbasi MD Albumin [Mass/Vol] 2.2 g/dL Low 3.5-5.2 [facility] Comment on above: Performed By: #### C DP #### [facility] [address] [place], [place] 233[address]83 Mortar Maker: Sami Abbasi MD Albumin/Glob Ratio 0.8 Low 1.0-2.5 [facility] Comment on above: Performed By: #### C DP #### [facility] [address] [place], [place] 4825783 Mortar Maker: Sami Abbasi MD Alkaline Phos 154 U/L High 35-104 [facility] Comment on above: Performed By: #### C DP #### [facility] [address] [place], [place] 00[address]83 Mortar Maker: Sami Abbasi MD ALT [Catalytic activity/Vol] 48 U/L High 5-33 [facility] Comment on above: Performed By: #### C DP #### [facility] [address] [place], [place] 7744783 Mortar Maker: Sami Abbasi MD Anion gap [Moles/Vol] 11 mmol/L Normal 9-17 [facility] Comment on above: Performed By: #### C DP #### [facility] [address] [place], [place] 2635683 Mortar Maker: Sami Abbasi MD AST [Catalytic activity/Vol] 74 U/L High <32 [facility] Comment on above: Performed By: #### C DP #### [facility] [address] [place], [place] [address]83 Mortar Maker: Sami Abbasi MD Bilirubin [Mass/Vol] 0.26 mg/dL Low 0.3-1.2 [facility] Comment on above: Performed By: #### C DP #### [facility] [address] [place], [place] 337[address]83 Mortar Maker: Sami Abbasi MD BUN/CRE Ratio 18 Normal 9-20 [facility] Comment on above: Performed By: #### C DP #### [facility] [address] [place], [place] 4398683 Mortar Maker: Sami Abbasi MD Calcium [Mass/Vol] 7.5 mg/dL Low 8.6-10.4 [facility] Comment on above: Performed By: #### C DP #### [facility] [address] [place], [place] 4299383 Mortar Maker: Sami Abbasi MD Chloride [Moles/Vol] 103 mmol/L Normal 98-107 [facility] Comment on above: Performed By: #### C DP #### [facility] [address] [place], [place] 6605183 Mortar Maker: Sami Abbasi MD CO2 [Moles/Vol] 22 mmol/L Normal 20-31 [facility] Comment on above: Performed By: #### C DP #### [facility] [address] [place], [place] 2724083 Mortar Maker: Sami Abbasi MD Creatinine [Mass/Vol] 0.51 mg/dL Normal 0.50-0.90 [facility] Comment on above: Performed By: #### C DP #### [facility] [address] [place], [place] 4645683 Mortar Maker: Sami Abbasi MD GFR, Amer >60 Normal >60 [facility] Comment on above: Performed By: #### C DP #### [facility] [address] [place], [place] 420[address]83 Mortar Maker: Sami Abbasi MD GFR,non Amer >60 Normal >60 [facility] Comment on above: Performed By: #### C DP #### [facility] [address] [place], [place] 7067783 Mortar Maker: Sami Abbasi MD Glucose [Mass/Vol] 95 mg/dL Normal 70-99 [facility] Comment on above: Performed By: #### C DP #### [facility] [address] [place], [place] 557[address]83 Mortar Maker: Sami Abbasi MD Potassium [Moles/Vol] 3.7 mmol/L Normal 3.7-5.3 [facility] Comment on above: Performed By: #### C DP #### [facility] [address] [place], [place] 4212383 Mortar Maker: Sami Abbasi MD Protein [Mass/Vol] 4.9 g/dL Low 6.4-8.3 [facility] Comment on above: Performed By: #### C DP #### [facility] [address] [place], [place] 2717883 Mortar Maker: Sami Abbasi MD Sodium [Moles/Vol] 136 mmol/L Normal 135-144 [facility] Comment on above: Performed By: #### C DP #### [address] [place], [place] 768[address]83 Mortar Maker: Sami Abbasi MD Staging: Normal [facility] Comment on above: Result Comment: Stag e 1: Some kidney damage normal GFR Stage 2: Mild kidney damage GFR 60-89 Stage 3: Moderate kidney damage GFR 30-59 Stage 4: Severe kidney damage GFR 15-29 Stage 5: Severe kidney damage GFR <15 ESRD - chronic treatment by dialysis or transplant Performed By: #### C DP #### [facility] [address] [place], [place] [address]99883 Mortar Maker: Sami Abbasi MD Urea nitrogen [Mass/Vol] 9 mg/dL Normal 6-20 [facility] Comment on above: Performed By: #### C DP #### [facility] [address] [place], [place] 1760983 Mortar Maker: Sami Abbasi MD Fibrinogenon 05-13-2021 Fibrinogen 265 mg/dL Normal 179-518 [facility] Comment on above: Performed By: #### H H #### [facility] [address] [place], [place] 187[address]83 Mortar Maker: Sami Abbasi MD Hgb/Hcton 05-13-2021 Hematocrit (Bld) [Volume fraction] 16.0 % Critically low 36.3-47.1 [facility] Comment on above: Performed By: #### H H #### [address] [place], [place] [phone] Mortar Maker: Sami Abbasi MD Hemoglobin (Bld) [Mass/Vol] 5.3 g/dL Critically low 11.9-15.1 [facility] Comment on above: Performed By: #### H H #### [address] [place], [place] 6526383 Mortar Maker: Sami Abbasi MD Lactate Dehydrogenaseon 04-24 LDH [Catalytic activity/Vol] 394 U/L High 135-214 [facility] Comment on above: Performed By: #### C DP #### [facility] [address] [place], [place] 1045383 Mortar Maker: Sami Abbasi MD Lipaseon 05-13-2021 Lipase [Catalytic activity/Vol] 22 U/L Normal 13-60 [facility] Comment on above: Performed By: #### C DP #### [facility] [address] [place], [place] 4259183 Mortar Maker: Sami Abbasi MD PLT, Immature Fract.on 05-13 Platelet, Fluoresc. 115 k/uL Low 138-453 [facility] Comment on above: Performed By: #### H H #### [facility] [address] [place], [place] 7555883 Mortar Maker: Sami Abbasi MD PLT, Immature Fract. 3.3 % Normal 1.1-10.3 [facility] Comment on above: Performed By: #### H H #### [facility] [address] [place] [address] Mortar Maker: Sami Abbasi MD Platelet, Fluoresc. 114 k/uL [facility] 138-453 [facility] Comment on above: Performed By: #### C DP, IPF #### [address] [place], [place] [address]16383 Mortar Maker: Sami Abbasi MD PLT, Immature Fract. 3.9 % Normal 1.1-10.3 [facility] Comment on above: Performed By: #### C DP, IPF #### [address] [place], [place] 3265183 Mortar Maker: Sami Abbasi MD PTon 05-13-2021 INR Coag (PPP) [Relative time] 0.9 {INR} Normal [facility] Comment on above: Result Comment: Non-therapeutic Range: INR = 0.9-1.2 Therapeutic Range: Moderate Anticoagulant Intensity: INR = 2.0-3.0 High Anticoagulant Intensity: INR = 2.5-3.5 Performed By: #### H H #### [facility] [address] [place], [place] [id number] Mortar Maker: Sami Abbasi MD PT Coag (PPP) [Time] 12.3 s Normal 11.5-14.2 [facility] Comment on above: Performed By: #### H H #### [facility] [address] [place] [address] [place] [address] Mortar Maker: Sami Abbasi MD Type + Screenon 05-13-2021 Type + Screen Sample Expiration 05/14/2021,2359 Arm Band Number [id number] ABO/Rh(D) A NEGATIVE Antibody Screen NEGATIVE Unit Number [id number] Blood Component Type Leukocyte Reduced Red Cell Unit Division 00 Status of Unit TRANSFUSED Transfusion Status OK TO TRANSFUSE Crossmatch Result COMPATIBLE Unit Number [id number] Blood Component Type Leukocyte Reduced Red Cell Unit Division 00 Status of Unit TRANSFUSED Transfusion Status OK TO TRANSFUSE Crossmatch Result COMPATIBLE Unit Number [id number] Blood Component Type Leukocyte Reduced Red Cell Unit Division 00 Status of Unit TRANSFUSED Transfusion Status OK TO TRANSFUSE Crossmatch Result COMPATIBLE Unit Number [id number] Blood Component Type Leukocyte Reduced Red Cell Unit Division 00 Status of Unit TRANSFUSED Transfusion Status OK TO TRANSFUSE Crossmatch Result COMPATIBLE Unit Number [id number] Blood Component Type Leukocyte Reduced Red Cell Unit Division 00 Status of Unit TRANSFUSED Transfusion Status OK TO TRANSFUSE Crossmatch Result COMPATIBLE Normal [facility] Comment on above: Performed By: #### H H #### [address] [place] [address] Mortar Maker: Sami Abbasi MD Hemoglobinon 05-12-2021 Hemoglobin (Bld) [Mass/Vol] 7.2 g/dL Low 11.9-15.1 [facility] Comment on above: Performed By: #### H GB #### [address] [place], [facility] Mortar Maker: Sami Abbasi MD Hgb/Hcton 2 Hematocrit (Bld) [Volume fraction] 16.8 % Critically low 36.3-47.1 [facility] Comment on above: Performed By: #### H H #### [address] [place] [address] Mortar Maker: Sami Abbasi MD Hemoglobin (Bld) [Mass/Vol] 5.6 g/dL Critically low 11.9-15.1 [facility] Comment on above: Performed By: #### H H #### [facility] [address] [place] [address] Mortar Maker: Sami Abbasi MD Hematocrit (Bld) [Volume fraction] 31.3 % Low 36.3-47.1 [facility] Comment on above: Performed By: #### H H #### [facility] [address] [place] [address] Mortar Maker: Sami Abbasi MD Hemoglobin (Bld) [Mass/Vol] 10.3 g/dL Low 11.9-15.1 [facility] Comment on above: Performed By: #### H H #### [address] [place] [address] Mortar Maker: Sami Abbasi MD XR CHEST PORTABLEon 05-12-20 [...] Ernie Reza DO 05/11/21 Final result Normal [facility] CBCon 05-11-2021 Erythrocyte distribution width (RBC) [Ratio] 13.5 % Normal 11.8-14.4 [facility] Comment on above: Performed By: #### C DP, IPF #### [facility] [address] [place] [address] [place] [address] Mortar Maker: Sami Abbasi MD Hematocrit (Bld) [Volume fraction] 37.7 % Normal 36.3-47.1 [facility] Comment on above: Performed By: #### C DP, IPF #### [address] [place] [address] Mortar Maker: Sami Abbasi MD Hemoglobin (Bld) [Mass/Vol] 12.1 g/dL Normal 11.9-15.1 [facility] Comment on above: Performed By: #### C DP, IPF #### [facility] [address] [place] [address] Mortar Maker: Sami Abbasi MD MCH (RBC) [Entitic mass] 27.5 pg Normal 25.2-33.5 [facility] Comment on above: Performed By: #### C DP, IPF #### [facility] [address] [place] [address] Mortar Maker: Sami Abbasi MD MCHC (RBC) [Mass/Vol] 32.1 g/dL Normal 28.4-34.8 [facility] Comment on above: Performed By: #### C DP, IPF #### [address] [place] [address] Mortar Maker: Sami Abbasi MD MCV (RBC) [Entitic vol] 85.7 fL Normal 82.6-102.9 [facility] Comment on above: Performed By: #### C DP, IPF #### [address] [place] [address] Mortar Maker: Sami Abbasi MD NRBC Automated 0.0 per 100 WBC Normal 0.0 [facility] Comment on above: Performed By: #### C DP, IPF #### [address] [place] [address] Mortar Maker: Sami Abbasi MD Platelet Count See Reflexed IPF Result Normal 138-453 [facility] Comment on above: Performed By: #### C DP, IPF #### [facility] [address] [place] [address] Mortar Maker: Sami Abbasi MD RBC (Bld) [#/Vol] 4.40 10*6/uL Normal 3.95-5.11 [facility] Comment on above: Performed By: #### C DP, IPF #### [facility] [address] [place], [place] [id number] Mortar Maker: Sami Abbasi MD WBC (Bld) [#/Vol] 7.1 10*3/uL Normal 3.5-11.3 [facility] Comment on above: Performed By: #### C DP, IPF #### [facility] [address] [place], [place] [id number] Mortar Maker: Sami Abbasi MD MPV NOT REPORTED Normal 8.1-13.5 [facility] Comment on above: Performed By: #### C DP, IPF #### [address] [place], [place] [id number] Mortar Maker: Sami Abbasi MD Drug Scr, Abuse, Uron 2020 Amphetamine(s),Ur Negative Normal NEG [facility] Comment on above: Performed By: #### D AU #### [address] [place], [place] [id number] Mortar Maker: Sami Abbasi MD Barbiturate(s),Ur Positive Abnormal NEG [facility] Comment on above: Performed By: #### D AU #### [address] [place], [place] [phone] Mortar Maker: Sami Abbasi MD Benzodiazepine(s) Negative Normal NEG [facility] Comment on above: Performed By: #### D AU #### [facility] [address] [place] [address] [place], [place] [address]83 Mortar Maker: Sami Abbasi MD Buprenorphrine, Ur Negative Normal NEG [facility] Comment on above: Performed By: #### D AU #### [facility] [address] [place], [place] [address]83 Mortar Maker: Sami Abbasi MD Cannabinoid(s),Ur Negative Normal NEG [facility] Comment on above: Performed By: #### D AU #### [facility] [address] [place], [place] [phone] Mortar Maker: Sami Abbasi MD Cocaine Metabolite Negative Normal [facility] Comment on above: Performed By: #### D AU #### [facility] [address] [place], [place] [address]283 Mortar Maker: Sami Abbasi MD Methadone Ql (U) Negative Normal NEG [facility] Comment on above: Performed By: #### D AU #### [facility] [address] [place], [place] [id number] Mortar Maker: Sami Abbasi MD Methamphetamine, Ur Negative Normal NEG [facility] Comment on above: Performed By: #### D AU #### [facility] [address] [place], [facility] Mortar Maker: Sami Abbasi MD Opiate(s), Ur Negative Normal [facility] Comment on above: Performed By: #### D AU #### [facility] [address] [place], [facility] Mortar Maker: Sami Abbasi MD Oxycodone, Urine Negative Normal [facility] Comment on above: Performed By: #### D AU #### [facility] [address] [place], [facility] Mortar Maker: Sami Abbasi MD Phencyclidine, Ur Negative Normal NEG [facility] Comment on above: Performed By: #### D AU #### [facility] [address] [place], [place] [phone] Mortar Maker: Sami Abbasi MD Propoxyphene,Urine Negative Normal [facility] Comment on above: Performed By: #### D AU #### [facility] [address] [place] [address] Mortar Maker: Sami Abbasi MD Tricyclic antidepressants Screen Ql (U) Negative Normal NEG [facility] Comment on above: Result Comment: Drug screen results are to be used for medical purposes only. All positive results are unconfirmed. Testing for employment or legal uses should be sent to a reference laboratory for confirmation. Performed By: #### D AU #### [facility] [address] [place] [address] [place], [place] [phone] Mortar Maker: Sami Abbasi MD Interpretive Info NOT REPORTED Normal [facility] Comment on above: Performed By: #### D AU #### [facility] [address] [place] [address] [place] [id number] Mortar Maker: Sami Abbasi MD MDMA, Urine NOT REPORTED Normal NEG [facility] Comment on above: Performed By: #### D AU #### [address] [place] [id number] Mortar Maker: Sami Abbasi MD PLT, Immature Fract.on 05-11 Platelet, Fluoresc. 120 k/uL Low 138-453 [facility] Comment on above: Performed By: #### C DP, IPF #### [address] [place], [facility] Mortar Maker: Sami Abbasi MD PLT, Immature Fract. 3.7 % Normal 1.1-10.3 [facility] Comment on above: Performed By: #### C DP, IPF #### [address] [place] [id number] Mortar Maker: Sami Abbasi MD Surgical Pathologyon Surgical Pathology (NOTE) -- Diagnosis -- Placenta, [...] 22.0 x 14.0 x 3.0 cm Shape: [place] Weight: 340 grams (normal for gestation 39-40 [...] SURGICAL PATHOLOGY CONSULTATION Patient Name: WILLIE LEGGETT [facility] Rec: [id number] Path Number: [id number] [facility] ANATOMIC PATHOLOGY [address] [place] [address]. [place], [place] [address] Normal [facility] Comment on above: Performed By: #### D AU #### [facility] [address] [place] [address] Mortar Maker: Sami Abbasi MD US BIOPHYS PROFILE W [...] Ivan Hernandez MD 05/11/21 Final result Normal [facility] Cult,Urineon 05-09-2021 Cult,Urine Specimen Description .URINE Special Requests NOT REPORTED Culture NO GROWTH Report Status FINAL 05/09/2021 Normal [facility] Comment on above: Performed By: #### C DP, IPF #### [facility] [address] [place] [address] Mortar Maker: Sami Abbasi MD CBC auto differentialOrdered By: Suzy Manjarrez on 05-08-2021 Absolute Eos # <0.[address] [facility] Phone: Absolute Immature Granulocyte 0.[address] [facility] Phone: Absolute Lymph # 0.[address] [facility] Phone: Absolute Butts # 0.[address] [facility] Phone: Basophils (Bld) [#/Vol] 0.03 10*3/uL [facility] Phone: Basophils/100 WBC (Bld) 0 % 0 - 2 % [facility] [employer] Phone: Differential Type NOT REPORTED [employer] Phone: Eosinophils/100 WBC (Bld) 0 % Low 1 - 4 % [employer] Phone: Hematocrit (Bld) [Volume fraction] 34.0 % Low 36.3 - 47.1 % [employer] Phone: Hemoglobin.gastrointest inal spec 1 Ql (Stl) 11.1 g/dL Low 11.9 - 15.1 g/dL [employer] Phone: Immature granulocytes/100 WBC (Bld) 1 % High 0 [employer] Phone: Interpretation and review of laboratory results Abnormal [employer] Phone: Lymphocytes/100 WBC (Bld) 3 % Low 24 - 43 % [employer] Phone: MCH (RBC) [Entitic mass] 27.5 pg 25.2 - 33.5 pg [employer] Phone: MCHC (RBC) [Mass/Vol] 32.6 g/dL 28.4 - 34.8 g/dL [employer] Phone: MCV (RBC) [Entitic vol] 84.2 fL 82.6 - 102.9 fL [employer] Phone: Monocytes/100 WBC (Bld) 6 % 3 - 12 % [facility] [employer] Phone: NRBC Automated 0.0 0.0 per 100 WBC [employer] Phone: Platelet distribution width (Bld) [Ratio] 13.2 % 11.8 - 14.4 % [employer] Phone: Platelet Estimate NOT REPORTED [employer] Phone: Platelet mean volume (Bld) [Entitic vol] 10.9 fL 8.1 - 13.5 fL [employer] Phone: Platelets (Bld) [#/Vol] 159 10*3/uL [employer] Phone: RBC (Bld) [#/Vol] 4.04 10*6/uL 3.95 - 5.1 1 m/uL [employer] Phone: RBC (Bld) [#/Vol] NOT REPORTED [employer] Phone: Segmented neutrophils/100 WBC (Bld) 90 % High 36 - 65 % [employer] Phone: Segs Absolute 6.68 [employer] Phone: WBC (Bld) [#/Vol] 7.7 10*3/uL [employer] Phone: WBC (Bld) [#/Vol] NOT REPORTED [employer] Phone: [employer] Phone: CBC with Diffon 05-08-2021 Abs. Basophil 0.03 k/uL Normal 0.00-0.20 [facility] Comment on above: Performed By: #### C DP #### [facility] [address] [place] [address] [place], [place] [phone] Mortar Maker: Sami Abbasi MD Abs. Eosinophil <0.03 Normal 0.00-0.44 [facility] Comment on above: Performed By: #### C DP #### [facility] [address] [place] [address] [place] [address] Mortar Maker: Sami Abbasi MD Abs.Imm.Granulocyte 0.07 k/uL Normal 0.00-0.30 [facility] Comment on above: Performed By: #### C DP #### [facility] [address] [place], [place] [phone] Mortar Maker: Sami Abbasi MD Abs.Neutrophil (Seg) 6.68 k/uL Normal 1.50-8.10 [facility] Comment on above: Performed By: #### C DP #### [facility] [address] [place], [place] [phone] Mortar Maker: Sami Abbasi MD Basophils/100 WBC (Bld) 0 % Normal 0-2 [facility] Comment on above: Performed By: #### C DP #### [facility] [address] [place] [address] Mortar Maker: Sami Abbasi MD Eosinophils/100 WBC (Bld) 0 % Low 1-4 [facility] Comment on above: Performed By: #### C DP #### [facility] [address] [place], [place] [address]12[address]83 Mortar Maker: Sami Abbasi MD Immature granulocytes/100 WBC (Bld) 1 % High 0 [facility] Comment on above: Performed By: #### C DP #### [facility] [address] [place], [place] [phone] Mortar Maker: Sami Abbasi MD Lymphocytes (Bld) [#/Vol] 0.21 10*3/uL Low 1.10-3.70 [facility] Comment on above: Performed By: #### C DP #### [facility] [address] [place], [place] [phone] Mortar Maker: Sami Abbasi MD Lymphocytes/100 WBC (Bld) 3 % Low 24-43 [facility] Comment on above: Performed By: #### C DP #### [facility] [address] [place], [facility] Mortar Maker: Sami Abbasi MD Monocytes (Bld) [#/Vol] 0.46 10*3/uL Normal 0.10-1.20 [facility] Comment on above: Performed By: #### C DP #### [facility] [address] [place] [address] Mortar Maker: Sami Abbasi MD Monocytes/100 WBC (Bld) 6 % Normal 3-12 [facility] Comment on above: Performed By: #### C DP #### [facility] [address] [place] [address] Mortar Maker: Sami Abbasi MD Neutrophil (Seg) 90 % High 36-65 [facility] Comment on above: Performed By: #### C DP #### [address] [place], [place] [address]83 Mortar Maker: Sami Abbasi MD Erythrocyte distribution width (RBC) [Ratio] 13.2 % Normal 11.8-14.4 [facility] Comment on above: Performed By: #### C DP #### [facility] [address] [place] [address] [place], [place] [phone] Mortar Maker: Sami Abbais MD Hematocrit (Bld) [Volume fraction] 34.0 % Low 36.3-47.1 [facility] Comment on above: Performed By: #### C DP #### [address] [place], [place] [address]83 Mortar Maker: Sami Abbasi MD Hemoglobin (Bld) [Mass/Vol] 11.1 g/dL Low 11.9-15.1 [facility] Comment on above: Performed By: #### C DP #### [address] [place], [place] 9900483 Mortar Maker: Sami Abbasi MD MCH (RBC) [Entitic mass] 27.5 pg Normal 25.2-33.5 [facility] Comment on above: Performed By: #### C DP #### [address] [place], [place] [phone] Mortar Maker: Sami Abbasi MD MCHC (RBC) [Mass/Vol] 32.6 g/dL Normal 28.4-34.8 [facility] Comment on above: Performed By: #### C DP #### [address] [place], [place] 287[address]83 Mortar Maker: Sami Abbasi MD MCV (RBC) [Entitic vol] 84.2 fL Normal 82.6-102.9 [facility] Comment on above: Performed By: #### C DP #### [facility] [address] [place], [place] [phone] Mortar Maker: Sami Abbasi MD NRBC Automated 0.0 per 100 WBC Normal 0.0 [facility] Comment on above: Performed By: #### C DP #### [facility] [address] [place], [place] [address]23383 Mortar Maker: Sami Abbasi MD Platelet mean volume (Bld) [Entitic vol] 10.9 fL Normal 8.1-13.5 [facility] Comment on above: Performed By: #### C DP #### [address] [place], [place] [phone] Mortar Maker: Sami Abbasi MD Platelets (Bld) [#/Vol] 159 10*3/uL Normal 138-453 [facility] Comment on above: Performed By: #### C DP #### [address] [place], [place] [phone] Mortar Maker: Sami Abbasi MD RBC (Bld) [#/Vol] 4.04 10*6/uL Normal 3.95-5.11 [facility] Comment on above: Performed By: #### C DP #### [address] [place], [facility] Mortar Maker: Sami Abbasi MD WBC (Bld) [#/Vol] 7.7 10*3/uL Normal 3.5-11.3 [facility] Comment on above: Performed By: #### C DP #### [facility] [address] [place] [address] Mortar Maker: Sami Abbasi MD Auto Diff Performed NOT REPORTED Normal [facility] Comment on above: Performed By: #### C DP #### [facility] [address] [place] [address] Mortar Maker: Sami Abbasi MD Platelet Estimate NOT REPORTED Normal [facility] Comment on above: Performed By: #### C DP #### [facility] [address] [place], [place] [phone] Mortar Maker: Sami Abbasi MD RBC morphology finding Nom (Bld) NOT REPORTED Normal [facility] Comment on above: Performed By: #### C DP #### [facility] [address] [place], [place] [phone] Mortar Maker: Sami Abbasi MD WBC Morphology NOT REPORTED Normal [facility] Comment on above: Performed By: #### C DP #### [facility] [address] [place] [address] Mortar Maker: Sami Abbasi MD COVID-19, RapidOrdered By: Brenda Manjarrez on 05-08-2021 Interpretation and review of laboratory results Abnormal [facility] [employer] Phone: SARS-CoV-2 (COVID-19) RNA RONDA+probe Ql (Unsp spec) Detected Abnormal Not Detected [facility] [employer] Phone: Comment on above: Rapid NAAT: The [...] this assay. Fact sheet for Healthcare Providers: https://www.fda.gov/media/764026/download Fact sheet for Patients: https://www.fda.gov/media/830909/download Methodology: Isothermal Nucleic Acid Amplification Results reported to the appropriate Health Department Specimen Description .NASOPHARYNGEAL SWAB [facility] Phone: [facility] Work Phone: Comp Metabolic Profon 2020 (cont.) Normal [facility] Comment on above: Result Comment: Aver age GFR for 20-29 years old: 116 mL/min/1.73sq m Chronic Kidney Disease: <60 mL/min/1.73sq m Kidney failure: <15 mL/min/1.73sq m eGFR calculated using average adult body mass. Additional eGFR calculator available at: http://www.[employer]/multiple_crcl_2011.htm Performed By: #### C DP, IPF #### [facility] [address] [place] [address] [place], [place] [phone] Mortar Maker: Sami Abbasi MD Albumin [Mass/Vol] 3.7 g/dL Normal 3.5-5.2 [facility] Comment on above: Performed By: #### C DP, IPF #### [facility] [address] [place] [address] [place] [address] Mortar Maker: Sami Abbasi MD Albumin/Glob Ratio 1.1 Normal 1.0-2.5 [facility] Comment on above: Performed By: #### C DP, IPF #### [address] [place] [address] Mortar Maker: Sami Abbasi MD Alkaline Phos 155 U/L High 35-104 [facility] Comment on above: Performed By: #### C DP, IPF #### [facility] [address] [place] [address] Mortar Maker: Sami Abbasi MD ALT [Catalytic activity/Vol] 13 U/L Normal 5-33 [facility] Comment on above: Performed By: #### C DP, IPF #### [facility] [address] [place] [address] Mortar Maker: Sami Abbasi MD Anion gap [Moles/Vol] 15 mmol/L Normal 9-17 [facility] Comment on above: Performed By: #### C DP, IPF #### [facility] [address] [place], [place] [phone] Mortar Maker: Sami Abbasi MD AST [Catalytic activity/Vol] 31 U/L Normal <32 [facility] Comment on above: Performed By: #### C DP, IPF #### [facility] [address] [place], [place] [phone] Mortar Maker: Sami Abbasi MD Bilirubin [Mass/Vol] 0.28 mg/dL Low 0.3-1.2 [facility] Comment on above: Performed By: #### C DP, IPF #### [facility] [address] [place], [place] [address]08[address]83 Mortar Maker: Sami Abbasi MD BUN/CRE Ratio 14 Normal 9-20 [facility] Comment on above: Performed By: #### C DP, IPF #### [facility] [address] [place], [place] 8235383 Mortar Maker: Sami Abbasi MD Calcium [Mass/Vol] 8.8 mg/dL Normal 8.6-10.4 [facility] Comment on above: Performed By: #### C DP, IPF #### [facility] [address] [place], [place] [address]83 Mortar Maker: Sami Abbasi MD Chloride [Moles/Vol] 98 mmol/L Normal 98-107 [facility] Comment on above: Performed By: #### C DP, IPF #### [facility] [address] [place], [place] 105[address]83 Mortar Maker: Sami Abbasi MD CO2 [Moles/Vol] 20 mmol/L Normal 20-31 [facility] Comment on above: Performed By: #### C DP, IPF #### [facility] [address] [place], [place] [phone] Mortar Maker: Sami Abbasi MD Creatinine [Mass/Vol] 0.58 mg/dL Normal 0.50-0.90 [facility] Comment on above: Performed By: #### C DP, IPF #### [facility] [address] [place], [place] [phone] Mortar Maker: Sami Abbasi MD GFR, Amer >60 Normal >60 [facility] Comment on above: Performed By: #### C DP, IPF #### [facility] [address] [place], [place] [phone] Mortar Maker: Sami Abbasi MD GFR,non Amer >60 Normal >60 [facility] Comment on above: Performed By: #### C DP, IPF #### [facility] [address] [place], [place] [phone] Mortar Maker: Sami Abbasi MD Glucose [Mass/Vol] 76 mg/dL Normal 70-99 [facility] Comment on above: Performed By: #### C DP, IPF #### [facility] [address] [place], [place] [phone] Mortar Maker: Sami Abbasi MD Potassium [Moles/Vol] 3.8 mmol/L Normal 3.7-5.3 [facility] Comment on above: Performed By: #### C DP, IPF #### [facility] [address] [place], [place] [phone] Mortar Maker: Sami Abbasi MD Protein [Mass/Vol] 7.1 g/dL Normal 6.4-8.3 [facility] Comment on above: Performed By: #### C DP, IPF #### [facility] [address] [place] [address] Mortar Maker: Sami Abbasi MD Sodium [Moles/Vol] 133 mmol/L Low 135-144 [facility] Comment on above: Performed By: #### C DP, IPF #### [facility] [address] [place], [place] [phone] Mortar Maker: Saim Abbasi MD Staging: Normal [facility] Comment on above: Result Comment: Stag e 1: Some kidney damage normal GFR Stage 2: Mild kidney damage GFR 60-89 Stage 3: Moderate kidney damage GFR 30-59 Stage 4: Severe kidney damage GFR 15-29 Stage 5: Severe kidney damage GFR <15 ESRD - chronic treatment by dialysis or transplant Performed By: #### C DP, IPF #### [facility] [address] [place], [place] [phone] Mortar Maker: Sami Abbasi MD Urea nitrogen [Mass/Vol] 8 mg/dL Normal 6-20 [facility] Comment on above: Performed By: #### C DP, IPF #### [facility] [address] [place], [place] [phone] Mortar Maker: Sami Abbasi MD Comprehensive metabolic pane lOrdered By: Suzy Manjarrez on 05-08-2021 Albumin [Mass/Vol] 3.7 g/dL 3.5 - 5.2 g/dL [employer] Phone: Albumin/Globulin [Mass ratio] 1.1 {ratio} [employer] Phone: ALP (Bld) [Catalytic activity/Vol] 155 U/L High 35 - 104 U/L [facility] Phone: ALT [Catalytic activity/Vol] 13 U/L 5 - 33 U/L [facility] Phone: Anion gap [Moles/Vol] 15 mmol/L 9 - 17 mmol/L [employer] Phone: AST [Catalytic activity/Vol] 31 U/L <32 [employer] Phone: Bilirubin [Mass/Vol] 0.28 mg/dL Low 0.3 - 1 .2 mg/dL [employer] Phone: Calcium [Mass/Vol] 8.8 mg/dL 8.6 - 10. 4 mg/dL [employer] Phone: Chloride [Moles/Vol] 98 mmol/L 98 - 10 7 mmol/L [employer] Phone: CO2 [Moles/Vol] 20 mmol/L 20 - 31 mmol/L [employer] Phone: Creatinine [Mass/Vol] 0.58 mg/dL 0.50 - 0.90 mg/dL [employer] Phone: Free PSA/Total PSA [Mass fraction] 7.1 g/dL 6.4 - 8.3 g/dL [employer] Phone: GFR >60 >60 mL/min [facility] Phone: GFR Non- >60 >60 mL/min [employer] Phone: Glucose [Mass/Vol] 76 mg/dL 70 - 99 mg/dL [facility] Phone: Interpretation and review of laboratory results Abnormal [employer] Phone: Potassium [Moles/Vol] 3.8 mmol/L 3.7 - 5.3 mmol/L [facility] Phone: Sodium [Moles/Vol] 133 mmol/L Low 135 - 144 mmol/L [employer] Phone: Urea nitrogen (BldV) [Mass/Vol] 8 mg/dL 6 - 20 mg/dL [employer] Phone: Urea nitrogen/Creatinine (Bld) [Mass ratio] 14 [facility] Phone: [employer] Phone: Laboratory - Chemistry and C hemistry - challengeOrdered By: Suzy Manjarrez on 05-08-2021 GFR/1.73 sq M.predicted MDRD (S/P/Bld) [Vol rate/Area] [employer] Phone: Comment on above: Average GFR for 20-2 9 years old: 116 mL/min/1.73sq m Chronic Kidney Disease: <60 mL/min/1.73sq m Kidney failure: <15 mL/min/1.73sq m eGFR calculated using average adult body mass. Additional eGFR calculator available at: http://www.[employer]/multiple_crcl_2012.htm Stage 1: Some kidney damage normal GFR Stage 2: Mild kidney damage GFR 60-89 Stage 3: Moderate kidney damage GFR 30-59 Stage 4: Severe kidney damage GFR 15-29 Stage 5: Severe kidney damage GFR <15 ESRD - chronic treatment by dialysis or transplant Microscopic UrinalysisOrdere d By: Suzy Manjarrez on 05-08-2021 - [facility] Work Phone: Amorphous, UA NOT REPORTED None [facility] Work Phone: Bacteria, UA NOT REPORTED None [facility] Work Phone: Casts UA NOT REPORTED /LPF [facility] Work Phone: Crystals, UA NOT REPORTED None /HPF [facility] Work Phone: Epithelial Cells UA [address] [facility] Work Phone: Mucus, UA NOT REPORTED None [facility] Work Phone: Other Observations UA NOT REPORTED NOT REQ. M [facility] Work Phone: RBC, UA [address] [facility] Work Phone: Renal Epithelial, UA NOT REPORTED 0 /HPF [facility] Work Phone: Trichomonas, UA NOT REPORTED None [facility] Work Phone: WBC, UA 0 TO 2 [facility] Work Phone: Yeast, UA NOT REPORTED None [facility] Work Phone: No Panel InformationOrdered By: Suzy Manjarrez on 05-08-2021 [employer] Work Phone: [id number] 05-08-2021 SARS-CoV-2 (COVID-19) RNA RONDA+probe Ql (Unsp spec) Detected Abnormal NOTDET [facility] Comment on above: Result Comment: Rapid NAAT: [...] this assay. Fact sheet for Healthcare Providers: https://www.fda.gov/media/044030/download Fact sheet for Patients: https://www.fda.gov/media/999688/download Methodology: Isothermal Nucleic Acid Amplification Results reported to the appropriate Health Department Performed By: #### H H #### [facility] [address] [place], [place] [phone] Mortar Maker: Sami Abbasi MD Strep Gr A Direct [...] upon request. Report Status FINAL 05/08/2021 Normal [facility] Comment on above: Performed By: #### H H #### [facility] [address] [place], [place] [phone] Mortar Maker: Sami Abbasi MD Strep Screen Group A ThroatO rdered By: Suzy Manjarrez on 05-08-2021 S. pyogenes Ag IA Ql (Unsp spec) Rapid Strep A negative. A negative Rapid Group A Strep Screen result does not rule out the possibility of Group A Streptococci in the specimen. A Group A Strep DNA test is available upon request. [employer] Phone: Special Requests NOT REPORTED [facility] Phone: Specimen Description .THROAT SWAB [facility] Work Phone: [facility] Work Phone: UrinalysisOrdered By: Nilay Manjarrez on 05-08-2021 Bilirubin Urine Negative NEGATIVE [facility] Phone: Color, UA YELLOW YELLOW [facility] Work Phone: Glucose, Ur Negative NEGATIVE [facility] Work Phone: Interpretation and review of laboratory results Abnormal [facility] Phone: Ketones Ql (U) 2+ Abnormal NEGATIVE [facility] Phone: Leukocyte esterase Test strip Ql (U) Negative NEGATIVE [facility] Phone: Nitrite, Urine Negative NEGATIVE [facility] Phone: pH, UA 6.5 [facility] Work Phone: Protein, UA Negative NEGATIVE [facility] Phone: Specific [place], UA 1.025 [facility] Phone: Turbidity UA CLEAR CLEAR [facility] Phone: Urinalysis Comments NOT REPORTED [facility] Work Phone: Urine Hgb Negative NEGATIVE [facility] Phone: Urobilinogen, Urine Normal Normal [facility] Phone: Urinalysis, Routineon 2020 Bilirubin, SemiQt,Ur Negative Normal NEG [facility] Comment on above: Performed By: #### C DP, IPF #### [facility] [address] [place] [address] Mortar Maker: aSmi Abbasi MD Blood, Urine Negative Normal NEG [facility] Comment on above: Performed By: #### C DP, IPF #### [facility] [address] [place], [place] [phone] Mortar Maker: Sami Abbasi MD Clarity (U) CLEAR Normal CLEAR [facility] Comment on above: Performed By: #### C DP, IPF #### [facility] [address] [place], [place] [phone] Mortar Maker: Sami Abbasi MD Color (U) YELLOW Normal YEL [facility] Comment on above: Performed By: #### C DP, IPF #### [facility] [address] [place], [place] [phone] Mortar Maker: Sami Abbasi MD Glucose Ql (U) Negative Normal NEG [facility] Comment on above: Performed By: #### C DP, IPF #### [facility] [address] [place], [place] [phone] Mortar Maker: Sami Abbasi MD Ketones Ql (U) 2+ Abnormal NEG [facility] Comment on above: Performed By: #### C DP, IPF #### [facility] [address] [place], [place] [phone] Mortar Maker: Sami Abbasi MD Leukocyte esterase Test strip Ql (U) Negative Normal NEG [facility] Comment on above: Performed By: #### C DP, IPF #### [facility] [address] [place], [place] [phone] Mortar Maker: Sami Abbasi MD Nitrite,Ur Negative Normal NEG [facility] Comment on above: Performed By: #### C DP, IPF #### [facility] [address] [place], [place] [phone] Mortar Maker: Sami Abbasi MD PH,Ur 6.5 Normal 5.0-9.0 [facility] Comment on above: Performed By: #### C DP, IPF #### [facility] [address] [place], [place] [phone] Mortar Maker: Sami Abbasi MD Protein Ql (U) Negative Normal NEG [facility] Comment on above: Performed By: #### C DP, IPF #### [facility] [address] [place], [place] [phone] Mortar Maker: Sami Abbasi MD Spec. [place],Ur 1.025 High 1.010-1.020 [facility] Comment on above: Performed By: #### C DP, IPF #### [facility] [address] [place] [address] Mortar Maker: Sami Abbasi MD Urobilinogen,Ur Normal Normal NORM [facility] Comment on above: Performed By: #### C DP, IPF #### [facility] [address] [place], [place] 100[address] Mortar Maker: Sami Abbasi MD Comment NOT REPORTED Normal [facility] Comment on above: Performed By: #### C DP, IPF #### [facility] [address] [place] [address] [place], [place] [phone] Mortar Maker: Sami Abbasi MD Urinalysis,Microon 1 ----- Normal [facility] Comment on above: Performed By: #### C DP, IPF #### [address] [place] [address] Mortar Maker: Sami Abbasi MD Epithelial cells LM Ql (Urine sed) 10 TO 20 Normal 0-25 [facility] Comment on above: Performed By: #### C DP, IPF #### [facility] [address] [place], [place] [phone] Mortar Maker: Sami Abbasi MD Urine RBC's 0 TO 2 Normal 0-2 [facility] Comment on above: Performed By: #### C DP, IPF #### [facility] [address] [place], [place] [phone] Mortar Maker: Sami Abbasi MD Urine WBC's 0 TO 2 Normal 0-5 [facility] Comment on above: Performed By: #### C DP, IPF #### [facility] [address] [place], [place] [phone] Mortar Maker: Sami Abbasi MD Amorphous sediment LM Ql (Urine sed) NOT REPORTED Normal [facility] Comment on above: Performed By: #### C DP, IPF #### [facility] [address] [place], [place] [phone] Mortar Maker: Sami Abbasi MD Bacteria NOT REPORTED Normal NONE [facility] Comment on above: Performed By: #### C DP, IPF #### [facility] [address] [place], [place] [phone] Mortar Maker: Sami Abbasi MD Casts NOT REPORTED Normal [facility] Comment on above: Performed By: #### C DP, IPF #### [facility] [address] [place], [place] [phone] Mortar Maker: Sami Abbasi MD Crystals LM Nom (Urine sed) NOT REPORTED Normal [facility] Comment on above: Performed By: #### C DP, IPF #### [address] [place], [place] [phone] Mortar Maker: Sami Abbasi MD Epithelial, Renal NOT REPORTED Normal 0 [facility] Comment on above: Performed By: #### C DP, IPF #### [facility] [address] [place], [place] [phone] Mortar Maker: Sami Abbasi MD Mucus Strands NOT REPORTED Normal [facility] Comment on above: Performed By: #### C DP, IPF #### [facility] [address] [place], [place] [phone] Mortar Maker: Sami Abbasi MD Other Observations NOT REPORTED Normal NREQ [facility] Comment on above: Performed By: #### C DP, IPF #### [facility] [address] [place], [place] [phone] Mortar Maker: Sami Abbasi MD Trichomonas NOT REPORTED Normal [facility] Comment on above: Performed By: #### C DP, IPF #### [facility] [address] [place], [place] [address] Mortar Maker: Sami Abbasi MD Yeast NOT REPORTED Normal [facility] Comment on above: Performed By: #### C DP, IPF #### [facility] [address] [place], [place] [phone] Mortar Maker: Sami Abbasi MD Rule Out Grp.B Strepon 05-02 Rule Out Grp.B Strep Specimen Descriptio n .VAGINA Special Requests NOT REPORTED Culture NEGATIVE FOR GROUP B STREPTOCOCCI Report Status FINAL 05/02/2021 [facility] Comment on above: Performed By: #### C DP, IPF #### [facility] [address] [place], [place] [phone] Mortar Maker: Sami Abbasi MD Glucose Soraya Scr 50gon 2020 Glucose [Mass/Vol] 93 mg/dL Normal 70-135 [facility] Comment on above: Performed By: #### D AU #### [address] [place], [place] [phone] Mortar Maker: Sami Abbasi MD Glu Administered via Glucola [facility] Comment on above: Performed By: #### D AU #### [facility] [address] [place] [address] [place] [address] Mortar Maker: Sami Abbasi MD Glucose tolerance, 1 hourOrd ered By: Suzy Manjarrez on 02-25-2021 GLU ADMN Glucola [facility] Work Phone: Glucose tolerance screen 50g 93 mg/dL 70 - 135 mg/dL [facility] Phone: [facility] Phone: Hemoglobinon 07-06-2021 Hemoglobin (Bld) [Mass/Vol] 11.7 g/dL Low 11.9-15.1 [facility] Comment on above: Performed By: #### D AU #### [facility] [address] [place] [address] Mortar Maker: Sami Abbasi MD HemoglobinOrdered By: Nilay Manjarrez on 02-25-2021 Hemoglobin.gastrointest inal spec 1 Ql (Stl) 11.7 g/dL Low 11.9 - 15.1 g/dL [facility] [employer] Phone: Interpretation and review of laboratory results Abnormal [facility] Phone: [facility] Phone: RhIg Workup (RhoGam)on 02-25 [facility]Ig Workup ([employer]hoGam) Blood Component Typ e MANUFACTURED PRODUCT Units Ordered 1 ABO/Rh(D) A NEGATIVE Antibody Screen NEGATIVE History Check A NEG Unit Number [id number] Blood Component Type RHIG Unit Division 00 Status of Unit TRANSFUSED Transfusion Status OK TO TRANSFUSE Normal [facility] Comment on above: Performed By: #### C DP, IPF #### [facility] [address] [place] [address] [place] [address] Mortar Maker: Sami Abbasi MD Hepatitis C Antibodyon 10-08 Hepatitis C Ab NONREACTIVE NONREACTIVE [facility] Phone: Comment on above: The hepatitis C [...] TYPE AND SCREENon 0 10-07-2020 ABO/Rh Negative [facility] Phone: Urine Drug Screen, Comprehen siveon 10-07-2020 Amphetamine Screen, Ur Negative NEGATIVE [facility] Phone: Barbiturate Screen, Ur Positive Abnormal NEGATIVE [...] Work Phone: MDMA, Urine NOT REPORTED NEGATIVE [facility] Work Phone: Methadone Screen, Urine Negative NEGATIVE [facility] Work Phone: Methamphetamine, Urine Negative NEGATIVE [facility] Work Phone: Opiates, Urine Negative NEGATIVE [facility] Work Phone: Oxycodone Screen, Ur Negative NEGATIVE [facility] Work Phone: Phencyclidine, Urine Negative NEGATIVE [facility] Work Phone: Propoxyphene, Urine Negative NEGATIVE [facility] Work Phone: Test Information NOT REPORTED [facility] Work Phone: Tricyclic Antidepressants, Urine Negative NEGATIVE [facility] Work Phone: Comment on above: Drug screen results are to be used for medical purposes only. All positive results are unconfirmed. Testing for employment or legal uses should be sent to a reference laboratory for confirmation. Vital Signs Date Time Vital Sign Value Performing Clinician Faci lity 05-25-2021 17:42-0400 Body temperature 98.01 [degF] Leeann Hidalgo MD Work Phone: [employer] Work Phone: 05-25-2021 17:42-0400 Diastolic blood pressure 83 mm[Hg] Leeann Hidalgo MD Work Phone: [employer] Work Phone: 05-25-2021 17:42-0400 Heart rate 95 /min Leeann Hidalgo MD Work Phone: [employer] Work Phone: 05-25-2021 17:42-0400 Respiratory rate 18 /min Leeann Hidalgo MD Work Phone: [employer] Work Phone: 05-25-2021 17:42-0400 SaO2% (BldA) [Mass fraction] 100 % Leeann Hidalgo MD Work Phone: [employer] Work Phone: 05-25-2021 17:42-0400 Systolic blood pressure 154 mm[Hg] Leeann Hidalgo MD Work Phone: [employer] Work Phone: 05-08-2021 08:50-0400 Body temperature 99.1 [degF] Suzy Pool TRIMMER AND BORER MACHINE OPERATOR - CNM Work Phone: [employer] Work Phone: 05-08-2021 05:20-0400 Respiratory rate 17 /min Suzy Pool TRIMMER AND BORER MACHINE OPERATOR - CNM Work Phone: [employer] Work Phone: 05-08-2021 03:50-0400 Diastolic blood pressure 58 mm[Hg] Suzy Pool TRIMMER AND BORER MACHINE OPERATOR - CNM Work Phone: [employer] Work Phone: 05-08-2021 03:50-0400 Heart rate 109 /min Suzy Pool TRIMMER AND BORER MACHINE OPERATOR - CNM Work Phone: [employer] Work Phone: 05-08-2021 03:50-0400 Systolic blood pressure 99 mm[Hg] Suzy Pool TRIMMER AND BORER MACHINE OPERATOR - CNM Work Phone: [employer] Work Phone: 02-26-2021 09:53-0400 Body temperature 96.91 [degF] Mth 01 [employer] Phone: 02-26-2021 09:53-0400 Diastolic blood pressure 76 mm[Hg] [address] [facility] Phone: 02-26-2021 09:53-0400 Heart rate 94 /min [address] [employer] Phone: 02-26-2021 09:53-0400 Respiratory rate 20 /min [address] [facility] Work Phone: 02-26-2021 09:53-0400 Systolic blood pressure 134 mm[Hg] [facility] [employer] Phone: Encounters Encounter Date Encounter Type Care Provider Facility Start: 05-01-2024 End: 05-01-2024 ambulatory BRETT JOSH Not Available Start: 04-19-2024 End: 04-19-2024 ambulatory CHARI JUANITO Not Available Start: 02-21-2024 End: 02-21-2024 ambulatory CHARI JUANITO Not Available Start: 01-31-2024 End: 01-31-2024 ambulatory CHARI JUANITO Not Available Start: 12-22-2023 End: 12-25-2023 ambulatory DAIJA [facility] Start: 12-22-2023 Encounter for preprocedural laboratory examination [facility] Start: 10-14-2023 End: 10-15-2023 [facility] Start: 09-14-2023 End: 09-14-2023 ambulatory ERNIE ZURITA Not Available Start: 09-29-2021 End: 09-30-2021 ambulatory [facility] Start: 05-25-2021 End: 05-25-2021 Emergency department patient visit LEEANN HIDALGO [facility] Start: 05-25-2021 End: 05-25-2021 Emergency department patient visit Leeann Hidalgo MD Work Phone: [facility] ED Comment on above: Vaginal bleeding (Pr imary Dx) Start: 05-21-2021 End: 05-22-2021 ambulatory [facility] Start: 05-21-2021 End: 05-21-2021 Subsequent hospital visit by physician Daija Howard MD Work Phone: [facility] Laboratory Comment on above: Abnormal uterine ble eding, Start: 05-21-2021 End: 05-24-2021 ambulatory [facility] [facility] Start: 05-11-2021 End: 05-15-2021 Evaluation and management of inpatient [facility] [place] [facility] Start: 05-08-2021 End: 05-08-2021 ambulatory [facility] Start: 05-08-2021 End: 05-08-2021 Subsequent hospital visit by physician Suzy Bowman CNM Work Phone: [facility] Labor and Delivery Start: 04-29-2021 End: 04-30-2021 ambulatory [facility] Start: 04-29-2021 End: 04-29-2021 Subsequent hospital visit by physician Daija [facility] MD [facility] Comment on above: 36 weeks gestation o f Start: 02-26-2021 End: 02-27-2021 ambulatory [facility] Start: 02-26-2021 End: 02-26-2021 Subsequent hospital visit by physician Jimi Goodwin Treatment Rm 01 [facility] Specialty Clinic (MOB) Start: 02-25-2021 End: 02-26-2021 ambulatory [facility] Start: 02-25-2021 End: 02-25-2021 Subsequent hospital visit by physician Daija Howard MD Work Phone: [facility] Laboratory Comment on above: 27 weeks gestation [...] Start: 05-08-2021 COVID-19, RAPID Suzy E Pool TRIMMER AND BORER MACHINE OPERATOR - CNM Work Phone: Start: 05-08-2021 Iaadiadoo streptococcus group a Suzy E Pool TRIMMER AND BORER MACHINE OPERATOR - CNM Work Phone: Start: 05-08-2021 Comprehensive metabolic panel Suzy E Pool TRIMMER AND BORER MACHINE OPERATOR - CNM Work Phone: Start: 05-08-2021 Urinalysis microscopic only Suzy E Pool TRIMMER AND BORER MACHINE OPERATOR - CNM Work Phone: Start: 05-08-2021 Urnls dip stick/tablet rgnt auto w/o microscopy Suzy E Pool TRIMMER AND BORER MACHINE OPERATOR - CNM Work Phone: Start: 05-08-2021 nonstress test Suzy E Pool APR N - CNM Work Phone: Start: 02-25-2021 Blood count hemoglobin Suzy E Pool A PRN - CNM Work Phone: Start: 02-25-2021 Blood typing serologic rh (d) Suzy E Pool TRIMMER AND BORER MACHINE OPERATOR - CNM Work Phone: Start: 10-07-2020 Antibody screen Daija Howard Start: 10-07-2020 Hepatitis c antibody Suzy E Pool Work Phone: Start: 10-07-2020 Blood typing serologic abo Suzy E Pool Work Phone: Start: 10-07-2020 Obstetric panel Suzy Manjarrez Work Phone: Start: 10-07-2020 Drug screen, qualitate/multi Suzy Manjarrez Work Phone: H/O: section S/P primar y low transverse Daija Howard MD Work Phone: Plan of Treatment Date Care Activity Detail Author Start: 03-17-2031 DTaP/Tdap/Td vaccine (8 - Td or Tdap) DTaP/Tdap/Td vaccine (8 - Td or Tdap) [employer] Work Phone: Start: 07-23-2022 Screening for malign ant neoplasm of cervix ZZ Cervical cancer screen age 21-29 [facility] Phone: Comment on above: Postponed from 04/26 (Not Indicated) Start: 02-19-2022 Influenza vaccination Flu vaccine (# 1) [facility] Work Phone: Comment on above: Postponed from 04/23 (Not Indicated) Start: 06-23-2021 End: 06-23-2021 ambulatory 06/23/2021 Visit Obstetrics and Gynecology Suzy Manjarrez APRN - JESSICA [address] [place] [address] [facility] Start: 05-20-2021 End: 05-20-2021 Patient encounter procedure 05/20/2021 Routine Obstetrics and Gynecology Suzy Manjarrez APRN - CNM [address] [place] [address] [facility] Start: 05-13-2021 End: 05-13-2021 Patient encounter procedure 05/13/2021 Routine Obstetrics and Gynecology Suzy Manjarrez APRN - JESSICA [address] [place] [address] [facility] Start: 05-06-2021 End: 05-06-2021 Patient encounter procedure 05/06/2021 Routine Obstetrics and Gynecology Suzy Manjarrez APRN - JESSICA [address] [place] [address] [facility] Start: 04-23-2021 Influenza vaccination Flu vaccine (# 1) [facility] Phone: Start: 03-17-2021 End: 03-17-2021 Patient encounter procedure 03/17/2021 Routine Obstetrics and Gynecology Paul Garcia MD [address] [place] [address] [facility] Start: 03-17-2021 End: 03-17-2021 Professional / ancillary services management 03/17/2021 Ancillary Procedure Obstetrics and Gynecology [facility] Start: 02-26-2021 Subsequent hospital visit by physician 02/26/2021 Hospital Encounter Infusion Therapy [facility] Start: 10-16-2020 End: 10-16-2020 Ancillary Procedure [facility] Start: 04-23-2020 Influenza vaccination Flu vaccine (# 1) [facility] Phone: Start: 2016 Screening for malign ant neoplasm of cervix [facility] Phone: Start: 2014 DTaP/Tdap/Td vaccine (1 - Tdap) DTaP/Tdap/Td vaccine (1 - Tdap) [facility] Phone: Start: 2010 HIV screening HIV screen [facility] Work Phone: Start: 2007 COVID-19 Vaccine (1) COVID-19 Vaccin e (1) [facility] Phone: Start: 2006 HPV vaccine (1 - 2-d ose series) HPV vaccine (1 - 2-dose series) [employer] Phone: Start: 1996 Varicella vaccine (1 of 2 - 2-dose childhood series) Varicella vaccine (1 of 2 - 2-dose childhood series) [employer] Phone: Start: 1995 Hepatitis C screening Hepatitis C sc reen [employer] Phone: End: 05-08-2021 Bacteria identified in Urine by Culture Urine culture Microbiology Routine One Time for 1 Occurrences starting 05/08/2021 until 05/08/2021 [employer] Phone: Comment on above: One Time for 1 Occur rences starting 05/08/2021 until 05/08/2021 End: 10-07-2020 C.trachomatis N.gonorrhoeae DNA, Urine C.trachomatis N.gonorrhoeae DNA, Urine Microbiology Routine Amenorrhea Positive urine test Encounter for supervision of normal first in first trimester 1 Occurrences starting 10/07/2020 until 10/07/2020 [employer] Phone: Comment on above: 1 Occurrences starti ng 10/07/2020 until 10/07/2020 C.trachomatis N.gonorrhoeae DNA, Urine C.trachomatis N.gonorrhoeae DNA, Urine Microbiology Routine Amenorrhea Positive urine test Encounter for supervision of normal first in first trimester 10/07/2020 11:00 AM EST [employer] Phone: End: 04-29-2021 Culture, Strep B Screen, Vaginal/Rectal Culture, Strep B Screen, Vaginal/Rectal Microbiology Routine 36 weeks gestation of 1 Occurrences starting 04/29/2021 until 04/29/2021 [employer] Phone: Comment on above: 1 Occurrences starti ng 04/29/2021 until 04/29/2021 Culture, Strep B Scr een, Vaginal/Rectal Culture, Strep B Screen, Vaginal/Rectal Microbiology Routine 36 weeks gestation of 04/29/2021 12:15 PM EDT [employer] Phone: End: 10-07-2020 Culture, Urine Culture, Urine Microbiology Routine Amenorrhea Positive urine test Encounter for supervision of normal first in first trimester 1 Occurrences starting 10/07/2020 until 10/07/2020 [employer] Phone: Comment on above: 1 Occurrences starti ng 10/07/2020 until 10/07/2020 Culture, Urine [employer] Phone: End: 10-07-2020 HIV Screen HIV Screen Lab Routine Amenorrhea Positive urine test Encounter for supervision of normal first in first trimester 1 Occurrences starting 10/07/2020 until 10/07/2020 [employer] Phone: Comment on above: 1 Occurrences starti ng 10/07/2020 until 10/07/2020 HIV Screen HIV Screen Lab R outine Amenorrhea Positive urine test Encounter for supervision of normal first in first trimester 10/07/2020 12:12 PM EST [employer] Phone: Nonrebreather mask oxygen Nonrebreather mask oxygen Respiratory Care Routine As directed - RT (PRN) until discontinued starting 05/08/2021 [employer] Phone: Comment on above: As directed - RT (WA N) until discontinued starting 05/08/2021 PROFILE I PROF ILE I Lab Routine Amenorrhea Positive urine test Encounter for supervision of normal first in first trimester 10/07/2020 12:11 PM EST [employer] Phone: RHOGAM ANTEPARTUM RHOGAM ANTEPAR KAYLEEN Blood Bank Routine 27 weeks gestation of Need for rhogam due to Rh negative mother 02/25/2021 6:39 PM EDT [employer] Phone: End: 05-08-2021 Sample possible blood bank testing Sample possible blood bank testing Lab Routine One Time for 1 Occurrences starting 05/08/2021 until 05/08/2021 [employer] Phone: Comment on above: One Time for 1 Occur rences starting 05/08/2021 until 05/08/2021 End: 05-08-2021 SVE SVE Point of Care Testing Routine One Time for 1 Occurrences starting 05/08/2021 until 05/08/2021 [employer] Work Phone: Comment on above: One Time for 1 Occur rences starting 05/08/2021 until 05/08/2021 Immunizations Immunization Date Immunization Notes Care Provider Christopher looney 03-17-2021 tetanus toxoid, redu melony diphtheria toxoid, and acellular pertussis vaccine, adsorbed Daija Howard MD Work Phone: [employer] Work Phone: Payers Date Payer Category Payer Unknown [id number] 2020 Unknown [id number]. [id number] 1995 Unknown [id number] 2.16.8 [id number] 1995 Unknown [id number] 2.16.8 [id number] 1995 Unknown [id number] 2.16.8 [id number] 1995 Unknown [id number] 2.16.8 [id number] 1995 Unknown [id number] 2.16.8 [id number] 1995 Unknown [id number] 2.16.8 40.1.883047.3.579.2.173 1995 Unknown [id number] 2.16.8 40.1.871535.3.579.2.173 1995 Unknown [id number] 2.16.8 40.1.948491.3.579.2.173 1995 Unknown [id number] 2.16.8 40.1.285832.3.579.2.173 1995 Unknown [id number] 2.16.8 40.1.784275.3.579.2.173 1995 Unknown [id number] 2.16.8 40.1.572380.3.579.2.172 1995 Unknown [id number] 2.16.8 40.1.438394.3.579.2.172 1995 Unknown [id number] 2.16.84 0.1.084497.3.579.2.1259 1995 Unknown [id number] 2.16.84 0.1.076554.3.579.2.1259 1995 Unknown [id number] 2.16.84 0.1.969925.3.579.2.1259 1995 Unknown [id number] 2.16.84 0.1.056866.3.579.2.1259 1995 Unknown [id number] 2.16.84 [id number] Social History Date Type Detail Facility Start: 10-07-2020 End: 05-21-2021 Tobacco smoking status [facility] Never smoker [employer] Phone: Start: 10-07-2020 End: 05-21-2021 Tobacco use and exposure Never used [employer] Phone: Start: 10-07-2020 End: 05-21-2021 Alcohol intake Ex-drinker (finding) [employer] Phone: Start: 08-30-2020 [employer] [facility] Work Phone: Start: 1995 [facility]-CoV -2 (event) [facility] sure [facility] -[facility] ([facility]) Yes [facility] Discharge instructions 05-25-2021 InstructionsAttachments Note Date & Type Note Facility 05-25-2021 Hospital Discharg e instructions Leeann Hidalgo MD - 05/25/2021 Make sure to stay well-hydrated. Follow-up with Yanet Cox, anny to schedule the earliest appointment. Return immediately for any bleeding more than a pad an hour passing large golf ball size clots or any other acute concerns. The following attachments cannot be sent through Care Everywhere.Vaginal Bleeding (Lithuanian)documented in this encounter [employer] Work Phone: History of Present illness Narrative 05-08-2021 Suzy ManjarrezPRAVINN - CNM - 05/08/2021 7:45 AM EDT [...] NEGATIVE Ketones, Urine 2+ (A) NEGATIVE Specific [place], UA 1.025 (H) 1.010 - 1.020 Urine [...] 0.21 (L) 1.10 - 3.70 k/uL Absolute Butts # 0.46 0.10 - 1.20 k/uL Absolute [...] with pt recommendations for IV infusion at [facility] Pt will discuss with her and make a decision documented in this encounter [employer] Phone: Hospital Discharge instructions 02-26-2021 Instructions Note Date & Type Note Facility 02-26-2021 Hospital Discharg e Dahlia Faulkner, NEFTALY - 02/26/2021 Outpatient Instructions for IM or Subcutaneous Injections [address] [place] [address] You are advised to carry out the [...] NEAREST EMERGENCY ROOM documented in this encounter [employer] Phone: Evaluation note Note Date & Type Note Facility Evaluation note Diagnosis 27 weeks gestation of state, incidental Need for rhogam due to Rh negative mother Need for prophylactic immunotherapy Impaired glucose in , antepartum documented in this encounter [employer] Phone: Evaluation note Note Date & Type Note Facility Evaluation note Diagnosis 36 weeks gestation of state, incidental documented in this encounter [employer] Phone: Evaluation note Note Date & Type Note Facility Evaluation note Diagnosis SARS-CoV-2 antibody positive- Primary 37 weeks gestation of state, incidental documented in this encounter [employer] Phone: Evaluation note Note Date & Type Note Facility Evaluation note Diagnosis Abnormal uterine bleeding, Other immediate hemorrhage, documented in this encounter [employer] Phone: Evaluation note Note Date & Type Note Facility Evaluation note Diagnosis Vaginal bleeding- Primary Other specified noninflammatory disorder of vagina documented in this encounter [employer] Phone: Hospital Discharge instructions Instructions Note Date & Type Note Facility Hospital Discharge instructions Ericka Vila RN - 05/08/[address] Jose Manjarrez [facility] Dr. Yanet Valencia [address] [facility] [address] [place] or [place] ACTIVITY LIMITATIONS: ( X )Up and about [...] AND DELIVERY . documented in this encounter [employer] Phone: Assessments Diagnosis Amenorrhea Absence of menstruation [...] blood post op. Pt was seen in [place] ED 5 days ago for cramping, continued [...] RN) PRN Medication Order 05/06/2021 05/07/2021 05/08/2021 ipiegpycke-[id number]-[id number] (FIORICET, ESGIC) per tablet 1 tablet 1 [...] On 05/25/21 at 1845, For 1 dose 185 (New Bag - Prov ider: Dasha Rossi RN)194 (Stopped - Provider: Dasha Hoffman RN) ketorolac (TORADOL) injection 30 mg (COMPLETED) 30 mg, IntraVENous, ONCE, On 05/25/21 at 1845, For 1 dose, Do not administer for more than 5 days. 1850 (Given - Provid er: Dasha Rossi RN) INFORMATION SOURCE (unrecogn ized section and content) DATE CREATED AUTHOR 10/08/2021 [facility] DATE CREATED AUTHOR AUTHOR'S ORGANIZ ATION 01/20/2022 [facility] DATE CREATED AUTHOR AUTHOR'S ORGANIZ ATION 10/22/2023 [facility] [place] [facility] DATE CREATED AUTHOR AUTHOR'S ORGANIZ ATION 12/25/2023 [facility] DATE CREATED AUTHOR AUTHOR'S ORGANIZ ATION 05/02/2024 [facility] FOR RECORDS PERTAINING TO PATIENTS [...] BE BASED ON THE PRIMARY CLINICAL RECORDS. [facility] [employer] [facility]. provides no warranty or guarantee of the accuracy or completeness of information in this document.
[2024-06-08 08:13] LABS: Progesterone 18.1 ng/mL (.)
== END 2024-06-07 13:41 | disposition home or self-care (01) ==
LOC: LAB 13:40
PROVIDERS: Family Provider Family Medicine; PCP Family Medicine; Visit Provider Obstetrics & Gynecology
DX: N97.0 Female infertility associated with anovulation (principal)
CPT/HCPCS: 36415; 84144

== ENCOUNTER 2024-07-12 20:09 | Outpatient (REF) | payer BC, SELFPAY ==
--- OUTSIDE RECORDS SUMMARY | 2024-07-12 20:14 | XMS_ITS | CCD ---
Author Organization [facility] Care Team Providers Care Terrazzo Grinder Name Role Phone Marzena Howardfer L Primary Care Provi tex MUSHTAQ GARCIA Referring Unavailable GREENSLADE-CHEL, DAIJA L Primary Care Un available POOL, SUZY E Referring Unavailable GREENSLADE-CHEL, DAIJA L Primary Care Un available POOL, SUZY E Referring Unavailable GREENSLADE-CHEL, DAIJA L Primary Care Un available TESSA HIDALGO Attending Unavailable GREENSLADE-CHEL, DAIJA L Primary Care Un available POOL, SUZY E Attending Unavailable GREENSLADE-CHEL, DAIJA L Primary Care Un available POOL, SUZY E Admitting Unavailable POOL, SUZY E Attending Unavailable JOSE EARL Admitting Unavailable GREENSLADE-CHEL, DAIJA L Primary Care Un available POOL, SUZY E Referring Unavailable GREENSLADE-CHEL, DAIJA L Primary Care Un available MUSHTAQ GARCIA Referring Unavailable GREENSLADE-CHEL, DAIJA L Primary Care Un available POOL, SUZY E Referring Unavailable GREENSLADE-CHEL, DAIJA L Primary Care Un available POOL, SUZY E Referring Unavailable GREENSLADE-CHEL, DAIJA L Primary Care Un available GREENSLADE-CHEL, DAIJA L Primary Care Un available POOL, SUZY E Referring Unavailable GREENSLADE-CHEL, DAIJA L Primary Care Un available POOL, SUZY E Referring Unavailable KATHARINA CASPER Attending Unavailable DAX SLAUGHTER Attending Unavailable DAX SLAUGHTER Attending Unavailable DAX SLAUGHTER Attending Unavailable JOSH, YAMILETH Attending Unavailable Daija Milligan MD Primary Care Provider Pennie LUMP ROLLER, Katharina Unavailable DAX SLAUGHTER Referring Unavailable DAIJA MILLIGAN Primary Care Unavailable Medications Current Medications Medication Drug Class(es) Dates Sig (Normalized) Sig (Original) acetaminophen 325 mg / butalbital 50 mg / caffeine 40 mg oral tablet (7 sources) Barbiturate, Central Nervous System Stimulant, Methylxanthine Start: 05-08-2021 butalbital-aceta minophen-caffein e (FIORICET, ESGIC) per tablet 1 tablet Start: 10-02-2020 take 1 tablet by mouth every six hours as needed for headache zgfatmcqky-tnmngingvxbis-typxjtng (YAMIL CET, ESGIC) 50-325-40 MG per tablet Take 1 tablet by mouth every 6 hours as needed for Headaches 30 tablet 1 10/02/2020 Active amitriptyline hydrochloride 25 mg oral tablet (1 source) Tricyclic Antidepressant Start: 05-17-2024 take 1 tablet by mouth at bedtime amitriptyline (Elavil) 25 MG tablet Indications: Migraine without aura and without status migrainosus, not intractable (CMS/HCC) Take 1 tablet (25 mg) by mouth at bedtime 90 tablet 1 05/17/2024 Active azithromycin 250 mg oral tablet (2 [...] [Abnormal glucose complicating ] Episodic Female infertility (4 sources) Female infertility associated with anovulation; Translations: [Female infertility, unspecified] Onset: 10-14-2023 04-12-2024 Chronic Headache; including migraine (1 source) Migraine without aura, not refractory ; Translations: [Migraine without aura, not intractable, without status migrainosus] Onset: 09-14-2023 09-14-2023 Chronic Immunizations and screening for infectious disease (5 sources) Anti-D globulin needed; Translations: [Encounter for prophylactic Rho(D) immune globulin] Onset: 05-08-2021 Episodic Menstrual disorders (3 sources) Amenorrhea; Translations: [Missed period] Onset: 04-12-2024 04-12-2024 Chronic Other complications of ; puerperium affecting [...] Classification Problem Date Documented Da te Episodic/Chronic Ovarian cyst (1 source) Complex ovarian cyst; Translations: [Other ovarian cyst, unspecified side] Onset: 02-21-2024 02-21-2024 Episodic Residual codes; unclassified (2 sources) Gestation period, 38 weeks; Translations: [38 weeks gestation of ] Onset: 05-11-2021 Resolved: 05-21-2021 05-21-2021 Episodic NEGATED: Highlighted row has been ruled out!Unclassified (3 sources) No known active problems Results Test Name Value Interpretation Reference Range Facility Progesterone [Mass/Vol]on PROGESTERONE 28.9 ng/mL Normal [facility] Comment on above: Result Comment: FEMALES: 1st Tri: 4.7-50.7 ng/ml 2nd Tri: 19.4-45.3 ng/ml MENSTRUATING FEMALES: Follicular: 0.3-1.5 ng/ml Mid Luteal: 5.2-18.6 ng/ml Post Kiya: <0.1-0.8 ng/ml Performed By: #### 2 [id number] #### [facility] ([id number]) [address] [place] [address], [address] [place] [address] ALL PROGESTERONEon PROGESTERONE 18.1 ng/mL . [facility] Comment on above: Follicular phase 0.1 - 0.9 Luteal phase 1.8 - 23.9 Ovulation phase 0.1 - 12.0 First trimester 11.0 - 44.3 Second trimester 25.4 - 83.3 Third trimester 58.7 - 214.0 Postmenopausal 0.0 - 0.1 Performed at: - [address] [id number] Furnace Hand: Reji Carlos PhD, Phone: [phone] [facility] HCG, Quanton 12-22-2023 HCG, Quant <1.0 Normal <5 [facility] Comment on above: Result Comment: Non-preg premeno <=5 Postmeno <=8 Male <=3 If HCG results do not concur with clinical observations, additional testing to confirm results is recommended. Performed By: #### B HCG #### [facility] [address] [place] [address] Furnace Hand: Bhanu Chambers MD XR HYSTEROSALPINGOGRAPHY S A [...] by: Gal Blair MD 12/22/23 Final result [facility] Progesteroneon 10-15-2023 Progesterone 25.40 ng/mL Normal [facility] Comment on above: Result Comment: Female: Follicular phase <0.19 ng/mL Ovulation phase 0.06-4.14 ng/mL Luteal phase 4.11-14.5 ng/mL Postmenopausal <0.13 ng/mL Performed By: #### P ANDREW #### [place] [address] Furnace Hand: Bhanu Chambers MD Lab - Toxicology Resultson 0 01-20-2022 Lab - Toxicology Results [id number] Normal [facility] Measles/Mumps/Rubella Immuni ty LCon 01-20-2022 Mumps Abs, IgG LC 146.0 AU/mL Invalid Interpretation Code Immune >10.9 [facility] Comment on above: Result Comment: Nega tive <9.0 Equivocal 9.0 - 10.9 Positive >10.9 A positive result generally indicates past exposure to Mumps virus or previous vaccination. Performed At: [facility] [address] [place], [place] [id number] Breanna Mendoza PhD Ph:[phone] Performed By: #### 1 [id number], [id number] #### [facility] (DEFAULT) [address] [place] [address] Rubella Antibodies, IgG LC 3.65 index Invalid Interpretation Code Immune >0.99 [facility] Comment on above: Result Comment: Non- immune <0.90 Equivocal 0.90 - 0.99 Immune >0.99 Performed By: #### 1 [id number], [id number] #### [facility] (DEFAULT) [address] [place] [address] Rubeola Ab, IgG, EIA LC 41.4 AU/mL Invalid Interpretation Code Immune >16.4 [facility] Comment on above: Result Comment: Nega tive <13.5 Equivocal 13.5 - 16.4 Positive >16.4 Presence of antibodies to Rubeola is presumptive evidence of immunity except when acute infection is suspected. Performed By: #### 1 [id number], [id number] #### [facility] (DEFAULT) [address] [place] [address] Nicotine Metabolite, Urine L Con 01-20-2022 Cotinine LC Negative Invalid Interpretation Code [id number] [facility] Comment on above: Result Comment: Perf ormed At: [facility] [address] [facility], [place] [id number] Ranjith Rendon PhD Ph:[phone] Performed By: #### 1 [id number] #### [facility] (DEFAULT) [address] [place] [address] HBSab Qnt LCon 01-18-2022 Hep B Surf Ab Quant LC >1000.0 Invalid Interpretation Code Immunity>9.9 [facility] Comment on above: Result Comment: Stat us of Immunity Anti-HBs Level Inconsistent with Immunity 0.0 - 9.9 Consistent with Immunity >9.9 Performed At: [facility] [place] [id number] [place], [place] [id number] Breanna Mendoza PhD Ph:[phone] Performed By: #### 1 [id number], [id number] #### [facility] (DEFAULT) [address] [place] [address] Cytologyon 09-29-2021 Cytology (NOTE) INTERPRETATION Cervical material, (ThinPrep vial, Imaging-assisted review): Specimen Adequacy: Satisfactory for evaluation. - Endocervical/transformati on zone component present. Descriptive Diagnosis: Negative for intraepithelial lesion or malignancy. Field Auto Appraiser: VALENTE MARCUS(ASCP) Electronically Signed Out /10/07/2021 Source: A: Cervical material, (ThinPrep vial, Imaging-assisted review) Clinical History Z01.419 Routine inspector clip on sunglasses exam without abnormal findings High risk HPV DNA testing is requested if the diagnosis is abnormal GYNECOLOGIC CYTOLOGY REPORT Patient Name: WILLIE LEGGETT [facility] Rec: [id number] Path Number: [id number] [facility] ANATOMIC PATHOLOGY [address] [place] [address]. [place], [place] [address] Normal [facility] Comment on above: Performed By: #### D AU #### [facility] [address] [place] [address] Furnace Hand: Sami Abbasi MD APTTon 05-25-2021 aPTT Coag (Bld) [Time] 44.1 s High 23.9-33.8 [facility] Comment on above: Result Comment: IV Heparin Therapy Range: 62.0-94.0 Performed By: #### C DP #### [facility] [address] [place] [address] Furnace Hand: Sami Abbasi MD APTTOrdered By: Tessa Hidalgo on 05-25-2021 aPTT Coag (Bld) [Time] 44.1 s High [facility] Work Phone: Comment on above: IV Heparin Therapy Range: 62.0-94.0 Interpretation and review of laboratory results Abnormal [employer] Phone: [employer] Phone: CBC Auto DifferentialOrdered By: Tessa Hidalgo on 05-25-2021 Absolute Eos # 0.09 [employer] Phone: Absolute Immature Granulocyte 0.04 [employer] Phone: Absolute Lymph # 2.13 [employer] Phone: Absolute [place] # 0.61 [employer] Phone: Basophils (Bld) [#/Vol] 0.07 10*3/uL [employer] Phone: Basophils/100 WBC (Bld) 1 % 0 - 2 % [employer] Phone: Differential Type NOT REPORTED [employer] Phone: Eosinophils/100 WBC (Bld) 1 % 1 - 4 % [employer] Phone: Hematocrit (Bld) [Volume fraction] 31.0 % Low 36.3 - 47.1 % [employer] Phone: Hemoglobin.gastrointes tinal spec 1 Ql (Stl) 9.8 g/dL Low 11.9 - 15.1 g/dL [employer] Phone: Immature granulocytes/100 WBC (Bld) 1 % High 0 [employer] Phone: Interpretation and review of laboratory results Abnormal [employer] Phone: Lymphocytes/100 WBC (Bld) 25 % 24 - 43 % [employer] Phone: MCH (RBC) [Entitic mass] 29.0 pg 25.2 - 33.5 pg [employer] Phone: MCHC (RBC) [Mass/Vol] 31.6 g/dL 28.4 - 34.8 g/dL [employer] Phone: MCV (RBC) [Entitic vol] 91.7 fL 82.6 - 102.9 fL [employer] Phone: Monocytes/100 WBC (Bld) 7 % 3 - 12 % [employer] Phone: NRBC Automated 0.0 0.0 per 100 WBC [employer] Phone: Platelet distribution width (Bld) [Ratio] 14.7 % High 11.8 - 14.4 % [employer] Phone: Platelet Estimate NOT REPORTED [employer] Phone: Platelet mean volume (Bld) [Entitic vol] 8.0 fL Low 8.1 - 13.5 fL [employer] Phone: Platelets (Bld) [#/Vol] 399 10*3/uL [employer] Phone: RBC (Bld) [#/Vol] 3.38 10*6/uL Low 3.95 - 5.1 1 m/uL [employer] Phone: RBC (Bld) [#/Vol] NOT REPORTED [employer] Phone: Segmented neutrophils/100 WBC (Bld) 65 % 36 - 65 % [employer] Phone: Segs Absolute 5.57 [employer] Phone: WBC (Bld) [#/Vol] 8.5 10*3/uL [employer] Phone: WBC (Bld) [#/Vol] NOT REPORTED [employer] Phone: [employer] Phone: CBC with Diffon 05-25-2021 Abs. Basophil 0.07 k/uL Normal 0.00-0.20 [facility] Comment on above: Performed By: #### C DP, CP, LIP #### [facility] [address] [place] [address] Furnace Hand: Sami Abbasi MD Abs.Imm.Granulocyte 0.04 k/uL Normal 0.00-0.30 [facility] Comment on above: Performed By: #### C DP, CP, LIP #### [facility] [address] [place], [place] [address] Furnace Hand: Sami Abbasi MD Abs.Neutrophil (Seg) 5.57 k/uL Normal 1.50-8.10 [facility] Comment on above: Performed By: #### C DP, CP, LIP #### [facility] [address] [place] [address] [address] [place], [place] [address] Furnace Hand: Sami Abbasi MD Basophils/100 WBC (Bld) 1 % Normal 0-2 [facility] Comment on above: Performed By: #### C DP, CP, LIP #### [address] [place] [address] Furnace Hand: Sami Abbasi MD Eosinophils (Bld) [#/Vol] 0.09 10*3/uL Normal 0.00-0.44 [facility] Comment on above: Performed By: #### C DP, CP, LIP #### [address] [place], [place] [address] Furnace Hand: Sami Abbasi MD Eosinophils/100 WBC (Bld) 1 % Normal 1-4 [facility] Comment on above: Performed By: #### C DP, CP, LIP #### [address] [place], [facility] Furnace Hand: Sami Abbasi MD Erythrocyte distribution width (RBC) [Ratio] 14.7 % High 11.8-14.4 [facility] Comment on above: Performed By: #### C DP, CP, LIP #### [address] [place], [facility] Furnace Hand: Sami Abbasi MD Hematocrit (Bld) [Volume fraction] 31.0 % Low 36.3-47.1 [facility] Comment on above: Performed By: #### C DP, CP, LIP #### [address] [place], [facility] Furnace Hand: Sami Abbasi MD Hemoglobin (Bld) [Mass/Vol] 9.8 g/dL Low 11.9-15.1 [facility] Comment on above: Performed By: #### C DP CP, LIP #### [address] [place] [address] Furnace Hand: Sami Abbasi MD Immature granulocytes/100 WBC (Bld) 1 % High 0 [facility] Comment on above: Performed By: #### C DENG CP, LIP #### [address] [place], [facility] Furnace Hand: Sami Abbasi MD Lymphocytes (Bld) [#/Vol] 2.13 10*3/uL Normal 1.10-3.70 [facility] Comment on above: Performed By: #### C DENG CP, LIP #### [address] [place], [place] [address] Furnace Hand: Sami Abbasi MD Lymphocytes/100 WBC (Bld) 25 % Normal 24-43 [facility] Comment on above: Performed By: #### C FELICIANO VILCHIS, LIP #### [address] [place] [address] Furnace Hand: Sami Abbasi MD MCH (RBC) [Entitic mass] 29.0 pg Normal 25.2-33.5 [facility] Comment on above: Performed By: #### C DENG CP, LIP #### [address] [place] [address] Furnace Hand: Sami Abbasi MD MCHC (RBC) [Mass/Vol] 31.6 g/dL Normal 28.4-34.[address] [facility] Comment on above: Performed By: #### C DP CP, LIP #### [address] [place], [place] [address] Furnace Hand: Sami Abbasi MD MCV (RBC) [Entitic vol] 91.7 fL Normal 82.6-102.9 [facility] Comment on above: Performed By: #### C DP, CP, LIP #### [facility] [address] [place], [place] [address] Furnace Hand: Sami Abbasi MD Monocytes (Bld) [#/Vol] 0.61 10*3/uL Normal 0.10-1.20 [facility] Comment on above: Performed By: #### C DP, CP, LIP #### [facility] [address] [place], [facility] Furnace Hand: Sami Abbasi MD Monocytes/100 WBC (Bld) 7 % Normal 3-12 [facility] Comment on above: Performed By: #### C DP CP, LIP #### [facility] [address] [place], [facility] Furnace Hand: Sami Abbasi MD Neutrophil (Seg) 65 % Normal 36-65 [facility] Comment on above: Performed By: #### C DP CP, LIP #### [facility] [address] [place], [place] [address] Furnace Hand: Sami Abbasi MD NRBC Automated 0.0 per 100 WBC Normal 0.0 [facility] Comment on above: Performed By: #### C DP CP, LIP #### [address] [place], [facility] Furnace Hand: Sami Abbasi MD Platelet mean volume (Bld) [Entitic vol] 8.0 fL Low 8.1-13.5 [facility] Comment on above: Performed By: #### C DP, CP, LIP #### [facility] [address] [place], [place] [id number] Furnace Hand: Sami Abbasi MD Platelets (Bld) [#/Vol] 399 10*3/uL Normal 138-453 [facility] Comment on above: Performed By: #### C DP, CP, LIP #### [facility] [address] [place] [address] Furnace Hand: Sami Abbasi MD RBC (Bld) [#/Vol] 3.38 10*6/uL Low 3.95-5.11 [facility] Comment on above: Performed By: #### C DP, CP, LIP #### [facility] [address] [place] [address] Furnace Hand: Sami Abbasi MD WBC (Bld) [#/Vol] 8.5 10*3/uL Normal 3.5-11.3 [facility] Comment on above: Performed By: #### C DP, CP, LIP #### [address] [place] [address] Furnace Hand: Sami Abbasi MD Auto Diff Performed NOT REPORTED Normal [facility] Comment on above: Performed By: #### C DP, CP, LIP #### [facility] [address] [place] [address] [place] [address] Furnace Hand: Sami Abbasi MD Platelet Estimate NOT REPORTED Normal [facility] Comment on above: Performed By: #### C DP, CP, LIP #### [address] [place] [address] Furnace Hand: Sami Abbasi MD RBC morphology finding Nom (Bld) NOT REPORTED Normal [facility] Comment on above: Performed By: #### C DP, CP, LIP #### [facility] [address] [place] [address] [place] [address] Furnace Hand: Sami Abbasi MD WBC Morphology NOT REPORTED Normal [facility] Comment on above: Performed By: #### C DP, CP, LIP #### [facility] [address] [place] [address] [place] [address] Furnace Hand: Sami Abbasi MD Comp Metabolic Profon 2020 (cont.) Normal [facility] Comment on above: Result Comment: Aver age GFR for 20-29 years old: 116 mL/min/1.73sq m Chronic Kidney Disease: <60 mL/min/1.73sq m Kidney failure: <15 mL/min/1.73sq m eGFR calculated using average adult body mass. Additional eGFR calculator available at: http://www.[employer]/multiple_crcl_2011.htm Performed By: #### C DP, CP, LIP #### [facility] [address] [place] [address] [address] [place], [place] [id number] Furnace Hand: Sami Abbasi MD Albumin [Mass/Vol] 3.4 g/dL Low 3.5-5.2 [facility] Comment on above: Performed By: #### C DENG CP, LIP #### [address] [place], [place] [address] Furnace Hand: Sami Abbasi MD Albumin/Glob Ratio 1.0 Normal 1.0-2.5 [facility] Comment on above: Performed By: #### C DENG CP, LIP #### [address] [place], [place] [address] Furnace Hand: Sami Abbasi MD Alkaline Phos 108 U/L High 35-104 [facility] Comment on above: Performed By: #### C DP CP, LIP #### [address] [place], [place] [address] Furnace Hand: Sami Abbasi MD ALT [Catalytic activity/Vol] 12 U/L Normal 5-33 [facility] Comment on above: Performed By: #### C DP, CP, LIP #### [address] [place], [place] [address] Furnace Hand: Sami Abbasi MD Anion gap [Moles/Vol] 11 mmol/L Normal 9-[address] [facility] Comment on above: Performed By: #### C DP, CP, LIP #### [facility] [address] [place], [place] [address] Furnace Hand: Sami Abbasi MD AST [Catalytic activity/Vol] 19 U/L Normal <32 [facility] Comment on above: Performed By: #### C DP, CP, LIP #### [facility] [address] [place], [place] [address] Furnace Hand: Sami Abbasi MD Bilirubin [Mass/Vol] 0.21 mg/dL Low 0.3-1.2 [facility] Comment on above: Performed By: #### C DP, CP, LIP #### [facility] [address] [place], [place] [address] Furnace Hand: Sami Abbasi MD BUN/CRE Ratio 43 High 9-20 [facility] Comment on above: Performed By: #### C DP, CP, LIP #### [facility] [address] [place], [place] [address] Furnace Hand: Sami Abbasi MD Calcium [Mass/Vol] 9.0 mg/dL Normal 8.6-10.4 [facility] Comment on above: Performed By: #### C DP, CP, LIP #### [facility] [address] [place], [place] [address] Furnace Hand: Sami Abbasi MD Chloride [Moles/Vol] 106 mmol/L Normal 98-107 [facility] Comment on above: Performed By: #### C DP, CP, LIP #### [facility] [address] [place], [place] [address] Furnace Hand: Sami Abbasi MD CO2 [Moles/Vol] 23 mmol/L Normal 20-31 [facility] Comment on above: Performed By: #### C DP, CP, LIP #### [facility] [address] [place], [place] [address] Furnace Hand: Sami Abbasi MD Creatinine [Mass/Vol] 0.46 mg/dL Low 0.50-0.[address] [facility] Comment on above: Performed By: #### C DP, CP, LIP #### [facility] [address] [place], [place] [address] Furnace Hand: Sami Abbasi MD GFR, Amer >60 Normal >60 [facility] Comment on above: Performed By: #### C DP, CP, LIP #### [facility] [address] [place], [place] [address] Furnace Hand: Sami Abbasi MD GFR,non Amer >60 Normal >60 [facility] Comment on above: Performed By: #### C DP, CP, LIP #### [facility] [address] [place], [place] [address] Furnace Hand: Sami Abbasi MD Glucose [Mass/Vol] 101 mg/dL High 70-99 [facility] Comment on above: Performed By: #### C DP, CP, LIP #### [facility] [address] [place], [place] [address] Furnace Hand: Sami Abbasi MD Potassium [Moles/Vol] 3.8 mmol/L Normal 3.7-5.[address] [facility] Comment on above: Performed By: #### C DP, CP, LIP #### [facility] [address] [place], [place] [address] Furnace Hand: Sami Abbasi MD Protein [Mass/Vol] 6.9 g/dL Normal 6.4-8.3 [facility] Comment on above: Performed By: #### C DP, CP, LIP #### [facility] [address] [place], [place] [address] Furnace Hand: Sami Abbasi MD Sodium [Moles/Vol] 140 mmol/L Normal 135-144 [facility] Comment on above: Performed By: #### C DP, CP, LIP #### [facility] [address] [place] [address] Furnace Hand: Sami Abbasi MD Staging: Normal [facility] Comment on above: Result Comment: Stag e 1: Some kidney damage normal GFR Stage 2: Mild kidney damage GFR 60-89 Stage 3: Moderate kidney damage GFR 30-59 Stage 4: Severe kidney damage GFR 15-29 Stage 5: Severe kidney damage GFR <15 ESRD - chronic treatment by dialysis or transplant Performed By: #### C DP, CP, LIP #### [facility] [address] [place] [address] Furnace Hand: Sami Abbasi MD Urea nitrogen [Mass/Vol] 20 mg/dL Normal 6-20 [facility] Comment on above: Performed By: #### C DP, CP, LIP #### [facility] [address] [place] [address] Furnace Hand: Sami Abbasi MD Comprehensive Metabolic Pane lOrdered By: Tessa Hidalgo on 05-25-2021 Albumin [Mass/Vol] 3.4 g/dL Low 3.5 - 5.2 g/dL [employer] Phone: Albumin/Globulin [Mass ratio] 1.0 {ratio} [employer] Phone: ALP (Bld) [Catalytic activity/Vol] 108 U/L High 35 - 104 U/L [employer] Phone: ALT [Catalytic activity/Vol] 12 U/L 5 - 33 U/L [employer] Phone: Anion gap [Moles/Vol] 11 mmol/L 9 - 17 mmol/L [employer] Phone: AST [Catalytic activity/Vol] 19 U/L <32 [employer] Phone: Bilirubin [Mass/Vol] 0.21 mg/dL Low 0.3 - 1 .2 mg/dL [employer] Phone: Calcium [Mass/Vol] 9.0 mg/dL 8.6 - 10. 4 mg/dL [employer] Phone: Chloride [Moles/Vol] 106 mmol/L 98 - 10 7 mmol/L [employer] Phone: CO2 [Moles/Vol] 23 mmol/L 20 - 31 mmol/L [employer] Phone: Creatinine [Mass/Vol] 0.46 mg/dL Low 0.50 - 0.90 mg/dL [employer] Phone: Free PSA/Total PSA [Mass fraction] 6.9 g/dL 6.4 - 8.3 g/dL [employer] Phone: GFR >60 >60 mL/min [employer] Phone: GFR Non- >60 >60 mL/min [employer] Phone: Glucose [Mass/Vol] 101 mg/dL High 70 - 99 mg/dL [employer] Phone: Interpretation and review of laboratory results Abnormal [employer] Phone: Potassium [Moles/Vol] 3.8 mmol/L 3.7 - 5.3 mmol/L [employer] Phone: Sodium [Moles/Vol] 140 mmol/L 135 - 144 mmol/L [employer] Phone: Urea nitrogen (BldV) [Mass/Vol] 20 mg/dL 6 - 20 mg/dL [employer] Phone: Urea nitrogen/Creatinine (Bld) [Mass ratio] 43 High [employer] Phone: Laboratory - Chemistry and C hemistry - challengeOrdered By: Tessa Hidalgo on 05-25-2021 GFR/1.73 sq M.predicted MDRD (S/P/Bld) [Vol rate/Area] [employer] Phone: Comment on above: Average GFR for 20-2 9 years old: 116 mL/min/1.73sq m Chronic Kidney Disease: <60 mL/min/1.73sq m Kidney failure: <15 mL/min/1.73sq m eGFR calculated using average adult body mass. Additional eGFR calculator available at: http://www.[employer]/multiple_crcl_2012.htm Stage 1: Some kidney damage normal GFR Stage 2: Mild kidney damage GFR 60-89 Stage 3: Moderate kidney damage GFR 30-59 Stage 4: Severe kidney damage GFR 15-29 Stage 5: Severe kidney damage GFR <15 ESRD - chronic treatment by dialysis or transplant Lipaseon 05-25-2021 Lipase [Catalytic activity/Vol] 32 U/L Normal 13-60 [facility] Comment on above: Performed By: #### C DENG, CP, LIP #### [facility] [address] [place] [address] Furnace Hand: Sami Abbasi MD LipaseOrdered By: Tessa Sánchez dd on 05-25-2021 Lipase [Catalytic activity/Vol] 32 U/L 13 - 60 U/L [facility] Phone: No Panel InformationOrdered By: Tessa Hidalgo on 05-25-2021 [facility] [employer] Phone: PTon 05-25-2021 INR Coag (PPP) [Relative time] 1.1 {INR} Normal [facility] Comment on above: Result Comment: Non-therapeutic Range: INR = 0.9-1.2 Therapeutic Range: Moderate Anticoagulant Intensity: INR = 2.0-3.0 High Anticoagulant Intensity: INR = 2.5-3.5 Performed By: #### C DP #### [facility] [address] [place] [address] Furnace Hand: Sami Abbasi MD PTOrdered By: Tessa polk 05-25-2021 PT Coag (PPP) [Time] 14.1 s Normal 11.5-14.2 [facility] [employer] Phone: Comment on above: Performed By: #### C DP #### [facility] [address] [place] [address] Furnace Hand: Sami Abbasi MD Protime-INROrdered By: Jesica Hidalgo on 05-25-2021 INR Coag (Bld) [Relative time] 1.1 {INR} [employer] Phone: Comment on above: Non-therapeutic Range: INR = 0.9-1.2 Therapeutic Range: Moderate Anticoagulant Intensity: INR = 2.0-3.0 High Anticoagulant Intensity: INR = 2.5-3.5 [employer] Phone: TYPE AND SCREENOrdered By: Arturo Hidalgo on 05-25-2021 ABO/Rh Negative [facility] Phone: Arm Band Number [id number] [facility] Phone: Expiration Date 05/28/2021,2359 [employer] Phone: [employer] Phone: Type + Screenon 05-25-2021 Type + Screen Sample Expiration 05/28/2021,2359 Arm Band Number [id number] ABO/Rh(D) A NEGATIVE Antibody Screen NEGATIVE Normal [facility] Comment on above: Performed By: #### C DP #### [facility] [address] [place] [address] Furnace Hand: Sami Abbasi MD CBC Auto DifferentialOrdered By: Mushtaq Garcia on 05-21-2021 Absolute Eos # 0.11 [employer] Phone: Absolute Immature Granulocyte 0.08 [employer] Phone: Absolute Lymph # 1.80 [employer] Phone: Absolute [place] # 0.75 [employer] Phone: Basophils (Bld) [#/Vol] 0.06 10*3/uL [employer] Phone: Basophils/100 WBC (Bld) 1 % 0 - 2 % [employer] Phone: Differential Type NOT REPORTED [employer] Phone: Eosinophils/100 WBC (Bld) 1 % 1 - 4 % [employer] Phone: Hematocrit (Bld) [Volume fraction] 30.7 % Low 36.3 - 47.1 % [employer] Phone: Hemoglobin.gastrointes tinal spec 1 Ql (Stl) 9.8 g/dL Low 11.9 - 15.1 g/dL [employer] Phone: Immature granulocytes/100 WBC (Bld) 1 % High 0 [employer] Phone: Interpretation and review of laboratory results Abnormal [employer] Phone: Lymphocytes/100 WBC (Bld) 20 % Low 24 - 43 % [employer] Phone: MCH (RBC) [Entitic mass] 29.6 pg 25.2 - 33.5 pg [employer] Phone: MCHC (RBC) [Mass/Vol] 31.9 g/dL 28.4 - 34.8 g/dL [employer] Phone: MCV (RBC) [Entitic vol] 92.7 fL 82.6 - 102.9 fL [employer] Phone: Monocytes/100 WBC (Bld) 9 % 3 - 12 % [employer] Phone: NRBC Automated 0.0 0.0 per 100 WBC [employer] Phone: Platelet distribution width (Bld) [Ratio] 14.9 % High 11.8 - 14.4 % [employer] Phone: Platelet Estimate NOT REPORTED [employer] Phone: Platelet mean volume (Bld) [Entitic vol] 8.2 fL 8.1 - 13.5 fL [employer] Phone: Platelets (Bld) [#/Vol] 465 10*3/uL High [employer] Phone: RBC (Bld) [#/Vol] 3.31 10*6/uL Low 3.95 - 5.1 1 m/uL [employer] Phone: RBC (Bld) [#/Vol] NOT REPORTED [employer] Phone: Segmented neutrophils/100 WBC (Bld) 68 % High 36 - 65 % [employer] Phone: Segs Absolute 6.06 [employer] Phone: WBC (Bld) [#/Vol] 8.9 10*3/uL [employer] Phone: WBC (Bld) [#/Vol] NOT REPORTED [employer] Phone: [employer] Phone: CBC with Diffon 05-21-2021 Abs. Basophil 0.06 k/uL Normal 0.00-0.20 [facility] Comment on above: Performed By: #### C DP #### [facility] [address] [place] [address] Furnace Hand: Sami Abbasi MD Abs.Imm.Granulocyte 0.08 k/uL Normal 0.00-0.30 [facility] Comment on above: Performed By: #### C DP #### [facility] [address] [place] [address] Furnace Hand: Sami Abbasi MD Abs.Neutrophil (Seg) 6.06 k/uL Normal 1.50-8.10 [facility] Comment on above: Performed By: #### C DP #### [facility] [address] [place], [facility] Furnace Hand: Sami Abbasi MD Basophils/100 WBC (Bld) 1 % Normal 0-2 [facility] Comment on above: Performed By: #### C DP #### [address] [place], [facility] Furnace Hand: Sami Abbasi MD Eosinophils (Bld) [#/Vol] 0.11 10*3/uL Normal 0.00-0.44 [facility] Comment on above: Performed By: #### C DP #### [address] [place], [facility] Furnace Hand: Sami Abbasi MD Eosinophils/100 WBC (Bld) 1 % Normal 1-4 [facility] Comment on above: Performed By: #### C DP #### [address] [place], [facility] Furnace Hand: Sami Abbasi MD Erythrocyte distribution width (RBC) [Ratio] 14.9 % High 11.8-14.4 [facility] Comment on above: Performed By: #### C DP #### [address] [place], [facility] Furnace Hand: Sami Abbasi MD Hematocrit (Bld) [Volume fraction] 30.7 % Low 36.3-47.1 [facility] Comment on above: Performed By: #### C DP #### [address] [place], [facility] Furnace Hand: Sami Abbasi MD Hemoglobin (Bld) [Mass/Vol] 9.8 g/dL Low 11.9-15.1 [facility] Comment on above: Performed By: #### C DP #### [address] [place] [address] Furnace Hand: Sami Abbasi MD Immature granulocytes/100 WBC (Bld) 1 % High 0 [facility] Comment on above: Performed By: #### C DP #### [facility] [address] [place] [address] Furnace Hand: Sami Abbasi MD Lymphocytes (Bld) [#/Vol] 1.80 10*3/uL Normal 1.10-3.70 [facility] Comment on above: Performed By: #### C DP #### [facility] [address] [place] [address] Furnace Hand: Sami Abbasi MD Lymphocytes/100 WBC (Bld) 20 % Low 24-43 [facility] Comment on above: Performed By: #### C DP #### [address] [place] [address] Furnace Hand: Sami Abbais MD MCH (RBC) [Entitic mass] 29.6 pg Normal 25.2-33.5 [facility] Comment on above: Performed By: #### C DP #### [address] [place] [address] Furnace Hand: Sami Abbasi MD MCHC (RBC) [Mass/Vol] 31.9 g/dL Normal 28.4-34.[address] [facility] Comment on above: Performed By: #### C DP #### [facility] [address] [place] [address] [place] [address] Furnace Hand: Sami Abbasi MD MCV (RBC) [Entitic vol] 92.7 fL Normal 82.6-102.9 [facility] Comment on above: Performed By: #### C DP #### [address] [place] [address] Furnace Hand: Sami Abbasi MD Monocytes (Bld) [#/Vol] 0.75 10*3/uL Normal 0.10-1.20 [facility] Comment on above: Performed By: #### C DP #### [facility] [address] [place], [facility] Furnace Hand: Sami Abbasi MD Monocytes/100 WBC (Bld) 9 % Normal 3-12 [facility] Comment on above: Performed By: #### C DP #### [facility] [address] [place] [facility] Furnace Hand: Sami Abbasi MD Neutrophil (Seg) 68 % High 36-65 [facility] Comment on above: Performed By: #### C DP #### [facility] [address] [place] [facility] Furnace Hand: Sami Abbasi MD NRBC Automated 0.0 per 100 WBC Normal 0.0 [facility] Comment on above: Performed By: #### C DP #### [facility] [address] [place], [facility]83 Furnace Hand: Sami Abbasi MD Platelet mean volume (Bld) [Entitic vol] 8.2 fL Normal 8.1-13.5 [facility] Comment on above: Performed By: #### C DP #### [facility] [address] [place] [address] [place] [place], [facility] Furnace Hand: Sami Abbasi MD Platelets (Bld) [#/Vol] 465 10*3/uL High 138-453 [facility] Comment on above: Performed By: #### C DP #### [facility] [address] [place], [place] [id number] Furnace Hand: Sami Abbasi MD RBC (Bld) [#/Vol] 3.31 10*6/uL Low 3.95-5.11 [facility] Comment on above: Performed By: #### C DP #### [facility] [address] [place] [facility] Furnace Hand: Sami Abbasi MD WBC (Bld) [#/Vol] 8.9 10*3/uL Normal 3.5-11.3 [facility] Comment on above: Performed By: #### C DP #### [facility] [address] [place] [address] Furnace Hand: Sami Abbasi MD Auto Diff Performed NOT REPORTED Normal [facility] Comment on above: Performed By: #### C DP #### [facility] [address] [place] [address] Furnace Hand: Sami Abbasi MD Platelet Estimate NOT REPORTED Normal [facility] Comment on above: Performed By: #### C DP #### [facility] [address] [place], [place] [id number] Furnace Hand: Sami Abbasi MD RBC morphology finding Nom (Bld) NOT REPORTED Normal [facility] Comment on above: Performed By: #### C DP #### [facility] [address] [place] [address] Furnace Hand: Sami Abbasi MD WBC Morphology NOT REPORTED Normal [facility] Comment on above: Performed By: #### C DP #### [facility] [address] [place] [address] Furnace Hand: Sami Abbasi MD HCG, Quanton 05-21-2021 HCG, Quant 44 IU/L High <5 [facility] Comment on above: Result Comment: [...] liver. Performed By: #### B HCG #### [facility] [address] [place] [address] Furnace Hand: Sami Abbasi MD US NON OB TRANSVAGINALon [...] Lerner 05/21/21 Final result Normal [facility] hCG, Quantitative, Ordered By: Mushtaq Garcia on 05-21-2021 hCG Quant 44 High <5 IU/L [facility] [employer] Phone: Comment on above: Non-preg premeno <=5 Postmeno <=8 Male <=3 If HCG results do not concur with clinical observations, additional testing to confirm results is recommended. Elevated results not associated with may be found in patients with other diseases such as tumors of the germ cells (testis, ovaries, etc.), bladder, pancreas, stomach, lungs, and liver. Interpretation and review of laboratory results Abnormal [employer] Phone: [facility] Phone: CBC with Diffon 05-14-2021 Abs. Basophil 0.12 k/uL Normal 0.0-0.2 [facility] Comment on above: Performed By: #### D AU #### [facility] [address] [place] [address] Furnace Hand: Sami Abbasi MD Abs.Imm.Granulocyte 0.48 k/uL High 0.00-0.30 [facility] Comment on above: Performed By: #### D AU #### [facility] [address] [place] [address] Dr[address] [place], [place] [id number] Furnace Hand: Sami Abbasi MD Abs.Neutrophil (Seg) 8.71 k/uL High 1.50-8.10 [facility] Comment on above: Performed By: #### D AU #### [address] [place], [facility]83 Furnace Hand: Sami Abbasi MD Basophils/100 WBC (Bld) 1 % Normal 0-2 [facility] Comment on above: Performed By: #### D AU #### [address] [place] [id number] Furnace Hand: Sami Abbasi MD Eosinophils (Bld) [#/Vol] 0.12 10*3/uL Normal 0.00-0.44 [facility] Comment on above: Performed By: #### D AU #### [facility] [address] [place] [address] Dr[place], [facility]83 Furnace Hand: Sami Abbasi MD Eosinophils/100 WBC (Bld) 1 % Normal 1-4 [facility] Comment on above: Performed By: #### D AU #### [address] [place], [facility] Furnace Hand: Sami Abbasi MD Immature granulocytes/100 WBC (Bld) 4 % High 0 [facility] Comment on above: Performed By: #### D AU #### [facility] [address] [place] [address] Dr. [place], [facility] ( Furnace Hand: Sami Abbasi MD Lymphocytes (Bld) [#/Vol] 2.17 10*3/uL Normal 1.10-3.70 [facility] Comment on above: Performed By: #### D AU #### [facility] [address] [place] [address] Dr[address] [place], [place] [id number] Furnace Hand: Sami Abbasi MD Lymphocytes/100 WBC (Bld) 18 % Low 24-43 [facility] Comment on above: Performed By: #### D AU #### [facility] [address] [place], [place] [address]83 Furnace Hand: Sami Abbasi MD Monocytes (Bld) [#/Vol] 0.48 10*3/uL Normal 0.10-1.20 [facility] Comment on above: Performed By: #### D AU #### [facility] [address] [place], [place] [address] Furnace Hand: Sami Abbasi MD Monocytes/100 WBC (Bld) 4 % Normal 3-12 [facility] Comment on above: Performed By: #### D AU #### [facility] [address] [place], [place] [id number] Furnace Hand: Sami Abbasi MD Morphology Andrea (Bld) [Interp] Normal Normal [facility] Comment on above: Performed By: #### D AU #### [facility] [address] [place], [place] [address]19483 Furnace Hand: Sami Abbasi MD Neutrophil (Seg) 72 % High 36-65 [facility] Comment on above: Performed By: #### D AU #### [facility] [address] [place], [place] [id number] Furnace Hand: Sami Abbasi MD Nucleated RBC'S 1 per 100 WBC Normal 0-5 [facility] Comment on above: Performed By: #### D AU #### [facility] [address] [place], [place] [id number] Furnace Hand: Sami Abbasi MD WBC (Bld) [#/Vol] 12.1 10*3/uL High 3.5-11.3 [facility] Comment on above: Result Comment: ADJU STED FOR NUCLEATED RBC'S CORRECTED ON 05/14 AT 1813: PREVIOUSLY REPORTED 12.2 Performed By: #### D AU #### [address] [place], [place] [id number] Furnace Hand: Sami Abbasi MD Erythrocyte distribution width (RBC) [Ratio] 14.8 % High 11.8-14.4 [facility] Comment on above: Performed By: #### D AU #### [address] [place], [place] [id number] Furnace Hand: Sami Abbasi MD Hematocrit (Bld) [Volume fraction] 35.2 % Low 36.3-47.1 [facility] Comment on above: Performed By: #### D AU #### [address] [place], [place] [id number] Furnace Hand: Sami Abbasi MD Hemoglobin (Bld) [Mass/Vol] 11.9 g/dL Normal 11.9-15.1 [facility] Comment on above: Performed By: #### D AU #### [address] [place], [place] [address]83 Furnace Hand: Sami Abbasi MD MCH (RBC) [Entitic mass] 30.4 pg Normal 25.2-33.5 [facility] Comment on above: Performed By: #### D AU #### [address] [place], [place] [id number] Furnace Hand: Sami Abbasi MD MCHC (RBC) [Mass/Vol] 33.8 g/dL Normal 28.4-34.[address] [facility] Comment on above: Performed By: #### D AU #### [address] [place], [place] [address]704283 Furnace Hand: Sami Abbasi MD MCV (RBC) [Entitic vol] 89.8 fL Normal 82.6-102.9 [facility] Comment on above: Performed By: #### D AU #### [address] [place] [id number] Furnace Hand: Sami Abbasi MD NRBC Automated 0.2 per 100 WBC High 0.0 [facility] Comment on above: Performed By: #### D AU #### [facility] [address] [place], [facility]83 Furnace Hand: Sami Abbasi MD Platelet mean volume (Bld) [Entitic vol] 9.9 fL Normal 8.1-13.5 [facility] Comment on above: Performed By: #### D AU #### [facility] [address] [place], [facility]83 Furnace Hand: Sami Abbasi MD Platelets (Bld) [#/Vol] 154 10*3/uL Normal 138-453 [facility] Comment on above: Performed By: #### D AU #### [address] [place], [facility]83 Furnace Hand: Sami Abbasi MD RBC (Bld) [#/Vol] 3.92 10*6/uL Low 3.95-5.11 [facility] Comment on above: Performed By: #### D AU #### [address] [place], [facility]83 Furnace Hand: Sami Abbasi MD Auto Diff Performed NOT REPORTED Normal [facility] Comment on above: Performed By: #### D AU #### [facility] [address] [place] [address] Dr[address] [place], [facility]83 Furnace Hand: Sami Abbasi MD Platelet Estimate NOT REPORTED Normal [facility] Comment on above: Performed By: #### D AU #### [facility] [address] [place] [address] Dr[address] [place], [facility] Furnace Hand: Sami Abbasi MD RBC morphology finding Nom (Bld) NOT REPORTED Normal [facility] Comment on above: Performed By: #### D AU #### [facility] [address] [place] [address] [address] [place] [facility] Furnace Hand: Sami Abbasi MD WBC Morphology NOT REPORTED Normal [facility] Comment on above: Performed By: #### D AU #### [facility] [address] [place] [address] [place] [id number] Furnace Hand: Sami Abbasi MD Abs. Basophil 0.00 k/uL Normal 0.0-0.2 [facility] Comment on above: Performed By: #### H H #### [facility] [address] [place] [address] [place] [address] Furnace Hand: Sami Abbasi MD Abs.Imm.Granulocyte 0.00 k/uL Normal 0.00-0.30 [facility] Comment on above: Performed By: #### H H #### [address] [place] [address] Furnace Hand: Sami Abbasi MD Abs.Neutrophil (Seg) 10.05 k/uL High 1.50-8.10 [facility] Comment on above: Performed By: #### H H #### [address] [place] [address] Furnace Hand: Sami Abbasi MD Basophils/100 WBC (Bld) 0 % Normal 0-2 [facility] Comment on above: Performed By: #### H H #### [facility] [address] [place] [address] Dr[address] [place], [place] [address] Furnace Hand: Sami Abbasi MD Eosinophils (Bld) [#/Vol] 0.00 10*3/uL Normal 0.00-0.44 [facility] Comment on above: Performed By: #### H H #### [address] [place] [id number] Furnace Hand: Sami Abbasi MD Eosinophils/100 WBC (Bld) 0 % Low 1-4 [facility] Comment on above: Performed By: #### H H #### [facility] [address] [place] [address] Dr[address] [place], [place] [phone] Furnace Hand: Sami Abbasi MD Immature granulocytes/100 WBC (Bld) 0 % Normal 0 [facility] Comment on above: Performed By: #### H H #### [facility] [address] [place], [place] [id number] Furnace Hand: Sami Abbasi MD Lymphocytes (Bld) [#/Vol] 1.98 10*3/uL Normal 1.10-3.70 [facility] Comment on above: Performed By: #### H H #### [facility] [address] [place], [place] [address]83 Furnace Hand: Sami Abbasi MD Lymphocytes/100 WBC (Bld) 16 % Low 24-43 [facility] Comment on above: Performed By: #### H H #### [facility] [address] [place] [address] Dr[address] [place], [facility]83 Furnace Hand: Sami Abbasi MD Monocytes (Bld) [#/Vol] 0.37 10*3/uL Normal 0.10-1.20 [facility] Comment on above: Performed By: #### H H #### [facility] [address] [place] [address] Dr[address] [place], [place] [id number] Furnace Hand: Sami Abbasi MD Monocytes/100 WBC (Bld) 3 % Normal 3-12 [facility] Comment on above: Performed By: #### H H #### [facility] [address] [place] [address] Dr[address] [place], [place] [id number] Furnace Hand: Sami Abbasi MD Morphology Andrea (Bld) [Interp] 1+ Normal [facility] Comment on above: Result Comment: POLY CHROMASIA Performed By: #### H H #### [facility] [address] [place] [address] Dr[address] [place], [place] [id number] Furnace Hand: Sami Abbasi MD Neutrophil (Seg) 81 % High 36-65 [facility] Comment on above: Performed By: #### H H #### [address] [place] [address] Furnace Hand: Sami Abbasi MD Erythrocyte distribution width (RBC) [Ratio] 14.6 % High 11.8-14.4 [facility] Comment on above: Performed By: #### H H #### [address] [place], [facility]83 Furnace Hand: Sami Abbasi MD Hematocrit (Bld) [Volume fraction] 31.8 % Low 36.3-47.1 [facility] Comment on above: Performed By: #### H H #### [address] [place] [facility]83 Furnace Hand: Sami Abbasi MD Hemoglobin (Bld) [Mass/Vol] 10.9 g/dL Low 11.9-15.1 [facility] Comment on above: Performed By: #### H H #### [address] [place], [facility]83 Furnace Hand: Sami Abbasi MD MCH (RBC) [Entitic mass] 30.5 pg Normal 25.2-33.5 [facility] Comment on above: Performed By: #### H H #### [address] [place], [facility]83 Furnace Hand: Sami Abbasi MD MCHC (RBC) [Mass/Vol] 34.3 g/dL Normal 28.4-34.[address] [facility] Comment on above: Performed By: #### H H #### [address] [place] [address] Furnace Hand: Sami Abbasi MD MCV (RBC) [Entitic vol] 89.1 fL Normal 82.6-102.9 [facility] Comment on above: Performed By: #### H H #### [address] [place], [facility]83 Furnace Hand: Sami Abbasi MD NRBC Automated 0.0 per 100 WBC Normal 0.0 [facility] Comment on above: Performed By: #### H H #### [facility] [address] [place], [facility]83 Furnace Hand: Sami Abbasi MD Platelet Count See Reflexed IPF Result Normal 138-453 [facility] Comment on above: Performed By: #### H H #### [facility] [address] [place], [facility]83 Furnace Hand: Sami Abbasi MD RBC (Bld) [#/Vol] 3.57 10*6/uL Low 3.95-5.11 [facility] Comment on above: Performed By: #### H H #### [facility] [address] [place], [place] [address] Furnace Hand: Sami Abbasi MD WBC (Bld) [#/Vol] 12.4 10*3/uL High 3.5-11.3 [facility] Comment on above: Performed By: #### H H #### [address] [place], [facility]83 Furnace Hand: Sami Abbasi MD Auto Diff Performed NOT REPORTED Normal [facility] Comment on above: Performed By: #### H H #### [facility] [address] [place], [place] [address] Furnace Hand: Sami Abbasi MD MPV NOT REPORTED Normal 8.1-13.5 [facility] Comment on above: Performed By: #### H H #### [facility] [address] [place], [facility]83 Furnace Hand: Sami Abbasi MD Platelet Estimate NOT REPORTED Normal [facility] Comment on above: Performed By: #### H H #### [facility] [address] [place], [place] [id number] Furnace Hand: Sami Abbasi MD RBC morphology finding Nom (Bld) NOT REPORTED Normal [facility] Comment on above: Performed By: #### H H #### [facility] [address] [place], [place] 0[address]1883 Furnace Hand: Sami Abbasi MD WBC Morphology NOT REPORTED Normal [facility] Comment on above: Performed By: #### H H #### [facility] [address] [place], [place] [id number] Furnace Hand: Sami Abbasi MD PLT, Immature Fract.on 05-14 Platelet, Fluoresc. 119 k/uL Low 138-453 [facility] Comment on above: Performed By: #### H H #### [address] [place], [place] [id number] Furnace Hand: Sami Abbasi MD PLT, Immature Fract. 2.9 % Normal 1.1-10.3 [facility] Comment on above: Performed By: #### H H #### [address] [place], [place] [id number] Furnace Hand: Sami Abbasi MD APTTon 05-13-2021 aPTT Coag (Bld) [Time] 27.0 s Normal 23.9-33.8 [facility] Comment on above: Result Comment: IV Heparin Therapy Range: 62.0-94.0 Performed By: #### C DP #### [facility] [address] [place], [place] [id number] Furnace Hand: Sami Abbasi MD Amylaseon 05-13-2021 Amylase [Catalytic activity/Vol] 54 U/L Normal 28-100 [facility] Comment on above: Performed By: #### C DP #### [facility] [address] [place], [place] 1545983 Furnace Hand: Sami Abbasi MD CBC with Diffon 05-13-2021 Abs. Basophil 0.00 k/uL Normal 0.0-0.2 [facility] Comment on above: Performed By: #### C DP #### [facility] [address] [place], [facility]83 Furnace Hand: Sami Abbasi MD Abs.Imm.Granulocyte 0.00 k/uL Normal 0.00-0.30 [facility] Comment on above: Performed By: #### C DP #### [address] [place] [address] Furnace Hand: Sami Abbasi MD Abs.Neutrophil (Seg) 12.58 k/uL High 1.50-8.10 [facility] Comment on above: Performed By: #### C DP #### [address] [place] [id number] Furnace Hand: Sami Abbasi MD Basophils/100 WBC (Bld) 0 % Normal 0-2 [facility] Comment on above: Performed By: #### C DP #### [address] [place] [id number] Furnace Hand: Sami Abbasi MD Eosinophils (Bld) [#/Vol] 0.00 10*3/uL Normal 0.00-0.44 [facility] Comment on above: Performed By: #### C DP #### [address] [place], [place] [address] Furnace Hand: Sami Abbasi MD Eosinophils/100 WBC (Bld) 0 % Low 1-4 [facility] Comment on above: Performed By: #### C DP #### [address] [place] [id number] Furnace Hand: Sami Abbasi MD Immature granulocytes/100 WBC (Bld) 0 % Normal 0 [facility] Comment on above: Performed By: #### C DP #### [address] [place] [address] Furnace Hand: Sami Abbasi MD Lymphocytes (Bld) [#/Vol] 1.63 10*3/uL Normal 1.10-3.70 [facility] Comment on above: Performed By: #### C DP #### [facility] [address] [place], [place] 1511883 Furnace Hand: Sami Abbasi MD Lymphocytes/100 WBC (Bld) 11 % Low 24-43 [facility] Comment on above: Performed By: #### C DP #### [facility] [address] [place], [place] 5906083 Furnace Hand: Sami Abbasi MD Monocytes (Bld) [#/Vol] 0.59 10*3/uL Normal 0.10-1.20 [facility] Comment on above: Performed By: #### C DP #### [facility] [address] [place], [place] 2447383 Furnace Hand: Sami Abbasi MD Monocytes/100 WBC (Bld) 4 % Normal 3-12 [facility] Comment on above: Performed By: #### C DP #### [address] [place], [place] [id number] Furnace Hand: Sami Abbasi MD Morphology Andrea (Bld) [Interp] 1+ Normal [facility] Comment on above: Result Comment: POLY CHROMASIA Performed By: #### C DP #### [address] [place], [place] [address]3 Furnace Hand: Sami Abbasi MD Neutrophil (Seg) 85 % High 36-65 [facility] Comment on above: Performed By: #### C DP #### [facility] [address] [place], [place] 1318083 Furnace Hand: Sami Abbasi MD Erythrocyte distribution width (RBC) [Ratio] 13.6 % Normal 11.8-14.4 [facility] Comment on above: Performed By: #### C DP #### [address] [place], [place] [address]83 Furnace Hand: Sami Abbasi MD Hematocrit (Bld) [Volume fraction] 25.3 % Low 36.3-47.1 [facility] Comment on above: Performed By: #### C DP #### [address] [place], [facility]83 Furnace Hand: Sami Abbasi MD Hemoglobin (Bld) [Mass/Vol] 8.6 g/dL Low 11.9-15.1 [facility] Comment on above: Performed By: #### C DP #### [address] [place] [facility]83 Furnace Hand: Sami Abbasi MD MCH (RBC) [Entitic mass] 29.2 pg Normal 25.2-33.5 [facility] Comment on above: Performed By: #### C DP #### [address] [place] [id number] Furnace Hand: Sami Abbasi MD MCHC (RBC) [Mass/Vol] 34.0 g/dL Normal 28.4-34.[address] [facility] Comment on above: Performed By: #### C DP #### [address] [place] [facility]83 Furnace Hand: Sami Abbasi MD MCV (RBC) [Entitic vol] 85.8 fL Normal 82.6-102.9 [facility] Comment on above: Performed By: #### C DP #### [address] [place] [address] Furnace Hand: Sami Abbasi MD NRBC Automated 0.0 per 100 WBC Normal 0.0 [facility] Comment on above: Performed By: #### C DP #### [address] [place] [facility]83 Furnace Hand: Sami Abbasi MD Platelet Count See Reflexed IPF Result Normal 138-453 [facility] Comment on above: Performed By: #### C DP #### [facility] [address] [place], [place] [address]1983 Furnace Hand: Sami Abbasi MD RBC (Bld) [#/Vol] 2.95 10*6/uL Low 3.95-5.11 [facility] Comment on above: Performed By: #### C DP #### [facility] [address] [place], [place] 6944383 Furnace Hand: Saim Abbasi MD WBC (Bld) [#/Vol] 14.8 10*3/uL High 3.5-11.3 [facility] Comment on above: Performed By: #### C DP #### [facility] [address] [place] [phone] Furnace Hand: Sami Abbasi MD Auto Diff Performed NOT REPORTED Normal [facility] Comment on above: Performed By: #### C DP #### [address] [place], [place] 2202183 Furnace Hand: Sami Abbasi MD MPV NOT REPORTED Normal 8.1-13.5 [facility] Comment on above: Performed By: #### C DP #### [address] [place], [place] 49[address]83 Furnace Hand: Sami Abbasi MD Platelet Estimate NOT REPORTED Normal [facility] Comment on above: Performed By: #### C DP #### [facility] [address] [place], [place] [phone] Furnace Hand: Sami Abbasi MD RBC morphology finding Nom (Bld) NOT REPORTED Normal [facility] Comment on above: Performed By: #### C DP #### [facility] [address] [place] [phone] Furnace Hand: Sami Abbasi MD WBC Morphology NOT REPORTED Normal [facility] Comment on above: Performed By: #### C DP #### [facility] [address] [place] [address] [place] [address] Furnace Hand: Sami Abbasi MD Abs. Basophil 0.00 k/uL Normal 0.0-0.2 [facility] Comment on above: Performed By: #### C DP, IPF #### [address] [place], [place] [phone] Furnace Hand: Sami Abbasi MD Abs.Imm.Granulocyte 0.16 k/uL Normal 0.00-0.30 [facility] Comment on above: Performed By: #### C DP, IPF #### [address] [place] [phone] Furnace Hand: Sami Abbasi MD Abs.Neutrophil (Seg) 12.25 k/uL High 1.50-8.10 [facility] Comment on above: Performed By: #### C DP, IPF #### [address] [place] [phone] Furnace Hand: Sami Abbasi MD Basophils/100 WBC (Bld) 0 % Normal 0-2 [facility] Comment on above: Performed By: #### C DP, IPF #### [address] [place], [facility]83 Furnace Hand: Sami Abbasi MD Eosinophils (Bld) [#/Vol] 0.00 10*3/uL Normal 0.00-0.44 [facility] Comment on above: Performed By: #### C DP, IPF #### [address] [place], [place] 5403583 Furnace Hand: Sami Abbasi MD Eosinophils/100 WBC (Bld) 0 % Low 1-4 [facility] Comment on above: Performed By: #### C DP, IPF #### [facility] [address] [place], [place] [address]19083 Furnace Hand: Sami Abbasi MD Immature granulocytes/100 WBC (Bld) 1 % High 0 [facility] Comment on above: Performed By: #### C DP, IPF #### [facility] [address] [place], [place] 1962483 Furnace Hand: Sami Abbasi MD Lymphocytes (Bld) [#/Vol] 1.88 10*3/uL Normal 1.10-3.70 [facility] Comment on above: Performed By: #### C DP, IPF #### [facility] [address] [place], [place] 4585283 Furnace Hand: Sami Abbasi MD Lymphocytes/100 WBC (Bld) 12 % Low 24-43 [facility] Comment on above: Performed By: #### C DP, IPF #### [facility] [address] [place], [place] 2324683 Furnace Hand: Sami Abbasi MD Monocytes (Bld) [#/Vol] 1.41 10*3/uL High 0.10-1.20 [facility] Comment on above: Performed By: #### C DP, IPF #### [facility] [address] [place] [address] Furnace Hand: Sami Abbasi MD Monocytes/100 WBC (Bld) 9 % Normal 3-12 [facility] Comment on above: Performed By: #### C DP, IPF #### [facility] [address] [place], [place] 8935483 Furnace Hand: Sami Abbasi MD Morphology Andrea (Bld) [Interp] Normal Normal [facility] Comment on above: Performed By: #### C DP, IPF #### [facility] [address] [place], [place] 0388683 Furnace Hand: Sami Abbasi MD Neutrophil (Seg) 78 % High 36-65 [facility] Comment on above: Performed By: #### C DP, IPF #### [address] [place] [address] Furnace Hand: Sami Abbasi MD Erythrocyte distribution width (RBC) [Ratio] 13.7 % Normal 11.8-14.4 [facility] Comment on above: Performed By: #### C DP, IPF #### [address] [place] [address] Furnace Hand: Sami Abbasi MD Hematocrit (Bld) [Volume fraction] 16.0 % Critically low 36.3-47.1 [facility] Comment on above: Performed By: #### C DP, IPF #### [address] [place], [place] 1937383 Furnace Hand: Sami Abbasi MD Hemoglobin (Bld) [Mass/Vol] 5.3 g/dL Critically low 11.9-15.1 [facility] Comment on above: Performed By: #### C DP, IPF #### [address] [place], [place] [address]90883 Furnace Hand: Sami Abbasi MD MCH (RBC) [Entitic mass] 28.6 pg Normal 25.2-33.5 [facility] Comment on above: Performed By: #### C DP, IPF #### [address] [place], [place] 6934483 Furnace Hand: Sami Abbasi MD MCHC (RBC) [Mass/Vol] 33.1 g/dL Normal 28.4-34.[address] [facility] Comment on above: Performed By: #### C DP, IPF #### [address] [place] [address] Furnace Hand: Sami Abbasi MD MCV (RBC) [Entitic vol] 86.5 fL Normal 82.6-102.9 [facility] Comment on above: Performed By: #### C DP, IPF #### [facility] [address] [place], [place] [address]83 Furnace Hand: Sami Abbasi MD NRBC Automated 0.0 per 100 WBC Normal 0.0 [facility] Comment on above: Performed By: #### C DP, IPF #### [facility] [address] [place], [facility]83 Furnace Hand: Sami Abbasi MD Platelet Count See Reflexed IPF Result Normal 138-453 [facility] Comment on above: Performed By: #### C DP, IPF #### [facility] [address] [place], [facility]83 Furnace Hand: Sami Abbasi MD RBC (Bld) [#/Vol] 1.85 10*6/uL Low 3.95-5.11 [facility] Comment on above: Performed By: #### C DP, IPF #### [facility] [address] [place], [facility]83 Furnace Hand: Sami Abbasi MD WBC (Bld) [#/Vol] 15.7 10*3/uL High 3.5-11.3 [facility] Comment on above: Performed By: #### C DP, IPF #### [facility] [address] [place], [facility]83 Furnace Hand: Sami Abbasi MD Auto Diff Performed NOT REPORTED Normal [facility] Comment on above: Performed By: #### C DP, IPF #### [facility] [address] [place], [place] 233[address]83 Furnace Hand: Sami Abbasi MD MPV NOT REPORTED Normal 8.1-13.5 [facility] Comment on above: Performed By: #### C DP, IPF #### [facility] [address] [place], [facility]83 Furnace Hand: Sami Abbasi MD Platelet Estimate NOT REPORTED Normal [facility] Comment on above: Performed By: #### C DP, IPF #### [facility] [address] [place] [address] Furnace Hand: Sami Abbasi MD RBC morphology finding Nom (Bld) NOT REPORTED Normal [facility] Comment on above: Performed By: #### C DP, IPF #### [facility] [address] [place] [address] Furnace Hand: Sami Abbasi MD WBC Morphology NOT REPORTED Normal [facility] Comment on above: Performed By: #### C DP, IPF #### [facility] [address] [place] [address] Furnace Hand: Sami Abbasi MD CT ABDOMEN PELVIS WO [...] blood products in the lower uterine segment. Peritoneum/Retroperitoneu m: Postoperative changes in the pelvis with moderate [...] MD 05/13/21 Final result Normal [facility] CTA ABDOMEN PELVIS W WO CONT RASTon 05-13-2021 CTA ABDOMEN PELVIS W WO CONTRAST [...] blood appears similar to recent noncontrast CT. Peritoneum/Retroperitoneu m: Stable size of moderate to large left [...] Edited Result - FINAL Normal [facility] Comp Metabolic Profon 2020 (cont.) Normal [facility] Comment on above: Result Comment: Aver age GFR for 20-29 years old: 116 mL/min/1.73sq m Chronic Kidney Disease: <60 mL/min/1.73sq m Kidney failure: <15 mL/min/1.73sq m eGFR calculated using average adult body mass. Additional eGFR calculator available at: http://www.[employer]/multiple_crcl_2012.htm Performed By: #### C DP #### [facility] [address] [place] [address] [place] [address] Furnace Hand: Sami Abbasi MD Albumin [Mass/Vol] 2.2 g/dL Low 3.5-5.2 [facility] Comment on above: Performed By: #### C DP #### [address] [place], [place] [address]83 Furnace Hand: Sami Abbasi MD Albumin/Glob Ratio 0.8 Low 1.0-2.5 [facility] Comment on above: Performed By: #### C DP #### [facility] [address] [place] [address] [place] [address] Furnace Hand: Sami Abbasi MD Alkaline Phos 154 U/L High 35-104 [facility] Comment on above: Performed By: #### C DP #### [facility] [address] [place] [address] [place] [address] Furnace Hand: Sami Abbasi MD ALT [Catalytic activity/Vol] 48 U/L High 5-33 [facility] Comment on above: Performed By: #### C DP #### [facility] [address] [place], [place] 3570283 Furnace Hand: Sami Abbasi MD Anion gap [Moles/Vol] 11 mmol/L Normal 9-[address] [facility] Comment on above: Performed By: #### C DP #### [facility] [address] [place], [place] 6260283 Furnace Hand: Sami Abbasi MD AST [Catalytic activity/Vol] 74 U/L High <32 [facility] Comment on above: Performed By: #### C DP #### [facility] [address] [place], [place] 4330[address] Furnace Hand: Sami Abbasi MD Bilirubin [Mass/Vol] 0.26 mg/dL Low 0.3-1.2 [facility] Comment on above: Performed By: #### C DP #### [facility] [address] [place], [place] 9767783 Furnace Hand: Sami Abbasi MD BUN/CRE Ratio 18 Normal 9-20 [facility] Comment on above: Performed By: #### C DP #### [facility] [address] [place], [place] 8595783 Furnace Hand: Sami Abbasi MD Calcium [Mass/Vol] 7.5 mg/dL Low 8.6-10.4 [facility] Comment on above: Performed By: #### C DP #### [facility] [address] [place], [place] 7948783 Furnace Hand: Sami Abbasi MD Chloride [Moles/Vol] 103 mmol/L Normal 98-107 [facility] Comment on above: Performed By: #### C DP #### [facility] [address] [place], [place] 7249183 Furnace Hand: Sami Abbasi MD CO2 [Moles/Vol] 22 mmol/L Normal 20-31 [facility] Comment on above: Performed By: #### C DP #### [facility] [address] [place], [place] 324[address]83 Furnace Hand: Sami Abbasi MD Creatinine [Mass/Vol] 0.51 mg/dL Normal 0.50-0.[address] [facility] Comment on above: Performed By: #### C DP #### [facility] [address] [place], [place] 3533683 Furnace Hand: Sami Abbasi MD GFR, Amer >60 Normal >60 [facility] Comment on above: Performed By: #### C DP #### [facility] [address] [place], [place] 5040183 Furnace Hand: Sami Abbasi MD GFR,non Amer >60 Normal >60 [facility] Comment on above: Performed By: #### C DP #### [facility] [address] [place], [place] 9231083 Furnace Hand: Sami Abbasi MD Glucose [Mass/Vol] 95 mg/dL Normal 70-99 [facility] Comment on above: Performed By: #### C DP #### [facility] [address] [place], [place] 7599483 Furnace Hand: Sami Abbasi MD Potassium [Moles/Vol] 3.7 mmol/L Normal 3.7-5.[address] [facility] Comment on above: Performed By: #### C DP #### [facility] [address] [place], [place] [address]324883 Furnace Hand: Sami Abbasi MD Protein [Mass/Vol] 4.9 g/dL Low 6.4-8.3 [facility] Comment on above: Performed By: #### C DP #### [facility] [address] [place], [place] 411[address]83 Furnace Hand: Sami Abbasi MD Sodium [Moles/Vol] 136 mmol/L Normal 135-144 [facility] Comment on above: Performed By: #### C DP #### [facility] [address] [place] [address]2083 Furnace Hand: Sami Abbasi MD Staging: Normal [facility] Comment on above: Result Comment: Stag e 1: Some kidney damage normal GFR Stage 2: Mild kidney damage GFR 60-89 Stage 3: Moderate kidney damage GFR 30-59 Stage 4: Severe kidney damage GFR 15-29 Stage 5: Severe kidney damage GFR <15 ESRD - chronic treatment by dialysis or transplant Performed By: #### C DP #### [facility] [address] [place] [facility] Furnace Hand: Sami Abbasi MD Urea nitrogen [Mass/Vol] 9 mg/dL Normal 6-20 [facility] Comment on above: Performed By: #### C DP #### [facility] [address] [place] [facility] Furnace Hand: Sami Abbasi MD Fibrinogenon 05-13-2021 Fibrinogen 265 mg/dL Normal 179-518 [facility] Comment on above: Performed By: #### H H #### [address] [place] [facility]83 Furnace Hand: Sami Abbasi MD Hgb/Hcton 05-13-2021 Hematocrit (Bld) [Volume fraction] 16.0 % Critically low 36.3-47.1 [facility] Comment on above: Performed By: #### H H #### [facility] [address] [place] [facility] Furnace Hand: Sami Abbasi MD Hemoglobin (Bld) [Mass/Vol] 5.3 g/dL Critically low 11.9-15.1 [facility] Comment on above: Performed By: #### H H #### [facility] [address] [place] [address] Furnace Hand: Sami Abbasi MD Lactate Dehydrogenaseon 04-24 LDH [Catalytic activity/Vol] 394 U/L High 135-214 [facility] Comment on above: Performed By: #### C DP #### [facility] [address] [place], [place] [address]84[address]83 Furnace Hand: Sami Abbasi MD Lipaseon 05-13-2021 Lipase [Catalytic activity/Vol] 22 U/L Normal 13-60 [facility] Comment on above: Performed By: #### C DP #### [facility] [address] [place], [place] [address] Furnace Hand: Sami Abbasi MD PLT, Immature Fract.on 05-13 Platelet, Fluoresc. 115 k/uL Low 138-453 [facility] Comment on above: Performed By: #### H H #### [facility] [address] [place], [facility]83 Furnace Hand: Sami Abbasi MD PLT, Immature Fract. 3.3 % Normal 1.1-10.3 [facility] Comment on above: Performed By: #### H H #### [facility] [address] [place], [facility]83 Furnace Hand: Sami Abbasi MD Platelet, Fluoresc. 114 k/uL Low 138-[address] [place] [address] Comment on above: Performed By: #### C DP, IPF #### [facility] [address] [place], [facility]83 Furnace Hand: Sami Abbasi MD PLT, Immature Fract. 3.9 % Normal 1.1-10.3 [facility] Comment on above: Performed By: #### C DP, IPF #### [facility] [address] [place], [place] [address]83 Furnace Hand: Sami Abbasi MD PTon 05-13-2021 INR Coag (PPP) [Relative time] 0.9 {INR} Normal [facility] [facility] Comment on above: Result Comment: Non-therapeutic Range: INR = 0.9-1.2 Therapeutic Range: Moderate Anticoagulant Intensity: INR = 2.0-3.0 High Anticoagulant Intensity: INR = 2.5-3.5 Performed By: #### H H #### [facility] [address] [place] [address] Furnace Hand: Sami Abbasi MD PT Coag (PPP) [Time] 12.3 s Normal 11.5-14.2 [facility] Comment on above: Performed By: #### H H #### [facility] [address] [place] [address] Furnace Hand: Sami Abbasi MD Type + Screenon 05-13-2021 Type + Screen Sample Expiration 05/14/2021,2359 Arm Band Number [id number] ABO/Rh(D) A NEGATIVE Antibody Screen NEGATIVE Unit Number [id number] Blood Component Type Leukocyte Reduced Red Cell Unit Division 00 Status of Unit TRANSFUSED Transfusion Status OK TO TRANSFUSE Crossmatch Result COMPATIBLE Unit Number [id number] Blood Component Type Leukocyte Reduced Red Cell Unit Division 00 Status of Unit TRANSFUSED Transfusion Status OK TO TRANSFUSE Crossmatch Result COMPATIBLE Unit Number [id number] Blood Component Type Leukocyte Reduced Red Cell Unit Division 00 Status of Unit TRANSFUSED Transfusion Status OK TO TRANSFUSE Crossmatch Result COMPATIBLE Unit Number [id number] Blood Component Type Leukocyte Reduced Red Cell Unit Division 00 Status of Unit TRANSFUSED Transfusion Status OK TO TRANSFUSE Crossmatch Result COMPATIBLE Unit Number [id number] Blood Component Type Leukocyte Reduced Red Cell Unit Division 00 Status of Unit TRANSFUSED Transfusion Status OK TO TRANSFUSE Crossmatch Result COMPATIBLE Normal [facility] Comment on above: Performed By: #### H H #### [address] [place] [address] Furnace Hand: Sami Abbasi MD Hemoglobinon 05-12-2021 Hemoglobin (Bld) [Mass/Vol] 7.2 g/dL Low 11.9-15.1 [facility] Comment on above: Performed By: #### H GB #### [address] [place] [address] Furnace Hand: Sami Abbasi MD Hgb/Hcton 05-12-2021 Hematocrit (Bld) [Volume fraction] 16.8 % Critically low 36.3-47.1 [facility] Comment on above: Performed By: #### H H #### [facility] [address] [place] [address] Dr[address] [place], [place] [id number] Furnace Hand: Sami Abbasi MD Hemoglobin (Bld) [Mass/Vol] 5.6 g/dL Critically low 11.9-15.1 [facility] Comment on above: Performed By: #### H H #### [facility] [address] [place] [address] Dr[address] [place], [place] [id number] Furnace Hand: Sami Abbasi MD Hematocrit (Bld) [Volume fraction] 31.3 % Low 36.3-47.1 [facility] Comment on above: Performed By: #### H H #### [facility] [address] [place] [address] Dr[place], [place] [id number] Furnace Hand: Sami Abbasi MD Hemoglobin (Bld) [Mass/Vol] 10.3 g/dL Low 11.9-15.1 [facility] Comment on above: Performed By: #### H H #### [address] [place] [address] Furnace Hand: Sami Abbasi MD XR CHEST PORTABLEon 05-12-20 [...] DO 05/11/21 Final result Normal [facility] CBCon 05-11-2021 Erythrocyte distribution width (RBC) [Ratio] 13.5 % Normal 11.8-14.4 [facility] Comment on above: Performed By: #### C DP, IPF #### [address] [place], [place] 868[address]83 Furnace Hand: Sami Abbasi MD Hematocrit (Bld) [Volume fraction] 37.7 % Normal 36.3-47.1 [facility] Comment on above: Performed By: #### C DP, IPF #### [address] [place], [facility] Furnace Hand: Sami Abbasi MD Hemoglobin (Bld) [Mass/Vol] 12.1 g/dL Normal 11.9-15.1 [facility] Comment on above: Performed By: #### C DP, IPF #### [address] [place] [id number] Furnace Hand: Sami Abbasi MD MCH (RBC) [Entitic mass] 27.5 pg Normal 25.2-33.5 [facility] Comment on above: Performed By: #### C DP, IPF #### [address] [place] [id number] Furnace Hand: Sami Abbasi MD MCHC (RBC) [Mass/Vol] 32.1 g/dL Normal 28.4-34.[address] [facility] Comment on above: Performed By: #### C DP, IPF #### [address] [place], [facility] Furnace Hand: Sami Abbasi MD MCV (RBC) [Entitic vol] 85.7 fL Normal 82.6-102.9 [facility] Comment on above: Performed By: #### C DP, IPF #### [address] [place] [address] Furnace Hand: Sami Abbasi MD NRBC Automated 0.0 per 100 WBC Normal 0.0 [facility] Comment on above: Performed By: #### C DP, IPF #### [facility] [address] [place], [place] [id number] Furnace Hand: Sami Abbasi MD Platelet Count See Reflexed IPF Result Normal 138-453 [facility] Comment on above: Performed By: #### C DP, IPF #### [facility] [address] [place], [place] [id number] Furnace Hand: Sami Abbasi MD RBC (Bld) [#/Vol] 4.40 10*6/uL Normal 3.95-5.11 [facility] Comment on above: Performed By: #### C DP, IPF #### [facility] [address] [place], [place] [id number] Furnace Hand: Sami Abbasi MD WBC (Bld) [#/Vol] 7.1 10*3/uL Normal 3.5-11.3 [facility] Comment on above: Performed By: #### C DP, IPF #### [facility] [address] [place] [address] Furnace Hand: Sami Abbasi MD MPV NOT REPORTED Normal 8.1-13.5 [facility] Comment on above: Performed By: #### C DP, IPF #### [facility] [address] [place], [place] 9962883 Furnace Hand: Sami Abbasi MD Drug Scr, Abuse, Uron 2020 Amphetamine(s),Ur Negative Normal NEG [facility] Comment on above: Performed By: #### D AU #### [facility] [address] [place], [place] 8941383 Furnace Hand: Sami Abbasi MD Barbiturate(s),Ur Positive Abnormal NEG [facility] Comment on above: Performed By: #### D AU #### [facility] [address] [place], [place] [phone] Furnace Hand: Sami Abbasi MD Benzodiazepine(s) Negative Normal [facility] Comment on above: Performed By: #### D AU #### [facility] [address] [place], [place] [phone] Furnace Hand: Sami Abbasi MD Buprenorphrine, Ur Negative Normal [facility] Comment on above: Performed By: #### D AU #### [facility] [address] [place], [place] 9873583 Furnace Hand: Sami Abbasi MD Cannabinoid(s),Ur Negative Normal NEG [facility] Comment on above: Performed By: #### D AU #### [facility] [address] [place], [place] [phone] Furnace Hand: Sami Abbasi MD Cocaine Metabolite Negative Normal [facility] Comment on above: Performed By: #### D AU #### [facility] [address] [place], [place] [phone] Furnace Hand: Sami Abbasi MD Methadone Ql (U) Negative Normal [facility] Comment on above: Performed By: #### D AU #### [address] [place], [facility] Furnace Hand: Sami Abbasi MD Methamphetamine, Ur Negative Normal [facility] Comment on above: Performed By: #### D AU #### [facility] [address] [place], [place] 095[address]83 Furnace Hand: Sami Abbasi MD Opiate(s), Ur Negative Normal [facility] Comment on above: Performed By: #### D AU #### [facility] [address] [place], [place] [phone] Furnace Hand: Sami Abbasi MD Oxycodone, Urine Negative Normal [facility] Comment on above: Performed By: #### D AU #### [facility] [address] [place] [phone] Furnace Hand: Sami Abbasi MD Phencyclidine, Ur Negative Normal NEG [facility] Comment on above: Performed By: #### D AU #### [address] [place] [phone] Furnace Hand: Sami Abbasi MD Propoxyphene,Urine Negative Normal NEG [facility] Comment on above: Performed By: #### D AU #### [facility] [address] [place] [address] [place] [phone] Furnace Hand: Sami Abbasi MD Tricyclic antidepressants Screen Ql (U) Negative Normal NEG [facility] Comment on above: Result Comment: Drug screen results are to be used for medical purposes only. All positive results are unconfirmed. Testing for employment or legal uses should be sent to a reference laboratory for confirmation. Performed By: #### D AU #### [address] [place], [facility] Furnace Hand: Sami Abbasi MD Interpretive Info NOT REPORTED Normal [facility] Comment on above: Performed By: #### D AU #### [address] [place] [phone] Furnace Hand: Sami Abbasi MD MDMA, Urine NOT REPORTED Normal NEG [facility] Comment on above: Performed By: #### D AU #### [address] [place], [facility] Furnace Hand: Sami Abbasi MD PLT, Immature Fract.on 05-11 Platelet, Fluoresc. 120 k/uL Low 138-453 [facility] Comment on above: Performed By: #### C DP, IPF #### [address] [place] [phone] Furnace Hand: Sami Abbasi MD PLT, Immature Fract. 3.7 % Normal 1.1-10.3 [facility] Comment on above: Performed By: #### C DP, IPF #### [facility] [address] [place] [address] Furnace Hand: Sami Abbasi MD Surgical Pathologyon 021 Surgical [...] 22.0 x 14.0 x 3.0 cm Shape: Freeman Weight: 340 grams (normal for gestation 39-40 [...] SURGICAL PATHOLOGY CONSULTATION Patient Name: WILLIE LEGGETT [facility] Rec: [id number] Path Number: [id number] [facility] ANATOMIC PATHOLOGY [address] [place] [id number] [facility] Comment on above: Performed By: #### D AU #### [facility] [address] [place] [address] Furnace Hand: Sami Abbasi MD US BIOPHYS PROFILE W [...] by: Ivan Hernandez MD 05/11/[address] [facility] Cult,Urineon 05-09-2021 Cult,Urine Specimen Description .URINE Special Requests NOT REPORTED Culture NO GROWTH Report Status FINAL 05/09/2021 [facility] Comment on above: Performed By: #### C DP, IPF #### [facility] [address] [place] [address] Furnace Hand: Sami Abbasi MD CBC auto differentialOrdered By: Suzy Manjarrez on 05-08-2021 Absolute Eos # <0.03 [facility] Work Phone: Absolute Immature Granulocyte 0.07 [facility] [employer] Phone: Absolute Lymph # 0.21 Low [employer] Phone: Absolute [place] # 0.46 [employer] Phone: Basophils (Bld) [#/Vol] 0.03 10*3/uL [employer] Phone: Basophils/100 WBC (Bld) 0 % 0 - 2 % [employer] Phone: Differential Type NOT REPORTED [employer] Phone: Eosinophils/100 WBC (Bld) 0 % Low 1 - 4 % [employer] Phone: Hematocrit (Bld) [Volume fraction] 34.0 % Low 36.3 - 47.1 % [employer] Phone: Hemoglobin.gastrointes tinal spec 1 Ql (Stl) 11.1 g/dL Low 11.9 - 15.1 g/dL [employer] Phone: Immature granulocytes/100 WBC (Bld) 1 % High 0 [employer] Phone: Interpretation and review of laboratory results Abnormal [employer] Phone: Lymphocytes/100 WBC (Bld) 3 % Low 24 - 43 % [employer] Phone: MCH (RBC) [Entitic mass] 27.5 pg 25.2 - 33.5 pg [employer] Phone: MCHC (RBC) [Mass/Vol] 32.6 g/dL 28.4 - 34.8 g/dL [employer] Phone: MCV (RBC) [Entitic vol] 84.2 fL 82.6 - 102.9 fL [employer] Phone: Monocytes/100 WBC (Bld) 6 % 3 - 12 % [employer] Phone: NRBC Automated 0.0 0.0 per 100 WBC [employer] Phone: Platelet distribution width (Bld) [Ratio] 13.2 % 11.8 - 14.4 % [employer] Phone: Platelet Estimate NOT REPORTED [employer] Phone: Platelet mean volume (Bld) [Entitic vol] 10.9 fL 8.1 - 13.5 fL [employer] Phone: Platelets (Bld) [#/Vol] 159 10*3/uL [employer] Phone: RBC (Bld) [#/Vol] 4.04 10*6/uL 3.95 - 5.1 1 m/uL [employer] Phone: RBC (Bld) [#/Vol] NOT REPORTED [employer] Phone: Segmented neutrophils/100 WBC (Bld) 90 % High 36 - 65 % [employer] Phone: Segs Absolute 6.68 [employer] Phone: WBC (Bld) [#/Vol] 7.7 10*3/uL [employer] Phone: WBC (Bld) [#/Vol] NOT REPORTED [employer] Phone: [employer] Phone: CBC with Diffon 05-08-2021 Abs. Basophil 0.03 k/uL Normal 0.00-0.20 [facility] Comment on above: Performed By: #### C DP #### [facility] [address] [place] [address] Furnace Hand: Sami Abbasi MD Abs. Eosinophil <0.03 Normal 0.00-0.44 [facility] Comment on above: Performed By: #### C DP #### [facility] [address] [place], [facility]83 Furnace Hand: Sami Abbasi MD Abs.Imm.Granulocyte 0.07 k/uL Normal 0.00-0.30 [facility] Comment on above: Performed By: #### C DP #### [facility] [address] [place], [facility] Furnace Hand: Sami Abbasi MD Abs.Neutrophil (Seg) 6.68 k/uL Normal 1.50-8.10 [facility] Comment on above: Performed By: #### C DP #### [address] [place] [address] Furnace Hand: Sami Abbasi MD Basophils/100 WBC (Bld) 0 % Normal 0-2 [facility] Comment on above: Performed By: #### C DP #### [facility] [address] [place] [address] [address]. [place], [place] [address] Furnace Hand: Sami Abbasi MD Eosinophils/100 WBC (Bld) 0 % Low 1-4 [facility] Comment on above: Performed By: #### C DP #### [address] [place], [place] [address] Furnace Hand: Sami Abbasi MD Immature granulocytes/100 WBC (Bld) 1 % High 0 [facility] Comment on above: Performed By: #### C DP #### [facility] [address] [place] [address] [place] [place], [place] [address] Furnace Hand: Sami Abbasi MD Lymphocytes (Bld) [#/Vol] 0.21 10*3/uL Low 1.10-3.70 [facility] Comment on above: Performed By: #### C DP #### [facility] [address] [place] [address] Dr[place], [facility] Furnace Hand: Sami Abbasi MD Lymphocytes/100 WBC (Bld) 3 % Low 24-43 [facility] Comment on above: Performed By: #### C DP #### [facility] [address] [place], [place] [address]83 Furnace Hand: Sami Abbasi MD Monocytes (Bld) [#/Vol] 0.46 10*3/uL Normal 0.10-1.20 [facility] Comment on above: Performed By: #### C DP #### [facility] [address] [place], [facility] Furnace Hand: Sami Abbasi MD Monocytes/100 WBC (Bld) 6 % Normal 3-12 [facility] Comment on above: Performed By: #### C DP #### [address] [place], [facility]83 Furnace Hand: Sami Abbasi MD Neutrophil (Seg) 90 % High 36-65 [facility] Comment on above: Performed By: #### C DP #### [address] [place], [facility] Furnace Hand: Sami Abbasi MD Erythrocyte distribution width (RBC) [Ratio] 13.2 % Normal 11.8-14.4 [facility] Comment on above: Performed By: #### C DP #### [address] [place], [facility]83 Furnace Hand: Sami Abbasi MD Hematocrit (Bld) [Volume fraction] 34.0 % Low 36.3-47.1 [facility] Comment on above: Performed By: #### C DP #### [address] [place], [facility]83 Furnace Hand: Sami Abbasi MD Hemoglobin (Bld) [Mass/Vol] 11.1 g/dL Low 11.9-15.1 [facility] Comment on above: Performed By: #### C DP #### [address] [place], [facility] Furnace Hand: Sami Abbasi MD MCH (RBC) [Entitic mass] 27.5 pg Normal 25.2-33.5 [facility] Comment on above: Performed By: #### C DP #### [address] [place], [place] [phone] Furnace Hand: Sami Abbasi MD MCHC (RBC) [Mass/Vol] 32.6 g/dL Normal 28.4-34.[address] [facility] Comment on above: Performed By: #### C DP #### [address] [place] [address] Furnace Hand: Sami Abbasi MD MCV (RBC) [Entitic vol] 84.2 fL Normal 82.6-102.9 [facility] Comment on above: Performed By: #### C DP #### [address] [place], [facility] Furnace Hand: Sami Abbasi MD NRBC Automated 0.0 per 100 WBC Normal 0.0 [facility] Comment on above: Performed By: #### C DP #### [address] [place] [address] Furnace Hand: Sami Abbasi MD Platelet mean volume (Bld) [Entitic vol] 10.9 fL Normal 8.1-13.5 [facility] Comment on above: Performed By: #### C DP #### [address] [place] [address] Furnace Hand: Sami Abbasi MD Platelets (Bld) [#/Vol] 159 10*3/uL Normal 138-453 [facility] Comment on above: Performed By: #### C DP #### [address] [place], [place] [address]34[address]83 Furnace Hand: Sami Abbasi MD RBC (Bld) [#/Vol] 4.04 10*6/uL Normal 3.95-5.11 [facility] Comment on above: Performed By: #### C DP #### [facility] [address] [place], [place] [phone] Furnace Hand: Sami Abbasi MD WBC (Bld) [#/Vol] 7.7 10*3/uL Normal 3.5-11.3 [facility] Comment on above: Performed By: #### C DP #### [facility] [address] [place], [place] [phone] Furnace Hand: Sami Abbasi MD Auto Diff Performed NOT REPORTED Normal [facility] Comment on above: Performed By: #### C DP #### [facility] [address] [place] [address] Dr[place], [place] [phone] Furnace Hand: Sami Abbasi MD Platelet Estimate NOT REPORTED Normal [facility] Comment on above: Performed By: #### C DP #### [facility] [address] [place], [place] [address]83 Furnace Hand: Sami Abbasi MD RBC morphology finding Nom (Bld) NOT REPORTED Normal [facility] Comment on above: Performed By: #### C DP #### [facility] [address] [place] [address] [place], [place] [phone] Furnace Hand: Sami Abbasi MD WBC Morphology NOT REPORTED Normal [facility] Comment on above: Performed By: #### C DP #### [facility] [address] [place] [address] Dr[place], [place] [phone] Furnace Hand: Sami Abbasi MD COVID-19, RapidOrdered By: Brenda Manjarrez on 05-08-2021 Interpretation and review of laboratory results Abnormal [facility] Work Phone: SARS-CoV-2 (COVID-19) RNA RONDA+probe Ql (Unsp spec) Detected Abnormal Not Detected [facility] [employer] Phone: Comment on above: Rapid NAAT: The [...] this assay. Fact sheet for Healthcare Providers: https://www.fda.gov/media/383923/download Fact sheet for Patients: https://www.fda.gov/media/317682/download Methodology: Isothermal Nucleic Acid Amplification Results reported to the appropriate Health Department Specimen Description .NASOPHARYNGEAL SWAB [facility] Work Phone: [facility] [employer] Phone: Comp Metabolic Profon 2020 (cont.) Normal [facility] Comment on above: Result Comment: Aver age GFR for 20-29 years old: 116 mL/min/1.73sq m Chronic Kidney Disease: <60 mL/min/1.73sq m Kidney failure: <15 mL/min/1.73sq m eGFR calculated using average adult body mass. Additional eGFR calculator available at: http://www.[employer]/multiple_crcl_2012.htm Performed By: #### C DP, IPF #### [address] [place] [address] Furnace Hand: Sami Abbasi MD Albumin [Mass/Vol] 3.7 g/dL Normal 3.5-5.2 [facility] Comment on above: Performed By: #### C DP, IPF #### [facility] [address] [place] [address] Furnace Hand: Sami Abbasi MD Albumin/Glob Ratio 1.1 Normal 1.0-2.5 [facility] Comment on above: Performed By: #### C DP, IPF #### [address] [place] [phone] Furnace Hand: Sami Abbasi MD Alkaline Phos 155 U/L High 35-104 [facility] Comment on above: Performed By: #### C DP, IPF #### [facility] [address] [place], [place] 119[address]83 Furnace Hand: Sami Abbasi MD ALT [Catalytic activity/Vol] 13 U/L Normal 5-33 [facility] Comment on above: Performed By: #### C DP, IPF #### [facility] [address] [place], [place] 1736183 Furnace Hand: Sami Abbasi MD Anion gap [Moles/Vol] 15 mmol/L Normal 9-[address] [facility] Comment on above: Performed By: #### C DP, IPF #### [facility] [address] [place], [place] 101[address]83 Furnace Hand: Sami Abbasi MD AST [Catalytic activity/Vol] 31 U/L Normal <32 [facility] Comment on above: Performed By: #### C DP, IPF #### [facility] [address] [place], [place] [address]93[address]83 Furnace Hand: Sami Abbasi MD Bilirubin [Mass/Vol] 0.28 mg/dL Low 0.3-1.2 [facility] Comment on above: Performed By: #### C DP, IPF #### [facility] [address] [place], [place] 0769483 Furnace Hand: Sami Abbasi MD BUN/CRE Ratio 14 Normal 9-20 [facility] Comment on above: Performed By: #### C DP, IPF #### [facility] [address] [place], [place] 76[address]83 Furnace Hand: Sami Abbasi MD Calcium [Mass/Vol] 8.8 mg/dL Normal 8.6-10.4 [facility] Comment on above: Performed By: #### C DP, IPF #### [facility] [address] [place], [place] 945[address]83 Furnace Hand: Sami Abbasi MD Chloride [Moles/Vol] 98 mmol/L Normal 98-107 [facility] Comment on above: Performed By: #### C DP, IPF #### [facility] [address] [place], [place] 7607883 Furnace Hand: Sami Abbasi MD CO2 [Moles/Vol] 20 mmol/L Normal 20-31 [facility] Comment on above: Performed By: #### C DP, IPF #### [facility] [address] [place], [place] 2457683 Furnace Hand: Sami Abbasi MD Creatinine [Mass/Vol] 0.58 mg/dL Normal 0.50-0.[address] [facility] Comment on above: Performed By: #### C DP, IPF #### [facility] [address] [place], [place] 76[address]83 Furnace Hand: Sami Abbasi MD GFR, Amer >60 Normal >60 [facility] Comment on above: Performed By: #### C DP, IPF #### [facility] [address] [place], [place] 425[address]83 Furnace Hand: Sami Abbasi MD GFR,non Amer >60 Normal >60 [facility] Comment on above: Performed By: #### C DP, IPF #### [facility] [address] [place], [place] 2554883 Furnace Hand: Sami Abbasi MD Glucose [Mass/Vol] 76 mg/dL Normal 70-99 [facility] Comment on above: Performed By: #### C DP, IPF #### [facility] [address] [place], [place] 3585783 Furnace Hand: Sami Abbasi MD Potassium [Moles/Vol] 3.8 mmol/L Normal 3.7-5.[address] [facility] Comment on above: Performed By: #### C DP, IPF #### [facility] [address] [place] [address] Furnace Hand: Sami Abbasi MD Protein [Mass/Vol] 7.1 g/dL Normal 6.4-8.3 [facility] Comment on above: Performed By: #### C DP, IPF #### [facility] [address] [place] [address] Furnace Hand: Sami Abbasi MD Sodium [Moles/Vol] 133 mmol/L Low 135-144 [facility] [facility] Comment on above: Performed By: #### C DP, IPF #### [address] [place] [address] Furnace Hand: Sami Abbasi MD Staging: Normal [facility] Comment on above: Result Comment: Stag e 1: Some kidney damage normal GFR Stage 2: Mild kidney damage GFR 60-89 Stage 3: Moderate kidney damage GFR 30-59 Stage 4: Severe kidney damage GFR 15-29 Stage 5: Severe kidney damage GFR <15 ESRD - chronic treatment by dialysis or transplant Performed By: #### C DP, IPF #### [address] [place] [address] Furnace Hand: Sami Abbasi MD Urea nitrogen [Mass/Vol] 8 mg/dL Normal 6-20 [facility] Comment on above: Performed By: #### C DP, IPF #### [facility] [address] [place] [address] Furnace Hand: Sami Abbasi MD Comprehensive metabolic pane lOrdered By: Suzy Manjarrez on 05-08-2021 Albumin [Mass/Vol] 3.7 g/dL 3.5 - 5.2 g/dL [facility] Work Phone: Albumin/Globulin [Mass ratio] 1.1 {ratio} [facility] Work Phone: ALP (Bld) [Catalytic activity/Vol] 155 U/L High 35 - 104 U/L [employer] Phone: ALT [Catalytic activity/Vol] 13 U/L 5 - 33 U/L [employer] Phone: Anion gap [Moles/Vol] 15 mmol/L 9 - 17 mmol/L [employer] Phone: AST [Catalytic activity/Vol] 31 U/L <32 [employer] Phone: Bilirubin [Mass/Vol] 0.28 mg/dL Low 0.3 - 1 .2 mg/dL [employer] Phone: Calcium [Mass/Vol] 8.8 mg/dL 8.6 - 10. 4 mg/dL [employer] Phone: Chloride [Moles/Vol] 98 mmol/L 98 - 10 7 mmol/L [employer] Phone: CO2 [Moles/Vol] 20 mmol/L 20 - 31 mmol/L [employer] Phone: Creatinine [Mass/Vol] 0.58 mg/dL 0.50 - 0.90 mg/dL [employer] Phone: Free PSA/Total PSA [Mass fraction] 7.1 g/dL 6.4 - 8.3 g/dL [employer] Phone: GFR >60 >60 mL/min [employer] Phone: GFR Non- >60 >60 mL/min [employer] Phone: Glucose [Mass/Vol] 76 mg/dL 70 - 99 mg/dL [employer] Phone: Interpretation and review of laboratory results Abnormal [employer] Phone: Potassium [Moles/Vol] 3.8 mmol/L 3.7 - 5.3 mmol/L [employer] Phone: Sodium [Moles/Vol] 133 mmol/L Low 135 - 144 mmol/L [employer] Phone: Urea nitrogen (BldV) [Mass/Vol] 8 mg/dL 6 - 20 mg/dL [employer] Phone: Urea nitrogen/Creatinine (Bld) [Mass ratio] 14 [employer] Phone: [employer] Phone: Laboratory - Chemistry and C hemistry - challengeOrdered By: Suzy Manjarrez on 05-08-2021 GFR/1.73 sq M.predicted MDRD (S/P/Bld) [Vol rate/Area] [employer] Phone: Comment on above: Average GFR for 20-2 9 years old: 116 mL/min/1.73sq m Chronic Kidney Disease: <60 mL/min/1.73sq m Kidney failure: <15 mL/min/1.73sq m eGFR calculated using average adult body mass. Additional eGFR calculator available at: http://www.[employer]/multiple_crcl_2012.htm Stage 1: Some kidney damage normal GFR Stage 2: Mild kidney damage GFR 60-89 Stage 3: Moderate kidney damage GFR 30-59 Stage 4: Severe kidney damage GFR 15-29 Stage 5: Severe kidney damage GFR <15 ESRD - chronic treatment by dialysis or transplant Microscopic UrinalysisOrdere d By: Suzy Manjarrez on 05-08-2021 - [employer] Phone: Amorphous, UA NOT REPORTED None [employer] Phone: Bacteria, UA NOT REPORTED None [employer] Phone: Casts UA NOT REPORTED /LPF [employer] Phone: Crystals, UA NOT REPORTED None /HPF [employer] Phone: Epithelial Cells UA 10 TO 20 [employer] Phone: Mucus, UA NOT REPORTED None [facility] Phone: Other Observations UA NOT REPORTED NOT REQ. M [facility]cy [employer] Work Phone: RBC, UA 0 TO 2 [facility] Work Phone: Renal Epithelial, UA NOT REPORTED 0 /HPF [employer] Work Phone: Trichomonas, UA NOT REPORTED None [facility] Phone: WBC, UA 0 TO 2 [facility] Phone: Yeast, UA NOT REPORTED None [facility] Phone: No Panel InformationOrdered By: Suzy Manjarrez on 05-08-2021 [facility] [employer] Phone: [id number] 05-08-2021 SARS-CoV-2 (COVID-19) RNA RONDA+probe Ql (Unsp spec) Detected Abnormal NOTDET [facility] Comment on above: Result Comment: [...] this assay. Fact sheet for Healthcare Providers: https://www.fda.gov/media/002646/download Fact sheet for Patients: https://www.fda.gov/media/920750/download Methodology: Isothermal Nucleic Acid Amplification Results reported to the appropriate Health Department Performed By: #### H H #### [facility] [address] [place] [address] Furnace Hand: Sami Abbasi MD Strep Thomas A Direct Agon 05-08 Strep Gr A Direct Ag Specimen Descriptio n .THROAT SWAB Special Requests NOT REPORTED Direct Exam Rapid Strep A negative. A negative Rapid Group A Strep Screen result does not rule out the possibility of Group A Streptococci in the specimen. A Group A Strep DNA test is available upon request. Report Status FINAL 05/08/2021 Normal [facility] Comment on above: Performed By: #### H H #### [facility] [address] [place] [address] Furnace Hand: Sami Abbasi MD Strep Screen Group A ThroatO rdered By: Suzy Manjarrez on 05-08-2021 S. pyogenes Ag IA Ql (Unsp spec) Rapid Strep A negative. A negative Rapid Group A Strep Screen result does not rule out the possibility of Group A Streptococci in the specimen. A Group A Strep DNA test is available upon request. [employer] Phone: Special Requests NOT REPORTED [employer] Phone: Specimen Description .THROAT SWAB [employer] Phone: [employer] Phone: UrinalysisOrdered By: Nilay Manjarrez on 05-08-2021 Bilirubin Urine Negative NEGATIVE [employer] Phone: Color, UA YELLOW YELLOW [employer] Phone: Glucose, Ur Negative NEGATIVE [employer] Phone: Interpretation and review of laboratory results Abnormal [employer] Phone: Ketones Ql (U) 2+ Abnormal NEGATIVE [employer] Phone: Leukocyte esterase Test strip Ql (U) Negative NEGATIVE [employer] Phone: Nitrite, Urine Negative NEGATIVE [employer] Phone: pH, UA 6.5 [employer] Phone: Protein, UA Negative NEGATIVE [employer] Phone: Specific [place], UA 1.025 High [facility] [employer] Phone: Turbidity UA CLEAR CLEAR [facility] [employer] Work Phone: Urinalysis Comments NOT REPORTED [facility] [employer] Work Phone: Urine Hgb Negative NEGATIVE [facility] [employer] Phone: Urobilinogen, Urine Normal Normal [facility] [employer] Phone: Urinalysis, Routineon 2020 Bilirubin, SemiQt,Ur Negative Normal NEG [facility] Comment on above: Performed By: #### C DP, IPF #### [address] [place], [facility] Furnace Hand: Sami Abbasi MD Blood, Urine Negative Normal NEG [facility] Comment on above: Performed By: #### C DP, IPF #### [address] [place], [facility] Furnace Hand: Sami Abbasi MD Clarity (U) CLEAR Normal CLEAR [facility] Comment on above: Performed By: #### C DP, IPF #### [address] [place], [place] [id number] Furnace Hand: Sami Abbasi MD Color (U) YELLOW Normal YEL [facility] Comment on above: Performed By: #### C DP, IPF #### [facility] [address] [place], [facility] Furnace Hand: Sami Abbasi MD Glucose Ql (U) Negative Normal NEG [facility] Comment on above: Performed By: #### C DP, IPF #### [facility] [address] [place], [place] [id number] Furnace Hand: Sami Abbasi MD Ketones Ql (U) 2+ Abnormal NEG [facility] Comment on above: Performed By: #### C DP, IPF #### [facility] [address] [place], [place] [address] Furnace Hand: Sami Abbasi MD Leukocyte esterase Test strip Ql (U) Negative Normal NEG [facility] Comment on above: Performed By: #### C DP, IPF #### [facility] [address] [place], [place] [id number] Furnace Hand: Sami Abbasi MD Nitrite,Ur Negative Normal NEG [facility] Comment on above: Performed By: #### C DP, IPF #### [facility] [address] [place], [place] [id number] Furnace Hand: Sami Abbasi MD PH,Ur 6.5 Normal 5.0-9.0 [facility] Comment on above: Performed By: #### C DP, IPF #### [facility] [address] [place], [place] [id number] Furnace Hand: Sami Abbasi MD Protein Ql (U) Negative Normal NEG [facility] Comment on above: Performed By: #### C DP, IPF #### [facility] [address] [place], [place] [id number] Furnace Hand: Sami Abbasi MD Spec. [place],Ur 1.025 High 1.010-1.020 [facility] Comment on above: Performed By: #### C DP, IPF #### [facility] [address] [place], [place] [address] Furnace Hand: Sami Abbasi MD Urobilinogen,Ur Normal Normal NORM [facility] Comment on above: Performed By: #### C DP, IPF #### [facility] [address] [place], [place] [phone] Furnace Hand: Sami Abbasi MD Comment NOT REPORTED Normal [facility] Comment on above: Performed By: #### C DP, IPF #### [facility] [address] [place], [place] [id number] Furnace Hand: Sami Abbasi MD Urinalysis,Microon 1 ----- Normal [facility] Comment on above: Performed By: #### C DP, IPF #### [facility] [address] [place], [place] [id number] Furnace Hand: Sami Abbasi MD Epithelial cells LM Ql (Urine sed) 10 TO 20 Normal 0-25 [facility] Comment on above: Performed By: #### C DP, IPF #### [facility] [address] [place], [place] [address] Furnace Hand: Sami Abbasi MD Urine RBC's 0 TO 2 Normal 0-2 [facility] Comment on above: Performed By: #### C DP, IPF #### [facility] [address] [place], [place] [address] Furnace Hand: Sami Abbasi MD Urine WBC's 0 TO 2 Normal 0-5 [facility] Comment on above: Performed By: #### C DP, IPF #### [facility] [address] [place], [place] [phone] Furnace Hand: Sami Abbasi MD Amorphous sediment LM Ql (Urine sed) NOT REPORTED Normal [facility] Comment on above: Performed By: #### C DP, IPF #### [facility] [address] [place] [address] [place] [address] Furnace Hand: Sami Abbasi MD Bacteria NOT REPORTED Normal [facility] Comment on above: Performed By: #### C DP, IPF #### [facility] [address] [place], [place] [id number] Furnace Hand: Sami Abbasi MD Casts NOT REPORTED Normal [facility] Comment on above: Performed By: #### C DP, IPF #### [facility] [address] [place], [place] [address] Furnace Hand: Sami Abbasi MD Crystals LM Nom (Urine sed) NOT REPORTED Normal NONE [facility] Comment on above: Performed By: #### C DP, IPF #### [facility] [address] [place], [place] [phone] Furnace Hand: Sami Abbasi MD Epithelial, Renal NOT REPORTED Normal 0 [facility] Comment on above: Performed By: #### C DP, IPF #### [facility] [address] [place], [place] [phone] Furnace Hand: Sami Abbasi MD Mucus Strands NOT REPORTED Normal NONE [facility] Comment on above: Performed By: #### C DP, IPF #### [facility] [address] [place], [place] [address] Furnace Hand: Sami Abbasi MD Other Observations NOT REPORTED Normal NREQ [facility] Comment on above: Performed By: #### C DP, IPF #### [facility] [address] [place] [address] Furnace Hand: Sami Abbasi MD Trichomonas NOT REPORTED Normal NONE [facility] Comment on above: Performed By: #### C DP, IPF #### [address] [place], [place] [phone] Furnace Hand: Sami Abbasi MD Yeast NOT REPORTED Normal [facility] Comment on above: Performed By: #### C DP, IPF #### [facility] [address] [place], [place] [phone] Furnace Hand: Sami Abbasi MD Rule Out Grp.B Strepon 05-02 Rule Out Grp.B Strep Specimen Descriptio n .VAGINA Special Requests NOT REPORTED Culture NEGATIVE FOR GROUP B STREPTOCOCCI Report Status FINAL 05/02/2021 Normal [facility] Comment on above: Performed By: #### C DP, IPF #### [facility] [address] [place], [place] [id number] Furnace Hand: Sami Abbasi MD Glucose Soraya Scr 50gon 2020 Glucose [Mass/Vol] 93 mg/dL Normal 70-135 [facility] Comment on above: Performed By: #### D AU #### [facility] [address] [place] [address] Furnace Hand: Sami Abbasi MD Glu Administered via Glucola [facility] Comment on above: Performed By: #### D AU #### [facility] [address] [place] [address] Furnace Hand: Sami Abbasi MD Glucose tolerance, 1 hourOrd ered By: Suzy Manjarrez on 02-25-2021 GLU ADMN [facility] Phone: Glucose tolerance screen 50g 93 mg/dL 70 - 135 mg/dL [facility] [employer] Phone: [facility] [employer] Phone: Hemoglobinon 02-25-2021 Hemoglobin (Bld) [Mass/Vol] 11.7 g/dL Low 11.9-15.1 [facility] Comment on above: Performed By: #### D AU #### [facility] [address] [place] [address] Furnace Hand: Sami Abbasi MD HemoglobinOrdered By: Nilay Manjarrez on 02-25-2021 Hemoglobin.gastrointes tinal spec 1 Ql (Stl) 11.7 g/dL Low 11.9 - 15.1 g/dL [facility] [employer] Phone: Interpretation and review of laboratory results Abnormal [facility] [employer] Phone: [facility] [employer] Phone: RhIg Workup (RhoGam)on 02-25 RhIg Workup (RhoGam) Blood Component Typ e MANUFACTURED PRODUCT Units Ordered 1 ABO/Rh(D) A NEGATIVE Antibody Screen NEGATIVE History Check A NEG Unit Number [id number] Blood Component Type RHIG Unit Division 00 Status of Unit TRANSFUSED Transfusion Status OK TO TRANSFUSE Normal [facility] Comment on above: Performed By: #### C DP, IPF #### [facility] [address] [place] [address] Furnace Hand: Sami Abbasi MD Hepatitis C Antibodyon 10-08 Hepatitis C Ab NONREACTIVE NONREACTIVE [employer] Phone: Comment on above: The hepatitis C [...] TYPE AND SCREENon 0 10-07-2020 ABO/Rh Negative [employer] Phone: Urine Drug Screen, Comprehen siveon 10-07-2020 Amphetamine Screen, Ur Negative NEGATIVE [employer] Work Phone: Barbiturate Screen, Ur Positive Abnormal NEGATIVE [employer] Work Phone: Benzodiazepine Screen, Urine Negative NEGATIVE [employer] Work Phone: Buprenorphine Urine Negative NEGATIVE [facility] Work Phone: Cannabinoid Scrn, Ur Negative NEGATIVE [employer] Work Phone: Cocaine Metabolite, Urine Negative NEGATIVE [facility] Work Phone: Interpretation and review of laboratory results Abnormal [employer] Work Phone: MDMA, Urine NOT REPORTED NEGATIVE [facility] Work Phone: Methadone Screen, Urine Negative NEGATIVE [facility] Work Phone: Methamphetamine, Urine Negative NEGATIVE [employer] Work Phone: Opiates, Urine Negative NEGATIVE [facility] Work Phone: Oxycodone Screen, Ur Negative NEGATIVE [employer] Work Phone: Phencyclidine, Urine Negative NEGATIVE [employer] Work Phone: Propoxyphene, Urine Negative NEGATIVE [employer] Work Phone: Test Information NOT REPORTED [employer] Phone: Tricyclic Antidepressants, Urine Negative NEGATIVE [employer] Phone: Comment on above: Drug screen results are to be used for medical purposes only. All positive results are unconfirmed. Testing for employment or legal uses should be sent to a reference laboratory for confirmation. Vital Signs Date Time Vital Sign Value Performing Clinician Faci lity 05-25-2021 17:42-0400 Body temperature 98.01 [degF] Tessa Hidalgo MD Work Phone: [employer] Phone: 05-25-2021 17:42-0400 Diastolic blood pressure 83 mm[Hg] Tessa Hidalgo MD Work Phone: [employer] Work Phone: 05-25-2021 17:42-0400 Heart rate 95 /min Tessa Hidalgo MD Work Phone: [employer] Work Phone: 05-25-2021 17:42-0400 Respiratory rate 18 /min Tessa Hidalgo MD Work Phone: [employer] Work Phone: 05-25-2021 17:42-0400 SaO2% (BldA) [Mass fraction] 100 % Tessa Hidalgo MD Work Phone: [employer] Work Phone: 05-25-2021 17:42-0400 Systolic blood pressure 154 mm[Hg] Tessa Hidalgo MD Work Phone: [employer] Phone: 05-08-2021 08:50-0400 Body temperature 99.1 [degF] Suzy Loki [employer] Work Phone: [employer] Phone: 05-08-2021 05:20-0400 Respiratory rate 17 /min Suzy Pool [employer] CNM Work Phone: [employer] Phone: 05-08-2021 03:50-0400 Diastolic blood pressure 58 mm[Hg] [employer] CNM Work Phone: [employer] Phone: 05-08-2021 03:50-0400 Heart rate 109 /min [employer]M Work Phone: [employer] Phone: 05-08-2021 03:50-0400 Systolic blood pressure 99 mm[Hg] [employer] Work Phone: [employer] Phone: 02-26-2021 09:53-0400 Body temperature 96.91 [degF] [facility] 01 [employer] Phone: 02-26-2021 09:53-0400 Diastolic blood pressure 76 mm[Hg] [facility] 01 [employer] Phone: 02-26-2021 09:53-0400 Heart rate 94 /min [facility] 01 [employer] Phone: 02-26-2021 09:53-0400 Respiratory rate 20 /min [facility] 01 [employer] Phone: 02-26-2021 09:53-0400 Systolic blood pressure 134 mm[Hg] [facility] 01 [employer] Phone: Encounters Encounter Date Encounter Type Care Provider Facility Start: 07-06-2024 End: 07-06-2024 ambulatory DAX SLAUGHTER [facility] Start: 06-07-2024 End: 06-08-2024 Clinisync Result Encounter Dax Slaughter DO Work Phone: [facility] External Department Unsolicited Start: 06-07-2024 End: 06-08-2024 Clinisync Result Encounter Dax Mccabeo DO Work Phone: [facility] External Department Unsolicited Start: 05-01-2024 End: 05-01-2024 ambulatory YAMILETH MORENO Not Available Start: 04-19-2024 End: 04-19-2024 ambulatory DAX SUKHJINDER Not Available Start: 02-21-2024 End: 02-21-2024 ambulatory DAX SUKHJINDER Not Available Start: 01-31-2024 End: 01-31-2024 ambulatory DAX SUKHJINDER Not Available Start: 12-22-2023 End: 12-25-2023 ambulatory DAIJA L [facility] Start: 12-22-2023 Encounter for preprocedural laboratory examination [facility] Start: 10-14-2023 End: 10-15-2023 ambulatory SUZY Nikolay [facility] Start: 09-14-2023 End: 09-14-2023 ambulatory KATHARINA NICOLABENJI Not Available Start: 09-29-2021 End: 09-30-2021 [facility] Start: 05-25-2021 End: 05-25-2021 Emergency department patient visit TESSA GWEN [facility] Start: 05-25-2021 End: 05-25-2021 Emergency department patient visit Tessa Hidalgo MD Work Phone: [facility] ED Comment on above: Vaginal bleeding (Pr imary Dx) Start: 05-21-2021 End: 05-22-2021 [facility] Start: 05-21-2021 End: 05-21-2021 Subsequent hospital visit by physician Daija Howard MD [facility] Phone[facility] Comment on above: Abnormal uterine ble eding, Start: 05-21-2021 End: 05-24-2021 ambulatory MUSHTAQ Yost [facility] Start: 05-11-2021 End: 05-15-2021 Evaluation and management of inpatient SUZY [place] [facility] Start: 05-08-2021 End: 05-08-2021 ambulatory [facility] [place] [facility] Start: 05-08-2021 End: 05-08-2021 Subsequent hospital visit by physician Suzy Bowman CNM Work Phone: [facility] Labor and Delivery Start: 04-29-2021 End: 04-30-2021 ambulatory [facility] [place] [facility] Start: 04-29-2021 End: 04-29-2021 Subsequent hospital visit by physician Daija Howard MD Work Phone: [facility] Laboratory Comment on above: 36 weeks gestation o f Start: 02-26-2021 End: 02-27-2021 ambulatory [facility] [place] [facility] Start: 02-26-2021 End: 02-26-2021 Subsequent hospital visit by physician Jimi Op Treatment 01 [facility] Specialty Clinic (MOB) Start: 02-25-2021 End: 02-26-2021 ambulatory [facility] [place] [facility] Start: 02-25-2021 End: 02-25-2021 Subsequent hospital visit by physician Daija Howard MD Work Phone: [facility] Laboratory Comment on above: 27 weeks gestation o f ; Need for rhogam due to Rh negative mother; Impaired glucose in , antepartum Start: 10-07-2020 End: 10-07-2020 Subsequent hospital visit [facility] Comment on above: Amenorrhea; Positive urine test; Encounter for supervision of normal first in first trimester Procedures Date Procedure Procedure Detail Performing Clinician Start: 06-07-2024 ALL PROGESTERONE Dax Slaughter DO Work Phone: Start: 05-25-2021 Antibody screen Tessa Hidalgo MD Work Phone: Start: 05-25-2021 Blood typing serologic abo Tessa Hidalgo MD Work Phone: Start: 05-25-2021 End: 05-25-2021 Comprehensive metabolic panel Tessa Hidalgo MD Work Phone: Start: 05-21-2021 Gonadotropin chorionic quantitative Mushtaq Garcia MD Work Phone: Start: 05-08-2021 COVID-19, RAPID Suzy E Pool [employer] Work Phone: Start: 05-08-2021 Iaadiadoo streptococcus group a Suzy E Pool [employer] CNM Work Phone: Start: 05-08-2021 Comprehensive metabolic panel Suzy E Pool [employer] Work Phone: Start: 05-08-2021 Urinalysis microscopic only Suzy E Pool [employer] Work Phone: Start: 05-08-2021 Urnls dip stick/tablet rgnt auto w/o microscopy Suzy E Pool [employer] CNM Work Phone: Start: 05-08-2021 nonstress test Suzy E Pool APR N - CNM Work Phone: Start: 02-25-2021 Blood count hemoglobin Suzy E Pool A PRN - CNM Work Phone: Start: 02-25-2021 Blood typing serologic rh (d) Suzy E Pool [employer] CNM Work Phone: Start: 10-07-2020 Antibody [...] DTaP/Tdap/Td vaccine (8 - Td or Tdap) [employer] Phone: Start: 07-12-2024 End: 07-12-2024 Patient encounter procedure 07/12/2024 1:00 PM EST Office Visit [facility] [address] [place] [id number] Yamileth Moreno PA [address] [place] [address] [facility] Start: 04-23-2024 Influenza vaccination Influenza Vacc ine (#1) [facility] Start: 07-23-2022 Screening for malign ant neoplasm of cervix ZZ Cervical cancer screen age 21-29 [employer] Phone: Comment on above: Postponed from 04/26 (Not Indicated) Start: 02-19-2022 Influenza vaccination Flu vaccine (# 1) [employer] Phone: Comment on above: Postponed from 04/23 (Not Indicated) Start: 06-23-2021 End: 06-23-2021 ambulatory 06/23/2021 Visit Obstetrics and Gynecology Suzy Manjarrez APRN - CNM [address] [place] [address] [phone] [facility] Start: 05-20-2021 End: 05-20-2021 Patient encounter procedure 05/20/2021 Routine Obstetrics and Gynecology Suzy Manjarrez APRN - CNM [address] [place] [address] [facility] Start: 05-13-2021 End: 05-13-2021 Patient encounter procedure 05/13/2021 Routine Obstetrics and Gynecology Suzy Manjarrez APRN - CNM [address] [place] [address] [phone] [facility]ST[facility] Start: 05-06-2021 End: 05-06-2021 Patient encounter procedure 05/06/2021 Routine Obstetrics and Gynecology Suzy Manjarrez APRN - CN [address] [place], [place] [id number] [facility]ST[facility]ECOLOG[facility] Start: 04-23-2021 Influenza vaccination Flu vaccine (# 1) [facility] [employer] Phone: Start: 03-17-2021 End: 03-17-2021 Patient encounter procedure 03/17/2021 Routine Obstetrics and Gynecology Mushtaq Garcia MD [address] [place], [place] [id number] [facility] Start: 03-17-2021 End: 03-17-2021 Professional / ancillary services management 03/17/2021 Ancillary Procedure Obstetrics and Gynecology [facility] Start: 02-26-2021 Subsequent hospital visit by physician 02/26/2021 Hospital Encounter Infusion Therapy [facility] Start: 10-16-2020 End: 10-16-2020 Ancillary Procedure [facility] OBST[facility]ECOLOG[facility] Start: 04-23-2020 Influenza vaccination Flu vaccine (# 1) [facility] [employer] Phone: Start: 2016 Screening for malign ant neoplasm of cervix [facility] [employer] Phone: Start: 2014 DTaP/Tdap/Td vaccine (1 - Tdap) DTaP/Tdap/Td vaccine (1 - Tdap) [facility] [employer] Phone: Start: 2010 HIV screening HIV screen [facility] Work Phone: Start: 2007 COVID-19 Vaccine (1) COVID-19 Vaccin e (1) [facility] [employer] Phone: Start: 2006 HPV vaccine (1 - 2-d ose series) HPV vaccine (1 - 2-dose series) [employer] Phone: Start: 1996 Varicella vaccine (1 of 2 - 2-dose childhood series) Varicella vaccine (1 of 2 - 2-dose childhood series) [employer] Phone: Start: 1995 Hepatitis C screening Hepatitis C sc reen [employer] Phone: End: 05-08-2021 Bacteria identified in Urine by Culture Urine culture Microbiology Routine One Time for 1 Occurrences starting 05/08/2021 until 05/08/2021 [employer] Phone: Comment on above: One Time for 1 Occur rences starting 05/08/2021 until 05/08/2021 End: 10-07-2020 C.trachomatis N.gonorrhoeae DNA, Urine C.trachomatis N.gonorrhoeae DNA, Urine Microbiology Routine Amenorrhea Positive urine test Encounter for supervision of normal first in first trimester 1 Occurrences starting 10/07/2020 until 10/07/2020 [employer] Phone: Comment on above: 1 Occurrences starti ng 10/07/2020 until 10/07/2020 C.trachomatis N.gonorrhoeae DNA, Urine C.trachomatis N.gonorrhoeae DNA, Urine Microbiology Routine Amenorrhea Positive urine test Encounter for supervision of normal first in first trimester 10/07/2020 11:00 AM EST [employer] Phone: End: 04-29-2021 Culture, Strep B Screen, Vaginal/Rectal Culture, Strep B Screen, Vaginal/Rectal Microbiology Routine 36 weeks gestation of 1 Occurrences starting 04/29/2021 until 04/29/2021 [employer] Phone: Comment on above: 1 Occurrences starti ng 04/29/2021 until 04/29/2021 Culture, Strep B Scr een, Vaginal/Rectal Culture, Strep B Screen, Vaginal/Rectal Microbiology Routine 36 weeks gestation of 04/29/2021 12:15 PM EDT [employer] Phone: End: 10-07-2020 Culture, Urine Culture, Urine Microbiology Routine Amenorrhea Positive urine test Encounter for supervision of normal first in first trimester 1 Occurrences starting 10/07/2020 until 10/07/2020 [employer] Phone: Comment on above: 1 Occurrences starti ng 10/07/2020 until 10/07/2020 Culture, Urine [employer] Phone: End: 10-07-2020 HIV Screen HIV Screen Lab Routine Amenorrhea Positive urine test Encounter for supervision of normal first in first trimester 1 Occurrences starting 10/07/2020 until 10/07/2020 [employer] Phone: Comment on above: 1 Occurrences starti ng 10/07/2020 until 10/07/2020 HIV Screen HIV Screen Lab R outine Amenorrhea Positive urine test Encounter for supervision of normal first in first trimester 10/07/2020 12:12 PM [employer] Phone: Nonrebreather mask oxygen Nonrebreather mask oxygen Respiratory Care Routine As directed - RT (PRN) until discontinued starting 05/08/2021 [employer] Phone: Comment on above: As directed - RT (WI N) until discontinued starting 05/08/2021 PROFILE I PROF ILE I Lab Routine Amenorrhea Positive urine test Encounter for supervision of normal first in first trimester 10/07/2020 12:11 PM [employer] Phone: RHOGAM ANTEPARTUM RHOGAM ANTEPAR KAYLEEN Blood Bank Routine 27 weeks gestation of Need for rhogam due to Rh negative mother 02/25/2021 6:39 PM EDT [employer] Phone: End: 05-08-2021 Sample possible blood bank testing Sample possible blood bank testing Lab Routine One Time for 1 Occurrences starting 05/08/2021 until 05/08/2021 [employer] Phone: Comment on above: One Time for 1 Occur rences starting 05/08/2021 until 05/08/2021 End: 05-08-2021 SVE SVE Point of Care Testing Routine One Time for 1 Occurrences starting 05/08/2021 until 05/08/2021 [facility] Work Phone: Comment on above: One Time for 1 Occur rences starting 05/08/2021 until 05/08/2021 Immunizations Immunization Date Immunization Notes Care Provider [facility] 06-21-2023 influenza, injectabl e, quadrivalent, preservative free Dax Sukhjinder DO Work Phone: [facility] 06-21-2023 influenza virus vacc ine, unspecified formulation Dax Sukhjinder DO Work Phone: [facility] 06-19-2022 influenza, injectabl e, quadrivalent, preservative free Dax Sukhjinder DO Work Phone: [facility] 06-23-2021 influenza, seasonal, injectable Dax Sukhjinder DO Work Phone: [facility] 03-17-2021 tetanus toxoid, redu melony diphtheria toxoid, and acellular pertussis vaccine, adsorbed Daija Howard MD Work Phone: [facility] Work Phone: 06-13-2020 influenza, injectabl e, quadrivalent, preservative free Dax Sukhjinder DO Work Phone: [facility] 06-01-2019 influenza, injectabl e, quadrivalent, preservative free Dax Sukhjinder DO Work Phone: [facility] 05-23-2018 influenza, injectabl e, quadrivalent, contains preservative Dax Sukhjinder DO Work Phone: [facility] 06-19-2016 influenza, injectabl e, quadrivalent, preservative free Dax Sukhjinder DO Work Phone: [facility] 06-13-2015 influenza virus vacc ine, whole virus Dax Sukhjinder DO Work Phone: [facility] 06-27-2013 influenza, seasonal, injectable, preservative free Dax Sukhjinder DO Work Phone: [facility] 06-14-2012 influenza virus vacc ine, live, attenuated, for intranasal use Dax Sukhjinder DO Work Phone: [facility] 06-01-2011 influenza virus vacc ine, live, attenuated, for intranasal use Dax Sukhjinder DO Work Phone: [facility] 06-01-2011 tetanus toxoid, redu melony diphtheria toxoid, and acellular pertussis vaccine, adsorbed Dax Sukhjinder DO Work Phone: [facility] 12-25-2010 human papilloma viru s vaccine, quadrivalent Dax Sukhjinder DO Work Phone: [facility] 12-25-2010 meningococcal polysaccharide (groups A, C, Y and W-135) diphtheria toxoid conjugate vaccine (MCV4P) Dax Sukhjinder DO Work Phone: [facility] 09-08-2010 HPV, unspecified formulation Dax Sukhjinder DO Work Phone: [facility] 06-09-2010 HPV, unspecified formulation Dax Sukhjinder DO Work Phone: [facility] 06-09-2010 influenza virus vacc ine, whole virus Dxa Sukhjinder DO Work Phone: [facility] 03-24-2000 diphtheria, tetanus toxoids and acellular pertussis vaccine, unspecified formulation Dax Sukhjinder DO Work Phone: [facility] 03-24-2000 hepatitis B vaccine, pediatric or pediatric/adolescent dosage Dax Sukhjinder DO Work Phone: [facility] 03-24-2000 measles, mumps and rubella virus vaccine Dax Sukhjinder DO Work Phone: [facility] 03-24-2000 poliovirus vaccine, inactivated Dax Sukhjinder DO Work Phone: [facility] 07-31-1996 diphtheria, tetanus toxoids and acellular pertussis vaccine, unspecified formulation Dax Sukhjinder DO Work Phone: [facility] 07-31-1996 haemophilus influenz ae type b vaccine, conjugate unspecified formulation Dax Sukhjinder DO Work Phone: [facility] 07-31-1996 measles, mumps and rubella virus vaccine Dax Sukhjinder DO Work Phone: [facility] 1995 DTP-Haemophilus influenzae type b conjugate vaccine Dax Sukhjinder DO Work Phone: [facility] 1995 trivalent poliovirus vaccine, live, oral Dax Sukhjinder DO Work Phone: [facility] 1995 DTP-Haemophilus influenzae type b conjugate vaccine Dax Sukhjinder DO Work Phone: [facility] 1995 hepatitis B vaccine, pediatric or pediatric/adolescent dosage Dax Sukhjinder DO Work Phone: [facility] 1995 trivalent poliovirus vaccine, live, oral Dax Sukhjinder DO Work Phone: [facility] 1995 DTP-Haemophilus influenzae type b conjugate vaccine Dax Sukhjinder DO Work Phone: [facility] 1995 hepatitis B vaccine, pediatric or pediatric/adolescent dosage Dax Sukhjinder DO Work Phone: [facility] 1995 trivalent poliovirus vaccine, live, oral Dax Sukhjinder DO Work Phone: [facility] 1995 hepatitis B vaccine, pediatric or pediatric/adolescent dosage Dax Sukhjinder DO Work Phone: [facility] Payers Date Payer Category Payer [facility] er [id number] 2022 Unknown [id number] 2020 Unknown [id number] 1995 Unknown [id number] 2.16.840.1.686419.3.579. 2.173 1995 Unknown [id number] 2.16.840.1.443102.3.579. 2.173 1995 Unknown [id number] 2.16.840.1.555161.3.579. 2.173 1995 Unknown [id number] 2.16.840.1.389435.3.579. 2.173 1995 Unknown [id number] 2.16.840.1.027076.3.579. 2.173 1995 Unknown [id number] 2.16.840.1.910603.3.579. 2.173 1995 Unknown [id number] 2.16.840.1.195427.3.579. 2.173 1995 Unknown [id number] 2.16.840.1.720910.3.579. 2.173 1995 Unknown [id number] 2.16.840.1.562008.3.579. 2.173 1995 Unknown [id number] 2.16.840.1.055861.3.579. 2.173 1995 Unknown [id number] 2.16.840.1.052122.3.579. 2.172 1995 Unknown [id number] 2.16.840.1.142493.3.579. 2.172 1995 Unknown [id number] 2.16.840.1.684327.3.579. 2.9 1995 Unknown [id number] 2.16.840.1.287667.3.579. 2.1258 1995 Unknown [id number] 2.16.840.1.373381.3.579. 2.1258 1995 Unknown [id number] 2.16.840.1.807125.3.579. 2.1258 1995 Unknown [id number] 2.16.840.1.182875.3.579. 2.9 1995 Unknown [id number] 2.16.840.1.479859.3.579. 2.1286 Social History Date Type Detail Facility Start: 10-07-2020 End: 09-13-2023 Tobacco smoking status [facility] Never smoker [facility] Start: 10-07-2020 End: 09-13-2023 Tobacco use and exposure Never used [employer] Phone: Start: 10-07-2020 End: 05-21-2021 Alcohol intake Ex-drinker (finding) [employer] Phone: Start: 08-30-2020 [employer] Phone: Start: 1995 Sex Assigned At Not on file [employer] Phone: Exposure to SARS-CoV -2 (event) Not sure [facility] Exposure to SARS-CoV -2 (event) Yes [facility] Start: 05-01-2024 Alcoholic beverage intake Current drinker of alcohol (finding) [facility] Start: 09-13-2023 End: 09-14-2023 History of Social function [facility] Start: 09-13-2023 End: 09-14-2023 Humiliation, Afraid, Rape, and Kick questionnaire [HARK] [facility] Within the last year , have you been afraid of your partner or ex-partner? No [facility] Are you now , , , , never or living with a partner? [facility] How often to you hav e a drink containing alcohol? 2-4 times a month [facility] How many standard dr inks containing alcohol do you have on a typical day? 3 or 4 [facility] How often do you hav e 6 or more drinks on 1 occasion? Monthly [facility] How hard is it for y ou to pay for the very basics like food, housing, medical care, and heating Not hard at all [facility] Do you feel stress - tense, restless, nervous, or anxious, or unable to sleep at night because your mind is troubled all the time - these days [OSQ] Not at all [facility] (I/We) worried wheth er (my/our) food would run out before (I/we) got money to buy more. Never true [facility] Start: 02-15-2024 Alcohol Comment Social [facility] Start: 1995 Sex assigned at Female [facility] Start: 11-04-2022 Gender identity Identifies as female gender (finding) [facility] Hospital Discharge instructions 05-25-2021 InstructionsAttachments Note Date & Type Note Facility 05-25-2021 Hospital Discharg e instructions Tessa Hidalgo MD - 05/25/2021 Make sure to stay well-hydrated. Follow-up with anny Trujillo to schedule the earliest appointment. Return immediately for any bleeding more than a pad an hour passing large golf ball size clots or any other acute concerns. The following attachments cannot be sent through Care Everywhere.Vaginal Bleeding (Serbian)documented in this encounter [facility] Work Phone: History of Present illness Narrative 05-08-2021 Suzy Manjarrez [employer] - CNM - 05/08/2021 7:45 AM EDT [...] NEGATIVE Ketones, Urine 2+ (A) NEGATIVE Specific [place], UA 1.025 (H) 1.010 - 1.020 Urine [...] 0.21 (L) 1.10 - 3.70 k/uL Absolute [place] # 0.46 0.10 - 1.20 k/uL Absolute [...] with pt recommendations for IV infusion at [facility] women Pt will discuss with her and make a decision documented in this encounter [employer] Phone: Hospital Discharge instructions 02-26-2021 Instructions Note Date & Type Note Facility 02-26-2021 Hospital Discharg e instructions Dahlia Vasques RN - 02/26/2021 Outpatient Instructions for IM or Subcutaneous Injections [address] [place] [address] You are advised to carry out the [...] [facility] RO[facility] documented in this encounter [employer] Phone: Evaluation note Note Date & Type Note Facility Evaluation note Diagnosis 27 weeks gestation of state, incidental Need for rhogam due to Rh negative mother Need for prophylactic immunotherapy Impaired glucose in , antepartum documented in this encounter [employer] Phone: Evaluation note Note Date & Type Note Facility Evaluation note Diagnosis 36 weeks gestation of state, incidental documented in this encounter [employer] Phone: Evaluation note Note Date & Type Note Facility Evaluation note Diagnosis SARS-CoV-2 antibody positive- Primary 37 weeks gestation of state, incidental documented in this encounter [employer] Phone: Evaluation note Note Date & Type Note Facility Evaluation note Diagnosis Abnormal uterine bleeding, Other immediate hemorrhage, documented in this encounter [employer] Phone: Evaluation note Note Date & Type Note Facility Evaluation note Diagnosis Vaginal bleeding- Primary Other specified noninflammatory disorder of vagina documented in this encounter [employer] Phone: Hospital Discharge instructions Instructions Note Date & Type Note Facility Hospital Discharge instructions Ericka Vila RN - 05/08/[address] Jose Manjarrez [facility] Dr. Yanet Valencia [address] or [place] ACTIVITY LIMITATIONS: ( X )Up and about [...] AND DELIVERY . documented in this encounter [facility] [employer] Phone: Assessments Diagnosis Amenorrhea Absence of menstruation [...] blood post op. Pt was seen in [facility] 5 days ago for cramping, continued [...] RN) PRN Medication Order 05/06/2021 05/07/2021 05/08/2021 [id number] (FIORICET, ESGIC) per tablet 1 tablet 1 [...] and content) DATE CREATED AUTHOR 10/08/2021 [facility] DATE CREATED AUTHOR AUTHOR'S ORGANIZ ATION 01/20/2022 [facility] DATE CREATED AUTHOR AUTHOR'S ORGANIZ ATION 10/22/2023 [facility] DATE CREATED AUTHOR AUTHOR'S ORGANIZ ATION 12/25/2023 [facility] DATE CREATED AUTHOR AUTHOR'S ORGANIZ ATION 05/02/2024 [facility] EPIC DATE CREATED AUTHOR AUTHOR'S ORGANIZ ATION 07/09/2024 [facility] Care Teams (unrecognized sec tion and content) [employer] Relationship Specialty Start Date End Date Daija Milligan MD [address] [place] [address] PCP - General Family Medicine 12/29/22 Katharina Casper NP [address] [place] [address] PCP - Frederick Bryant 10/22/23 FOR RECORDS PERTAINING TO PATIENTS WHO ARE [...] BE BASED ON THE PRIMARY CLINICAL RECORDS. [employer] [facility]. provides no warranty or guarantee of the accuracy or completeness of information in this document.
== END 2024-07-12 20:10 | disposition home or self-care (01) ==
LOC: LAB 20:09
PROVIDERS: Family Provider Family Medicine; PCP Family Medicine; Visit Provider Physician Assistant
DX: Z01.419 Encounter for gynecological examination (general) (routine) without abnormal findings (principal)
CPT/HCPCS: 88175